=== PATIENT | male | born 1940 | race Caucasian/White ===

== ENCOUNTER 2020-04-26 14:15 | Inpatient (IN) | payer MEDICARE ==
[2020-04-26] MEDS ORDERED: NALOXONE 0.4 MG/ML 1 ML VIAL IV PRN (17:53)
[2020-04-26 19:01] LABS: Basophils % (A) 0 %; Eosinophils # (A) 0.2 k/uL (0-0.7); Eosinophils % (A) 2 %; HCT 24.7 % (39.0-53.0); Lymphocytes # (A) 0.7 k/uL (1.0-4.8); Lymphocytes % (A) 7 %; MCHC 32.6 g/dL (31.0-37.0); MCV 98.2 fL (80.0-100.0); Mean Platelet Volume 10.2; Monocytes # (A) 0.4 k/uL (0-1.0); Monocytes % (A) 4 %; Neutrophils # (A) 8.9 k/uL (1.3-7.7); Neutrophils % (A) 85 %; Platelet Count 132 k/uL (150-450); RBC 2.52 m/uL (4.30-5.90); WBC 10.4 k/uL (3.8-10.6)
[2020-04-26 19:05] LABS: Albumin 2.6 g/dL (3.5-5.0); Calcium 8.2 mg/dL (8.4-10.2); Magnesium 2.2 mg/dL (1.6-2.3); Potassium 5.4 mmol/L (3.5-5.1); Total Bilirubin 0.5 mg/dL (0.2-1.3)
[2020-04-26] MEDS: PIPERACILLIN-TAZOBACTAM 3.375 GM in SODIUM CHLORIDE 0.9% 100 ML IVPB SCH (22:59)
[2020-04-26] MEDS: SODIUM BICARBONATE TAB 650 MG TAB PO SCH (23:00)
[2020-04-26] MEDS: busPIRone HCl 5 MG TAB PO SCH (23:00)
[2020-04-26] MEDS: QUEtiapine 25 MG TAB PO SCH (23:01)
[2020-04-26] MEDS: DOCUSATE 100 MG CAP PO SCH (23:01)
[2020-04-26] MEDS: ISOSORBIDE MONONITRATE ER 30 MG TAB.ER.24H PO SCH (23:01)
[2020-04-26] MEDS: METOPROLOL TARTRATE 25 MG TAB PO SCH (23:01)
[2020-04-26] MEDS: DOXAZOSIN 4 MG TAB PO SCH (23:01)
[2020-04-26] MEDS: MONTELUKAST 10 MG TAB PO SCH (23:01)
[2020-04-26] MEDS: hydrALAZINE HCL 50 MG TAB PO SCH (23:02)
--- NOTE | 2020-04-27 00:10 | P.HPIM ---
History of Present Illness H&P Date: 04/26/20 Chief Complaint: transferred to our facility for possible HD 79 year old male with CKD IV, COPD, CAD s/p CABG 2 months ago (per patient report, however his scars looks older). patient is a transfer from [facility] for possible hemodialysis. He was admitted there from 04/15/2020 until today 04/26/2020. where he initially presented with chest pain with features of angina, and fatigue. he had extensive workup over there. from cardiac standpoint, Dr Araya from cardiology , suggested to continue with maximal medical therapy after performing a nuclear stress test. patient is s/p CABG about 2 months ago (however his scars looks older) imaging of the chest suggested possible pneumonia, he was treated with antibiotics, vancomycin was discontinued on 04/22, and he is currently on Zosyn only , for possible aspiration pneumonia, per Dr Hair from ID recommendations his renal function deteriorated from his baseline, patient initially thought to have obstructive uropathy as confirmed by large post void residual volume, however, renal US did not show any hydronephrosis, patient was very acidotic, so nephrology service was following closely and continued on lasix due to fluid overload (lasix on hold today) , and Na bicarb PO, it seems like he was not s howing significant improvement , and was trasnferred to our facility based on nephrology recommendations for possible need to initiate hemodialysis patient has chronic anemia , with no report of active or acute bleeding. he was also found to have large gall bladder with gall stones, imaging suggested chronic cholecystitis, Gen surgery was following , no recommendations for any immediate surgical intervention patient otherwise, has no compliants, he continues to feel tired , and labored breathing with minimal exertion. Review of Systems Pertinent positives as noted in HPI. All other systems were reviewed and are negative Past Medical History Past Medical History: Coronary Artery Disease (CAD), COPD, CVA/TIA, GERD/Reflux, Hearing Disorder / Deafness, Hypertension, Osteoarthritis (OA), Renal Disease, Respiratory Disorder Additional Past Medical History / Comment(s): ABDOMINAL ANEURYSM History of Any Multi-Drug Resistant Organisms: None Reported Past Surgical History: Appendectomy, Bowel Resection, Coronary Bypass/CABG, Hernia Repair Additional Past Surgical History / Comment(s): Neck Fusion 1979 x2, CRANIOTOMY, TRIPLE BYPASS, LEFT CAROTID SURGERY. Past Anesthesia/Blood Transfusion Reactions: No Reported Reaction Past Psychological History: No Psychological Hx Reported Smoking Status: Former smoker Past Alcohol Use History: None Reported Additional Past Alcohol Use History / Comment(s): PT STATES HE QUIT SMOKING 6 MONTHS AGO. Past Drug Use History: None Reported - Past Family History Sister(s) Family Medical History: Cancer Additional Family Medical History / Comment(s): BONE CA Medications and Allergies Home Medications Medication Instructions Recorded Confirmed Type Zafirlukast 20 mg PO BID 09/30/14 04/26/20 History hydroCHLOROthiazide [Hydrodiuril] 25 mg PO DAILY 09/30/14 04/26/20 History Albuterol Nebulized [Ventolin 2.5 mg INHALATION RT-Q4H PRN 04/26/20 04/26/20 History Nebulized] Carvedilol [Coreg] 25 mg PO BID 04/26/20 04/26/20 History Ipratropium Nebulized [Atrovent 0.5 mg INHALATION RT-BID 04/26/20 04/26/20 History Nebulized 0.2 MG/ML] Ipratropium Nebulized [Atrovent 0.5 mg INHALATION RT-Q4H PRN 04/26/20 04/26/20 History Nebulized 0.2 MG/ML] Lisinopril [Zestril] 10 mg PO DAILY 04/26/20 04/26/20 History Spironolactone 75 mg PO DAILY 04/26/20 04/26/20 History Tamsulosin HCl [Flomax] 0.4 mg PO DAILY 04/26/20 04/26/20 History Terazosin HCl 10 mg PO HS 04/26/20 04/26/20 History busPIRone HCL [Buspar] 7.5 mg PO BID 04/26/20 04/26/20 History cloNIDine HCL 0.3 mg PO TID 04/26/20 04/26/20 History hydrALAZINE HCL [Apresoline] 100 mg PO BID 04/26/20 04/26/20 History minoxidiL [Minoxidil] 2.5 mg PO BID 04/26/20 04/26/20 History Allergies Allergy/AdvReac Type Severity Reaction Status Date / Time morphine Allergy Rash/Hives Verified 04/26/20 18:06 Physical Exam Vitals: Vital Signs Temp Pulse Resp BP Pulse Ox 10/05/20 17:03 98.6 F 71 20 180/82 94 L Intake and Output 04/26/20 04/26/20 04/26/20 06:59 14:59 22:59 Output Total 200 Balance -200 Output: Urine 200 Other: Weight 68.039 kg Constitutional: No acute distress, conversant, pleasant Eyes: Anicteric sclerae, moist conjunctiva, Pupils equal round reactive to light ENMT: NC/AT Oropharynx clear, no erythema, or exudates Neck: Supple, FROM, no masses, or JVD No carotid bruits No thyromegaly Lungs: good breath sounds bilaterally , with end expiratory wheezing scattered Clear to percussion Normal respiratory effort, no accessory muscle use Cardiovascular: Heart regular in rate and rhythm, systolic murmurs, no gallops, or rubs No peripheral edema Abdominal: Soft Nontender, no guarding, rebound or rigidity Abdomen moving with respiration Normoactive bowel sounds No hepatomegaly, No splenomegaly No palpable mass No abdominal wall hernia noted Skin: Normal temperature, tone, texture, turgor No induration No subcutaneous nodules No rash, lesions No ulcers Extremities: No digital cyanosis No clubbing Pedal pulses intact and symmetrical Radial pulses intact and symmetrical No calf tenderness Psychiatric: Alert and oriented to person, place flat affect fair judgement Neuro Muscles Strength -4/5 in all 4 extremities Sensation to light touch grossly present throughout Cranial nerves II-XII grossly intact No focal sensory deficits Lymphatics: no palpable cervical or supraclavicular , or inguinal lymph nodes Results CBC & Chem 7: 04/26/20 18:21 04/26/20 18:21 Labs: Abnormal Lab Results - Last 24 Hours (Table) 04/26/20 04/26/20 Range/Units 18:21 18:21 RBC 2.52 L (4.30-5.90) m/uL Hgb 8.0 L (13.0-17.5) gm/dL Hct 24.7 L (39.0-53.0) % Plt Count 132 L (150-450) k/uL Neutrophils # 8.9 H (1.3-7.7) k/uL Lymphocytes # 0.7 L (1.0-4.8) k/uL Potassium 5.4 H (3.5-5.1) mmol/L Chloride 109 H (98-107) mmol/L BUN 90 H (9-20) mg/dL Creatinine 3.74 H (0.66-1.25) mg/dL Glucose 104 H (74-99) mg/dL Calcium 8.2 L (8.4-10.2) mg/dL Alkaline Phosphatase 37 L (38-126) U/L Total Protein 5.0 L (6.3-8.2) g/dL Albumin 2.6 L (3.5-5.0) g/dL Thrombosis Risk Factor Assmnt - Choose All That Apply Any of the Below Risk Factors Present?: Yes Each Factor Represents 1 point: Medical pt on bed rest, Serious lung disease incl. pneumonia (< 1month) Other Risk Factors: Yes Each Risk Factor Represents 3 Points: Age 75 years or older Other congenital or acquired thrombophilia - If yes, enter type in comment: No Thrombosis Risk Factor Assessment Total Risk Factor Score: 5 Thrombosis Risk Factor Assessment Level: High Risk Assessment and Plan Assessment: acute kidney injury on CKD IV, non oliguric mild hyperkalemia BPH , s/p lucas cath at [facility] nephrology following , lasix on hold continue Na Bicarb PO presented with lucas cath in place, cath care plans for possible hemodialysis per nephrology , vascular consult for possible access monitor K and renal function avoid nephrotoxic meds resume flomax and terazosin aspiration pneumonia continue with zosyn blood cultures negative from 04/20 and 04/21 tylenol for fever hypertension continue BP meds with hold parameters due to recent episodes of hypotension metoprolol imdur hydralazin COPD supplemental oxygen as needed to keep Oxygen sat >92% duoneb PRN monteleukast chronic anemia Mild thrombocytopenia no evidence of bleeding close monitor of Hgb and platelets CAD s/p CABG cardiac workup at [facility] , cardiology recommended maximal medical therapy incidental findings at [facility] AAA 4.7 cm , descending thoracic aortic aneurysm 3.5 cm 4mm Left basilar pulmonary nodule , F/U CT in 6 months Gall stone with large Gall bladder, possible chronic cholecystitis , consider Gen surgery consult Preformed a thorough record review from recent hospitalization at [facility] as summarized in HPI CODE STATUS: Full code DVT prophylaxis: Heparin subcu 3 times a day Discussed with: Patient, ER Anticipated length of stay more than [address]: Pending clinical course A total of 75 minutes was spent on the care of this complex patient more than 50% of the time was spent in counseling and care coordination.
[2020-04-27] MEDS: HEPARIN SODIUM,PORCINE 5,000 UNIT/ML 1 ML VIAL SQ SCH ×3 (00:21→17:31)
[2020-04-27] MEDS: IPRATROPIUM-ALBUTEROL 3 ML NEB INHALATION PRN ×4 (04:24→20:53)
[2020-04-27 07:23] LABS: Basophils % (A) 0 %; Eosinophils # (A) 0.3 k/uL (0-0.7); Eosinophils % (A) 3 %; HCT 23.2 % (39.0-53.0); HGB 7.6 gm/dL (13.0-17.5); Lymphocytes # (A) 0.8 k/uL (1.0-4.8); Lymphocytes % (A) 7 %; MCH 32.1 pg (25.0-35.0); MCHC 32.7 g/dL (31.0-37.0); Mean Platelet Volume 10.3; Monocytes # (A) 0.5 k/uL (0-1.0); Monocytes % (A) 4 %; Neutrophils # (A) 9.9 k/uL (1.3-7.7); Neutrophils % (A) 86 %; Platelet Count 134 k/uL (150-450); RBC 2.37 m/uL (4.30-5.90); WBC 11.6 k/uL (3.8-10.6)
[2020-04-27 07:29] LABS: INR 1.1 (<1.2); Partial Thromboplastin Time 25.5 sec (22.0-30.0)
[2020-04-27 07:41] LABS: Albumin 2.2 g/dL (3.5-5.0); Calcium 7.8 mg/dL (8.4-10.2); Magnesium 2.1 mg/dL (1.6-2.3); Potassium 5.1 mmol/L (3.5-5.1); Total Bilirubin 0.5 mg/dL (0.2-1.3); Total Protein 4.5 g/dL (6.3-8.2)
[2020-04-27] MEDS: ISOSORBIDE MONONITRATE ER 30 MG TAB.ER.24H PO SCH ×2 (08:58→20:22)
[2020-04-27] MEDS: SODIUM BICARBONATE TAB 650 MG TAB PO SCH ×2 (08:58→21:27)
[2020-04-27] MEDS: busPIRone HCl 5 MG TAB PO SCH ×2 (08:58→21:28)
[2020-04-27] MEDS: hydrALAZINE HCL 50 MG TAB PO SCH ×3 (08:58→20:25)
[2020-04-27] MEDS: METOPROLOL TARTRATE 25 MG TAB PO SCH ×2 (08:58→17:32)
[2020-04-27] MEDS: QUEtiapine 25 MG TAB PO SCH ×2 (08:58→21:28)
[2020-04-27] MEDS: DOCUSATE 100 MG CAP PO SCH ×2 (08:58→21:28)
[2020-04-27] MEDS: TAMSULOSIN 0.4 MG CAP.ER.24H PO SCH (08:58)
[2020-04-27] MEDS: PIPERACILLIN-TAZOBACTAM 3.375 GM in SODIUM CHLORIDE 0.9% 100 ML IVPB SCH ×2 (08:59→21:27)
[2020-04-27] MEDS: ASPIRIN 81 MG PO SCH (08:59)
--- NOTE | 2020-04-27 10:28 | P.PN ---
Subjective Patient is seen in follow-up for acute kidney injury and chronic kidney disease. Patient was transferred from [facility] yesterday. There has been concern for uremia due to waxing and waning confusion as well as volume overload. Plan is to start hemodialysis today. Currently sitting up in bed. Does feel dyspneic. No vomiting or diarrhea. Has a Hinds catheter. Nonoliguric. Vital signs are stable. General: The patient appeared well nourished and normally developed. HEENT: Head exam is unremarkable. Neck is without jugular venous distension. LUNGS: Breath sounds decreased. HEART: Rate and Rhythm are regular. ABDOMEN: Soft, nontender. EXTREMITITES: No clubbing, cyanosis, or edema. Objective - Vital Signs Vital signs: Vital Signs Temp 97.6 F 04/26/20 20:00 Pulse 68 04/27/20 08:24 Resp 22 04/27/20 04:00 BP 152/68 04/27/20 04:00 Pulse Ox 93 L 04/27/20 08:12 Intake & Output 04/26/20 04/27/20 04/27/20 18:59 06:59 18:59 Output Total 200 1000 Balance -200 -1000 Weight 68.039 kg 68 kg Output: Urine 200 1000 Other: Voiding Method Indwelling Catheter - Labs CBC & Chem 7: 04/27/20 06:38 04/27/20 06:38 Labs: Abnormal Lab Results - Last 24 Hours (Table) 04/26/20 04/26/20 04/27/20 Range/Units 18:21 18:21 06:38 WBC (3.8-10.6) k/uL RBC 2.52 L (4.30-5.90) m/uL Hgb 8.0 L (13.0-17.5) gm/dL Hct 24.7 L (39.0-53.0) % Plt Count 132 L (150-450) k/uL Neutrophils # 8.9 H (1.3-7.7) k/uL Lymphocytes # 0.7 L (1.0-4.8) k/uL Potassium 5.4 H (3.5-5.1) mmol/L Chloride 109 H 111 H (98-107) mmol/L BUN 90 H 81 H (9-20) mg/dL Creatinine 3.74 H 3.87 H (0.66-1.25) mg/dL Glucose 104 H (74-99) mg/dL Calcium 8.2 L 7.8 L (8.4-10.2) mg/dL Alkaline Phosphatase 37 L (38-126) U/L Total Protein 5.0 L 4.5 L (6.3-8.2) g/dL Albumin 2.6 L 2.2 L (3.5-5.0) g/dL 04/27/20 Range/Units 06:38 WBC 11.6 H (3.8-10.6) k/uL RBC 2.37 L (4.30-5.90) m/uL Hgb 7.6 L (13.0-17.5) gm/dL Hct 23.2 L (39.0-53.0) % Plt Count 134 L (150-450) k/uL Neutrophils # 9.9 H (1.3-7.7) k/uL Lymphocytes # 0.8 L (1.0-4.8) k/uL Potassium (3.5-5.1) mmol/L Chloride (98-107) mmol/L BUN (9-20) mg/dL Creatinine (0.66-1.25) mg/dL Glucose (74-99) mg/dL Calcium (8.4-10.2) mg/dL Alkaline Phosphatase (38-126) U/L Total Protein (6.3-8.2) g/dL Albumin (3.5-5.0) g/dL Assessment and Plan Plan: Assessment: 1. Acute kidney injury secondary to ATN secondary to infection as well as cardiorenal syndrome. 2. Chronic kidney disease stage IV with baseline creatinine near 2.5 secondary to nephrosclerosis and ischemic nephropathy. 3. Hypertension with chronic kidney disease. Controlled. 4. Aspiration pneumonia maintained on antibiotics. 5. Volume overload. 6. Encephalopathy. Concern for uremia. 7. Anemia of chronic kidney disease maintained on Aranesp. 8. Metabolic acidosis secondary to chronic kidney disease maintained on oral bicarbonate. 9. Urinary retention maintained on Flomax. Currently has Hinds catheter. Plan: With worsening renal function, volume overload and concern for uremia, I will initiate renal replacement therapy. This was discussed with the patient, his and his daughter yesterday. Vascular surgery consulted for permacath placement. Plan for first treatment of hemodialysis today and second treatment tomorrow. strategic marketing manager to help set up outpatient hemodialysis.
[2020-04-27] MEDS ORDERED: DARBEPOETIN ALFA 40 MCG/0.4 ML SYRINGE SQ SCH (11:00)
--- NOTE | 2020-04-27 14:29 | P.GSCN ---
History of Present Illness History of present illness: 79-year-old which came with the volume overload and acute chronic renal failure consulted for placement of the dialysis catheter. Neck is supple no bruit appreciated Chest is clear few rhonchi at the lung bases Abdomen soft nontender Vascular femorals are 1+ bilateral with some swelling of the extremity Plan is placement of the dialysis catheter risk and complication discussed Past Medical History Past Medical History: Coronary Artery Disease (CAD), COPD, CVA/TIA, GERD/Reflux, Hearing Disorder / Deafness, Hypertension, Osteoarthritis (OA), Renal Disease, Respiratory Disorder Additional Past Medical History / Comment(s): ABDOMINAL ANEURYSM History of Any Multi-Drug Resistant Organisms: None Reported Past Surgical History: Appendectomy, Bowel Resection, Coronary Bypass/CABG, Hernia Repair Additional Past Surgical History / Comment(s): Neck Fusion 1979 x2, CRANIOTOMY, TRIPLE BYPASS, LEFT CAROTID SURGERY. Past Anesthesia/Blood Transfusion Reactions: No Reported Reaction Past Psychological History: No Psychological Hx Reported Smoking Status: Former smoker Past Alcohol Use History: None Reported Additional Past Alcohol Use History / Comment(s): PT STATES HE QUIT SMOKING 6 MONTHS AGO. Past Drug Use History: None Reported - Past Family History Sister(s) Family Medical History: Cancer Additional Family Medical History / Comment(s): BONE CA Medications and Allergies Home Medications Medication Instructions Recorded Confirmed Type Zafirlukast 20 mg PO BID 09/30/14 04/27/20 History hydroCHLOROthiazide [Hydrodiuril] 25 mg PO DAILY 09/30/14 04/27/20 History Albuterol Nebulized [Ventolin 2.5 mg INHALATION RT-Q4H PRN 04/26/20 04/26/20 History Nebulized] Carvedilol [Coreg] 25 mg PO BID 04/26/20 04/27/20 History Ipratropium Nebulized [Atrovent 0.5 mg INHALATION RT-BID 04/26/20 04/27/20 History Nebulized 0.2 MG/ML] Ipratropium Nebulized [Atrovent 0.5 mg INHALATION RT-Q4H PRN 04/26/20 04/27/20 History Nebulized 0.2 MG/ML] Lisinopril [Zestril] 10 mg PO BID 04/26/20 04/27/20 History Spironolactone 75 mg PO DAILY 04/26/20 04/27/20 History Tamsulosin HCl [Flomax] 0.4 mg PO HS 04/26/20 04/27/20 History Terazosin HCl 10 mg PO HS 04/26/20 04/27/20 History busPIRone HCL [Buspar] 7.5 mg PO BID 04/26/20 04/27/20 History cloNIDine HCL 0.3 mg PO TID 04/26/20 04/27/20 History hydrALAZINE HCL [Apresoline] 100 mg PO BID 04/26/20 04/27/20 History minoxidiL [Minoxidil] 2.5 mg PO BID 04/26/20 04/27/20 History Aspirin EC [Ecotrin Low Dose] 81 mg PO DAILY 04/27/20 04/27/20 History Docusate [Colace] 100 mg PO DAILY 04/27/20 04/27/20 History Ferrous Sulfate [Feosol] 325 mg PO BID 04/27/20 04/27/20 History Allergies Allergy/AdvReac Type Severity Reaction Status Date / Time morphine Allergy Rash/Hives Verified 04/27/20 08:32 Surgical - Exam Vital Signs Temp Pulse Resp BP Pulse Ox 98.6 F 71 20 180/82 94 L 04/26/20 17:03 04/26/20 17:03 04/26/20 17:03 04/26/20 17:03 04/26/20 17:03 Results - Labs 04/27/20 06:38 04/27/20 06:38 Abnormal Lab Results - Last 24 Hours (Table) 04/26/20 04/26/20 04/27/20 Range/Units 18:21 18:21 06:38 WBC (3.8-10.6) k/uL RBC 2.52 L (4.30-5.90) m/uL Hgb 8.0 L (13.0-17.5) gm/dL Hct 24.7 L (39.0-53.0) % Plt Count 132 L (150-450) k/uL Neutrophils # 8.9 H (1.3-7.7) k/uL Lymphocytes # 0.7 L (1.0-4.8) k/uL Potassium 5.4 H (3.5-5.1) mmol/L Chloride 109 H 111 H (98-107) mmol/L BUN 90 H 81 H (9-20) mg/dL Creatinine 3.74 H 3.87 H (0.66-1.25) mg/dL Glucose 104 H (74-99) mg/dL Calcium 8.2 L 7.8 L (8.4-10.2) mg/dL Alkaline Phosphatase 37 L (38-126) U/L Total Protein 5.0 L 4.5 L (6.3-8.2) g/dL Albumin 2.6 L 2.2 L (3.5-5.0) g/dL 04/27/20 Range/Units 06:38 WBC 11.6 H (3.8-10.6) k/uL RBC 2.37 L (4.30-5.90) m/uL Hgb 7.6 L (13.0-17.5) gm/dL Hct 23.2 L (39.0-53.0) % Plt Count 134 L (150-450) k/uL Neutrophils # 9.9 H (1.3-7.7) k/uL Lymphocytes # 0.8 L (1.0-4.8) k/uL Potassium (3.5-5.1) mmol/L Chloride (98-107) mmol/L BUN (9-20) mg/dL Creatinine (0.66-1.25) mg/dL Glucose (74-99) mg/dL Calcium (8.4-10.2) mg/dL Alkaline Phosphatase (38-126) U/L Total Protein (6.3-8.2) g/dL Albumin (3.5-5.0) g/dL Diabetes panel 04/26/20 04/27/20 Range/Units 18:21 06:38 Sodium 138 138 (137-145) mmol/L Potassium 5.4 H 5.1 (3.5-5.1) mmol/L Chloride 109 H 111 H (98-107) mmol/L Carbon Dioxide 24 26 (22-30) mmol/L BUN 90 H 81 H (9-20) mg/dL Creatinine 3.74 H 3.87 H (0.66-1.25) mg/dL Glucose 104 H 83 (74-99) mg/dL Calcium 8.2 L 7.8 L (8.4-10.2) mg/dL AST 18 18 (17-59) U/L ALT 20 18 (4-49) U/L Alkaline Phosphatase 37 L 40 (38-126) U/L Total Protein 5.0 L 4.5 L (6.3-8.2) g/dL Albumin 2.6 L 2.2 L (3.5-5.0) g/dL Calcium panel 04/26/20 04/27/20 Range/Units 18:21 06:38 Calcium 8.2 L 7.8 L (8.4-10.2) mg/dL Albumin 2.6 L 2.2 L (3.5-5.0) g/dL Pituitary panel 04/26/20 04/27/20 Range/Units 18:21 06:38 Sodium 138 138 (137-145) mmol/L Potassium 5.4 H 5.1 (3.5-5.1) mmol/L Chloride 109 H 111 H (98-107) mmol/L Carbon Dioxide 24 26 (22-30) mmol/L BUN 90 H 81 H (9-20) mg/dL Creatinine 3.74 H 3.87 H (0.66-1.25) mg/dL Glucose 104 H 83 (74-99) mg/dL Calcium 8.2 L 7.8 L (8.4-10.2) mg/dL Adrenal panel 04/26/20 04/27/20 Range/Units 18:21 06:38 Sodium 138 138 (137-145) mmol/L Potassium 5.4 H 5.1 (3.5-5.1) mmol/L Chloride 109 H 111 H (98-107) mmol/L Carbon Dioxide 24 26 (22-30) mmol/L BUN 90 H 81 H (9-20) mg/dL Creatinine 3.74 H 3.87 H (0.66-1.25) mg/dL Glucose 104 H 83 (74-99) mg/dL Calcium 8.2 L 7.8 L (8.4-10.2) mg/dL Total Bilirubin 0.5 0.5 (0.2-1.3) mg/dL AST 18 18 (17-59) U/L ALT 20 18 (4-49) U/L Alkaline Phosphatase 37 L 40 (38-126) U/L Total Protein 5.0 L 4.5 L (6.3-8.2) g/dL Albumin 2.6 L 2.2 L (3.5-5.0) g/dL
[2020-04-27] MEDS ORDERED: IV FLUID CONTINUATION 1,000 ML IV ONE (14:50)
[2020-04-27] MEDS ORDERED: MIDAZOLAM 2 MG/2 ML VIAL IV ONE (14:52)
[2020-04-27] MEDS ORDERED: LIDOCAINE 1% INJ 10MG/ML (10 ML MDV) SQ ONE (14:54)
[2020-04-27] MEDS ORDERED: LIDOCAINE 1% INJ 10MG/ML (20 ML MDV) SQ ONE (15:03)
--- NOTE | 2020-04-27 15:30 | P.PCN ---
Description of Procedure: Preoperative diagnoses is acute chronic renal failure Posterior same Sedation time 29 minutes procedure patient brought to the [facility] of the neck and chest was prepped and draped applied in standard manner ultrasound guided needle was introduced to the right jugular area with the local IV sedation micropuncture guidewire was passed and 4-Italian dilator advanced top the guidewire. After that we placed a 4-Italian dilator on the top of the wire and then we passed a regular guidewire. Under fluoroscopy control the catheter was parked parked at the inferior vena cava. Then tunnel was created through the terminal be brought to 90 cm dialysis catheter the neck area. Dilator was advanced. The guidewire then sheath was advanced. The guidewire through the sheath we placed 23 same dialysis catheter were placed sheath was removed. It was junction superior vena cava and atrium. Flushed with heparin saline and Hep-Lock secured with 3-0 nylon dressing applied patient are to the procedure well thank you
--- NOTE | 2020-04-27 15:57 | IR ---
EXAMINATION TYPE: IR cvc insert central tunneled DATE OF EXAM: 04/27/2020 COMPARISON: NONE HISTORY: Fluoroscopy time. Fluoroscopy was provided to the referring clinician.
--- NOTE | 2020-04-27 16:22 | XR ---
EXAMINATION TYPE: XR chest 1V DATE OF EXAM: 04/27/2020 COMPARISON: 09/21/2009 INDICATION: Catheter placement TECHNIQUE: Single frontal view of the chest is obtained. FINDINGS: The heart size is normal. The pulmonary vasculature is prominent. There is diffuse increased lung markings at the right lung base. Milder infiltrate increased lung mar kings are at the left base. The diaphragms are excluded from the [id number]. There is a double-lumen catheter placement the tips in the superior vena cava region. No pneumothorax is evident. IMPRESSION: 1. No pneumothorax post right central venous catheter placement. Tips are within the superior vena ca va region. 2. Right lower lobe and mild left lower lobe infiltrates. Correlate for atypical pulmonary edema or p neumonia.
[2020-04-27 16:26] LABS: Hepatitis A Antibody IgM Non-Reactive (Non-Reactive); Hepatitis B Core IgM Non-Reactive (Non-Reactive); Hepatitis B Surface AB- Quant 3.5 mIU/mL; Hepatitis B Surface Antibody Non-Reactive (Non-Reactive); Hepatitis B Surface Antigen Non-Reactive (Non-Reactive); Hepatitis C IgG Antibody Non-Reactive (Non-Reactive)
--- NOTE | 2020-04-27 16:49 | P.PN ---
Subjective Progress Note Date: 04/27/20 Patient was seen and examined. No acute events overnight. Patient with no complaints. Undergoing dialysis. He denies any chest pain, shortness breath or palpitations. No dizziness. No nausea or vomiting. No fever or chills. Objective - Vital Signs Vital signs: Vital Signs Temp 98.7 F 04/27/20 12:00 Pulse 88 04/27/20 12:00 Resp 18 04/27/20 12:00 BP 135/62 04/27/20 12:00 Pulse Ox 92 L 04/27/20 12:00 Intake & Output 04/26/20 04/27/20 04/27/20 18:59 06:59 18:59 Intake Total 25 Output Total 200 1000 300 Balance -200 -1000 -275 Weight 68.039 kg 68 kg Intake: IV 25 Output: Urine 200 1000 300 Other: Voiding Method Indwelling Catheter Indwelling Catheter - Exam General: [non toxic], [no distress], [appears at stated age] Derm: [warm], [dry], permacath in place Head: [atraumatic], [normocephalic], [symmetric] Eyes: [EOMI], [no lid lag], [anicteric sclera] Mouth: [no lip lesion], [mucus membranes moist] Cardiovascular: [S1S2 reg], [no murmur], [positive posterior tibial pulse bilateral], Lungs: [Decreased breath sounds bilateral], [no rhonchi, no rales] , [no accessory muscle use] Abdominal: [soft], [ nontender to palpation], [no guarding], [no appreciable organomegaly] Ext: [no gross muscle atrophy], [no edema], [no contractures] Neuro: [no focal neuro deficits] Psych: [Alert], [oriented], [appropriate affect] - Labs CBC & Chem 7: 04/27/20 06:38 04/27/20 06:38 Labs: Abnormal Lab Results - Last 24 Hours (Table) 04/26/20 04/26/20 04/27/20 Range/Units 18:21 18:21 06:38 WBC (3.8-10.6) k/uL RBC 2.52 L (4.30-5.90) m/uL Hgb 8.0 L (13.0-17.5) gm/dL Hct 24.7 L (39.0-53.0) % Plt Count 132 L (150-450) k/uL Neutrophils # 8.9 H (1.3-7.7) k/uL Lymphocytes # 0.7 L (1.0-4.8) k/uL Potassium 5.4 H (3.5-5.1) mmol/L Chloride 109 H 111 H (98-107) mmol/L BUN 90 H 81 H (9-20) mg/dL Creatinine 3.74 H 3.87 H (0.66-1.25) mg/dL Glucose 104 H (74-99) mg/dL Calcium 8.2 L 7.8 L (8.4-10.2) mg/dL Alkaline Phosphatase 37 L (38-126) U/L Total Protein 5.0 L 4.5 L (6.3-8.2) g/dL Albumin 2.6 L 2.2 L (3.5-5.0) g/dL 04/27/20 Range/Units 06:38 WBC 11.6 H (3.8-10.6) k/uL RBC 2.37 L (4.30-5.90) m/uL Hgb 7.6 L (13.0-17.5) gm/dL Hct 23.2 L (39.0-53.0) % Plt Count 134 L (150-450) k/uL Neutrophils # 9.9 H (1.3-7.7) k/uL Lymphocytes # 0.8 L (1.0-4.8) k/uL Potassium (3.5-5.1) mmol/L Chloride (98-107) mmol/L BUN (9-20) mg/dL Creatinine (0.66-1.25) mg/dL Glucose (74-99) mg/dL Calcium (8.4-10.2) mg/dL Alkaline Phosphatase (38-126) U/L Total Protein (6.3-8.2) g/dL Albumin (3.5-5.0) g/dL Assessment and Plan Assessment: Acute kidney injury on chronic kidney disease secondary to ATN, aspiration pneumonia, urinary retention and cardiorenal Aspiration pneumonia Metabolic encephalopathy likely related to the above Anemia of chronic disease Hypertension COPD CAD post CABG AAA and thoracic aortic aneurysm Pulmonary nodule Enlarged gallbladder with possible chronic cholecystitis Creatinine 3.87. Plans: Plans for hemodialysis today and tomorrow. Avoid nephrotoxins. Continue Hinds catheter. Continue Doxazosin. Continue Flomax. Continue sodium bicarb supplementation. Repeat BMP tomorrow morning. Plans: Continue Zosyn. [place] thick liquids. Transition to Augmentin on disc harge. Repeat chest x-ray tomorrow morning. Supplemental O2 to maintain O2 saturation greater than 92%. Plans: Management as above. Check ammonia. Hemoglobin 7.6. Likely anemia of chronic disease. Plans: Transfuse if hemoglobin less than 7. Repeat CBC tomorrow morning. Continue Aranesp. BP 135/62. Plans: Continue hydralazine, Imdur, metoprolol. Monitor vitals, adjust medications if necessary. Plans: Continue [place]. DuoNeb as needed for shortness of breath and wheezing. Plans: Continue aspirin and metoprolol. Unsure why patient is not on Lipitor. As seen on imaging from outside hospital. Plans: Needs vascular surgery follow- up in the outpatient setting. Plans: Needs repeat CT in 6 months. Follow-up with PCP. Plans: Needs outpatient follow-up with general surgery. [Patient admitted to initiate dialysis. Plans for dialysis today and tomorrow. He is pending clinical improvement. Likely DC in 2-3 days.]
[2020-04-27] MEDS ORDERED: METOPROLOL TARTRATE 50 MG TAB PO STA (20:40)
[2020-04-27 21:20] LABS: Magnesium 2.2 mg/dL (1.6-2.3); Potassium 4.7 mmol/L (3.5-5.1)
[2020-04-27] MEDS: MONTELUKAST 10 MG TAB PO SCH (21:28)
[2020-04-27] MEDS: NITROGLYCERIN SL TABS 0.4 MG TAB SUBLINGUAL PRN ×3 (21:40→21:53)
[2020-04-27] MEDS: DOXAZOSIN 4 MG TAB PO SCH (22:03)
[2020-04-27] MEDS: ALPRAZolam 0.25 MG TAB PO PRN (22:15)
[2020-04-27] MEDS: ATORVASTATIN 80 MG TAB PO SCH (22:15)
[2020-04-27] MEDS ORDERED: HEPARIN SODIUM,PORCINE 5,000 UNIT/ML 1 ML VIAL IV ONE (22:27)
[2020-04-27] MEDS ORDERED: HEPARIN SODIUM,PORCINE 5,000 UNIT/ML 1 ML VIAL IV PRN (22:27)
--- NOTE | 2020-04-27 22:34 | P.EN ---
I was notified by RN patient complaining of chest pain 8 out of 10 in severity left-sided pressure-like, he claims that this is same pain that to come to the hospital at [facility] initially it is worth noting From my review of his records upon admission initially showed that he had cardiac workup at [facility] with nuclear stress test and cardiology team over there did not recommend any immediate intervention and suggested to continue with maximal medical therapy patient has known coronary artery disease status post CABG many years ago Patient was given nitro he is currently on aspirin, I initiated atorvastatin at maximal dose is unknown why the patient was not on it initially EKG showed A. fib at a rate of 108 has heartrate is running around 90s to low 100s His blood pressure systolic around 90 - 100 After 3 doses of nitro sublingual agent chest pain went down to 5 out of 10 he seems comfortable no sweating no trouble breathing Initial troponin was elevated at 0.98, this is however could be in part a component of his chronic kidney disease now end-stage renal disease. We'll continue to trend troponins We'll initiate the patient on heparin per ACS protocol Continue with aspirin and statin We'll give one-time dose full dose of aspirin Cardiology consult Continue close monitoring and the stepdown unit Monitor for any evidence of bleeding This A. fib on the EKG could be new and wasn't documented in his past history. Potassium and magnesium both checked and they are at goal Patient is on Lopressor he missed the evening dose so he was given one-time dose of 50 mg tonight and then we'll continue his normal dose of 25 mg 3 times a day tomorrow morning
[2020-04-27] MEDS ORDERED: HYDROmorphone 0.5 MG/0.5 ML SYRINGE IVP STA (22:43)
[2020-04-27] MEDS ORDERED: SODIUM CHLORIDE 0.9% 1,000 ML IV SCH (22:45)
[2020-04-27] MEDS: HEPARIN SOD,PORK IN 0.45% NACL 25,000 UNIT in 0.45% NACL 1 250ML.BAG IV SCH (22:57)
[2020-04-28 05:33] LABS: Basophils % (A) 0 %; Eosinophils # (A) 0.3 k/uL (0-0.7); Eosinophils % (A) 3 %; HCT 23.5 % (39.0-53.0); HGB 7.7 gm/dL (13.0-17.5); Lymphocytes # (A) 0.7 k/uL (1.0-4.8); Lymphocytes % (A) 7 %; MCH 32.4 pg (25.0-35.0); MCHC 32.7 g/dL (31.0-37.0); Mean Platelet Volume 10.5; Monocytes # (A) 0.6 k/uL (0-1.0); Monocytes % (A) 6 %; Neutrophils # (A) 8.6 k/uL (1.3-7.7); Neutrophils % (A) 84 %; Platelet Count 132 k/uL (150-450); RBC 2.37 m/uL (4.30-5.90); RDW 14.2 % (11.5-15.5); WBC 10.2 k/uL (3.8-10.6)
[2020-04-28 06:36] LABS: Calcium 7.7 mg/dL (8.4-10.2); Potassium 5.1 mmol/L (3.5-5.1)
[2020-04-28] MEDS: IPRATROPIUM-ALBUTEROL 3 ML NEB INHALATION PRN (08:07)
--- NOTE | 2020-04-28 08:09 | XR ---
EXAMINATION TYPE: XR chest 1V portable DATE OF EXAM: 04/28/2020 COMPARISON: Prior chest x-ray 04/27/2020 HISTORY: Aspiration pneumonia TECHNIQUE: Single frontal view of the chest is obtained. FINDINGS: Bibasilar increased attenuation persists, the hemidiaphragms are obscured. Right jugular c entral venous dialysis catheter shows the distal tip over the superior vena cava. There is no pneumot horax. Postop changes are noted to the cervical spine. Heart is stable. IMPRESSION: Similar findings, correlate for pneumonia, edema, follow-up suggested.
[2020-04-28] MEDS ORDERED: ISOSORBIDE MONONITRATE ER 30 MG TAB.ER.24H PO STA (09:35)
[2020-04-28] MEDS: PIPERACILLIN-TAZOBACTAM 3.375 GM in SODIUM CHLORIDE 0.9% 100 ML IVPB SCH ×2 (09:54→20:50)
[2020-04-28] MEDS: TAMSULOSIN 0.4 MG CAP.ER.24H PO SCH (09:55)
[2020-04-28] MEDS: busPIRone HCl 5 MG TAB PO SCH ×2 (09:55→20:50)
[2020-04-28] MEDS: hydrALAZINE HCL 50 MG TAB PO SCH ×3 (09:55→20:49)
[2020-04-28] MEDS: ASPIRIN 81 MG PO SCH (09:55)
[2020-04-28] MEDS: SODIUM BICARBONATE TAB 650 MG TAB PO SCH (09:55)
[2020-04-28] MEDS: DOCUSATE 100 MG CAP PO SCH ×2 (09:55→20:50)
[2020-04-28] MEDS: QUEtiapine 25 MG TAB PO SCH ×2 (09:55→20:49)
[2020-04-28] MEDS: METOPROLOL TARTRATE 25 MG TAB PO SCH ×3 (10:07→20:49)
--- NOTE | 2020-04-28 10:30 | P.PN ---
Subjective Patient is seen in follow-up for acute kidney injury and chronic kidney disease. Patient was transferred from [facility] on April 26 to initiate renal replacement therapy. There has been concern for uremia due to waxing and waning confusion as well as volume overload. tolerated first treatment of hemodialysis while yesterday. Currently sitting up in bed. continues to complain of shortness of breath. Currently on 2 L nasal cannula. No vomiting or diarrhea. Has a Hinds catheter. Nonoliguric. Vital signs are stable. General: The patient appeared well nourished and normally developed. HEENT: Head exam is unremarkable. Neck is without jugular venous distension. LUNGS: Breath sounds decreased. HEART: Rate and Rhythm are regular. ABDOMEN: Soft, nontender. EXTREMITITES: No clubbing, cyanosis, or edema. Objective - Vital Signs Vital signs: Vital Signs Temp 98.1 F 04/28/20 03:29 Pulse 75 04/28/20 08:17 Resp 18 04/28/20 03:29 BP 152/68 04/28/20 03:29 Pulse Ox 94 L 04/28/20 03:29 Intake & Output 04/27/20 04/28/20 04/28/20 18:59 06:59 18:59 Intake Total 25 240 Output Total 1300 650 200 Balance -1275 -410 -200 Weight 65.6 kg Intake: IV 25 Blood Product 240 Output: Urine 300 650 200 Uretheral (Hinds) 200 Hemodialysis 1000 Other: Voiding Method Indwelling Catheter Indwelling Catheter - Labs CBC & Chem 7: 04/28/20 05:22 04/28/20 05:22 Labs: Abnormal Lab Results - Last 24 Hours (Table) 04/27/20 04/27/20 04/28/20 Range/Units 20:54 23:22 02:34 RBC (4.30-5.90) m/uL Hgb (13.0-17.5) gm/dL Hct (39.0-53.0) % Plt Count (150-450) k/uL Neutrophils # (1.3-7.7) k/uL Lymphocytes # (1.0-4.8) k/uL APTT (22.0-30.0) sec BUN (9-20) mg/dL Creatinine (0.66-1.25) mg/dL Calcium (8.4-10.2) mg/dL Troponin I 0.980 H* 0.919 H* 1.020 H* (0.000-0.034) ng/mL 04/28/20 04/28/20 04/28/20 Range/Units 05:22 05:22 05:22 RBC 2.37 L (4.30-5.90) m/uL Hgb 7.7 L (13.0-17.5) gm/dL Hct 23.5 L (39.0-53.0) % Plt Count 132 L (150-450) k/uL Neutrophils # 8.6 H (1.3-7.7) k/uL Lymphocytes # 0.7 L (1.0-4.8) k/uL APTT 54.5 H (22.0-30.0) sec BUN 59 H (9-20) mg/dL Creatinine 3.15 H (0.66-1.25) mg/dL Calcium 7.7 L (8.4-10.2) mg/dL Troponin I (0.000-0.034) ng/mL Assessment and Plan Plan: Assessment: 1. Acute kidney injury secondary to ATN secondary to infection as well as cardiorenal syndrome. started on hemodialysis on April 27. 2. Chronic kidney disease stage IV with baseline creatinine near 2.5 secondary to nephrosclerosis and ischemic nephropathy. 3. Hypertension with chronic kidney disease. Controlled. 4. Aspiration pneumonia maintained on antibiotics. 5. Volume overload. 6. Encephalopathy. Concern for uremia. improved. 7. Anemia of chronic kidney disease maintained on Aranesp. 8. Metabolic acidosis secondary to chronic kidney disease maintained on oral bicarbonate. 9. Urinary retention maintained on Flomax. Currently has Hinds catheter. Plan: second treatment of hemodialysis today. discontinue oral bicarbonate. Hep-Lock IV fluids. strategic manager to help set up outpatient hemodialysis.
--- NOTE | 2020-04-28 11:32 | P.PN ---
Subjective Progress Note Date: 04/28/20 Patient was seen and examined. Overnight, had an episode of chest pain. He was given aspirin and nitro. EKG was obtained which showed A. fib at a rate of 108. His chest pain improved with 3 doses of sublingual nitroglycerin. Patient was started on heparin drip and cardiology was consulted. He denies any current chest pain, shortness breath or palpitations. He is able to tell me the president, year and the location that he is at. Unable to state which month it is. Objective - Vital Signs Vital signs: Vital Signs Temp 98.2 F 04/28/20 08:00 Pulse 75 04/28/20 08:17 Resp 18 04/28/20 08:00 BP 166/72 04/28/20 08:00 Pulse Ox 92 L 04/28/20 08:00 Intake & Output 04/27/20 04/28/20 04/28/20 18:59 06:59 18:59 Intake Total 25 240 Output Total 1300 650 200 Balance -1275 -410 -200 Weight 65.6 kg Intake: IV 25 Blood Product 240 Output: Urine 300 650 200 Uretheral (Hinds) 200 Hemodialysis 1000 Other: Voiding Method Indwelling Catheter Indwelling Catheter - Exam General: [non toxic], [no distress], [appears at stated age] Derm: [warm], [dry], permacath in place Head: [atraumatic], [normocephalic], [symmetric] Eyes: [EOMI], [no lid lag], [anicteric sclera] Mouth: [no lip lesion], [mucus membranes moist] Cardiovascular: [S1S2 reg], [no murmur], [positive DP pulse bilateral], Lungs: [Decreased breath sounds bilateral], [no rhonchi, no rales] , [no accessory muscle use] Abdominal: [soft], [ nontender to palpation], [no guarding], [no appreciable organomegaly] Ext: [no gross muscle atrophy], [no edema], [no contractures] Neuro: [no focal neuro deficits] Psych: [Alert], [oriented], [appropriate affect] - Labs CBC & Chem 7: 04/28/20 05:22 04/28/20 05:22 Labs: Abnormal Lab Results - Last 24 Hours (Table) 1004/27/20 04/28/20 Range/Units 20:54 23:22 02:34 RBC (4.30-5.90) m/uL Hgb (13.0-17.5) gm/dL Hct (39.0-53.0) % Plt Count (150-450) k/uL Neutrophils # (1.3-7.7) k/uL Lymphocytes # (1.0-4.8) k/uL APTT (22.0-30.0) sec BUN (9-20) mg/dL Creatinine (0.66-1.25) mg/dL Calcium (8.4-10.2) mg/dL Troponin I 0.980 H* 0.919 H* 1.020 H* (0.000-0.034) ng/mL 04/28/20 04/28/20 04/28/20 Range/Units 05:22 05:22 05:22 RBC 2.37 L (4.30-5.90) m/uL Hgb 7.7 L (13.0-17.5) gm/dL Hct 23.5 L (39.0-53.0) % Plt Count 132 L (150-450) k/uL Neutrophils # 8.6 H (1.3-7.7) k/uL Lymphocytes # 0.7 L (1.0-4.8) k/uL APTT 54.5 H (22.0-30.0) sec BUN 59 H (9-20) mg/dL Creatinine 3.15 H (0.66-1.25) mg/dL Calcium 7.7 L (8.4-10.2) mg/dL Troponin I (0.000-0.034) ng/mL Assessment and Plan Assessment: Acute kidney injury on chronic kidney disease secondary to ATN, aspiration pneumonia, urinary retention and cardiorenal Chest pain with troponin elevation and new onset A. fib Aspiration pneumonia Metabolic encephalopathy likely related to the above Anemia of chronic disease Hypertension COPD CAD post CABG AAA and thoracic aortic aneurysm Pulmonary nodule Enlarged gallbladder with possible chronic cholecystitis Creatinine 3.15. Plans: Plans for hemodialysis today. Avoid nephrotoxins. Continue Hinds catheter. Continue Doxazosin. Continue Flomax. Continue sodium bicarb supplementation. Repeat BMP tomorrow morning. Troponin 0.98, 0.919, 1.02 with EKG showing atrial fibrillation. Plans: Con tinue heparin drip. Continue aspirin and Lipitor. Continue beta britni. Follow-up echocardiogram. Follow-up cardiology consultation. Chest x-ray shows persistent pneumonia. Plans: Continue Zosyn. [place] thick liquids. Transition to Augmentin on discharge. Repeat chest x-ray tomorrow morning. Supplemental O2 to maintain O2 saturation greater than 92%. Consult pulmonology. Ammonia negative. Mentation appears to be improving. Plans: Management as above. Hemoglobin 7.7. Likely anemia of chronic disease. Plans: Transfuse if hemoglobin less than 7. Repeat CBC tomorrow morning. Continue Aranesp. BP 166/72. Plans: Continue hydralazine, Imdur, metoprolol. Monitor vitals, adjust medications if necessary. Plans: Continue [place]. DuoNeb as needed for shortness of breath and wheezing. Plans: Continue aspirin and metoprolol. Unsure why patient is not on Lipitor. As seen on imaging from outside hospital. Plans: Needs vascular surgery follow- up in the outpatient setting. Plans: Needs repeat CT in 6 months. Follow-up with PCP. Plans: Needs outpatient follow-up with general surgery. [Patient admitted to initiate dialysis. Plans for dialysis today. On IV antibiotics for aspiration pneumonia. Cardiology consulted for new onset A. fib and troponin elevation. He is pending clinical improvement. Likely DC in 2-3 days.]
--- NOTE | 2020-04-28 12:58 | P.CRDCN ---
<Berkley Lozada - Last Filed: 04/28/20 12:58> History of Present Illness Consult date: 04/28/20 History of present illness: CHIEF COMPLAINT: New onset atrial fibrillation HISTORY OF PRESENT ILLNESS: This is a 79-year old male with a past medical hist ory significant for coronary artery disease with previous CABG, COPD, hypertension, and chronic kidney disease. Patient used to follow in the office with Dr. Hernandez but has not see him in over 4 years. We have been asked to see the patient in consultation for new onset afib. Patient was hospitalized from 04/15/2020 to 04/26/2020 at [facility] secondary to chest pain. Patient was found to have worsening kidney function and was transferred to [facility] for hemodialysis. Patient underwent stress test during his hospitalization at [facility] which revealed an apparent area of reversib ility along the mid inferior, inferior septal wall. In addition 3 times a day is elevated at 1.6. This can be seen in the setting of global, multivessel inducible ischemia. He was evaluated by cardiology at that time and medical management was recommended to patients multiple comorbidities. He also had an echocardiogram performed revealing ejection fraction between 60 and 65% with [id number] mitral regurgitation and [id number] tricuspid regurgitation. Patient examined this morning at the bedside. Patient reports he has been having chest pain intermittently over the past couple weeks. He reports an episode last night of midsternal chest pain that radiated to his back. No radiation to jaw or arm. Mild shortness of breath. He received sublingual nitro with improvement in his chest pain. Patient currently denies chest pain this morning time of examination. Patient was also found to be in atrial fibrillation yesterday. Patient denies history of atrial fibrillation. He is b ack in SR at the time of examination. He was started on heparin drip yesterday. Patient is anemic with hemoglobin of 7.7. Unknown baseline. Patient does report he has been having some black stools. DIAGNOSTICS: EKG reveals atrial fibrillation with mildly uncontrolled rate Chest xray right lower lobe mid left lower lobe infiltrates. Correlate for atypical pulmonary edema or pneumonia. Laboratory data: WBC 10.2. Hemoglobin 7.7. Platelet count 132. Sodium 1:30. Potassium 5.1. BUN 59. Creatinine 3.15. Troponin 0.980. 0.919. 1.020 Current home cardiac medications include minoxidil 2.5 mg twice a day, hydrochlorothiazide 25 mg daily, Apresoline 100 mg twice a day, clonidine 0.3 mg 3 times a day, spironolactone 75 mg daily, lisinopril 10 mg daily REVIEW OF SYSTEMS: At the time of my exam: CONSTITUTIONAL: Denies fever or chills. HEENT: Denies blurred vision, vision changes, or eye pain. Denies hemoptysis CARDIOVASCULAR: Denies chest pain, orthopnea, PND or palpitations RESPIRATORY: Reports mild shortness of breath. GASTROINTESTINAL: Denies abdominal pain. Denies nausea or vomiting. HEMATOLOGIC: Denies bleeding disorders. GENITOURINARY: Denies any blood in urine. SKIN: Denies pruitis. Denies rash. PHYSICAL EXAM: VITAL SIGNS: Reviewed. GENERAL: Well-developed in no acute distress. HEENT: Head is normocephalic. Pupils are equal, round. Sclerae anicteric. Mucous membranes of the mouth are moist. Neck supple. No JVD or thyromegaly LUNGS: Respirations even and unlabored. Lungs coarse with expiratory wheezing noted. HEART: Regular rate and rhythm. S1 and S2 heard. ABDOMEN: Soft. Nondistended. Nontender. EXTREMITIES: Normal range of motion. No clubbing or cyanosis. Peripheral pulses intact. No lower extremity edema NEUROLOGIC: Awake and alert. Oriented x 3. ASSESSMENT: Chest pain with abnormal troponins New onset paroxysmal atrial fibrillation with RVR Anemia, unsure if acute or chronic Coronary artery disease with previous CABG Hypertension End-stage renal disease, recently started on hemodialysis COPD PLAN: Continue IV heparin Monitor hemoglobin. Obtain stool for occult blood. Change imdur to 60mg daily Continue beta britni Monitor telemetry and blood pressure No plans for cardiac cath at this time due to ESRD. We will continue with medical management at this time. Nurse practitioner note has been reviewed by physician. Signing provider agrees with the documented findings, assessment, and plan of care. Past Medical History Past Medical History: Coronary Artery Disease (CAD), COPD, CVA/TIA, GERD/Reflux, Hearing Disorder / Deafness, Hypertension, Osteoarthritis (OA), Renal Disease, Respiratory Disorder Additional Past Medical History / Comment(s): ABDOMINAL ANEURYSM History of Any Multi-Drug Resistant Organisms: None Reported Past Surgical History: Appendectomy, Bowel Resection, Coronary Bypass/CABG, Hernia Repair Additional Past Surgical History / Comment(s): Neck Fusion 1979 x2, CRANIOTOMY, TRIPLE BYPASS, LEFT CAROTID SURGERY. Past Anesthesia/Blood Transfusion Reactions: No Reported Reaction Past Psychological History: No Psychological Hx Reported Smoking Status: Former smoker Past Alcohol Use History: None Reported Additional Past Alcohol Use History / Comment(s): PT STATES HE QUIT SMOKING 6 MONTHS AGO. Past Drug Use History: None Reported - Past Family History Sister(s) Family Medical History: Cancer Additional Family Medical History / Comment(s): BONE CA Medications and Allergies Home Medications Medication Instructions Recorded Confirmed Type Zafirlukast 20 mg PO BID 09/30/14 04/27/20 History hydroCHLOROthiazide [Hydrodiuril] 25 mg PO DAILY 09/30/14 04/27/20 History Albuterol Nebulized [Ventolin 2.5 mg INHALATION RT-Q4H PRN 04/26/20 04/26/20 History Nebulized] Carvedilol [Coreg] 25 mg PO BID 04/26/20 04/27/20 History Ipratropium Nebulized [Atrovent 0.5 mg INHALATION RT-BID 04/26/20 04/27/20 History Nebulized 0.2 MG/ML] Ipratropium Nebulized [Atrovent 0.5 mg INHALATION RT-Q4H PRN 04/26/20 04/27/20 History Nebulized 0.2 MG/ML] Lisinopril [Zestril] 10 mg PO BID 04/26/20 04/27/20 History Spironolactone 75 mg PO DAILY 04/26/20 04/27/20 History Tamsulosin HCl [Flomax] 0.4 mg PO HS 04/26/20 04/27/20 History Terazosin HCl 10 mg PO HS 04/26/20 04/27/20 History busPIRone HCL [Buspar] 7.5 mg PO BID 04/26/20 04/27/20 History cloNIDine HCL 0.3 mg PO TID 04/26/20 04/27/20 History hydrALAZINE HCL [Apresoline] 100 mg PO BID 04/26/20 04/27/20 History minoxidiL [Minoxidil] 2.5 mg PO BID 04/26/20 04/27/20 History Aspirin EC [Ecotrin Low Dose] 81 mg PO DAILY 04/27/20 04/27/20 History Docusate [Colace] 100 mg PO DAILY 04/27/20 04/27/20 History Ferrous Sulfate [Feosol] 325 mg PO BID 04/27/20 04/27/20 History Allergies Allergy/AdvReac Type Severity Reaction Status Date / Time morphine Allergy Rash/Hives Verified 04/27/20 08:32 Physical Exam Vitals: Vital Signs Temp Pulse Pulse Resp BP Pulse Ox 04/28/20 08:17 75 04/28/20 08:07 77 04/28/20 03:29 98.1 F 58 L 18 152/68 94 L 04/28/20 00:00 99 F 93 20 107/59 94 L 04/27/20 20:23 98.7 F 114 H 19 115/66 94 L 04/27/20 17:59 97.2 F L 18 122/71 04/27/20 12:00 98.7 F 88 16 135/62 92 L 04/27/20 11:57 67 04/27/20 11:48 66 Intake and Output 04/27/20 04/28/20 04/28/20 22:59 06:59 14:59 Intake Total 240 Output Total 1300 650 200 Balance -1300 -410 -200 Intake: Blood Product 240 Output: Urine 300 650 200 Uretheral (Hinds) 200 Hemodialysis 1000 Other: Voiding Method Indwelling Catheter Indwelling Catheter Weight 65.6 kg Results 04/28/20 05:22 04/28/20 05:22 Cardiac Enzymes 04/27/20 04/27/20 04/28/20 Range/Units 20:54 23:22 02:34 Troponin I 0.980 H* 0.919 H* 1.020 H* (0.000-0.034) ng/mL Coagulation 04/28/20 Range/Units 05:22 APTT 54.5 H (22.0-30.0) sec CBC 04/28/20 Range/Units 05:22 WBC 10.2 (3.8-10.6) k/uL RBC 2.37 L (4.30-5.90) m/uL Hgb 7.7 L (13.0-17.5) gm/dL Hct 23.5 L (39.0-53.0) % Plt Count 132 L (150-450) k/uL Comprehensive Metabolic Panel 04/27/20 04/28/20 Range/Units 20:54 05:22 Sodium 138 (137-145) mmol/L Potassium 4.7 5.1 (3.5-5.1) mmol/L Chloride 107 (98-107) mmol/L Carbon Dioxide 27 (22-30) mmol/L BUN 59 H (9-20) mg/dL Creatinine 3.15 H (0.66-1.25) mg/dL Glucose 83 (74-99) mg/dL Calcium 7.7 L (8.4-10.2) mg/dL Current Medications Generic Name Dose Route Start Last Admin Trade Name Freq PRN Reason Stop Dose Admin Acetaminophen 650 mg 04/26/20 17:53 Acetaminophen Tab 325 Mg Tab PO Q6HR PRN Mild Pain or Fever > 100.5 Albuterol/Ipratropium 3 ml 04/26/20 22:21 04/28/20 08:07 Ipratropium-Albuterol 3 Ml Neb INHALATION 3 ml RT-Q2H PRN Administration Shortness Of Breath Or Wheezing Alprazolam 0.25 mg 04/27/20 22:07 04/27/20 22:15 Alprazolam 0.25 Mg Tab PO 0.25 mg QID PRN Administration Anxiety Aspirin 81 mg 04/27/20 09:00 04/28/20 09:55 Aspirin 81 Mg PO 81 mg DAILY CELESTINO Administration Atorvastatin Calcium 80 mg 04/27/20 22:00 04/27/20 22:15 Atorvastatin 80 Mg Tab PO 80 mg HS CELESTINO Administration Buspirone HCl 7.5 mg 04/26/20 22:30 04/28/20 09:55 Buspirone Hcl 5 Mg Tab PO 7.5 mg BID CELESTINO Administration Darbepoetin Edu 40 mcg 04/27/20 11:00 04/27/20 21:26 Darbepoetin Edu 40 Mcg/0.4 Ml Syringe SQ 40 mcg Q7D CELESTINO Administration Docusate Sodium 100 mg 04/26/20 22:30 04/28/20 09:55 Docusate 100 Mg Cap PO 100 mg BID CELESTINO Administration Doxazosin Mesylate 2 mg 04/26/20 22:30 04/27/20 22:03 Doxazosin 4 Mg Tab PO Not Given HS CELESTINO Heparin Sodium (Porcine) 0 unit 04/27/20 22:27 Heparin Sodium,Porcine 5,000 Unit/Ml 1 Ml Vial IV PER PROTOCOL PRN Low PTT Protocol Hydralazine HCl 100 mg 04/26/20 22:30 04/28/20 09:55 Hydralazine Hcl 50 Mg Tab PO 100 mg TID CELESTINO Administration Piperacillin Sod/Tazobactam 100 mls @ 25 mls/hr 04/26/20 22:21 04/28/20 09:54 Sod 3.375 gm/ Sodium Chloride IVPB 25 mls/hr Q12H CELESTINO Administration Heparin Sodium/Sodium Chloride 250 mls @ 8.16 mls/hr 04/27/20 22:30 04/27/20 22:57 25,000 unit/ Sodium Chloride IV 12 units/kg/hr .Q24H CELESTINO 8.16 mls/hr Administration Protocol 12 UNITS/KG/HR Isosorbide Mononitrate 60 mg 04/29/20 09:00 Isosorbide Mononitrate Er 60 Mg Tab.Er.24h PO DAILY REPLACED BY [facility] Metoprolol Tartrate 25 mg 04/28/20 09:00 04/28/20 10:07 Metoprolol Tartrate 25 Mg Tab PO 25 mg TID CELESTINO Administration Montelukast Sodium 10 mg 04/26/20 22:30 04/27/20 21:28 Montelukast 10 Mg Tab PO 10 mg HS CELESTINO Administration Naloxone HCl 0.2 mg 04/26/20 17:53 Naloxone 0.4 Mg/Ml 1 Ml Vial IV Q2M PRN Opioid Reversal Nitroglycerin 0.4 mg 04/27/20 21:31 04/27/20 21:53 Nitroglycerin Sl Tabs 0.4 Mg Tab SUBLINGUAL 0.4 mg Q5M PRN Administration Chest Pain Quetiapine Fumarate 25 mg 04/26/20 22:30 04/28/20 09:55 Quetiapine 25 Mg Tab PO 25 mg BID CELESTINO Administration Tamsulosin HCl 0.4 mg 04/27/20 08:30 04/28/20 09:55 Tamsulosin 0.4 Mg Cap.Er.24h PO 0.4 mg PC-BRKFST CELESTINO Administration Intake and Output 04/27/20 04/28/20 04/28/20 22:59 06:59 14:59 Intake Total 240 Output Total 1300 650 200 Balance -1300 -410 -200 Intake: Blood Product 240 Output: Urine 300 650 200 Uretheral (Hinds) 200 Hemodialysis 1000 Other: Voiding Method Indwelling Catheter Indwelling Catheter Weight 65.6 kg 04/28/20 05:22 04/28/20 05:22 <Ralph Lynn - Last Filed: 04/28/20 16:24> History of Present Illness History of present illness: Records reviewed from [facility]. Worsening kidney function now on dialysis. He does have elevated troponins, chest pain and abnormal stress test. Ideally perform left heart catheterization if patient likely to remain on dialysis. If kidney injury and dialysis felt to be possibly temporary, we would have to reevaluate. Patient however admits to new onset of black stools over the last few days. He does have some confusion and unclear of his reliability. We will check Hemoccult stools. May consider GI consult to further evaluate. If patient is having active bleeding, patient would not be a good interventional candidate. Continue with heparin drip for elevated troponins and new-onset atrial fibrillation. Ralph Lynn, DO Physical Exam Vitals: Vital Signs Temp Pulse Pulse Resp BP Pulse Ox 04/28/20 08:17 75 04/28/20 08:07 77 04/28/20 08:00 98.2 F 74 18 166/72 92 L 04/28/20 03:29 98.1 F 58 L 18 152/68 94 L 04/28/20 00:00 99 F 93 20 107/59 94 L 04/27/20 20:23 98.7 F 114 H 19 115/66 94 L 04/27/20 17:59 97.2 F L 18 122/71 Intake and Output 04/28/20 04/28/20 04/28/20 06:59 14:59 22:59 Intake Total 240 100 Output Total 650 800 220 Balance -410 -700 -220 Intake: Oral 100 Blood Product 240 Output: Urine 650 800 220 Uretheral (Hinds) 300 220 Other: Voiding Method Indwelling Catheter Weight 65.6 kg Results 04/28/20 05:22 04/28/20 05:22 Cardiac Enzymes 04/27/20 04/27/20 04/28/20 Range/Units 20:54 23:22 02:34 Troponin I 0.980 H* 0.919 H* 1.020 H* (0.000-0.034) ng/mL Coagulation 04/28/20 Range/Units 05:22 APTT 54.5 H (22.0-30.0) sec CBC 04/28/20 Range/Units 05:22 WBC 10.2 (3.8-10.6) k/uL RBC 2.37 L (4.30-5.90) m/uL Hgb 7.7 L (13.0-17.5) gm/dL Hct 23.5 L (39.0-53.0) % Plt Count 132 L (150-450) k/uL Comprehensive Metabolic Panel 04/27/20 04/28/20 Range/Units 20:54 05:22 Sodium 138 (137-145) mmol/L Potassium 4.7 5.1 (3.5-5.1) mmol/L Chloride 107 (98-107) mmol/L Carbon Dioxide 27 (22-30) mmol/L BUN 59 H (9-20) mg/dL Creatinine 3.15 H (0.66-1.25) mg/dL Glucose 83 (74-99) mg/dL Calcium 7.7 L (8.4-10.2) mg/dL Current Medications Generic Name Dose Route Start Last Admin Trade Name Freq PRN Reason Stop Dose Admin Acetaminophen 650 mg 04/26/20 17:53 Acetaminophen Tab 325 Mg Tab PO Q6HR PRN Mild Pain or Fever > 100.5 Albuterol/Ipratropium 3 ml 04/26/20 22:21 04/28/20 08:07 Ipratropium-Albuterol 3 Ml Neb INHALATION 3 ml RT-Q2H PRN Administration Shortness Of Breath Or Wheezing Alprazolam 0.25 mg 04/27/20 22:07 04/27/20 22:15 Alprazolam 0.25 Mg Tab PO 0.25 mg QID PRN Administration Anxiety Aspirin 81 mg 04/27/20 09:00 04/28/20 09:55 Aspirin 81 Mg PO 81 mg DAILY CELESTINO Administration Atorvastatin Calcium 80 mg 04/27/20 22:00 04/27/20 22:15 Atorvastatin 80 Mg Tab PO 80 mg HS CELESTINO Administration Buspirone HCl 7.5 mg 04/26/20 22:30 04/28/20 09:55 Buspirone Hcl 5 Mg Tab PO 7.5 mg BID CELESTINO Administration Darbepoetin Edu 40 mcg 04/27/20 11:00 04/27/20 21:26 Darbepoetin Edu 40 Mcg/0.4 Ml Syringe SQ 40 mcg Q7D CELESTINO Administration Docusate Sodium 100 mg 04/26/20 22:30 04/28/20 09:55 Docusate 100 Mg Cap PO 100 mg BID CELESTINO Administration Doxazosin Mesylate 2 mg 04/26/20 22:30 04/27/20 22:03 Doxazosin 4 Mg Tab PO Not Given HS CELESTINO Heparin Sodium (Porcine) 0 unit 04/27/20 22:27 Heparin Sodium,Porcine 5,000 Unit/Ml 1 Ml Vial IV PER PROTOCOL PRN Low PTT Protocol Hydralazine HCl 100 mg 04/26/20 22:30 04/28/20 09:55 Hydralazine Hcl 50 Mg Tab PO 100 mg TID CELESTINO Administration Piperacillin Sod/Tazobactam 100 mls @ 25 mls/hr 04/26/20 22:21 04/28/20 09:54 Sod 3.375 gm/ Sodium Chloride IVPB 25 mls/hr Q12H CELESTINO Administration Heparin Sodium/Sodium Chloride 250 mls @ 8.16 mls/hr 04/27/20 22:30 04/27/20 22:57 25,000 unit/ Sodium Chloride IV 12 units/kg/hr .Q24H CELESTINO 8.16 mls/hr Administration Protocol 12 UNITS/KG/HR Isosorbide Mononitrate 60 mg 04/29/20 09:00 Isosorbide Mononitrate Er 60 Mg Tab.Er.24h PO DAILY REPLACED BY [facility] Metoprolol Tartrate 25 mg 04/28/20 09:00 04/28/20 10:07 Metoprolol Tartrate 25 Mg Tab PO 25 mg TID CELESTINO Administration Montelukast Sodium 10 mg 04/26/20 22:30 04/27/20 21:28 Montelukast 10 Mg Tab PO 10 mg HS CELESTINO Administration Naloxone HCl 0.2 mg 04/26/20 17:53 Naloxone 0.4 Mg/Ml 1 Ml Vial IV Q2M PRN Opioid Reversal Nitroglycerin 0.4 mg 04/27/20 21:31 04/27/20 21:53 Nitroglycerin Sl Tabs 0.4 Mg Tab SUBLINGUAL 0.4 mg Q5M PRN Administration Chest Pain Quetiapine Fumarate 25 mg 04/26/20 22:30 04/28/20 09:55 Quetiapine 25 Mg Tab PO 25 mg BID CELESTINO Administration Tamsulosin HCl 0.4 mg 04/27/20 08:30 04/28/20 09:55 Tamsulosin 0.4 Mg Cap.Er.24h PO 0.4 mg PC-BRKFST CELESTINO Administration Intake and Output 04/28/20 04/28/20 04/28/20 06:59 14:59 22:59 Intake Total 240 100 Output Total 650 800 220 Balance -410 -700 -220 Intake: Oral 100 Blood Product 240 Output: Urine 650 800 220 Uretheral (Hinds) 300 220 Other: Voiding Method Indwelling Catheter Weight 65.6 kg 04/28/20 05:22 04/28/20 05:22
--- NOTE | 2020-04-28 19:43 | ECHOF ---
Referral Reason:chest pain MEASUREMENTS -------- HEIGHT: 175.3 cm WEIGHT: 65.3 kg BP: IVSd: 0.8 cm (0.6 - 1.1) LVIDd: 5.1 cm (3.9 - 5.3) LVPWd: 1.1 cm (0.6 - 1.1) IVSs: 1.3 cm LVIDs: 3.7 cm LVPWs: 1.4 cm LAESV Index (A-L): 52.82 ml/m Ao Diam: 2.9 cm (2.0 - 3.7) AV Cusp: 1.6 cm (1.5 - 2.6) LA Diam: 2.6 cm (2.7 - 3.8) MV EXCURSION: 17.007 mm (> 18.000) MV EF SLOPE: 48 mm/s (70 - 150) EPSS: 0.5 cm MV E Alex: 0.74 m/s MV DecT: 304 ms MV A Alex: 0.94 m/s MV E/A Ratio: 0.79 AV maxP.07 mmHg AV meanP.82 mmHg AR PHT: 653 ms RAP: 5.00 mmHg RVSP: 28.12 mmHg FINDINGS -------- This was a technically good study. The left ventricular size is normal. Left ventricular wall thickness is normal. Overall left vent ricular systolic function is moderately impaired with, an EF between 35 - 40 %. There is paradoxica l/dysynergic septal motion consistent with post-operative status. Increased LAP Grade 2 Diastolic D ysfunction. Mid anteroseptal LV wall motion is hypokinetic. The right ventricle is normal in size. LA is severely dilated >40 ml/m2 The right atrial size is normal. Aortic valve is trileaflet and is mildly thickened. There is mild aortic regurgitation. There is mild aortic stenosis present. Peak/mean gradient across the Aortic Valve is 17.07mmHg / 8.82mmHg. The mitral valve is normal. The mitral valve leaflets are mildly thickened. Mild mitral regurgita tion is present. The tricuspid valve appears structurally normal. Mild tricuspid regurgitation present. Right vent ricular systolic pressure is normal at < 35 mmHg. There is no pulmonic regurgitation present. The aortic root size is normal. Normal inferior vena cava with normal inspiratory collapse consistent with estimated right atrial pre ssure of 5 mmHg. There is no pericardial effusion. CONCLUSIONS -------- 1. The left ventricular size is normal. 2. Left ventricular wall thickness is normal. 3. Overall left ventricular systolic function is moderately impaired with, an EF between 35 - 40 %. 4. There is paradoxical/dysynergic septal motion consistent with post-operative status. 5. Increased LAP Grade 2 Diastolic Dysfunction. 6. Mid anteroseptal LV wall motion is hypokinetic. 7. LA is severely dilated >40 ml/m2 8. Aortic valve is trileaflet and is mildly thickened. 9. There is mild aortic regurgitation. 10. There is mild aortic stenosis present. 11. Peak/mean gradient across the Aortic Valve is 17.07mmHg / 8.82mmHg. 12. The mitral valve leaflets are mildly thickened. 13. Mild mitral regurgitation is present. 14. Mild tricuspid regurgitation present. 15. There is no pericardial effusion. [employer]UAL [employer] TEACHER: Lore Ardon RDCS
[2020-04-28] MEDS: ACETAMINOPHEN TAB 325 MG TAB PO PRN (19:57)
[2020-04-28] MEDS: ISOSORBIDE MONONITRATE ER 30 MG TAB.ER.24H PO SCH (20:37)
[2020-04-28] MEDS: ATORVASTATIN 80 MG TAB PO SCH (20:49)
[2020-04-28] MEDS: MONTELUKAST 10 MG TAB PO SCH (20:50)
[2020-04-28] MEDS: DOXAZOSIN 4 MG TAB PO SCH (20:50)
[2020-04-28] MEDS: HEPARIN SOD,PORK IN 0.45% NACL 25,000 UNIT in 0.45% NACL 1 250ML.BAG IV SCH (20:51)
[2020-04-28] MEDS: ALPRAZolam 0.25 MG TAB PO PRN (23:58)
[2020-04-29] MEDS: ACETAMINOPHEN TAB 325 MG TAB PO PRN (03:25)
[2020-04-29] MEDS ORDERED: HEPARIN SODIUM,PORCINE 5,000 UNIT/ML 1 ML VIAL IV STA (08:37)
[2020-04-29] MEDS: ISOSORBIDE MONONITRATE ER 60 MG TAB.ER.24H PO SCH (09:07)
[2020-04-29] MEDS: ASPIRIN 81 MG PO SCH (09:07)
[2020-04-29] MEDS: DOCUSATE 100 MG CAP PO SCH ×2 (09:07→20:34)
[2020-04-29] MEDS: TAMSULOSIN 0.4 MG CAP.ER.24H PO SCH (09:07)
[2020-04-29] MEDS: busPIRone HCl 5 MG TAB PO SCH ×2 (09:07→20:34)
[2020-04-29] MEDS: hydrALAZINE HCL 50 MG TAB PO SCH ×3 (09:07→22:06)
[2020-04-29] MEDS: QUEtiapine 25 MG TAB PO SCH ×2 (09:07→20:34)
[2020-04-29] MEDS: METOPROLOL TARTRATE 25 MG TAB PO SCH ×3 (09:11→20:34)
[2020-04-29] MEDS: PIPERACILLIN-TAZOBACTAM 3.375 GM in SODIUM CHLORIDE 0.9% 100 ML IVPB SCH ×2 (09:11→22:54)
--- NOTE | 2020-04-29 11:00 | P.PN ---
Subjective Patient is seen in follow-up for acute kidney injury and chronic kidney disease. Patient was transferred from [facility] on April 26 to initiate renal replacement therapy. There has been concern for uremia due to waxing and waning confusion as well as volume overload. Currently sitting up in bed. continues to complain of shortness of breath. Currently on 2 L nasal cannula. No vomiting or diarrhea. Has a Hinds catheter. Nonoliguric. has been working with physical therapy. Vital signs are stable. General: The patient appeared well nourished and normally developed. HEENT: Head exam is unremarkable. Neck is without jugular venous distension. LUNGS: Breath sounds decreased. HEART: Rate and Rhythm are regular. ABDOMEN: Soft, nontender. EXTREMITITES: No clubbing, cyanosis, or edema. Objective - Vital Signs Vital signs: Vital Signs Temp 98.7 F 04/29/20 08:13 Pulse 74 04/29/20 08:13 Resp 14 04/29/20 08:13 BP 128/60 04/29/20 08:13 Pulse Ox 93 L 04/29/20 08:13 Intake & Output 04/28/20 04/29/20 04/29/20 18:59 06:59 18:59 Intake Total 100 418.704 95.608 Output Total 1020 2620 200 Balance -920 -2201.296 -104.392 Weight 56 kg Intake: Intake, IV Titration 178.704 95.608 Amount Heparin Sod,Pork in 0.45% 178.704 95.608 NaCl 25,000 unit In 0.45 % NaCl 1 250ml.bag @ 12 UNITS/KG/HR 8.16 mls/hr IV .Q24H [facility] Rx#: [id number] Oral 100 240 Output: Urine 1020 620 200 Uretheral (Hinds) 520 Hemodialysis 2000 Other: Voiding Method Indwelling Catheter Indwelling Catheter # Bowel Movements 1 - Labs CBC & Chem 7: 04/28/20 05:22 04/28/20 05:22 Labs: Abnormal Lab Results - Last 24 Hours (Table) 04/29/20 Range/Units 06:46 APTT 39.9 H (22.0-30.0) sec Assessment and Plan Plan: Assessment: 1. Acute kidney injury secondary to ATN secondary to infection as well as cardiorenal syndrome. started on hemodialysis on April 27. 2. Chronic kidney disease stage IV with baseline creatinine near 2.5 secondary to nephrosclerosis and ischemic nephropathy. 3. Hypertension with chronic kidney disease. Controlled. 4. Aspiration pneumonia maintained on antibiotics. 5. Volume overload. 6. Encephalopathy. Concern for uremia. improved. 7. Anemia of chronic kidney disease maintained on Aranesp. 8. Metabolic acidosis secondary to chronic kidney disease maintained on oral bicarbonate. 9. Urinary retention maintained on Flomax. Currently has Hinds catheter. Plan: third treatment of hemodialysis today. He will be maintained on Sunday schedule outpatient. discontinued oral bicarbonate. monitor for renal recovery outpatient.
[2020-04-29 11:12] LABS: Basophils % (A) 0 %; Eosinophils # (A) 0.2 k/uL (0-0.7); Eosinophils % (A) 2 %; HCT 23.4 % (39.0-53.0); HGB 7.4 gm/dL (13.0-17.5); Hypochromasia Slight; Lymphocytes # (A) 0.7 k/uL (1.0-4.8); Lymphocytes % (A) 7 %; MCH 32.8 pg (25.0-35.0); MCHC 31.7 g/dL (31.0-37.0); MCV 103.2 fL (80.0-100.0); Macrocytosis Slight; Mean Platelet Volume 12.3; Monocytes # (A) 0.8 k/uL (0-1.0); Monocytes % (A) 7 %; Neutrophils # (A) 8.3 k/uL (1.3-7.7); Neutrophils % (A) 82 %; Platelet Count 135 k/uL (150-450); RBC 2.26 m/uL (4.30-5.90); WBC 10.1 k/uL (3.8-10.6)
[2020-04-29 13:16] LABS: Calcium 7.5 mg/dL (8.4-10.2); Potassium 4.3 mmol/L (3.5-5.1)
--- NOTE | 2020-04-29 13:59 | P.PN ---
Subjective Progress Note Date: 04/29/20 Patient was seen and examined. No acute events overnight. Patient with active chest pain this morning. He describes the pain as pressure like. Discussed with Dr. Lynn, plans for cardiac cath today. Currently on Heparin drip. Unable to give Nitro due to hypotension. Objective - Vital Signs Vital signs: Vital Signs Temp 98.7 F 04/29/20 08:13 Pulse 74 04/29/20 08:13 Resp 14 04/29/20 08:13 BP 128/60 04/29/20 08:13 Pulse Ox 93 L 04/29/20 08:13 Intake & Output 04/28/20 04/29/20 04/29/20 18:59 06:59 18:59 Intake Total 100 418.704 95.608 Output Total 1020 2620 200 Balance -920 -2201.296 -104.392 Weight 56 kg Intake: Intake, IV Titration 178.704 95.608 Amount Heparin Sod,Pork in 0.45% 178.704 95.608 NaCl 25,000 unit In 0.45 % NaCl 1 250ml.bag @ 12 UNITS/KG/HR 8.16 mls/hr IV .Q24H [facility] Rx#: [id number] Oral 100 240 Output: Urine 1020 620 200 Uretheral (Hinds) 520 Hemodialysis 1999 Other: Voiding Method Indwelling Catheter Indwelling Catheter # Bowel Movements 1 - Exam General: [non toxic], [no distress], [appears at stated age] Derm: [warm], [dry], permacath in place Head: [atraumatic], [normocephalic], [symmetric] Eyes: [EOMI], [no lid lag], [anicteric sclera] Mouth: [no lip lesion], [mucus membranes moist] Cardiovascular: [S1S2 reg], [no murmur], [positive DP pulse bilateral], Lungs: [Decreased breath sounds bilateral], [no rhonchi, no rales] , [no accessory muscle use] Abdominal: [soft], [ nontender to palpation], [no guarding], [no appreciable organomegaly] Ext: [no gross muscle atrophy], [no edema], [no contractures] Neuro: [no focal neuro deficits] Psych: [Alert], [oriented], [appropriate affect] - Labs CBC & Chem 7: 10/08/20 06:46 04/29/20 06:46 Labs: Abnormal Lab Results - Last 24 Hours (Table) 04/29/20 04/29/20 Range/Units 06:46 06:46 RBC 2.26 L (4.30-5.90) m/uL Hgb 7.4 L (13.0-17.5) gm/dL Hct 23.4 L (39.0-53.0) % MCV 103.2 H (80.0-100.0) fL Plt Count 135 L (150-450) k/uL Neutrophils # 8.3 H (1.3-7.7) k/uL Lymphocytes # 0.7 L (1.0-4.8) k/uL APTT 39.9 H (22.0-30.0) sec Assessment and Plan Assessment: Acute kidney injury on chronic kidney disease secondary to ATN, aspiration pneumonia, urinary retention and cardiorenal NSTEMI New onset systolic CHF New onset A. fib Aspiration pneumonia Metabolic encephalopathy likely related to the above Anemia of chronic disease with FOBT + Hypertension COPD CAD post CABG AAA and thoracic aortic aneurysm Pulmonary nodule Enlarged gallbladder with possible chronic cholecystitis Creatinine 3.15. Plans: Plans for hemodialysis today. Avoid nephrotoxins. Continue Hinds catheter. Continue Doxazosin. Continue Flomax. Continue sodium bicarb supplementation. Repeat BMP tomorrow morning. Troponin 0.98, 0.919, 1.02 with EKG showing atrial fibrillation. Plans: Cont inue heparin drip. Continue aspirin and Lipitor. Continue beta britni. Telemetry monitoring. Follow-up cardiology consultation. Plans for cardiac cath today. Echo shows EF 35-40% with hypokinetic wall motion and G2DD. Plans: Continue beta britni. Patient would benefit from ACEi and/or Aldactone, will defer decision to Cardiology. Start Lasix on discharge. Strict intake and outtake. Daily weights. Currently rate controlled. Plans: Continue heparin drip. Continue beta britni. Keep K > 4 and Mg > 2. Chest x-ray shows persistent pneumonia. Plans: Continue Zosyn. [place] thick liquids. Transition to Augmentin on discharge. Repeat chest x-ray tomorrow morning. Supplemental O2 to maintain O2 saturation greater than 92%. Consult pulmonology. Ammonia negative. Mentation appears to be improving. Plans: Management as above. Hemoglobin 7.4. FOBT +. Likely anemia of chronic disease. Plans: Transfuse if hemoglobin less than 7. Repeat CBC tomorrow morning. Continue Aranesp. Follow GI consultation. BP 128/60. Plans: Continue hydralazine, Imdur, metoprolol. Monitor vitals, adjust medications if necessary. Plans: Continue [place]. DuoNeb as needed for shortness of breath and wheezing. Plans: Continue aspirin and metoprolol. Unsure why patient is not on Lipitor. As seen on imaging from outside hospital. Plans: Needs vascular surgery follow- up in the outpatient setting. Plans: Needs repeat CT in 6 months. Follow-up with PCP. Plans: Needs outpatient follow-up with general surgery. [Patient admitted to initiate dialysis. Found to have elevated troponins with new onset chest pain. Currently on heparin drip with severely depressed EF. GI consulted for anemia and positive FOBT. Plans for cardiac catheterization today.]
[2020-04-29] MEDS ORDERED: IV FLUID CONTINUATION 1,000 ML IV ONE (14:25)
[2020-04-29] MEDS ORDERED: LIDOCAINE 1% INJ 10MG/ML (20 ML MDV) SQ ONE (14:36)
[2020-04-29] MEDS ORDERED: fentaNYL (PF) 50 MCG/ML 2 ML AMP IV ONE (14:38)
[2020-04-29] MEDS ORDERED: MIDAZOLAM 2 MG/2 ML VIAL IV ONE (14:38)
[2020-04-29 14:59] VITALS: BMI 18.2
[2020-04-29] MEDS ORDERED: HEPARIN SODIUM 1,000 UN/ML (10ML VL) IV ONE (15:03)
[2020-04-29] MEDS ORDERED: IOPAMIDOL-370 125ML BTL INJ ONE (15:06)
[2020-04-29] MEDS ORDERED: RX INFO: IV CONTRAST WAS GIVEN 1 EACH MISC MISCELLANE PRN (15:58)
[2020-04-29] MEDS ORDERED: HEPARIN SODIUM,PORCINE 5,000 UNIT/ML 1 ML VIAL ONE (17:00)
--- NOTE | 2020-04-29 18:10 | P.CARDCATH ---
Date of Procedure: 04/29/20 Description of Procedure: PROCEDURES PERFORMED: Bilateral coronary angiography, SVG to OM2, free radial artery to OM1, CASTILLO to LAD angiography INDICATION: NSTEMI HISTORY: Patient is a pleasant 79-year-old male with history of coronary artery disease status post CABG in 2003 with a CASTILLO to LAD, radial artery to OM 1 and SVG to OM 2. Patient had previously followed with Dr. Hernandez however has not followed in approximately 4 years. Additionally he has a history of COPD, hypertension and chronic kidney disease. He has had prolonged hospitalization at [facility] secondary to chest pain He had undergone stress testing which showed TID s well as apparent reversibility of the inferior and i nferior septal wall. He had workup performed which showed ejection fraction 60- 65%, mild to moderate mitral regurgitation. He has been having worsening kidney function and was eventually transferred to [facility] for new dialysis. He additionally has a new diagnosis of atrial fibrillation and has also been found to be anemic with Hemoccult positive stools. During his hospitalization he was found to have mildly elevated troponins. His chest pain had been fairly stable up until 04/29 afternoon when he had sudden onset of chest pain. EKG shows biphasic T waves in the anterior leads concerning for Wellens sign. Given chest pain, mildly elevated troponins and abnormal EKG, heart catheterization was recommended. patient's last heart catheterization was from 2006 which showed left main 20% stenosis, LADtotally occluded at the midportion, circumflex dominant with bypasses to OM1 and OM 2 with retrograde filling of the circumflex and distal 50-70% stenosis of the distal circumflex. CONSENT:I have discussed the risks, benefits and alternative therapies for the above-mentioned procedure and for both sedation/analgesia as well as necessary blood product administration, if indicated, as they pertain to this patient. The patient has indicated understanding and acceptance of the risks and procedures discussed. PROCEDURE: After the risks, benefits and alternatives of the above mentioned procedure explained in detail with the patient, informed consent was obtained. Patient was taken to the catheterization lab and prepped and draped in usual fashion. 1% lidocaine was used to anesthetize the left radial artery. A 6- Norwegian sheath was placed in the left radial artery using modified Seldinger technique. Left coronary angiography was performed with a 5-Norwegian JL 4.0 catheter and right coronary angiography was performed with a 5-Norwegian JR5 catheter in various views. The SVG to OM2 angiography and the CASTILLO to LAD angiography was performed with the 5 Norwegian JR 5 catheter in various views. A 6-Norwegian AL 1.0 catheter was used to engage the radial artery to OM 1 and angiography was performed. Upon review of prior catheterization report from 2006, the only change has been progression of left main disease to approximately 50-60% as well as proximal LAD occlusion. Benefits were not felt to outweigh the risks of any intervention on the left main or proximal LAD especially in the setting of possible GI bleed. Therefore the procedure was ended. The right radial sheath was removed and a TR band was placed with hemostasis achieved. The patient tolerated the procedure well. Patient was transported back to the post catheterization holding area in stable condition. Conscious Sedation: Patient was monitored under the direct supervision of vision of myself for conscious sedation using Versed and fentanyl for a total duration of 32 minutes HEMODYNAMICS: Ao: 95/54 SELECTIVE CORONARY ARTERIOGRAPHY: LEFT MAIN: The left main is a large caliber vessel which bifurcates into the LAD and circumflex. There is distal left main 50-60% heavily calcified stenosis. LEFT ANTERIOR DESCENDING CORONARY ARTERY: LAD is a large caliber vessel which wraps around to the apex. There is 100% stenosis of the proximal LAD. LEFT CIRCUMFLEX CORONARY ARTERY: Left circumflex is a moderate to large caliber vessel. There is a proximal circumflex 30-40% stenosis. There is a "high" OM1 which is 100% occluded proximally. OM2 has competitive flow and there is a proximal 50% stenosis. The circumflex is dominant and gives off a distal small caliber PLV branch and PDA branch. The PDA appears to have tandem 70% and 70% stenoses proximally and mid PDA. The PLV has a proximal 50% stenosis. (Previous cath mentioned 50-70% stenoses of the left PLV and PDA). RIGHT CORONARY ARTERY: The right coronary artery is a small caliber vessel which gives off an acute marginal branch. There is mild 20-30% mid RCA stenosis. Radial artery to OM1: The radial artery to OM1 is widely patent with mid 30% radial artery stenosis. SVG to OM2: SVG to OM2 is widely patent with some back filling of the circumflex. There are mild luminal irregularities. CASTILLO to LAD: The CASTILLO to LAD is widely patent. There is back filling to the mid LAD and 2 small caliber diagonal branches. FINAL IMPRESSION: 1. [place] coronary artery disease as described above with left main 50-60% stenosis, proximal LAD 100% stenosis, OM1 100% stenosis, circumflex 30% stenosis, OM2 50% stenosis, PLV 50% stenosis and PDA tandem 70% and 70% stenoses. 2. Patent CASTILLO to LAD, SVG to OM2, radial artery to OM1. 3. NSTEMI, with progression of left main disease (from 20% to 50-60% stenosis) and proximal LAD to 100% occlusion. PLAN: 1. Aggressive risk factor modification per most recent ACC/AHA guidelines. 2. Suspect culprit artery is proximal LAD with loss of proximal to mid LAD territory, with mid to distal LAD bypassed given EKG findings. Patient additionally has been having anemia, possible GIB with reported melena and hemoccult postive stools. Do not feel the benefits outweigh the risks of complex origin LAD intervention with only apparent small area of territory at risk. Would treat medically. Additionally, if patient has recurrent angina, could consider PCI of calcified left main into circumflex however would recommend anemia be worked up and medical therapy of left main as SVG and radial artery do back fill the circumflex.
[2020-04-29] MEDS: ATORVASTATIN 80 MG TAB PO SCH (20:34)
[2020-04-29] MEDS: DOXAZOSIN 4 MG TAB PO SCH (20:34)
[2020-04-29] MEDS: MONTELUKAST 10 MG TAB PO SCH (20:34)
[2020-04-29] MEDS: IPRATROPIUM-ALBUTEROL 3 ML NEB INHALATION PRN (23:43)
[2020-04-30] MEDS: IPRATROPIUM-ALBUTEROL 3 ML NEB INHALATION PRN ×4 (09:02→21:18)
[2020-04-30] MEDS: ASPIRIN 81 MG PO SCH (09:22)
[2020-04-30] MEDS: TAMSULOSIN 0.4 MG CAP.ER.24H PO SCH (09:22)
[2020-04-30] MEDS: METOPROLOL TARTRATE 25 MG TAB PO SCH ×3 (09:22→20:32)
[2020-04-30] MEDS: DOCUSATE 100 MG CAP PO SCH ×2 (09:22→20:32)
[2020-04-30] MEDS: ISOSORBIDE MONONITRATE ER 60 MG TAB.ER.24H PO SCH (09:22)
[2020-04-30] MEDS: busPIRone HCl 5 MG TAB PO SCH ×2 (09:22→20:33)
[2020-04-30] MEDS: QUEtiapine 25 MG TAB PO SCH ×2 (09:23→20:33)
[2020-04-30] MEDS: PIPERACILLIN-TAZOBACTAM 3.375 GM in SODIUM CHLORIDE 0.9% 100 ML IVPB SCH ×2 (10:15→23:37)
--- NOTE | 2020-04-30 10:50 | P.PN ---
Subjective Patient is seen in follow-up for acute kidney injury and chronic kidney disease. Patient was transferred from [facility] on April 26 to initiate renal replacement therapy. There has been concern for uremia due to waxing and waning confusion as well as volume overload. Currently sitting up in chair. continues to complain of shortness of breath. Currently on 3 L nasal cannula. No vomiting or diarrhea. Has a Hinds catheter. Nonoliguric. has been working with physical therapy. tolerated dialysis well yesterday. Vital signs are stable. General: The patient appeared well nourished and normally developed. HEENT: Head exam is unremarkable. Neck is without jugular venous distension. LUNGS: Breath sounds decreased. HEART: Rate and Rhythm are regular. ABDOMEN: Soft, nontender. EXTREMITITES: No clubbing, cyanosis, or edema. Objective - Vital Signs Vital signs: Vital Signs Temp 99.0 F 04/30/20 08:00 Pulse 84 04/30/20 09:15 Resp 18 04/30/20 08:00 BP 132/60 04/30/20 08:00 Pulse Ox 96 04/30/20 08:00 Intake & Output 04/29/20 04/30/20 04/30/20 18:59 06:59 18:59 Intake Total 315.608 240 Output Total 425 1000 Balance -109.392 -1000 240 Weight 56 kg 48.5 kg Intake: IV 100 Intake, IV Titration 95.608 Amount Heparin Sod,Pork in 0.45% 95.608 NaCl 25,000 unit In 0.45 % NaCl 1 250ml.bag @ 12 UNITS/KG/HR 8.16 mls/hr IV .Q24H [facility] Rx#: [id number] Oral 120 240 Output: Urine 425 Hemodialysis 1000 Other: Voiding Method Indwelling Catheter Indwelling Catheter Indwelling Catheter - Labs CBC & Chem 7: 04/29/20 06:46 04/29/20 06:46 Labs: Abnormal Lab Results - Last 24 Hours (Table) 04/29/20 04/29/20 04/29/20 Range/Units 06:46 06:46 16:18 RBC 2.26 L (4.30-5.90) m/uL Hgb 7.4 L (13.0-17.5) gm/dL Hct 23.4 L (39.0-53.0) % MCV 103.2 H (80.0-100.0) fL Plt Count 135 L (150-450) k/uL Neutrophils # 8.3 H (1.3-7.7) k/uL Lymphocytes # 0.7 L (1.0-4.8) k/uL APTT 53.5 H (22.0-30.0) sec Sodium 136 L (137-145) mmol/L BUN 37 H (9-20) mg/dL Creatinine 2.77 H (0.66-1.25) mg/dL Calcium 7.5 L (8.4-10.2) mg/dL Troponin I (0.000-0.034) ng/mL 04/29/20 04/29/20 04/29/20 Range/Units 16:18 19:23 22:34 RBC (4.30-5.90) m/uL Hgb (13.0-17.5) gm/dL Hct (39.0-53.0) % MCV (80.0-100.0) fL Plt Count (150-450) k/uL Neutrophils # (1.3-7.7) k/uL Lymphocytes # (1.0-4.8) k/uL APTT (22.0-30.0) sec Sodium (137-145) mmol/L BUN (9-20) mg/dL Creatinine (0.66-1.25) mg/dL Calcium (8.4-10.2) mg/dL Troponin I 0.407 H* 0.389 H* 0.325 H* (0.000-0.034) ng/mL Assessment and Plan Plan: Assessment: 1. Acute kidney injury secondary to ATN secondary to infection as well as cardiorenal syndrome. started on hemodialysis on April 27. 2. Chronic kidney disease stage IV with baseline creatinine near 2.5 secondary to nephrosclerosis and ischemic nephropathy. 3. Hypertension with chronic kidney disease. Controlled. 4. Aspiration pneumonia maintained on antibiotics. 5. Volume overload. 6. Encephalopathy. Concern for uremia. improved. 7. Anemia of chronic kidney disease maintained on Aranesp. 8. Metabolic acidosis secondary to chronic kidney disease maintained on oral bicarbonate. 9. Urinary retention maintained on Flomax. Currently has Hinds catheter. Plan: hemodialysis tomorrow. He will be maintained on Sunday schedule outpatient. monitor for renal recovery outpatient.
[2020-04-30] MEDS: hydrALAZINE HCL 50 MG TAB PO SCH ×3 (11:21→20:33)
--- NOTE | 2020-04-30 14:39 | P.PN ---
Subjective Progress Note Date: 04/30/20 CHIEF COMPLAINT: New onset atrial fibrillation HISTORY OF PRESENT ILLNESS: Patient underwent cardiac cath with Dr. Lynn yesterday revealing coronary artery disease with left main 50-60% stenosis, proximal LAD 100% stenosis, OM1 100% stenosis, circumflex 30% stenosis, OM2 50% stenosis, PLV 50% stenosis and PDA tandem 70% and 70% stenoses. Patent CASTILLO to LAD, SVG to OM2, radial artery to OM1. NSTEMI, with progression of left main disease (from 20% to 50-60% stenosis) and proximal LAD to 100% occlusion. Patient examined at the bedside today with Dr. Lynn. Patient denies chest pain or pressure. Denies shortness of breath. Vital signs are stable. PHYSICAL EXAM: VITAL SIGNS: Reviewed. GENERAL: Well-developed in no acute distress. HEENT: Head is normocephalic. Pupils are equal, round. Sclerae anicteric. Mucous membranes of the mouth are moist. Neck supple. No JVD or thyromegaly LUNGS: Respirations even and unlabored. Lungs coarse. HEART: Regular rate and rhythm. S1 and S2 heard. ABDOMEN: Soft. Nondistended. Nontender. EXTREMITIES: Normal range of motion. No clubbing or cyanosis. Peripheral pulses intact. No lower extremity edema NEUROLOGIC: Awake and alert. Oriented x 3. ASSESSMENT: Chest pain with abnormal troponins New onset paroxysmal atrial fibrillation with RVR Anemia, unsure if acute or chronic Coronary artery disease with previous CABG Hypertension End-stage renal disease, recently started on hemodialysis COPD PLAN: Continue current cardiac medications Continue telemetry monitoring Further recommendations pending patient course Nurse practitioner note has been reviewed by physician. Signing provider agrees with the documented findings, assessment, and plan of care. Objective - Vital Signs Vital signs: Vital Signs Temp 99.0 F 04/30/20 08:00 Pulse 72 04/30/20 12:57 Resp 18 04/30/20 08:00 BP 132/60 04/30/20 08:00 Pulse Ox 96 04/30/20 08:00 Intake & Output 04/29/20 04/30/20 04/30/20 18:59 06:59 18:59 Intake Total 315.608 240 Output Total 425 1000 400 Balance -109.392 -1000 -160 Weight 56 kg 48.5 kg Intake: IV 100 Intake, IV Titration 95.608 Amount Heparin Sod,Pork in 0.45% 95.608 NaCl 25,000 unit In 0.45 % NaCl 1 250ml.bag @ 12 UNITS/KG/HR 8.16 mls/hr IV .Q24H [facility] Rx#: [id number] Oral 120 240 Output: Urine 425 400 Hemodialysis 1000 Other: Voiding Method Indwelling Catheter Indwelling Catheter Indwelling Catheter - Labs CBC & Chem 7: 04/29/20 06:46 04/29/20 06:46 Labs: Abnormal Lab Results - Last 24 Hours (Table) 04/29/20 04/29/20 04/29/20 Range/Units 16:18 16:18 19:23 APTT 53.5 H (22.0-30.0) sec Troponin I 0.407 H* 0.389 H* (0.000-0.034) ng/mL 04/29/20 Range/Units 22:34 APTT (22.0-30.0) sec Troponin I 0.325 H* (0.000-0.034) ng/mL
--- NOTE | 2020-04-30 15:45 | FL ---
EXAMINATION TYPE: FL barium swallow w video DATE OF EXAM: 04/30/2020 MODIFIED SWALLOW / DEGLUTITION STUDY CLINICAL HISTORY: Dysphagia. TECHNIQUE: Deglutition study is performed utilizing thin liquid barium, honey and nectar thick liqui d barium and barium thick pudding. Total of 2 minutes 8 seconds of fluoroscopic time utilized during procedure. 0 Spot images saved. COMPARISON: None. FINDINGS: The oral and pharyngeal phases show satisfactory initiation and propagation with all modali ties tested. There is single episode of silent aspiration with thin liquid barium when using straw . No aspiration with additional modalities tested. Mild pharyngeal residue was appreciated with more viscous modalities. IMPRESSION: Single episode of silent aspiration thin liquid barium with straw. Please refer to speech therapist notes for further details if necessary.
--- NOTE | 2020-04-30 16:56 | P.PN ---
Subjective Progress Note Date: 04/30/20 Patient is a 79-year-old malewith PMH of CKG stage IV, COPD, CAD status post CABG presents to [facility] as a transfer from [facility] for possible hemodialysis. He was admitted at [facility] from April 15 until April 26. He initially presented with symptoms of chest pain and fatigue. He underwent a cardiac workup at [facility], underwent nuclear stress test and was advised maximal medical therapy. Imaging at [facility] suggested pneumonia and he was initially on vancomycin and Zosyn. Vancomycin was discontinued as per Dr. Reginaldo EISENBERG and he was continued on Zosyn for concerns of aspiration pneumonia. While at [facility], his renal function continued to deteriorate along with worsening acidosis. There was initial concerns for obstructive uropathy due to large post void residual however renal ultrasound did not show any hydronephrosis. Patient subsequently was transferred to [facility] to obtain vascular access and for hemodialysis. Dialysis access was obtained on April 27. Patient underwent hemodialysis on April 27, April 28 and April 29. Patient reported chest pain overnight on April 27. He was found to be in A. fib with RVR with elevated troponins. He was started on a heparin drip. Cardiology was consulted and recommended continuing heparin and maximize his medical therapy. On April 29, he developed chest pain and decision was made for cardiac catheterization. Cardiac cath showed left main 50-60% stenosis, proximal LAD 100% stenosis, OM1 100% stenosis, circumflex 30% stenosis, OM to 50% stenosis, PLV 50% stenosis and PDA tandem 70% stenosis. Cardiology recommended aggressive medical management and risk factor modification due to his anemia and Hemoccult-positive stools. His chest pain resolved after cardiac cath. Plan is for dialysis on April 30 and May 01. Plans to discharge home after dialysis on May 01. Plan is for patient to go home. Hemodialysis is arranged. Patient was seen and examined. No acute events overnight. Patient denies any more chest pain. His mentation is improved since admission. He denies any shortness of breath or palpitations. Video swallow done today which showed single episode of silent aspiration thin liquids. Speech therapy recommended NDD2 nectar thick liquids. Objective - Vital Signs Vital signs: Vital Signs Temp 98.7 F 04/30/20 12:00 Pulse 72 04/30/20 12:57 Resp 18 04/30/20 12:00 BP 115/56 10/09/20 12:00 Pulse Ox 94 L 04/30/20 12:00 Intake & Output 04/29/20 04/30/20 04/30/20 18:59 06:59 18:59 Intake Total 315.608 240 Output Total 425 1000 400 Balance -109.392 -1000 -160 Weight 56 kg 48.5 kg Intake: IV 100 Intake, IV Titration 95.608 Amount Heparin Sod,Pork in 0.45% 95.608 NaCl 25,000 unit In 0.45 % NaCl 1 250ml.bag @ 12 UNITS/KG/HR 8.16 mls/hr IV .[facility]H [facility] Rx#: [id number] Oral 120 240 Output: Urine 425 400 Hemodialysis 1000 Other: Voiding Method Indwelling Catheter Indwelling Catheter Indwelling Catheter - Exam General: [non toxic], [no distress], [appears at stated age] Derm: [warm], [dry], permacath in place Head: [atraumatic], [normocephalic], [symmetric] Eyes: [EOMI], [no lid lag], [anicteric sclera] Mouth: [no lip lesion], [mucus membranes moist] Cardiovascular: [S1S2 reg], [no murmur], [positive DP pulse bilateral], Lungs: [Decreased breath sounds bilateral], [no rhonchi, no rales] , [no accessory muscle use] Abdominal: [soft], [ nontender to palpation], [no guarding], [no appreciable organomegaly] Ext: [no gross muscle atrophy], [no edema], [no contractures] Neuro: [no focal neuro deficits] Psych: [Alert], [oriented], [appropriate affect] - Labs CBC & Chem 7: 04/29/20 06:46 04/29/20 06:46 Labs: Abnormal Lab Results - Last 24 Hours (Table) 04/29/20 04/29/20 04/29/20 Range/Units 16:18 16:18 19:23 APTT 53.5 H (22.0-30.0) sec Troponin I 0.407 H* 0.389 H* (0.000-0.034) ng/mL 04/29/20 Range/Units 22:34 APTT (22.0-30.0) sec Troponin I 0.325 H* (0.000-0.034) ng/mL Assessment and Plan Assessment: Acute kidney injury on chronic kidney disease secondary to ATN, aspiration pneumonia, urinary retention and cardiorenal NSTEMI New onset systolic CHF New onset A. fib Aspiration pneumonia Metabolic encephalopathy likely related to the above Anemia of chronic disease with FOBT + Hypertension COPD CAD post CABG AAA and thoracic aortic aneurysm Pulmonary nodule Enlarged gallbladder with possible chronic cholecystitis Creatinine 2.77. Plans: Plans for hemodialysis today and tomorrow. HD scheduled for TTS schedule in the outpatient schedule. Avoid nephrotoxins. Continue Hinds catheter. Continue Doxazosin. Continue Flomax. Continue sodium bicarb supplementation. Repeat BMP tomorrow morning. Troponin 0.98, 0.919, 1.02 with EKG showing atrial fibrillation. Cardiac cath showed left main 50-60% stenosis, proximal LAD 100% stenosis, OM1 100% stenosis, circumflex 30% stenosis, OM to 50% stenosis, PLV 50% stenosis and PDA tandem 70% stenosis Plans: DC heparin drip. Continue aspirin and Lipitor. Continue beta britni. Telemetry monitoring. Follow-up cardiology consultation. Echo shows EF 35-40% with hypokinetic wall motion and G2DD. Plans: Continue beta britni. Start Lasix on discharge. Strict intake and outtake. Daily weights. Currently rate controlled. Plans: No AC due to risk of fall and bleed. Continue beta britni. Keep K > 4 and Mg > 2. Chest x-ray shows persistent pneumonia. Plans: Continue Zosyn. [place] thick liquids. Transition to Augmentin on discharge. Supplemental O2 to maintain O2 saturation greater than 92%. Home O2 eval prior to discharge. Ammonia negative. Mentation appears to be improving. Plans: Management as above. Hemoglobin 7.4. FOBT +. Likely anemia of chronic disease. Plans: Transfuse if hemoglobin less than 7. Repeat CBC tomorrow morning. Continue Aranesp. Hemoglobin remaining stable. BP 115/56. Plans: Continue hydralazine, Imdur, metoprolol. Monitor vitals, adjust medications if necessary. Plans: Continue [place]. DuoNeb as needed for shortness of breath and wheezing. Plans: Continue aspirin and metoprolol. Unsure why patient is not on Lipitor. As seen on imaging from outside hospital. Plans: Needs vascular surgery follow- up in the outpatient setting. Plans: Needs repeat CT in 6 months. Follow-up with PCP. Plans: Needs outpatient follow-up with general surgery. DVT prophylaxis: [SCD boots] Discussed with: [Patient] Anticipated discharge: [1-2 days] Anticipated discharge place: [Home] A total of [35] minutes was spent on the care of this complex patient more than 50% of the time was spent in counseling and care coordination. Plan is for dialysis on April 30 and May 01. Plans to discharge home after dialysis on May 01. Plan is for patient to go home. Hemodialysis is arranged.
[2020-04-30] MEDS: ATORVASTATIN 80 MG TAB PO SCH (20:33)
[2020-04-30] MEDS: DOXAZOSIN 4 MG TAB PO SCH (20:33)
[2020-04-30] MEDS: MONTELUKAST 10 MG TAB PO SCH (20:33)
[2020-05-01 08:34] LABS: Calcium 7.5 mg/dL (8.4-10.2); Potassium 4.1 mmol/L (3.5-5.1)
[2020-05-01] MEDS: IPRATROPIUM-ALBUTEROL 3 ML NEB INHALATION PRN ×2 (08:40→20:55)
[2020-05-01 08:51] LABS: Basophils # (A) 0.1 k/uL (0-0.2); Basophils % (A) 1 %; Eosinophils # (A) 0.1 k/uL (0-0.7); Eosinophils % (A) 2 %; HCT 21.3 % (39.0-53.0); Hypochromasia Slight; Lymphocytes # (A) 0.6 k/uL (1.0-4.8); Lymphocytes % (A) 9 %; MCH 33.1 pg (25.0-35.0); MCHC 32.5 g/dL (31.0-37.0); MCV 102.1 fL (80.0-100.0); Macrocytosis Slight; Mean Platelet Volume 11.1; Monocytes # (A) 0.4 k/uL (0-1.0); Monocytes % (A) 6 %; Neutrophils # (A) 5.6 k/uL (1.3-7.7); Neutrophils % (A) 81 %; Platelet Count 140 k/uL (150-450); RBC 2.09 m/uL (4.30-5.90); RDW 14.3 % (11.5-15.5); WBC 6.9 k/uL (3.8-10.6)
[2020-05-01 09:00] LABS: HGB 6.9 gm/dL (13.0-17.5)
--- NOTE | 2020-05-01 10:06 | P.CONS ---
History of Present Illness - Reason for Consult Consult date: 04/30/20 clearance for cardiac catheterization Requesting physician: Michelle Baum - Chief Complaint transfer for hemodialysis - History of Present Illness 79-year-old male with multiple medical comorbidities includingchronic kidney disease stage IV, COPD, coronary artery disease status post CABG who was transferred from outside facility for hemodialysis. He had been seen at that time with complaints of chest pain. After transferred the patient underwent cardiac catheterization with plan for aggressive medical management and risk factor modification due to findings of the catheterization. GI abdomen consult dated for anemia. Patient's hemoglobin 7.4 and on questioning of the patient and his he has a long-standing history of anemia. The patient has required blood transfusions in the past. He is on chronic iron therapy at home. He has previously undergone colonoscopy at [facility] the family is unsure of the day. He does suffer from reflux disease but denies any history of active ulcer disease or any signs or symptoms of GI bleeding. He has had some nausea and decreased oral intake over the past few months. He denies any abdominal lorena n. Review of Systems REVIEW OF SYSTEMS: CONSTITUTIONAL: Denies any fevers, chills, weight change or fatigue. CARDIOVASCULAR: Denies any palpitations high or low blood pressures, but patient did have chest pain prior to presentation which is resolved. RESPIRATORY: Denies any shortness of breath, hemoptysis or cough. GENITOURINARY: No dysuria or hematuria. MUSCULOSKELETAL: No weakness reported. SKIN: Denies any new rashes or lesions, jaundice or pallor. PSYCHIATRIC: Denies any depression or anxiety. NEUROLOGY: Denies headache, denies any new focal deficits. EARS/NOSE/THROAT: No recent hearing change, congestion, nasal discharge or sore throat. EYES: No pain in eyes, discharge or change in vision. GASTROINTESTINAL: As per HPI. Past Medical History Past Medical History: Coronary Artery Disease (CAD), COPD, CVA/TIA, GERD/Reflux, Hearing Disorder / Deafness, Hypertension, Osteoarthritis (OA), Renal Disease, Respiratory Disorder Additional Past Medical History / Comment(s): ABDOMINAL ANEURYSM History of Any Multi-Drug Resistant Organisms: None Reported Past Surgical History: Appendectomy, Bowel Resection, Coronary Bypass/CABG, Hernia Repair Additional Past Surgical History / Comment(s): Neck Fusion 1979 x2, CRANIOTOMY, TRIPLE BYPASS, LEFT CAROTID SURGERY. Past Anesthesia/Blood Transfusion Reactions: No Reported Reaction Past Psychological History: No Psychological Hx Reported Smoking Status: Former smoker Past Alcohol Use History: None Reported Additional Past Alcohol Use History / Comment(s): PT STATES HE QUIT SMOKING 6 MONTHS AGO. Past Drug Use History: None Reported - Past Family History Sister(s) Family Medical History: Cancer Additional Family Medical History / Comment(s): BONE CA Medications and Allergies Home Medications Medication Instructions Recorded Confirmed Type Zafirlukast 20 mg PO BID 09/30/14 04/27/20 History hydroCHLOROthiazide [Hydrodiuril] 25 mg PO DAILY 09/30/14 04/27/20 History Albuterol Nebulized [Ventolin 2.5 mg INHALATION RT-Q4H PRN 04/26/20 04/26/20 H istory Nebulized] Carvedilol [Coreg] 25 mg PO BID 04/26/20 04/27/20 History Ipratropium Nebulized [Atrovent 0.5 mg INHALATION RT-BID 04/26/20 04/27/20 History Nebulized 0.2 MG/ML] Ipratropium Nebulized [Atrovent 0.5 mg INHALATION RT-Q4H PRN 04/26/20 04/27/20 History Nebulized 0.2 MG/ML] Lisinopril [Zestril] 10 mg PO BID 04/26/20 04/27/20 History Spironolactone 75 mg PO DAILY 04/26/20 04/27/20 History Tamsulosin HCl [Flomax] 0.4 mg PO HS 04/26/20 04/27/20 History Terazosin HCl 10 mg PO HS 04/26/20 04/27/20 History busPIRone HCL [Buspar] 7.5 mg PO BID 04/26/20 04/27/20 History cloNIDine HCL 0.3 mg PO TID 04/26/20 04/27/20 History hydrALAZINE HCL [Apresoline] 100 mg PO BID 04/26/20 04/27/20 History minoxidiL [Minoxidil] 2.5 mg PO BID 04/26/20 04/27/20 History Aspirin EC [Ecotrin Low Dose] 81 mg PO DAILY 04/27/20 04/27/20 History Docusate [Colace] 100 mg PO DAILY 04/27/20 04/27/20 History Ferrous Sulfate [Feosol] 325 mg PO BID 04/27/20 04/27/20 History Allergies Allergy/AdvReac Type Severity Reaction Status Date / Time morphine Allergy Rash/Hives Verified 04/27/20 08:32 Physical Exam Vitals: Vital Signs Temp Pulse Resp BP Pulse Ox 04/29/20 12:00 98.6 F 70 16 104/43 93 L 04/29/20 08:13 98.7 F 74 14 128/60 93 L 04/29/20 03:31 98.3 F 67 18 141/65 94 L 04/29/20 00:00 98.5 F 64 18 108/43 94 L 04/28/20 20:00 98.6 F 83 20 135/64 94 L 04/28/20 19:18 98.0 F 71 20 137/69 04/28/20 16:41 99.3 F 73 17 136/60 93 L 04/28/20 16:00 71 20 Intake and Output 04/29/20 04/29/20 04/29/20 06:59 14:59 22:59 Intake Total 195.608 Output Total 200 Balance -4.392 Intake: IV 100 Intake, IV Titration 95.608 Amount Heparin Sod,Pork in 0.45% 95.608 NaCl 25,000 unit In 0.45 % NaCl 1 250ml.bag @ 12 UNITS/KG/HR 8.16 mls/hr IV .Q24H [facility] Rx#: [id number] Output: Urine 200 Other: Voiding Method Indwelling Catheter Indwelling Catheter # Bowel Movements 1 Weight 56 kg 56 kg On physical examination, patient appears comfortable in no apparent distress. HEAD: Normocephalic, atraumatic. EYES: No scleral icterus. No conjunctival injection. MOUTH: No lesions, tongue midline. NECK: Trachea midline, no gross abnormalities. CHEST: decreased air entry in all lung escalante. HEART: S1-S2 appreciated. ABDOMEN: Soft, obese. Bowel sounds are positive. No organomegaly. No guarding or rigidity. EXTREMITIES: No pedal edema. SKIN: No rashes, no jaundice. NEUROLOGIC: Alert and oriented x3. No focal deficits. Results CBC & Chem 7: 05/01/20 07:43 05/01/20 07:43 Labs: Abnormal Lab Results - Last 24 Hours (Table) 10/03/1104/29/20 04/29/20 Range/Units 06:46 06:46 06:46 RBC 2.26 L (4.30-5.90) m/uL Hgb 7.4 L (13.0-17.5) gm/dL Hct 23.4 L (39.0-53.0) % MCV 103.2 H (80.0-100.0) fL Plt Count 135 L (150-450) k/uL Neutrophils # 8.3 H (1.3-7.7) k/uL Lymphocytes # 0.7 L (1.0-4.8) k/uL APTT 39.9 H (22.0-30.0) sec Sodium 136 L (137-145) mmol/L BUN 37 H (9-20) mg/dL Creatinine 2.77 H (0.66-1.25) mg/dL Calcium 7.5 L (8.4-10.2) mg/dL Chest x-ray: report reviewed (x-ray video swallow with one episode of silent aspiration with straw) Assessment and Plan (1) Macrocytic anemia Narrative/Plan: 79-year-old male with multiple medical comorbidities transfer from outside facility for possible hemodialysis. Patient having chest pain and underwent cardiac catheterization with stenosis noted (please see procedure note for details). Plan of treatment at this time is for optimization of medical management. Patient noted to have anemia on presentation with hemoglobin 7.4 with macrocytic indices. Long-standing history of anemia as per report from the patient and his . He has required transfusions in the past. He has previously undergone endoscopic evaluation. Patient has macrocytic indices and anemia is likely toroidal given multiple medical comorbidities and underlying chronic kidney disease. He is currently denying any signs or symptoms of GI bleeding. Current Visit: Yes Status: Acute Code(s): D53.9 - NUTRITIONAL ANEMIA, UNSPECIFIED SNOMED Code(s): 37273727 (2) GERD (gastroesophageal reflux disease) Current Visit: Yes Status: Acute Code(s): K21.9 - GASTRO-ESOPHAGEAL REFLUX DISEASE WITHOUT ESOPHAGITIS SNOMED Code(s): 307335928 Plan: supportive care Okay for diet as per recommendations by speech language pathology Protonix daily added Anemia laboratory evaluation ordered no plans for endoscopic evaluation at this time as the patient's family are h oping to bring the patient home, in addition he would be high risk given her multiple Medical comorbidities and coronary disease, we'll continue to monitor labs and symptomatically and reassess if any changes occur Nephrology service following the patient and have ordered Darbepoeitin Edu thank you for allowing us to participate in the care of the patient
[2020-05-01] MEDS: ISOSORBIDE MONONITRATE ER 60 MG TAB.ER.24H PO SCH (11:49)
[2020-05-01] MEDS: ASPIRIN 81 MG PO SCH (11:49)
[2020-05-01] MEDS: DOCUSATE 100 MG CAP PO SCH ×2 (11:49→21:44)
[2020-05-01] MEDS: METOPROLOL TARTRATE 25 MG TAB PO SCH ×3 (11:49→20:52)
[2020-05-01] MEDS: QUEtiapine 25 MG TAB PO SCH ×2 (11:50→20:52)
[2020-05-01] MEDS: TAMSULOSIN 0.4 MG CAP.ER.24H PO SCH (11:50)
[2020-05-01] MEDS: busPIRone HCl 5 MG TAB PO SCH ×2 (11:50→20:52)
[2020-05-01] MEDS: hydrALAZINE HCL 50 MG TAB PO SCH ×2 (11:50→14:48)
[2020-05-01] MEDS: PIPERACILLIN-TAZOBACTAM 3.375 GM in SODIUM CHLORIDE 0.9% 100 ML IVPB SCH ×2 (11:58→20:56)
[2020-05-01] MEDS: PANTOPRAZOLE 40 MG TABLET PO SCH (11:58)
--- NOTE | 2020-05-01 12:11 | P.PN ---
Subjective Progress Note Date: 05/01/20 (delayed charting seen at 0845) Principal diagnosis: edema Patient is an 79-year-old male with a past medical history of chronic kidney disease stage IV, COPD, coronary artery disease status post CABG, and multiple other conditions who was transferred to [facility] from [facility] for initiation of dialysis. He was hospitalized there from April 15 through April 26. He had some chest pain ever [facility] and underwent a nuclear stress test which was equivocal and maximal medical therapy was advised. He is also found to have a pneumonia and was initially on Vanco and Zosyn. He was seen by ID and Zosyn was continued for concerns of aspiration, and Vanco was discontinued. He underwent a swallow study which showed concerns for aspiration and he has started on a nectar thick diet. [facility] his renal function continued to worsen. Initially there was concern for obstructive uropathy due to large postvoid residuals however his renal ultrasound did not demonstrate any signs of hydronephrosis. He was transferred here to obtain vascular access and start hemodialysis. Device access was obtained on April 27 and patient subsequently underwent dialysis on April 27, , and . On April 27 years. Chest pain overnight and was found to be in A. fib with rapid ventricular response and elevated troponin. He was started on a heparin drip and cardiology was consulted. Initially recommended maximal medical therapy. However he underwent an echocardiogram which showed an ejection fraction of 35-40% and he was subsequently taken for cardiac cath. This demonstrated a lesion in the proximal LAD however the benefits did not weigh the risks of treating this complex origin LAD with intervention and maximal medical therapy was again recommended. Plans were for hemodialysis again on 05/01 and the patient has been set up for hemodialysis on Sunday, , and Sunday. On the morning of 05/01 his hemoglobin was slightly low at 6.9 in 1 additional unit of packed red blood cells was ordered. Patient seen and examined at bedside. He complains of feeling slightly dizzy today. He denies any chest pain or shortness of breath. No nausea or vomiting. We did discuss as needed follow-up for abdominal aortic aneurysm, large gallstone discovered at [facility], and need for cardiology and nephrology follow-up. Patient understands. General: non toxic, no distress, appears at stated age Derm: warm, dry Head: atraumatic, normocephalic, symmetric Eyes: EOMI, no lid lag, anicteric sclera Mouth: no lip lesion, mucus membranes moist Cardiovascular: S1S2 reg, no murmur, positive posterior tibial pulse bilateral, Lungs: Decreased bs bilateral, no rhonchi, no rales , no accessory muscle use Abdominal: soft, nontender to palpation, no guarding, no appreciable organomegaly Ext: no gross muscle atrophy, no edema, no contractures Neuro: CN II-XI grossly intact, no focal neuro deficits Psych: Alert, oriented, appropriate affect Acute kidney injury on chronic kidney disease now with progression to end-stage renal disease -Dialysis today -Nephrology recommendations appreciated -Set up for hemodialysis on Sunday//Sunday -Outpatient follow-up Anemia of chronic disease -Was fecal occult blood positive during this hospital stay -Continue with PPI -Repeat CBC in a.m. -1 unit of packed red blood cells -Repeat CBC 1 week postdischarge New-onset paroxysmal atrial fibrillation with rapid ventricular response -Continue with metoprolol 3 times daily -Telemetry -Cardiorecs - Anticoagulation not initiated due to concerns of falling and low hemoglobin. CHADS-VASc 4 and ideally AC once hemoglobin stable. Newly discovered systolic cardiomyopathy with ejection fraction 35-40% -Not DEONDRE inhibitor secondary to recent AKA -Beta britni -Volume status controlled by dialysis -Cardiology recommendations -Imdur Non-STEMI, chest pain -Aspirin, Lipitor, Imdur Abdominal aortic aneurysm and thoracic aortic aneurysm -Outpatient follow-up with Dr. Carlin -Patient is aware of this finding Enlarged gallbladder with possible chronic cholecystitis -Was seen by surgery at [facility] who recommended no need for urgent surgical intervention -Follow up with Dr. Mccoy on discharge Pulmonary nodule -Repeat imaging in 6 months -Follow up with PCP Aspiration pneumonia -Patient has completed therapy for aspiration pneumonia -He has been afebrile with a normal white blood cell count and Zosyn will be discontinued BPH with possible urinary retention -Discontinue Hinds today -Check postvoid residuals -Continue with Flomax, Doxy Zosyn Thrombocytopenia - stable - follow CBC Metabolic encephalopathy, resolved COPD, chronic Coronary artery disease status post CABG Hypertension, chronic DVT prophylaxis: SCDs Discussed with: patient, nursing Anticipated discharge: in AM Anticipated discharge place: home A total of 45 minutes was spent on the care of this complex patient more than 50% of the time was spent in counseling and care coordination. Objective - Vital Signs Vital signs: Vital Signs Temp 98.3 F 05/01/20 08:00 Pulse 73 05/01/20 08:52 Resp 18 05/01/20 08:00 BP 131/70 05/01/20 08:00 Pulse Ox 92 L 05/01/20 08:00 Intake & Output 04/30/20 05/01/20 05/01/20 18:59 06:59 18:59 Intake Total 240 480 Output Total 400 400 Balance -160 -400 480 Weight 54 kg Intake: Oral 240 480 Output: Urine 400 400 Other: Voiding Method Indwelling Catheter Indwelling Catheter Indwelling Catheter - Labs CBC & Chem 7: 05/01/20 07:43 05/01/20 07:43 Labs: Abnormal Lab Results - Last 24 Hours (Table) 05/01/20 05/01/20 05/01/20 Range/Units 07:43 07:43 07:43 RBC 2.09 L (4.30-5.90) m/uL Hgb 6.9 L* (13.0-17.5) gm/dL Hct 21.3 L (39.0-53.0) % MCV 102.1 H (80.0-100.0) fL Plt Count 140 L (150-450) k/uL Lymphocytes # 0.6 L (1.0-4.8) k/uL Retic Count 5.0 H (0.5-2.0) % BUN 30 H (9-20) mg/dL Creatinine 3.54 H (0.66-1.25) mg/dL Calcium 7.5 L (8.4-10.2) mg/dL
--- NOTE | 2020-05-01 12:36 | P.PN ---
Subjective Progress Note Date: 05/01/20 CHIEF COMPLAINT: New onset atrial fibrillation HISTORY OF PRESENT ILLNESS: Patient underwent cardiac cath revealing coronary artery disease with left main 50-60% stenosis, proximal LAD 100% stenosis, OM1 100% stenosis, circumflex 30% stenosis, OM2 50% stenosis, PLV 50% stenosis and PDA tandem 70% and 70% stenoses. Patent CASTILLO to LAD, SVG to OM2, radial artery t o OM1. Patient denies any chest pain. More alert than when seen yesterday. Undergoing HD. Hgb noted to have dropped and orders for blood transfusion. PHYSICAL EXAM: VITAL SIGNS: Reviewed. GENERAL: Well-developed in no acute distress. HEENT: Head is normocephalic. Pupils are equal, round. Sclerae anicteric. Mucous membranes of the mouth are moist. Neck supple. No JVD or thyromegaly LUNGS: Respirations even and unlabored. Lungs coarse. HEART: Regular rate and rhythm. S1 and S2 heard. ABDOMEN: Soft. Nondistended. Nontender. EXTREMITIES: Normal range of motion. No clubbing or cyanosis. Peripheral pulses intact. No lower extremity edema NEUROLOGIC: Awake and alert. Oriented x 3. ASSESSMENT: NSTEMI type 1, likely related to proximal LAD disease however benefits of any PCI to LAD do not outweigh potential risks with patient already having patent CASTILLO to LAD and SVG to OM1 and radial artery to OM2. New onset paroxysmal atrial fibrillation with RVR Anemia, unsure if acute or chronic. Concern of GIB with hemoccult positive stools. Coronary artery disease with previous CABG Hypertension End-stage renal disease, recently started on hemodialysis COPD PLAN: Continue current cardiac medications Continue telemetry monitoring HRs controlled. Hopeful discharge from cardiology standpoint once hgb stabilized. No anticoagulation given anemia with hemoccult positive stools. If hgb improves and no evidence of GIB as an outpt, patient should be placed on a NOAC or coumadin for his Afib. Objective - Vital Signs Vital signs: Vital Signs Temp 98.0 F 05/01/20 12:06 Pulse 78 05/01/20 12:06 Resp 18 05/01/20 12:06 BP 127/80 05/01/20 12:06 Pulse Ox 92 L 05/01/20 08:00 Intake & Output 04/30/20 05/01/20 05/01/20 18:59 06:59 18:59 Intake Total 240 480 Output Total 284 871 0944 Balance -160 -400 -1220 Weight 54 kg Intake: Oral 240 480 Output: Urine 400 400 200 Hemodialysis 1500 Other: Voiding Method Indwelling Catheter Indwelling Catheter Indwelling Catheter - Labs CBC & Chem 7: 05/01/20 07:43 05/01/20 07:43 Labs: Abnormal Lab Results - Last 24 Hours (Table) 05/01/20 05/01/20 05/01/20 Range/Units 07:43 07:43 07:43 RBC 2.09 L (4.30-5.90) m/uL Hgb 6.9 L* (13.0-17.5) gm/dL Hct 21.3 L (39.0-53.0) % MCV 102.1 H (80.0-100.0) fL Plt Count 140 L (150-450) k/uL Lymphocytes # 0.6 L (1.0-4.8) k/uL Retic Count 5.0 H (0.5-2.0) % BUN 30 H (9-20) mg/dL Creatinine 3.54 H (0.66-1.25) mg/dL Calcium 7.5 L (8.4-10.2) mg/dL Crossmatch 05/01/20 Range/Units 09:30 RBC (4.30-5.90) m/uL Hgb (13.0-17.5) gm/dL Hct (39.0-53.0) % MCV (80.0-100.0) fL Plt Count (150-450) k/uL Lymphocytes # (1.0-4.8) k/uL Retic Count (0.5-2.0) % BUN (9-20) mg/dL Creatinine (0.66-1.25) mg/dL Calcium (8.4-10.2) mg/dL Crossmatch See Detail
--- NOTE | 2020-05-01 13:32 | P.PN ---
Subjective Progress Note Date: 05/01/20 Principal diagnosis: anemia patient is seen lying in bed today. No signs or symptoms of GI bleeding including hematemesis, coffee-ground emesis, melena or hematochezia. He reports appetite was improved today and he tolerated breakfast. Objective - Vital Signs Vital signs: Vital Signs Temp 98.7 F 05/01/20 03:29 Pulse 73 05/01/20 08:52 Resp 18 05/01/20 03:29 BP 116/52 05/01/20 03:29 Pulse Ox 94 L 05/01/20 03:29 Intake & Output 04/30/20 05/01/20 05/01/20 18:59 06:59 18:59 Intake Total 240 480 Output Total 400 400 Balance -160 -400 480 Weight 54 kg Intake: Oral 240 480 Output: Urine 400 400 Other: Voiding Method Indwelling Catheter Indwelling Catheter - Exam On physical examination, patient appears comfortable in no apparent distress. HEAD: Normocephalic, atraumatic. EYES: No scleral icterus. No conjunctival injection. MOUTH: No lesions, tongue midline. NECK: Trachea midline, no gross abnormalities. ABDOMEN: Soft, obese. Bowel sounds are positive. No organomegaly. No guarding or rigidity. EXTREMITIES: No pedal edema. SKIN: No rashes, no jaundice. NEUROLOGIC: Alert and oriented x3. No focal deficits. - Labs CBC & Chem 7: 05/01/20 07:43 05/01/20 07:43 Labs: Abnormal Lab Results - Last 24 Hours (Table) 05/01/20 05/01/20 Range/Units 07:43 07:43 RBC 2.09 L (4.30-5.90) m/uL Hgb 6.9 L* (13.0-17.5) gm/dL Hct 21.3 L (39.0-53.0) % MCV 102.1 H (80.0-100.0) fL Plt Count 140 L (150-450) k/uL Lymphocytes # 0.6 L (1.0-4.8) k/uL BUN 30 H (9-20) mg/dL Creatinine 3.54 H (0.66-1.25) mg/dL Calcium 7.5 L (8.4-10.2) mg/dL Assessment and Plan (1) Macrocytic anemia Narrative/Plan: 79-year-old male with multiple medical comorbidities transfer from outside facility for possible hemodialysis. Patient having chest pain and underwent cardiac catheterization with stenosis noted (please see procedure note for details). Plan of treatment at this time is for optimization of medical management. Patient noted to have anemia on presentation with hemoglobin 7.4 with macrocytic indices. Long-standing history of anemia as per report from the patient and his . He has required transfusions in the past. He has previously undergone endoscopic evaluation. Patient has macrocytic indices and anemia is likely toroidal given multiple medical comorbidities and underlying chronic kidney disease. He is currently denying any signs or symptoms of GI bleeding. hemoglobin slightly depressed today at 6.9 from baseline and patient will be receiving 1 unit of PRBCs, but continues to deny any signs or symptoms of GI bleed and reports improved appetite. Current Visit: Yes Status: Acute Code(s): D53.9 - NUTRITIONAL ANEMIA, UNSP ECIFIED SNOMED Code(s): 88918868 (2) GERD (gastroesophageal reflux disease) Current Visit: Yes Status: Acute Code(s): K21.9 - GASTRO-ESOPHAGEAL REFLUX DISEASE WITHOUT ESOPHAGITIS SNOMED Code(s): 589347666 Plan: supportive care Okay for diet as per recommendations by speech language pathology Protonix daily Anemia laboratory evaluation ordered no plans for endoscopic evaluation at this time as the patient's family are hoping to bring the patient home, in addition he would be high risk given her multiple Medical comorbidities and coronary disease, we'll continue to monitor labs and symptomatically and reassess if any changes occur Nephrology service following the patient and have ordered Darbepoeitin Edu thank you for allowing us to participate in the care of the patient
--- NOTE | 2020-05-01 14:30 | PN ---
PROGRESS NOTE Patient is seen for followup for chronic kidney disease, currently hemodialysis dependent. He is seen on hemodialysis, tolerating his treatment well. This morning blood pressure was 116/52, heart rate of about 66 per minute, patient is afebrile. EXAMINATION: Examination of the heart S1, S2. Examination of lungs, decreased breath sounds at bases. Abdomen is soft, nontender. Examination of lower extremities shows no significant edema. MERCHANDISING SPECIALIST exam grossly intact. LABS: Hemoglobin was 6.9 g/dL today. Sodium 138, potassium 4.1, BUN 30, creatinine 3.54. ASSESSMENT: 1. Acute kidney injury on top of chronic kidney disease, currently hemodialysis dependent, which we will continue for now. 2. Chronic kidney disease stage IV. Baseline creatinine about 2.5 secondary to nephrosclerosis and ischemic nephropathy. 3. Mental status changes and encephalopathy, currently improved. 4. Volume overload. 5. Aspiration pneumonia, maintained on antibiotics. 6. Urine retention currently with Hinds catheter, maintained on Flomax. PLAN: Maintain Sunday, , Sunday schedule for hemodialysis. The patient will be going to the [facility]. MMODL / IJN: [id number] /
[2020-05-01 18:03] LABS: Folate, Serum 9.7 ng/mL
[2020-05-01 18:33] LABS: % Iron Saturation 10.7 (15.00-50.00)
[2020-05-01] MEDS: MONTELUKAST 10 MG TAB PO SCH (20:52)
[2020-05-01] MEDS: DOXAZOSIN 4 MG TAB PO SCH (20:52)
[2020-05-01] MEDS: ATORVASTATIN 80 MG TAB PO SCH (20:52)
[2020-05-02] MEDS: PANTOPRAZOLE 40 MG TABLET PO SCH (06:59)
[2020-05-02 07:33] LABS: HCT 23.8 % (39.0-53.0); HGB 7.8 gm/dL (13.0-17.5); Hypochromasia Slight; MCH 32.7 pg (25.0-35.0); MCHC 32.6 g/dL (31.0-37.0); MCV 100.2 fL (80.0-100.0); Macrocytosis Slight; Mean Platelet Volume 9.7; Platelet Count 125 k/uL (150-450); RBC 2.38 m/uL (4.30-5.90); RDW 14.6 % (11.5-15.5); WBC 6.4 k/uL (3.8-10.6)
[2020-05-02 07:48] LABS: Calcium 7.3 mg/dL (8.4-10.2); Potassium 3.9 mmol/L (3.5-5.1)
[2020-05-02] MEDS: IPRATROPIUM-ALBUTEROL 3 ML NEB INHALATION PRN (08:02)
[2020-05-02] MEDS: ASPIRIN 81 MG PO SCH (08:34)
[2020-05-02] MEDS: TAMSULOSIN 0.4 MG CAP.ER.24H PO SCH (08:34)
[2020-05-02] MEDS: busPIRone HCl 5 MG TAB PO SCH (08:35)
[2020-05-02] MEDS: METOPROLOL TARTRATE 25 MG TAB PO SCH (08:35)
[2020-05-02] MEDS: QUEtiapine 25 MG TAB PO SCH (08:35)
[2020-05-02] MEDS: DOCUSATE 100 MG CAP PO SCH (08:35)
[2020-05-02] MEDS: ISOSORBIDE MONONITRATE ER 60 MG TAB.ER.24H PO SCH (08:35)
[2020-05-02 11:41] VITALS: BP 124/58; PULSE 60; RESP 18; TEMP 97.6
[2020-05-02] MEDS: PIPERACILLIN-TAZOBACTAM 3.375 GM in SODIUM CHLORIDE 0.9% 100 ML IVPB SCH (11:57)
--- NOTE | 2020-05-02 12:33 | P.DS ---
Providers Date of admission: 04/26/20 16:58 Expected date of discharge: 05/02/20 Attending physician: Michelle Baum MD Consults: 04/26/20 17:53 Consult Physician Routine Consulting Provider: Vicente Chinchilla Consult Reason/Comments: Needs dialysis access Do you want consulting provider notified?: Yes Placement Type Exists?: Yes Consult Physician Stat Consulting Provider: Octavio Rodriguez Consult Reason/Comments: Needs dialysis Do you want consulting provider notified?: Yes Placement Type Exists?: Yes 04/27/20 20:41 Consult Physician Routine Consulting Provider: Tommy Miramontes Consult Reason/Comments: AFIB , NEW ONSET Do you want consulting provider notified?: Yes 04/29/20 12:32 Consult Physician Stat Consulting Provider: Patel Marlow Consult Reason/Comments: + FOBT needs clearance for cardiac cath Do you want consulting provider notified?: Yes Primary care physician: Stated None Hospital Course: Discharge Diagnosis: Acute kidney injury on chronic kidney disease now hemodialysis dependent NSTEMI, Type 1 New onset P a fib with RVR Urinary retention with BPH 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 He was hospitalized there from April 15 through April 26. He had some chest pain while at [facility] and underwent a nuclear stress test which was equivocal and maximal medical therapy was advised. He was also found to have a pneumonia and was initially on Vanco and Zosyn. He was seen by ID and Zosyn was continued for concerns of aspiration. He underwent a swallow study which showed concerns for aspiration and he has started on a nectar thick diet. [facility] his renal function continued to worsen. Initially there was concern for obstructive uropathy due to large postvoid residuals however his renal ultrasound did not demonstrate any signs of hydronephrosis. He was transferred here to obtain vascular access and start hemodialysis. Device access was obtained on April 27 and patient subsequently underwent dialysis on April 27, , and eighth. On April. Chest pain overnight and was found to be in A. fib with rapid ventricular response and elevated troponin. He was started on a heparin drip and cardiology was consulted. Initially recommended maximal medical therapy. However he underwent an echocardiogram which showed an ejection fraction of 35-40% and he was subsequently taken for cardiac cath. This demonstrated a lesion in the proximal LAD however the benefits did not weigh the risks of treating this complex origin LAD with intervention and maximal medical therapy was again recommended. Plans were for hemodialysis again on 05/01 and the patient has been set up for hemodialysis on Sunday, , and Sunday. He had some dizziness on 05/01 related to low BP and medications were adjusted. His dizziness resolved and BP improved. On the morning of 05/01 his hemoglobin was slightly low at 6.9 in 1 additional unit of packed red blood cells was ordered. He was seen by GI and no plans for scope. His hemoglobin came up appropriate and he was not having any signs of bleed. He failed a voiding trail and will need to discharged with catheter in place and urology follow-up. His oxygen level was 93% with ambulation and he will not require oxygen at home. No anticoagulation on discharge due to fluctuations in hemoglobin but will be addressed at cardiology follow-up. Patient seen and examined at bedside. No chest pain, no dizziness, some pain with deep inspiration but no shortness of breath. No significant cough Vital signs reviewed and stable. General: non toxic, no distress, appears at stated age Derm: warm, dry Head: atraumatic, normocephalic, symmetric Eyes: EOMI, no lid lag, anicteric sclera Mouth: no lip lesion, mucus membranes moist Cardiovascular: S1S2 reg, no murmur, positive posterior tibial pulse bilateral, Lungs: Decrease bs bilateral, no rhonchi, no rales , no accessory muscle use Abdominal: soft, nontender to palpation, no guarding, no appreciable organomegaly Ext: no gross muscle atrophy, no edema, no contractures Neuro: CN II-XI grossly intact, no focal neuro deficits Psych: Alert, oriented, appropriate affect A total of 35 minutes of time were spent preparing this complex discharge summary . Patient Condition at Discharge: Stable Plan - Discharge Summary Discharge Rx Participant: No New Discharge Prescriptions: New Doxazosin [Cardura] 2 mg PO HS #15 tab Isosorbide Mononitrate ER [Imdur] 60 mg PO DAILY #30 tab.er.24h Atorvastatin [Lipitor] 80 mg PO HS #30 tab Metoprolol Tartrate [Lopressor] 25 mg PO BID #60 tab Pantoprazole [Protonix] 40 mg PO AC-BRKFST #30 tablet.dr Continue Zafirlukast 20 mg PO BID busPIRone HCL [Buspar] 7.5 mg PO BID Ipratropium Nebulized [Atrovent Nebulized 0.2 MG/ML] 0.5 mg INHALATION RT-Q4H PRN PRN Reason: Shortness Of Breath Ipratropium Nebulized [Atrovent Nebulized 0.2 MG/ML] 0.5 mg INHALATION RT-BID Tamsulosin HCl [Flomax] 0.4 mg PO HS Albuterol Nebulized [Ventolin Nebulized] 2.5 mg INHALATION RT-Q4H PRN PRN Reason: Shortness Of Breath Docusate [Colace] 100 mg PO DAILY Aspirin EC [Ecotrin Low Dose] 81 mg PO DAILY Discontinued hydroCHLOROthiazide [Hydrodiuril] 25 mg PO DAILY Spironolactone 75 mg PO DAILY minoxidiL [Minoxidil] 2.5 mg PO BID hydrALAZINE HCL [Apresoline] 100 mg PO BID Lisinopril [Zestril] 10 mg PO BID cloNIDine HCL 0.3 mg PO TID Carvedilol [Coreg] 25 mg PO BID Ferrous Sulfate [Feosol] 325 mg PO BID No Action Terazosin HCl 10 mg PO HS Discharge Medication List Zafirlukast 20 mg PO BID 09/30/14 [History] Albuterol Nebulized [Ventolin Nebulized] 2.5 mg INHALATION RT-Q4H PRN 04/26/20 [History] Ipratropium Nebulized [Atrovent Nebulized 0.2 MG/ML] 0.5 mg INHALATION RT-BID 04/26/20 [History] Ipratropium Nebulized [Atrovent Nebulized 0.2 MG/ML] 0.5 mg INHALATION RT-Q4H PRN 04/26/20 [History] Tamsulosin HCl [Flomax] 0.4 mg PO HS 04/26/20 [History] Terazosin HCl 10 mg PO HS 04/26/20 [History] busPIRone HCL [Buspar] 7.5 mg PO BID 04/26/20 [History] Aspirin EC [Ecotrin Low Dose] 81 mg PO DAILY 04/27/20 [History] Docusate [Colace] 100 mg PO DAILY 04/27/20 [History] Atorvastatin [Lipitor] 80 mg PO HS #30 tab 05/02/20 [Rx] Doxazosin [Cardura] 2 mg PO HS #15 tab 05/02/20 [Rx] Isosorbide Mononitrate ER [Imdur] 60 mg PO DAILY #30 tab.er.24h 05/02/20 [Rx] Metoprolol Tartrate [Lopressor] 25 mg PO BID #60 tab 05/02/20 [Rx] Pantoprazole [Protonix] 40 mg PO AC-BRKFST #30 tablet. 05/02/20 [Rx] Follow up Appointment(s)/Referral(s): Grey Bey MD [Medical Doctor] - 1 Week Amanda Hernandez MD [STAFF PHYSICIAN] [facility] [NON-STAFF] - Francesco Andrews DO [STAFF PHYSICIAN] - 2 Weeks Monserrat Chavis MD [STAFF PHYSICIAN] - 2 Weeks Linus Humphrey MD [STAFF PHYSICIAN] - 1 Week Patient Instructions/Handouts: *Surgery [facility] - After Heart Catheterization - [employer] Instructions, Acute Kidney Injury (DC) Activity/Diet/Wound Care/Special Instructions: Activity: as tolerated Diet: low sodium, 2L fluid restriction Special Instructions: Dialysis at 07:[address] and will need follow-up with Dr. Humphrey for voiding trial Dr. Hernandez for cardiology follow-up Dr. Andrews for follow-up on abdominal aortic aneurysm Dr. Bey for follow-up on gallstone Discharge Disposition: HOME SELF-CARE
[2020-05-02] MEDS ORDERED: SODIUM FERRIC GLUCONAT-SUCROSE 125 MG in SODIUM CHLORIDE 0.9% 100 ML IVPB SCH (14:00)
--- NOTE | 2020-05-02 14:12 | P.PN ---
Subjective Progress Note Date: 05/02/20 CHIEF COMPLAINT: New onset atrial fibrillation HISTORY OF PRESENT ILLNESS: Patient underwent cardiac cath revealing coronary artery disease with left main 50-60% stenosis, proximal LAD 100% stenosis, OM1 100% stenosis, circumflex 30% stenosis, OM2 50% stenosis, PLV 50% stenosis and PDA tandem 70% and 70% stenoses. Patent CASTILLO to LAD, SVG to OM2, radial artery to OM1. Patient states is doing well. Denies any chest pain or pressure. He received 1 unit packed red blood cells yesterday for anemia. PHYSICAL EXAM: VITAL SIGNS: Reviewed. GENERAL: Well-developed in no acute distress. HEENT: Head is normocephalic. Pupils are equal, round. Sclerae anicteric. Mucous membranes of the mouth are moist. Neck supple. No JVD or thyromegaly LUNGS: Respirations even and unlabored. Lungs coarse. HEART: Regular rate and rhythm. S1 and S2 heard. ABDOMEN: Soft. Nondistended. Nontender. EXTREMITIES: Normal range of motion. No clubbing or cyanosis. Peripheral pulses intact. No lower extremity edema NEUROLOGIC: Awake and alert. Oriented x 3. ASSESSMENT: NSTEMI type 1, likely related to proximal LAD disease however benefits of any PCI to LAD do not outweigh potential risks with patient already having patent CASTILLO to LAD and SVG to OM1 and radial artery to OM2. New onset paroxysmal atrial fibrillation with RVR Anemia, unsure if acute or chronic. Concern of GIB with hemoccult positive stools. Coronary artery disease with previous CABG Hypertension End-stage renal disease, recently started on hemodialysis COPD PLAN: Patient appears stable for discharge from a cardiac standpoint. No anticoagulation given anemia with hemoccult positive stools requiring blood transfusion. If hgb improves and no evidence of GIB as an outpt, patient should be placed on a NOAC or coumadin for his Afib. Objective - Vital Signs Vital signs: Vital Signs Temp 97.6 F 05/02/20 11:40 Pulse 60 05/02/20 12:00 Resp 18 05/02/20 12:12 BP 124/58 05/02/20 11:40 Pulse Ox 93 L 05/02/20 12:12 Intake & Output 05/01/20 05/02/20 05/02/20 18:59 06:59 18:59 Intake Total 910 240 Output Total 1700 600 Balance -790 -360 Weight 56 kg Intake: Oral 600 240 Blood Product 310 Rc As-1 Unit 310 [id number] Output: Urine 200 600 Hemodialysis 1500 Other: Voiding Method Indwelling Catheter Indwelling Catheter Indwelling Catheter # Voids 1 - Labs CBC & Chem 7: 05/02/20 07:16 05/02/20 07:16 Labs: Abnormal Lab Results - Last 24 Hours (Table) 05/01/20 05/01/20 05/02/20 Range/Units 07:43 09:30 07:16 RBC 2.38 L (4.30-5.90) m/uL Hgb 7.8 L (13.0-17.5) gm/dL Hct 23.8 L (39.0-53.0) % MCV 100.2 H (80.0-100.0) fL Plt Count 125 L (150-450) k/uL Sodium (137-145) mmol/L BUN (9-20) mg/dL Creatinine (0.66-1.25) mg/dL Calcium (8.4-10.2) mg/dL Iron 23 L (65-175) ug/dL TIBC 215 L (228-460) ug/dL % Saturation 10.70 L (15.00-50.00) Crossmatch See Detail 05/02/20 Range/Units 07:16 RBC (4.30-5.90) m/uL Hgb (13.0-17.5) gm/dL Hct (39.0-53.0) % MCV (80.0-100.0) fL Plt Count (150-450) k/uL Sodium 136 L (137-145) mmol/L BUN 23 H (9-20) mg/dL Creatinine 3.14 H (0.66-1.25) mg/dL Calcium 7.3 L (8.4-10.2) mg/dL Iron (65-175) ug/dL TIBC (228-460) ug/dL % Saturation (15.00-50.00) Crossmatch
--- NOTE | 2020-05-02 16:00 | PN ---
PROGRESS NOTE Patient is seen for followup for acute on top of chronic renal failure with currently hemodialysis dependent renal failure. The patient's urine output is low and he will be starting dialysis as outpatient. He has a right IJ PermCath in place. PHYSICAL EXAMINATION: On examination today, blood pressure was 124/58, heart rate 60 per minute, patient is afebrile. Examination of the heart S1, S2. Examination of the lungs, bilateral breath sounds are heard. Abdomen is soft, nontender. Examination lower extremities shows no significant edema. HULL GRINDER exam grossly intact. LABS: Show hemoglobin 7.8 today. Potassium was 3.9. ASSESSMENT: 1. Chronic kidney disease with progressive renal failure, currently maintained on hemodialysis. The patient will continue with outpatient dialysis. 2. Hypertension, currently controlled. 3. Congestive heart failure, volume status has improved now. 4. Chronic kidney disease mineral bone disorder. 5. Aspiration pneumonia. 6. Mental status changes, currently improved. PLAN: Maintain dialysis on a Sunday, , Sunday schedule as outpatient. MMODL / IJN: [id number] /
== END 2020-05-02 15:10 | disposition home health service (06) | DRG 673 ==
LOC: 3SCARD 16:58
PROVIDERS: ADMIT Family Medicine; ATTEND Family Medicine
PROC: 02HV33Z Insertion of Infusion Device into Superior Vena Cava, Percutaneous Approach (ICD-10-PCS; principal; 2020-04-27 12:40)
PROC: 0JHD3XZ Insertion of Tunneled Vascular Access Device into Right Upper Arm Subcutaneous Tissue and Fascia, Percutaneous Approach (ICD-10-PCS; principal; 2020-04-27 12:40)
PROC: 5A1D70Z Performance of Urinary Filtration, Intermittent, Less than 6 Hours Per Day (ICD-10-PCS; 2020-04-27 12:40)
PROC: B2111ZZ Fluoroscopy of Multiple Coronary Arteries using Low Osmolar Contrast (ICD-10-PCS; 2020-04-29)
PROC: 4A023N7 Measurement of Cardiac Sampling and Pressure, Left Heart, Percutaneous Approach (ICD-10-PCS; 2020-04-29)
PROC: B2131ZZ Fluoroscopy of Multiple Coronary Artery Bypass Grafts using Low Osmolar Contrast (ICD-10-PCS; 2020-04-29)
PROC: 30233N1 Transfusion of Nonautologous Red Blood Cells into Peripheral Vein, Percutaneous Approach (ICD-10-PCS; 2020-05-01)
DX: N17.0 Acute kidney failure with tubular necrosis (principal); G93.41 Metabolic encephalopathy; I21.4 Non-ST elevation (NSTEMI) myocardial infarction; J69.0 Pneumonitis due to inhalation of food and vomit; E87.2 Acidosis; I13.2 Hypertensive heart and chronic kidney disease with heart failure and with stage 5 chronic kidney disease, or end stage renal disease; I42.9 Cardiomyopathy, unspecified; I50.22 Chronic systolic (congestive) heart failure; K80.10 Calculus of gallbladder with chronic cholecystitis without obstruction; N18.4 Chronic kidney disease, stage 4 (severe); D69.6 Thrombocytopenia, unspecified; D63.1 Anemia in chronic kidney disease; I95.9 Hypotension, unspecified; I71.2 Thoracic aortic aneurysm, without rupture; I48.0 Paroxysmal atrial fibrillation; J44.9 Chronic obstructive pulmonary disease, unspecified; D53.9 Nutritional anemia, unspecified; E87.5 Hyperkalemia; H91.90 Unspecified hearing loss, unspecified ear; I08.1 Rheumatic disorders of both mitral and tricuspid valves; I25.10 Atherosclerotic heart disease of native coronary artery without angina pectoris; I71.4 Abdominal aortic aneurysm, without rupture; K21.9 Gastro-esophageal reflux disease without esophagitis; E83.89 Other disorders of mineral metabolism; N40.1 Benign prostatic hyperplasia with lower urinary tract symptoms; R33.8 Other retention of urine; M19.90 Unspecified osteoarthritis, unspecified site; R91.1 Solitary pulmonary nodule; R19.5 Other fecal abnormalities; Z79.82 Long term (current) use of aspirin; Z79.899 Other long term (current) drug therapy; Z86.73 Personal history of transient ischemic attack (TIA), and cerebral infarction without residual deficits; Z87.891 Personal history of nicotine dependence; Z95.1 Presence of aortocoronary bypass graft; Z98.1 Arthrodesis status; Z90.49 Acquired absence of other specified parts of digestive tract; Z98.890 Other specified postprocedural states; Z87.19 Personal history of other diseases of the digestive system; Z88.5 Allergy status to narcotic agent; Z80.8 Family history of malignant neoplasm of other organs or systems
CPT/HCPCS: 71045; 74230; 80048; 80053; 80074; 82140; 82272; 82607; 82728; 82746; 83540; 83550; 83735; 84132; 84484; 85025; 85027; 85045; 85347; 85610; 85730; 86706; 86850; 86900; 86901; 86920; 87340; 90935; 93306; 93455; 94640; 94760

== ENCOUNTER 2020-05-04 11:05 | Inpatient (IN) | payer MEDICARE ==
[2020-05-04] MEDS ORDERED: PANTOPRAZOLE 40 MG/10 ML VIAL IVP STA (11:38)
[2020-05-04] MEDS ORDERED: ONDANSETRON 4 MG/2 ML VIAL IVP STA (11:38)
[2020-05-04] MEDS ORDERED: IPRATROPIUM-ALBUTEROL 3 ML NEB INHALATION STA (11:39)
[2020-05-04 12:18] LABS: Basophils % (A) 0 %; Eosinophils # (A) 0.1 k/uL (0-0.7); Eosinophils % (A) 1 %; HCT 27.5 % (39.0-53.0); HGB 8.8 gm/dL (13.0-17.5); Hypochromasia Slight; Lymphocytes # (A) 0.4 k/uL (1.0-4.8); Lymphocytes % (A) 4 %; MCHC 31.9 g/dL (31.0-37.0); MCV 100.2 fL (80.0-100.0); Macrocytosis Slight; Mean Platelet Volume 9.8; Monocytes # (A) 0.3 k/uL (0-1.0); Monocytes % (A) 3 %; Neutrophils # (A) 8.8 k/uL (1.3-7.7); Neutrophils % (A) 91 %; Platelet Count 164 k/uL (150-450); RBC 2.74 m/uL (4.30-5.90); RDW 14.8 % (11.5-15.5); WBC 9.6 k/uL (3.8-10.6)
--- NOTE | 2020-05-04 12:24 | ED ---
Nausea/Vomiting/Diarrhea HPI - General Chief complaint: Nausea/Vomiting/Diarrhea Stated complaint: Vomiting, Black Stool Time Seen by Provider: 05/04/20 11:25 Source: patient, family, RN notes reviewed Mode of arrival: wheelchair Limitations: physical limitation - History of Present Illness Initial comments: This is a 79-year-old male presents emergency Department with chief complaint of abdominal discomfort, black tarry stool, nausea vomiting. Patient states that he was discharged Sunday after long stent in the hospital in which she was started on dialysis, underwent cardiac catheterization secondary to MA. Patient states that he was feeling better. Patient states that he went to dialysis today in which she began throwing up and noticed that his blood pressure was low and was sent emergency department. - Related Data Home Medications Medication Instructions Recorded Confirmed Zafirlukast 20 mg PO BID 09/30/14 05/04/20 Albuterol Nebulized [Ventolin 2.5 mg INHALATION RT-Q4H PRN 04/26/20 05/04/20 Nebulized] Ipratropium Nebulized [Atrovent 0.5 mg INHALATION RT-BID 04/26/20 05/04/20 Nebulized 0.2 MG/ML] Ipratropium Nebulized [Atrovent 0.5 mg INHALATION RT-Q4H PRN 04/26/20 05/04/20 Nebulized 0.2 MG/ML] Tamsulosin HCl [Flomax] 0.4 mg PO HS 04/26/20 05/04/20 Terazosin HCl 10 mg PO HS 04/26/20 05/04/20 busPIRone HCL [Buspar] 7.5 mg PO BID 04/26/20 05/04/20 Aspirin EC [Ecotrin Low Dose] 81 mg PO DAILY 04/27/20 05/04/20 Docusate [Colace] 100 mg PO DAILY 04/27/20 05/04/20 Doxazosin [Cardura] 2 mg PO HS 05/04/20 05/04/20 Previous Rx's Medication Instructions Recorded Atorvastatin [Lipitor] 80 mg PO HS #30 tab 05/02/20 Isosorbide Mononitrate ER [Imdur] 60 mg PO DAILY #30 tab.er.24h 05/02/20 Metoprolol Tartrate [Lopressor] 25 mg PO BID #60 tab 10/11/20 Pantoprazole [Protonix] 40 mg PO AC-BRKFST #30 tablet. 05/02/20 Allergies Allergy/AdvReac Type Severity Reaction Status Date / Time morphine Allergy Rash/Hives Verified 05/04/20 12:15 Review of Systems ROS Statement: Those systems with pertinent positive or pertinent negative responses have been documented in the HPI. ROS Other: All systems not noted in ROS Statement are negative. Past Medical History Past Medical History: Coronary Artery Disease (CAD), COPD, CVA/TIA, GERD/Reflux, Hearing Disorder / Deafness, Hypertension, Myocardial Infarction (MA), Osteoarthritis (OA), Renal Disease, Respiratory Disorder Additional Past Medical History / Comment(s): ABDOMINAL ANEURYSM, gall stones History of Any Multi-Drug Resistant Organisms: None Reported Past Surgical History: Appendectomy, Bowel Resection, Coronary Bypass/CABG, Heart Catheterization, Hernia Repair Additional Past Surgical History / Comment(s): Neck Fusion 1979 x2, CRANIOTOMY, TRIPLE BYPASS, LEFT CAROTID SURGERY. Past Anesthesia/Blood Transfusion Reactions: No Reported Reaction Past Psychological History: No Psychological Hx Reported Smoking Status: Former smoker Past Alcohol Use History: None Reported Past Drug Use History: None Reported - Past Family History Sister(s) Family Medical History: Cancer Additional Family Medical History / Comment(s): BONE CA General Exam Limitations: physical limitation General appearance: alert, in no apparent distress Head exam: Present: atraumatic, normocephalic, normal inspection Eye exam: Present: normal appearance, PERRL, EOMI. Absent: scleral icterus, conjunctival injection, periorbital swelling ENT exam: Present: normal exam, normal oropharynx, mucous membranes moist Neck exam: Present: normal inspection, full ROM. Absent: tenderness, meningismus, lymphadenopathy Respiratory exam: Present: wheezes. Absent: normal lung sounds bilaterally, respiratory distress, rales, rhonchi, stridor Cardiovascular Exam: Present: regular rate, normal rhythm, normal heart sounds. Absent: systolic murmur, diastolic murmur, rubs, gallop, clicks GI/Abdominal exam: Present: soft, tenderness, normal bowel sounds. Absent: distended, guarding, rebound, rigid Neurological exam: Present: alert, oriented X3 Skin exam: Present: warm, dry, intact, normal color. Absent: rash Course Vital Signs 05/04/20 05/04/20 05/04/20 11:20 11:31 11:40 Temperature 98.7 F Pulse Rate 72 76 Respiratory 18 22 Rate Blood Pressure 118/61 119/54 O2 Sat by Pulse 93 L 93 L 97 Oximetry 05/04/20 05/04/20 05/04/20 11:52 12:00 12:03 Temperature Pulse Rate 77 75 79 Respiratory 24 Rate Blood Pressure 132/64 O2 Sat by Pulse 100 Oximetry 05/04/20 05/04/20 05/04/20 12:10 12:30 13:00 Temperature Pulse Rate 68 66 65 Respiratory 25 H 19 16 Rate Blood Pressure 139/67 122/56 117/52 O2 Sat by Pulse 93 L 94 L 93 L Oximetry Medical Decision Making - Medical Decision Making 79-year-old male presented from for nausea vomiting shortness of breath needing dialysis, prior hypotension. Patient's blood pressure is improved at this point. Patient's nausea is improved patient does have evidence of increasing pleural effusion and need for dialysis. Patient did have some melanotic stools today. Hemoglobin is stable. Patient be admitted for further evaluation and monitoring. - Lab Data Result diagrams: 05/04/20 12:01 05/04/20 12:01 Lab Results 05/04/20 05/04/20 05/04/20 Range/Units 12:01 12:01 12:01 WBC 9.6 (3.8-10.6) k/uL RBC 2.74 L (4.30-5.90) m/uL Hgb 8.8 L (13.0-17.5) gm/dL Hct 27.5 L (39.0-53.0) % MCV 100.2 H (80.0-100.0) fL MCH 32.0 (25.0-35.0) pg MCHC 31.9 (31.0-37.0) g/dL RDW 14.8 (11.5-15.5) % Plt Count 164 (150-450) k/uL Neutrophils % 91 % Lymphocytes % 4 % Monocytes % 3 % Eosinophils % 1 % Basophils % 0 % Neutrophils # 8.8 H (1.3-7.7) k/uL Lymphocytes # 0.4 L (1.0-4.8) k/uL Monocytes # 0.3 (0-1.0) k/uL Eosinophils # 0.1 (0-0.7) k/uL Basophils # 0.0 (0-0.2) k/uL Hypochromasia Slight Macrocytosis Slight Sodium 135 L (137-145) mmol/L Potassium 4.3 (3.5-5.1) mmol/L Chloride 104 (98-107) mmol/L Carbon Dioxide 25 (22-30) mmol/L Anion Gap 6 mmol/L BUN 27 H (9-20) mg/dL Creatinine 3.09 H (0.66-1.25) mg/dL Est GFR (CKD-EPI)AfAm 21 (>60 ml/min/1.73 sqM) Est GFR (CKD-EPI)NonAf 18 (>60 ml/min/1.73 sqM) Glucose 96 (74-99) mg/dL Plasma Lactic Acid Mitchell (0.7-2.0) mmol/L Calcium 7.7 L (8.4-10.2) mg/dL Total Bilirubin 0.5 (0.2-1.3) mg/dL AST 21 (17-59) U/L ALT 16 (4-49) U/L Alkaline Phosphatase 53 (38-126) U/L Troponin I (0.000-0.034) ng/mL Total Protein 5.5 L (6.3-8.2) g/dL Albumin 2.7 L (3.5-5.0) g/dL Amylase 96 (30-110) U/L Lipase 191 (23-300) U/L Urine Color Yellow Urine Appearance Cloudy (Clear) Urine pH 5.5 (5.0-8.0) Ur Specific Leland 1.017 (1.001-1.035) Urine Protein 2+ H (Negative) Urine Glucose (UA) Negative (Negative) Urine Ketones Negative (Negative) Urine Blood Moderate H (Negative) Urine Nitrite Negative (Negative) Urine Bilirubin Negative (Negative) Urine Urobilinogen <2.0 (<2.0) mg/dL Ur Leukocyte Esterase Moderate H (Negative) Urine RBC 59 H (0-5) /hpf Urine WBC 14 H (0-5) /hpf Urine Bacteria Rare H (None) /hpf Urine Mucus Rare H (None) /hpf Urine Yeast (Budding) Many H (None) /hpf Blood Type Blood Type Recheck Bld Type Recheck Status Antibody Screen Spec Expiration Date 05/04/20 05/04/20 05/04/20 Range/Units 12:01 12:01 12:01 WBC (3.8-10.6) k/uL RBC (4.30-5.90) m/uL Hgb (13.0-17.5) gm/dL Hct (39.0-53.0) % MCV (80.0-100.0) fL MCH (25.0-35.0) pg MCHC (31.0-37.0) g/dL RDW (11.5-15.5) % Plt Count (150-450) k/uL Neutrophils % % Lymphocytes % % Monocytes % % Eosinophils % % Basophils % % Neutrophils # (1.3-7.7) k/uL Lymphocytes # (1.0-4.8) k/uL Monocytes # (0-1.0) k/uL Eosinophils # (0-0.7) k/uL Basophils # (0-0.2) k/uL Hypochromasia Macrocytosis Sodium (137-145) mmol/L Potassium (3.5-5.1) mmol/L Chloride (98-107) mmol/L Carbon Dioxide (22-30) mmol/L Anion Gap mmol/L BUN (9-20) mg/dL Creatinine (0.66-1.25) mg/dL Est GFR (CKD-EPI)AfAm (>60 ml/min/1.73 sqM) Est GFR (CKD-EPI)NonAf (>60 ml/min/1.73 sqM) Glucose (74-99) mg/dL Plasma Lactic Acid Mitchell 0.9 (0.7-2.0) mmol/L Calcium (8.4-10.2) mg/dL Total Bilirubin (0.2-1.3) mg/dL AST (17-59) U/L ALT (4-49) U/L Alkaline Phosphatase (38-126) U/L Troponin I 0.150 H* (0.000-0.034) ng/mL Total Protein (6.3-8.2) g/dL Albumin (3.5-5.0) g/dL Amylase (30-110) U/L Lipase (23-300) U/L Urine Color Urine Appearance (Clear) Urine pH (5.0-8.0) Ur Specific Leland (1.001-1.035) Urine Protein (Negative) Urine Glucose (UA) (Negative) Urine Ketones (Negative) Urine Blood (Negative) Urine Nitrite (Negative) Urine Bilirubin (Negative) Urine Urobilinogen (<2.0) mg/dL Ur Leukocyte Esterase (Negative) Urine RBC (0-5) /hpf Urine WBC (0-5) /hpf Urine Bacteria (None) /hpf Urine Mucus (None) /hpf Urine Yeast (Budding) (None) /hpf Blood Type A Positive Blood Type Recheck A Pos Bld Type Recheck Status No Antibody Screen NEGATIVE Spec Expiration Date 05/07/2020 - 2300 Disposition Clinical Impression: Melena, Pleural effusion, Dyspnea, End stage renal disease on dialysis Disposition: ADMITTED IP TO THIS [facility] Condition: Poor Referrals: Junior Brown DO [Primary Care Provider] - 1-2 days
[2020-05-04 12:30] LABS: Albumin 2.7 g/dL (3.5-5.0); Appearance,Urine Cloudy (Clear); Bacteria,Urine Rare /hpf; Bilirubin,Urine Negative (Negative); Blood,Urine Moderate (Negative); Budding Yeast,Urine Many /hpf; Calcium 7.7 mg/dL (8.4-10.2); Color,Urine Yellow; Glucose,Urine (UA) Negative (Negative); Ketones,Urine Negative (Negative); Leukocyte Esterase,Urine Moderate (Negative); Mucus,Urine Rare /hpf; Nitrite,Urine Negative (Negative); PH, Urine 5.5 (5.0-8.0); Potassium 4.3 mmol/L (3.5-5.1); Protein,Urine 2+ (Negative); RBC,Urine 59 /hpf (0-5); Specific Gravity,Urine 1.017 (1.001-1.035); Total Bilirubin 0.5 mg/dL (0.2-1.3); Total Protein 5.5 g/dL (6.3-8.2); Urobilinogen,Urine <2.0 mg/dL (<2.0); WBC,Urine 14 /hpf (0-5)
--- NOTE | 2020-05-04 12:45 | XR ---
EXAMINATION TYPE: XR chest 2V DATE OF EXAM: 05/04/2020 CLINICAL HISTORY: Shortness of breath. TECHNIQUE: Frontal and lateral views of the chest are obtained. COMPARISON: Chest radiograph 04/28/2020 FINDINGS: Sternotomy wires. Right-sided internal jugular hemodialysis catheter distal tip over the c avoatrial junction. Cardiac silhouette unchanged. Increased left basilar airspace opacities and moder ate left pleural effusion. Unchanged right basilar airspace opacities and small right pleural effusio n. No pneumothorax seen. IMPRESSION: Increased moderate left pleural effusion and left basilar airspace opacities versus 04/28/2020 compari son. Right basilar airspace opacities and small right pleural effusion are unchanged.
[2020-05-04] MEDS ORDERED: ACETAMINOPHEN TAB 325 MG TAB PO PRN (13:35)
[2020-05-04] MEDS ORDERED: NALOXONE 0.4 MG/ML 1 ML VIAL IV PRN (13:35)
[2020-05-04] MEDS ORDERED: IPRATROPIUM 0.5 MG/2.5 ML NEBU INHALATION PRN (19:46)
[2020-05-04] MEDS ORDERED: ALBUTEROL NEBULIZED 2.5 MG/3 ML INHALATION PRN (19:46)
[2020-05-04] MEDS ORDERED: ALPRAZolam 0.25 MG TAB PO PRN (19:48)
[2020-05-04] MEDS: MONTELUKAST 10 MG TAB PO SCH (20:24)
[2020-05-04] MEDS: busPIRone HCl 5 MG TAB PO SCH (20:24)
[2020-05-04] MEDS: TAMSULOSIN 0.4 MG CAP.ER.24H PO SCH (20:24)
[2020-05-04] MEDS: PANTOPRAZOLE 40 MG/10 ML VIAL IV SCH (20:25)
[2020-05-04] MEDS: ATORVASTATIN 80 MG TAB PO SCH (20:25)
--- NOTE | 2020-05-04 20:40 | HP ---
HISTORY AND PHYSICAL DATE OF SERVICE: 05/04/2020 CHIEF COMPLAINTS: Hypotension and vomiting as well as black stools. HISTORY OF PRESENT ILLNESS: This 79-year-old gentleman with a past medical history of multiple medical problems, including CAD, COPD, CVA, GERD, hypertension, history of myocardial infarction, renal disease, abdominal aortic aneurysm, appendectomy, CAD, CABG, being followed by a primary physician in the outpatient setting, was recently admitted with acute kidney injury which was hemodialysis-dependent and [id number] myocardial infarction, new- onset atrial fibrillation and multiple other medical problems recently. The patient was started on dialysis and was discharged home, but apparently at home the patient had melenic stools, diarrhea, some nausea. The patient was hypotensive and dialysis could not be done. The patient was taken to [facility] and was admitted for evaluation and treatment. There is no history of any fever, rigor or chills. No history of headache, loss of consciousness, seizures at this time. PAST MEDICAL HISTORY: History of CAD, COPD, history of CVA, TIA, GERD, hearing defect, hypertension, myocardial infarction, history of abdominal aortic aneurysm, history appendectomy, CAD, CABG. HOME MEDICATIONS: BuSpar, zafirlukast, terazosin, Flomax, Protonix, Lopressor, Imdur, DuoNeb, Atrovent, Cardura, Colace, Lipitor, Ecotrin, Ventolin. ALLERGIES: MORPHINE. FAMILY HISTORY: History of cancer and CABG. SOCIAL HISTORY: History of smoking. No history of alcohol intake. REVIEW OF SYSTEMS: ENT: Diminished hearing. Diminished vision. CARDIOVASCULAR SYSTEM: As mentioned earlier. RESPIRATORY SYSTEM: As mentioned earlier. GI: As mentioned earlier. : As mentioned earlier. NERVOUS SYSTEM: No numbness. Generalized weakness. ALLERGY/IMMUNOLOGY: No asthma, hayfever. MUSCULOSKELETAL: As mentioned earlier. HEMATOLOGY/ONCOLOGY: As mentioned earlier. ENDOCRINE: No history of diabetes, hypothyroidism. CONSTITUTIONAL: As mentioned earlier. DERMATOLOGY: Negative. RHEUMATOLOGY: Negative. PSYCHIATRY: As mentioned earlier. PHYSICAL EXAMINATION: Patient alert and oriented x3. Pulse 68, blood pressure 147/64, respirations 16, temperature 98.6, pulse ox 96% on 3 L. HEENT: Conjunctivae pale. Oral mucosa moist. NECK: No jugular venous distention. No carotid bruit. No lymph node enlargement. CARDIOVASCULAR SYSTEM: S1, S2 muffled. No S3. No S4. RESPIRATORY SYSTEM: Breath sounds diminished at the bases. A few scattered rhonchi and crackles. ABDOMEN: Soft, non-tender. No mass palpable. LEGS: No edema. No swelling. NERVOUS SYSTEM: Higher functions as mentioned earlier. Moves all 4 limbs. Mild diffuse weakness. LYMPHATICS: No lymph node palpable in neck, axillae or groin. NAUSEA SKIN: No ulcer, rash, bleeding. JOINTS: No active deforming arthropathy. LABS: WBC 9.3, hemoglobin 8.8. Sodium 135. The previous hemoglobin was 7.8 and 6.9. ASSESSMENT: 1. Anemia, acute on chronic blood-loss anemia, possibly gastrointestinal blood loss. Rule out peptic ulcer disease. 2. Chronic renal failure on hemodialysis, newly started. 3. Hyponatremia. 4. Troponin 0.105. Rule out acute vek-LE-munvkuf-elevation myocardial infarction. 5. Coronary artery disease, coronary artery bypass grafting. 6. History of chronic obstructive pulmonary disease. 7. History of cerebrovascular accident, transient ischemic attack. 8. Gastroesophageal reflux disease. 9. Hard of hearing. 10.Hypertension. 11.History of myocardial infarction. 12.History of degenerative joint disease. 13.History of abdominal aortic aneurysm. 14.History of gallstones. 15.History of appendectomy. 16.Remote history of nicotine dependence. 17.NO CODE WITH INSTRUCTIONS. RECOMMENDATIONS AND DISCUSSION: In this 79-year-old gentleman who presented with multiple complex medical issues, we will monitor the patient closely, continue the current medications, continue symptomatic treatment. We will monitor the hemoglobin and hematocrit closely. Proton pump inhibitors. Avoid antiplatelet agents. Gastroenterology consultation. Possible endoscopies. Nephrology consultation. Continue with hemodialysis. Monitor closely. Continue the rest of the medications. Prognosis is guarded because of multiple complex medical issues. Further recommendations to follow. Discussed with the patient and family at the bedside, who understand and agree. MMODL / IJN: [id number] /
--- NOTE | 2020-05-04 20:58 | CONS ---
CONSULTATION DATE OF DICTATION: 05/04/2020 REASON FOR CONSULTATION: Nausea, vomiting and black tarry stools of 3-4 days' duration. HISTORY OF PRESENT ILLNESS: The patient is an 79-year-old pleasant white male who came into the emergency room complaining of abdominal discomfort associated with nausea and vomiting and black tarry stools for the last 3-4 days' duration. He has about 1 or 2 black tarry stools every day and had a couple of episodes of emesis yesterday and today which were bilious in nature. His pain is mostly in the left upper quadrant and epigastric area. Patient states that he was started on dialysis last week, and this morning he went to the dialysis center. Apparently his blood pressure was low and the dialysis was not done. Instead he was asked to go to the emergency room. He had labs done in the emergency room that showed a hemoglobin of 8.8, WBC 9.5, platelets normal, BUN and creatinine of 27 and 3.09, respectively. Stool occult blood was positive. He denies any prior history of peptic ulcer disease or recent NSAID use. He recalls having a colonoscopy at [facility] about 5 or 6 years ago that was unremarkable. PAST MEDICAL HISTORY: His past medical history is significant for end-stage renal disease, started on dialysis about a week ago, history of hypertension, hyperlipidemia, coronary artery disease, COPD, anxiety and depression, history of degenerative joint disease, hearing disorder, history of CVA in the past. PAST SURGICAL HISTORY: Appendectomy, CABG, cardiac catheterization with stent placement, hernia repair, neck fusion, left carotid endarterectomy and port placement. HOME MEDICATIONS: Medications at home include albuterol, Zafirlukast, Atrovent, Flomax, terazosin, BuSpar, aspirin, Colace and Cardura. ALLERGIES: Allergies to MORPHINE. FAMILY HISTORY: Sister had bone cancer. REVIEW OF SYSTEMS: CARDIOPULMONARY: He does complain of some shortness of breath, but no chest pain. NEUROLOGY: Unremarkable. PSYCHIATRY: History of anxiety, depression. ENT/VISION: Unremarkable. CONSTITUTIONAL: No recent weight loss. No fever, chills, night sweats. ENDOCRINE: Unremarkable. HEMATOLOGY: Severe anemia. PHYSICAL EXAMINATION: He appears comfortable. No apparent distress. Vital signs are stable. Blood pressure is 172/57, pulse rate 73, temperature 98. HEENT examination unremarkable. Conjunctivae pink. Sclerae anicteric. Oral cavity no lesions. NECK: No JVD or lymph node enlargement. CHEST: Clear to auscultation. HEART: Regular rate and rhythm. ABDOMEN: Soft. Bowel sounds are positive. No organomegaly. EXTREMITIES: No pedal edema. SKIN: No rashes. NEUROLOGIC: Alert and oriented x3. No focal deficits. LABS: Labs done from today show WBC 9.6, hemoglobin 8.8, platelets normal. Basic metabolic panel showed BUN of 27, creatinine 3.09. ALT, AST, T-bilirubin and alkaline phosphatase are normal. Troponin was slightly elevated at 0.150. Stool occult blood was positive. IMPRESSION: 1. This is a patient who presented to the hospital with abdominal pain associated with nausea, vomiting and black tarry stools for the last one week's duration. Symptoms are worse for the last 3 days. He had 2 episodes of bilious emesis this morning. Hemoglobin is 8.8 g/dL, but 2 days ago his hemoglobin was 6.9, requiring a unit of blood transfusion. No history of upper endoscopy in the past. Denies any recent NSAID use. 2. End-stage renal disease, started on hemodialysis last week. 3. Coronary artery disease, status post myocardial infarction in the past. Presently on aspirin. 4. History of hypertension and hyperlipidemia. RECOMMENDATIONS: 1. Start on Protonix 40 mg daily. 2. CBC on a daily basis. 3. Transfuse if hemoglobin is less than 7. 4. Will proceed with an upper endoscopy tomorrow. Discussed with the patient as well as his the benefits and complications, and she is agreeable to it. Thank you for this consultation. MMODL / IJN: [id number] /
[2020-05-04] MEDS: IPRATROPIUM 0.5 MG/2.5 ML NEBU INHALATION SCH (22:27)
[2020-05-05] MEDS: IPRATROPIUM 0.5 MG/2.5 ML NEBU INHALATION SCH ×2 (08:13→19:36)
[2020-05-05] MEDS: PANTOPRAZOLE 40 MG/10 ML VIAL IV SCH ×2 (08:21→21:11)
[2020-05-05 11:49] LABS: Basophils % (A) 0 %; Eosinophils # (A) 0.1 k/uL (0-0.7); Eosinophils % (A) 2 %; HCT 23.5 % (39.0-53.0); Hypochromasia Slight; Lymphocytes # (A) 0.7 k/uL (1.0-4.8); Lymphocytes % (A) 15 %; MCH 31.4 pg (25.0-35.0); MCHC 30.8 g/dL (31.0-37.0); MCV 101.9 fL (80.0-100.0); Macrocytosis Slight; Mean Platelet Volume 12.7; Monocytes # (A) 0.3 k/uL (0-1.0); Monocytes % (A) 7 %; Neutrophils # (A) 3.6 k/uL (1.3-7.7); Neutrophils % (A) 75 %; Platelet Count 129 k/uL (150-450); RDW 14.8 % (11.5-15.5); WBC 4.7 k/uL (3.8-10.6)
[2020-05-05 11:51] LABS: HGB 7.2 gm/dL (13.0-17.5)
[2020-05-05] MEDS: busPIRone HCl 5 MG TAB PO SCH ×2 (11:56→21:11)
[2020-05-05] MEDS ORDERED: PROPOFOL 10 MG/ML 20 ML VIAL IV ONE (11:56)
[2020-05-05] MEDS ORDERED: LIDOCAINE 1% INJ 10MG/ML (20 ML MDV) ONE (11:56)
[2020-05-05] MEDS ORDERED: LACTATED RINGERS 1,000 ML IV ONE (12:00)
[2020-05-05] MEDS ORDERED: DARBEPOETIN ALFA 60 MCG/0.3 ML SYRINGE SQ SCH (12:00)
--- NOTE | 2020-05-05 12:16 | P.PCN ---
Date of Procedure: 05/05/20 Procedure(s) Performed: BRIEF HISTORY: Patient is a 79-year-old, pleasant, white male admitted hospital with black tarry stools and anemia. Initial hemoglobin was 8.8 and dropped to 7.2 g/dL. He scheduled for an upper endoscopy to evaluate further. PROCEDURE PERFORMED: Esophagogastroduodenoscopy with biopsy. PREOPERATIVE DIAGNOSIS: Melena and symptomatic anemia. IV sedation per anesthesia. PROCEDURE: After informed consent was obtained, the patient was brought into the endoscopy unit. IV sedation was administered by Anesthesia under continuous monitoring. Initially the Olympus GIF-140 video endoscope was inserted into the mouth. Esophagus intubated without any difficulty. It was gradually advanced into the stomach and duodenum and carefully examined. The bulbthe duodenum had severe duodenitis and biopsies were done from this area. The second part of the duodenum appeared normal. The scope at this time was withdrawn to the stomach, adequately insufflated with air, and upon careful examination, mucosa of the antrum,had multiple scattered erosions consistent with gastritis and biopsies were done from this area. The body, cardia and the fundus appeared normal. The scope was then withdrawn into the esophagus.small sliding type hiatal hernia noted. The GE junction was located at 39 cm from the incisors. They revealed linear erosions or ulcerations noted in the distal esophagus consistent with LA grade B reflux esophagitis. Biopsies were done from this area to rule out Prieto's esophagus. The rest of the esophagus appeared normal and the patient tolerated the procedure well. IMPRESSION: 1. Severe ulcerative reflux esophagitis with linear erosions and ulcerations in and exudates in the distal esophagus consistent with LA grade D reflux esophagitis. 2. Antral erosive gastritis 3. Severe duodenitis involving the duodenal bulb. RECOMMENDATIONS: The findings of this examination were discussed with the patient as well as his family. He'll be started on Protonix 40 mg twice daily and was briefly educated about antireflux measures. In the meantime await biopsy results. diet will be advanced as tolerated.
--- NOTE | 2020-05-05 12:47 | CONS ---
CONSULTATION REASON FOR CONSULT: End-stage renal disease. HISTORY OF PRESENT ILLNESS: The patient is an 79-year-old male who was recently started on dialysis on his last admission. He was admitted from the dialysis unit secondary to hypotension. There is concern for ongoing GI bleed and therefore patient did not get dialyzed yesterday. He is currently not short of breath. He denies any fever, chills, nausea, vomiting. Patient is not sure if there is any blood in his urine. However, his stool for occult blood was positive. Hemoglobin was 8.8 g/dL yesterday. PAST MEDICAL HISTORY: CHF, chronic kidney disease with recent initiation of dialysis on his last admission for ongoing volume overload and symptoms of uremia, coronary artery disease, history of CVA/TIA, gastroesophageal reflux disease, hearing loss, SD, osteoarthritis, CKD mineral bone disorder, anemia of chronic disease. PAST SURGICAL HISTORY: Appendectomy, bowel resection. Coronary artery bypass surgery. Hernia repair. Cardiac catheterization, neck fusion, craniotomy, coronary artery bypass surgery, carotid surgery. SOCIAL HISTORY: Patient is a former smoker. No history of drug abuse or alcohol abuse. MEDICATIONS: At home prior to admission included zafirlukast, nebulizers, Flomax, BuSpar, Terazosin, Colace, Cardura, aspirin, Imdur, Lopressor Protonix, Lipitor. ALLERGIES: Include MORPHINE, which causes rash and hives. REVIEW OF SYSTEMS: As per HPI. Other systems negative. PHYSICAL EXAMINATION: Patient is comfortable, awake, not in any acute distress. Blood pressure 129/59, heart rate 61 per minute, he is afebrile. Examination of the heart S1, S2. Examination of the lungs, bilateral breath sounds are heard. Abdomen is soft, nontender. Examination of the lower extremities shows no significant edema. [employer] exam grossly intact. LABS: Show sodium 135, potassium 4.3, hemoglobin 8.8 g/dL UA shows WBC is 14. Stool for occult blood positive. ASSESSMENT: 1. End-stage renal disease, on hemodialysis on a Sunday, , Sunday schedule. Will arrange for hemodialysis in a.m. 2. Anemia secondary to gastrointestinal bleed as well as anemia of chronic disease. No active bleeding noted currently. Will maintain patient on Aranesp. 3. Iron deficiency, status post IV iron on last admission. 4. CHF and volume overload on last admission, currently improved. PLAN: Maintain patient on Aranesp. Will arrange for hemodialysis in a.m. Thank you for this consultation. Will continue to follow the patient with you during his hospitalization. ESTELLE / ANDREA: [id number] /
--- NOTE | 2020-05-05 13:04 | P.CRDCN ---
History of Present Illness Consult date: 05/05/20 History of present illness: CHIEF COMPLAINT: CAD HISTORY OF PRESENT ILLNESS: This is a 79-year old male with a past medical h istory significant for ESRD on hemodialysis, coronary artery disease with previous CABG, COPD, and hypertension. Patient follows in the office with Dr. Hernandez but has not seen him in over 4 years. We have been asked to see the patient in consultation for CAD. Patient was recently hospitalized secondary to ESRD and was initiated on hemodialysis. Patient had abnormal troponins at that time. He underwent cardiac cath with Dr. Lynn on 04/29/2020 revealing coronary artery disease with left main 50-60% stenosis, proximal LAD 100% stenosis, OM1 100% stenosis, circumflex 30% stenosis, OM2 50% stenosis, PLV 50% stenosis and PDA tandem 70% and 70% stenoses. Patent CASTILLO to LAD, SVG to OM2, radial artery to OM1 and progression of left main disease (from 20% to 50-60% stenosis) and proximal LAD to 100% occlusion. Medical management was recommended due to anemia and black stools. Patient presented back to the hospital with complains of abdominal pain and continued black stools. He is scheduled for endoscopy today with GI service. Patient currently denies chest pain or pres sure. Denies shortness of breath. DIAGNOSTICS: EKG reveals SR with t-wave inversions, similar to previous EKG Chest xray increased moderate left pleural effusion and left basilar airspace opacities. Laboratory data: WBC 4.7. Hemoglobin 7.2. platelet count 129. Sodium 135. P otassium 4.3. BUN 27. Creatinine 3.09. Lactic acid 0.9. Troponin 0.150 Current home cardiac medications include []. REVIEW OF SYSTEMS: At the time of my exam: CONSTITUTIONAL: Denies fever or chills. HEENT: Denies blurred vision, vision changes, or eye pain. Denies hemoptysis CARDIOVASCULAR: Denies chest pain, orthopnea, PND or palpitations RESPIRATORY: No shortness of breath. GASTROINTESTINAL: Denies abdominal pain. Denies nausea or vomiting. HEMATOLOGIC: Denies bleeding disorders. GENITOURINARY: Denies any blood in urine. SKIN: Denies pruitis. Denies rash. PHYSICAL EXAM: VITAL SIGNS: Reviewed. GENERAL: Well-developed in no acute distress. HEENT: Head is normocephalic. Pupils are equal, round. Sclerae anicteric. Mucous membranes of the mouth are moist. Neck supple. No JVD or thyromegaly LUNGS: Respirations even and unlabored. Lungs diminished. HEART: Regular rate and rhythm. S1 and S2 heard. ABDOMEN: Soft. Nondistended. Nontender. EXTREMITIES: Normal range of motion. No clubbing or cyanosis. Peripheral pulses intact. No lower extremity edema NEUROLOGIC: Awake and alert. Oriented x 3. ASSESSMENT: Recent NSTEMI, s/p cardiac cath Coronary artery disease with previous CABG Anemia History of paroxysmal atrial fibrillation with RVR End-stage renal disease, recently started on hemodialysis Hypertension COPD PLAN: Continue home cardiac medications Nephrology following for ESRD Monitor hemoglobin. Patient scheduled for endoscopy today with GI service No further recommendations from a cardiac standpoint Nurse practitioner note has been reviewed by physician. Signing provider agrees with the documented findings, assessment, and plan of care. Past Medical History Past Medical History: Coronary Artery Disease (CAD), COPD, CVA/TIA, GERD/Reflux, Hearing Disorder / Deafness, Hypertension, Myocardial Infarction (AL), Osteoarthritis (OA), Renal Disease, Respiratory Disorder Additional Past Medical History / Comment(s): ABDOMINAL ANEURYSM, gall stones, blood poisioning from stepping on leslee nail. Last Myocardial Infarction Date:: 1972 History of Any Multi-Drug Resistant Organisms: None Reported Past Surgical History: Appendectomy, Bowel Resection, Coronary Bypass/CABG, Heart Catheterization, Hernia Repair Additional Past Surgical History / Comment(s): Neck Fusion 1979 x2, CRANIOTOMY, TRIPLE BYPASS, LEFT CAROTID SURGERY. Past Anesthesia/Blood Transfusion Reactions: No Reported Reaction Past Psychological History: No Psychological Hx Reported Smoking Status: Former smoker Past Alcohol Use History: None Reported Additional Past Alcohol Use History / Comment(s): PT STATES HE QUIT SMOKING 7 MONTHS AGO. Past Drug Use History: None Reported - Past Family History Sister(s) Family Medical History: Cancer Additional Family Medical History / Comment(s): from CABG Medications and Allergies Home Medications Medication Instructions Recorded Confirmed Type Zafirlukast 20 mg PO BID 09/30/14 05/04/20 History Albuterol Nebulized [Ventolin 2.5 mg INHALATION RT-Q4H PRN 04/26/20 05/04/20 History Nebulized] Ipratropium Nebulized [Atrovent 0.5 mg INHALATION RT-BID 04/26/20 05/04/20 History Nebulized 0.2 MG/ML] Ipratropium Nebulized [Atrovent 0.5 mg INHALATION RT-Q4H PRN 04/26/20 05/04/20 History Nebulized 0.2 MG/ML] Tamsulosin HCl [Flomax] 0.4 mg PO HS 04/26/20 05/04/20 History Terazosin HCl 10 mg PO HS 04/26/20 05/04/20 History busPIRone HCL [Buspar] 7.5 mg PO BID 04/26/20 05/04/20 History Aspirin EC [Ecotrin Low Dose] 81 mg PO DAILY 04/27/20 05/04/20 History Docusate [Colace] 100 mg PO DAILY 04/27/20 05/04/20 History Atorvastatin [Lipitor] 80 mg PO HS #30 tab 05/02/20 05/04/20 Rx Isosorbide Mononitrate ER [Imdur] 60 mg PO DAILY #30 tab.er.24h 05/02/20 1 Rx Metoprolol Tartrate [Lopressor] 25 mg PO BID #60 tab 05/02/20 05/04/20 Rx Pantoprazole [Protonix] 40 mg PO AC-BRKFST #30 tablet.dr 05/02/20 05/04/20 Rx Doxazosin [Cardura] 2 mg PO HS 05/04/20 05/04/20 History Allergies Allergy/AdvReac Type Severity Reaction Status Date / Time morphine Allergy Rash/Hives Verified 05/04/20 12:15 Physical Exam Vitals: Vital Signs Temp Pulse Pulse Resp BP BP Pulse Ox 05/05/20 12:32 57 L 16 139/70 94 L 05/05/20 11:44 98.2 F 63 16 153/67 97 05/05/20 08:24 74 05/05/20 08:17 97.9 F 61 18 129/59 97 05/05/20 08:13 78 05/05/20 04:00 71 18 156/69 99 05/05/20 00:00 61 16 126/59 94 L 05/04/20 20:00 98.4 F 58 L 16 120/55 95 05/04/20 17:40 98.6 F 68 16 147/64 96 05/04/20 16:51 73 18 172/57 94 L 05/04/20 13:00 65 16 117/52 93 L Intake and Output 05/04/20 05/05/20 05/05/20 22:59 06:59 14:59 Intake Total 100 Output Total 150 350 Balance -150 -350 100 Intake: IV 100 Output: Urine 150 350 Other: Voiding Method Indwelling Catheter Indwelling Catheter Indwelling Catheter Weight 73.482 kg 65.9 kg 65.9 kg Results 05/05/20 06:40 05/04/20 12:01 Cardiac Enzymes 05/04/20 Range/Units 12:01 Troponin I 0.150 H* (0.000-0.034) ng/mL CBC 05/05/20 Range/Units 06:40 WBC 4.7 (3.8-10.6) k/uL RBC 2.30 L (4.30-5.90) m/uL Hgb 7.2 L D (13.0-17.5) gm/dL Hct 23.5 L (39.0-53.0) % Plt Count 129 L (150-450) k/uL Current Medications Generic Name Dose Route Start Last Admin Trade Name Freq PRN Reason Stop Dose Admin Acetaminophen 650 mg 05/04/20 13:35 Acetaminophen Tab 325 Mg Tab PO Q6HR PRN Mild Pain or Fever > 100.5 Albuterol Sulfate 2.5 mg 05/04/20 19:46 Albuterol Nebulized 2.5 Mg/3 Ml INHALATION RT-Q4H PRN Shortness Of Breath Alprazolam 0.25 mg 05/04/20 19:48 Alprazolam 0.25 Mg Tab PO TID PRN Anxiety Atorvastatin Calcium 80 mg 05/04/20 21:00 05/04/20 20:25 Atorvastatin 80 Mg Tab PO 80 mg HS CELESTINO Administration Buspirone HCl 7.5 mg 05/04/20 21:00 05/05/20 11:56 Buspirone Hcl 5 Mg Tab PO Not Given BID CELESTINO Darbepoetin Edu 60 mcg 05/05/20 12:00 05/05/20 12:42 Darbepoetin Edu 60 Mcg/0.3 Ml Syringe SQ 60 mcg Q7D CELESTINO Administration Ipratropium [place] 0.5 mg 05/04/20 19:46 Ipratropium 0.5 Mg/2.5 Ml Nebu INHALATION RT-Q4H PRN Shortness Of Breath Ipratropium [place] 0.5 mg 05/04/20 20:00 05/05/20 08:13 Ipratropium 0.5 Mg/2.5 Ml Nebu INHALATION 0.5 mg RT-BID CELESTINO Administration Montelukast Sodium 10 mg 05/04/20 21:00 05/04/20 20:24 Montelukast 10 Mg Tab PO 10 mg HS CELESTINO Administration Naloxone HCl 0.2 mg 05/04/20 13:35 Naloxone 0.4 Mg/Ml 1 Ml Vial IV Q2M PRN Opioid Reversal Pantoprazole Sodium 40 mg 05/04/20 21:00 05/05/20 08:21 Pantoprazole 40 Mg/10 Ml Vial IV 40 mg BID CELESTINO Administration Tamsulosin HCl 0.4 mg 05/04/20 21:00 05/04/20 20:24 Tamsulosin 0.4 Mg Cap.Er.24h PO 0.4 mg HS CELESTINO Administration Intake and Output 05/04/20 05/05/20 05/05/20 22:59 06:59 14:59 Intake Total 100 Output Total 150 350 Balance -150 -350 100 Intake: IV 100 Output: Urine 150 350 Other: Voiding Method Indwelling Catheter Indwelling Catheter Indwelling Catheter Weight 73.482 kg 65.9 kg 65.9 kg Patient Weight 05/06/20 06:59 Weight 65.9 kg 05/05/20 06:40 05/04/20 12:01
[2020-05-05 13:26] LABS: Basophils % (A) 1 %; Eosinophils # (A) 0.1 k/uL (0-0.7); Eosinophils % (A) 3 %; HCT 23.8 % (39.0-53.0); HGB 7.7 gm/dL (13.0-17.5); Hypochromasia Slight; Lymphocytes # (A) 0.7 k/uL (1.0-4.8); Lymphocytes % (A) 15 %; MCH 32.5 pg (25.0-35.0); MCHC 32.4 g/dL (31.0-37.0); MCV 100.3 fL (80.0-100.0); Macrocytosis Slight; Mean Platelet Volume 9.1; Monocytes # (A) 0.3 k/uL (0-1.0); Monocytes % (A) 6 %; Neutrophils % (A) 72 %; Platelet Count 140 k/uL (150-450); RBC 2.38 m/uL (4.30-5.90); RDW 14.5 % (11.5-15.5); WBC 4.2 k/uL (3.8-10.6)
[2020-05-05 13:42] LABS: Calcium 7.4 mg/dL (8.4-10.2); Potassium 4.7 mmol/L (3.5-5.1)
[2020-05-05] MEDS: SUCRALFATE 1 GM TAB PO SCH ×2 (18:14→21:14)
--- NOTE | 2020-05-05 18:47 | PN ---
PROGRESS NOTE DATE OF SERVICE: 05/05/2020 This 79-year-old gentleman who was admitted with acute on chronic blood-loss anemia also had significant hypotension. The troponin was indeterminate. The patient has been seen by multiple consultants at this time. The blood pressures are improved at this time. The patient still has persistent bradycardia. The patient underwent EGD by Dr. Sanders which showed severe ulcerative reflux esophagitis, linear erosion and ulcerations and also antral erosive gastritis and severe duodenitis involving the duodenal bulb also. Nephrology is following the patient closely. Past medical history reviewed. REVIEW OF SYSTEMS: CARDIOVASCULAR SYSTEM: No angina, palpitations. RESPIRATORY SYSTEM: As mentioned earlier. GI: As mentioned earlier. : No dysuria or retention. NERVOUS SYSTEM: No numbness, weakness. CURRENT MEDICATIONS: Reviewed. They include Tylenol, Ventolin, Xanax, Lipitor, BuSpar, Aranesp, Atrovent, Narcan, Protonix, Flomax. PHYSICAL EXAMINATION: Patient is alert, oriented x3. Pulse is 51, blood pressure 144/72, respiration 18, temperature 98.2, pulse ox 98% on 3 L. HEENT: Conjunctivae normal. NECK: No jugular venous distention. CARDIOVASCULAR SYSTEM: S1, S2 muffled. RESPIRATORY SYSTEM: Breath sounds diminished at the bases. Scattered rhonchi and crackles. ABDOMEN: Soft, non-tender. Obese. LEGS: No edema. No swelling. NERVOUS SYSTEM: No focal deficit. LABS: WBC 4.2, hemoglobin 7.7, creatinine 3.25. Troponin is noted. ASSESSMENT: 1. Anemia, acute on chronic blood-loss anemia; gastrointestinal blood loss, status post EGD showing severe ulcerative reflux esophagitis, antral erosive gastritis and severe duodenitis involving the duodenal bulb. 2. Chronic renal failure, on hemodialysis, newly started. 3. Hyponatremia. 4. History of recent vbn-BO-fiaspyo-elevation myocardial infarction and cardiac catheterization. 5. History of coronary artery disease, coronary artery bypass grafting. 6. Troponin 0.105. 7. History of chronic obstructive pulmonary disease. 8. History of cerebrovascular accident, transient ischemic attack. 9. Gastroesophageal reflux disease. 10.Hard of hearing. 11.Hypertension. 12.History of myocardial infarction. 13.History of degenerative joint disease. 14.History of abdominal aortic aneurysm. 15.History of gallstones. 16.History of appendectomy. 17.Remote history of nicotine dependence. 18.NO CODE with instructions. RECOMMENDATIONS AND DISCUSSION: I recommend to continue current medications, continue with symptomatic treatment. Otherwise at this time I recommend continuing with Protonix IV twice daily. Recommend adding Carafate to the current regimen. Otherwise, Cardiology is following the patient closely. Recent cardiac catheterization by Cardiology showed patent grafts culprit vessel is the proximal LAD with loss of proximity to LAD territory. We will continue the current medication. Add Carafate to the current regimen. Prognosis guarded. Further recommendations to follow. Monitor hemoglobin closely. MMODL / IJN: [id number] /
[2020-05-05] MEDS: ATORVASTATIN 80 MG TAB PO SCH (21:11)
[2020-05-05] MEDS: TAMSULOSIN 0.4 MG CAP.ER.24H PO SCH (21:11)
[2020-05-05] MEDS: MONTELUKAST 10 MG TAB PO SCH (21:11)
[2020-05-06] MEDS: SUCRALFATE 1 GM TAB PO SCH ×4 (06:50→20:11)
[2020-05-06] MEDS: IPRATROPIUM 0.5 MG/2.5 ML NEBU INHALATION SCH ×2 (08:13→20:30)
[2020-05-06 09:29] LABS: Basophils % (A) 0 %; Eosinophils # (A) 0.1 k/uL (0-0.7); Eosinophils % (A) 2 %; HCT 26.8 % (39.0-53.0); HGB 8.9 gm/dL (13.0-17.5); Hypochromasia Slight; Lymphocytes # (A) 0.6 k/uL (1.0-4.8); Lymphocytes % (A) 10 %; MCH 32.7 pg (25.0-35.0); MCHC 33.2 g/dL (31.0-37.0); MCV 98.5 fL (80.0-100.0); Mean Platelet Volume 10.3; Monocytes # (A) 0.3 k/uL (0-1.0); Monocytes % (A) 6 %; Neutrophils # (A) 4.7 k/uL (1.3-7.7); Neutrophils % (A) 80 %; Platelet Count 139 k/uL (150-450); RBC 2.73 m/uL (4.30-5.90); RDW 14.6 % (11.5-15.5); WBC 5.8 k/uL (3.8-10.6)
[2020-05-06 09:42] LABS: Calcium 7.4 mg/dL (8.4-10.2); Potassium 4.4 mmol/L (3.5-5.1)
[2020-05-06] MEDS: busPIRone HCl 5 MG TAB PO SCH ×2 (12:19→20:11)
[2020-05-06] MEDS: PANTOPRAZOLE 40 MG/10 ML VIAL IV SCH (12:20)
--- NOTE | 2020-05-06 12:39 | P.PN ---
Subjective Progress Note Date: 05/06/20 CHIEF COMPLAINT: CAD HISTORY OF PRESENT ILLNESS: Patient examined this morning at the bedside. Patient is s/p EGD revealing severe ulcerative reflux esophagitis with linear erosions and ulcerations and exudates in the distal esophagus consistent with LA grade D esophagitis, antral erosive gastritis, and severe duodenitis. He was started on Protonix. He denies chest pain or pressure. Denies shortness of breath. Hemoglobin 8.9. PHYSICAL EXAM: VITAL SIGNS: Reviewed. GENERAL: Well-developed in no acute distress. HEENT: Head is normocephalic. Pupils are equal, round. Sclerae anicteric. Mucous membranes of the mouth are moist. Neck supple. No JVD or thyromegaly LUNGS: Respirations even and unlabored. Lungs diminished. HEART: Regular rate and rhythm. S1 and S2 heard. ABDOMEN: Soft. Nondistended. Nontender. EXTREMITIES: Normal range of motion. No clubbing or cyanosis. Peripheral pulses intact. No lower extremity edema NEUROLOGIC: Awake and alert. Oriented x 3. ASSESSMENT: Recent NSTEMI, s/p cardiac cath Coronary artery disease with previous CABG Anemia, s/p EGD History of paroxysmal atrial fibrillation with RVR End-stage renal disease, recently started on hemodialysis Hypertension COPD PLAN: Continue home cardiac medications Nephrology following for ESRD Monitor hemoglobin No anticoagulation right now secondary to anemia and EGD findings Nurse practitioner note has been reviewed by physician. Signing provider agrees with the documented findings, assessment, and plan of care. Objective - Vital Signs Vital signs: Vital Signs Temp 97.3 F L 05/06/20 11:42 Pulse 68 05/06/20 11:42 Resp 18 05/06/20 11:48 BP 168/74 05/06/20 11:42 Pulse Ox 95 05/06/20 11:42 Intake & Output 05/05/20 05/06/20 05/06/20 18:59 06:59 18:59 Intake Total 650 Output Total 300 700 Balance 350 -700 Weight 65.9 kg 66.3 kg Intake: IV 100 Oral 240 Blood Product 310 Rc As-1 Unit 310 [id number] Output: Urine 300 700 Other: Voiding Method Indwelling Catheter Indwelling Catheter Indwelling Catheter # Voids 1 - Labs CBC & Chem 7: 05/06/20 08:05 05/06/20 08:05 Labs: Abnormal Lab Results - Last 24 Hours (Table) 05/04/20 05/05/20 05/05/20 Range/Units 12:01 12:47 12:47 RBC 2.38 L (4.30-5.90) m/uL Hgb 7.7 L (13.0-17.5) gm/dL Hct 23.8 L (39.0-53.0) % MCV 100.3 H (80.0-100.0) fL Plt Count 140 L (150-450) k/uL Lymphocytes # 0.7 L (1.0-4.8) k/uL Sodium 135 L (137-145) mmol/L BUN 32 H (9-20) mg/dL Creatinine 3.25 H (0.66-1.25) mg/dL Glucose 68 L (74-99) mg/dL Calcium 7.4 L (8.4-10.2) mg/dL Crossmatch See Detail 05/06/20 05/06/20 Range/Units 08:05 08:05 RBC 2.73 L (4.30-5.90) m/uL Hgb 8.9 L (13.0-17.5) gm/dL Hct 26.8 L (39.0-53.0) % MCV (80.0-100.0) fL Plt Count 139 L (150-450) k/uL Lymphocytes # 0.6 L (1.0-4.8) k/uL Sodium 134 L (137-145) mmol/L BUN 35 H (9-20) mg/dL Creatinine 3.29 H (0.66-1.25) mg/dL Glucose 100 H (74-99) mg/dL Calcium 7.4 L (8.4-10.2) mg/dL Crossmatch Microbiology - Last 24 Hours (Table) 05/04/20 12:01 Urine Culture - Final Urine,Voided
--- NOTE | 2020-05-06 14:16 | PN ---
PROGRESS NOTE Patient is seen for followup for end-stage renal disease. He is seen on hemodialysis, tolerating his treatment well. PHYSICAL EXAMINATION: Blood pressure 116/74, heart rate 68 per minute, he is afebrile. Examination of the heart S1, S2. Examination of the lungs, bilateral breath sounds are heard. Abdomen is soft, nontender. Examination of the lower extremities shows no significant edema. [employer] exam grossly intact. LABS: Show sodium 134, potassium 4.4, BUN 35, creatinine 2.29, hemoglobin 8.9 g/dL. ASSESSMENT: 1. End-stage renal disease, on hemodialysis on a Sunday, , Sunday schedule. 2. Anemia with possible GI bleed, status post evaluation by GI and status post esophagogastroduodenoscopy which showed severe ulcerative reflux esophagitis and erosions with antral erosive gastritis and severe duodenitis. 3. CKD mineral bone disorder. 4. Anemia, which is multifactorial including GI bleed and anemia of chronic disease. PLAN: Maintain patient on hemodialysis on a Sunday, , Sunday schedule. Continue with the [facility]. MMODL / IJN: [id number] /
--- NOTE | 2020-05-06 14:21 | P.PN ---
Subjective Progress Note Date: 05/06/20 Principal diagnosis: Nausea, vomiting and black tarry stools Patient was seen and examined at the bedside. The patient states he had a bowel movement that was dark but not tarry, denied any rectal bleeding. He denies any abdominal pain, nausea, or vomiting. There were no acute changes through the night. Yesterday was discussed with patient and regarding possible colon oscopy this hospitalization. The patient's and himself has stated that he does not feel he could tolerate the prep and would like to defer to outpatient if needed. Objective - Vital Signs Vital signs: Vital Signs Temp 97.3 F L 05/06/20 11:42 Pulse 68 05/06/20 11:42 Resp 18 05/06/20 11:48 BP 168/74 05/06/20 11:42 Pulse Ox 95 05/06/20 11:42 Intake & Output 05/05/20 05/06/20 05/06/20 18:59 06:59 18:59 Intake Total 650 Output Total 300 700 Balance 350 -700 Weight 65.9 kg 66.3 kg Intake: IV 100 Oral 240 Blood Product 310 Rc As-1 Unit 310 [id number] Output: Urine 300 700 Other: Voiding Method Indwelling Catheter Indwelling Catheter Indwelling Catheter # Voids 1 - Exam General appearance: The patient is alert, oriented, in no acute distress. HET: Head is normocephalic and atraumatic. Conjunctiva pink. Sclera anicteric. Neck: Supple without lymphadenopathy. Abdomen: Soft, nontender, nondistended with bowel sounds. No guarding or rigidity. Extremities: Normal skin color and turgor. No pedal edema Neurological: No focal deficits. Alert and oriented 3. - Labs CBC & Chem 7: 05/06/20 08:05 05/06/20 08:05 Labs: Abnormal Lab Results - Last 24 Hours (Table) 05/04/20 05/05/20 05/05/20 Range/Units 12:01 12:47 12:47 RBC 2.38 L (4.30-5.90) m/uL Hgb 7.7 L (13.0-17.5) gm/dL Hct 23.8 L (39.0-53.0) % MCV 100.3 H (80.0-100.0) fL Plt Count 140 L (150-450) k/uL Lymphocytes # 0.7 L (1.0-4.8) k/uL Sodium 135 L (137-145) mmol/L BUN 32 H (9-20) mg/dL Creatinine 3.25 H (0.66-1.25) mg/dL Glucose 68 L (74-99) mg/dL Calcium 7.4 L (8.4-10.2) mg/dL Crossmatch See Detail 05/06/20 05/06/20 Range/Units 08:05 08:05 RBC 2.73 L (4.30-5.90) m/uL Hgb 8.9 L (13.0-17.5) gm/dL Hct 26.8 L (39.0-53.0) % MCV (80.0-100.0) fL Plt Count 139 L (150-450) k/uL Lymphocytes # 0.6 L (1.0-4.8) k/uL Sodium 134 L (137-145) mmol/L BUN 35 H (9-20) mg/dL Creatinine 3.29 H (0.66-1.25) mg/dL Glucose 100 H (74-99) mg/dL Calcium 7.4 L (8.4-10.2) mg/dL Crossmatch Microbiology - Last 24 Hours (Table) 05/04/20 12:01 Urine Culture - Final Urine,Voided Assessment and Plan (1) Melena Narrative/Plan: The patient who presented to the hospital with abdominal pain associated with nausea, vomiting and black tarry stools for the last 1 week's duration. Symptoms are worse for the last 3-4 days. He had 2 episodes of bilious emesis is the day of admission. His hemoglobin was 8.8, today is 8.2. 2 days prior to as well as hemoglobin was 6.9 which he required a unit of blood transfusion. He has no history of upper endoscopy in the past and denied any recent NSAID use. He is status post EGD from yesterday showing esophagitis and gastritis. We'll continue with Protonix 40 milligrams twice a day. Current Visit: Yes Status: Acute Code(s): K92.1 - MELENA SNOMED Code(s): 8498136 (2) Nausea & vomiting Narrative/Plan: Resolved Current Visit: Yes Status: Acute Code(s): R11.2 - NAUSEA WITH VOMITING, UNSPECIFIED SNOMED Code(s): 68127068 (3) End stage renal disease on dialysis Narrative/Plan: Started on hemodialysis last week Current Visit: Yes Status: Acute Code(s): N18.6 - END STAGE RENAL DISEASE; Z99.2 - DEPENDENCE ON RENAL DIALYSIS SNOMED Code(s): 223700961 (4) Coronary artery disease Narrative/Plan: Status post myocardial infarction in the past. Presently on aspirin Current Visit: Yes Status: Acute Code(s): I25.10 - ATHSCL HEART DISEASE OF [place] CORONARY ARTERY W/O ANG PCTRS SNOMED Code(s): 93083235 Plan: 1. Start on Protonix 40mg daily 2. CBC on a daily basis 3. Transfuse if hemoglobin less than 7 4. Patient is status post upper endoscopy with severe ulcerative reflux esophagitis with linear erosions and ulcerations and exudates in the distal esophagus consistent with early grade D reflux esophagitis. Antral erosive gastritis. Severe duodenitis involving the duodenal bulb 5. Discussion was had with the patient and his , at this time the patient and his agree that they would like to not move forward with a colonoscopy at this time as they do not feel the patient would tolerate the procedure, and is not having any further signs of bleeding. The impression and plan of care has been dictated as directed. Dr. Rosamaria Sanders I performed a history and examination of this patient, discussed the same with the dictator. I agree with the dictator's note ,documented as a scribe. Any additional findings or plans will be noted.
--- NOTE | 2020-05-06 18:43 | PN ---
PROGRESS NOTE DATE OF SERVICE: 05/06/2020 This 79-year-old gentleman who was admitted with anemia, acute blood loss anemia, also had hypotension. The patient's hemoglobin was 8.9. The patient received one unit of transfusion. Gastroenterology is following the patient closely. EGD has been done. Biopsies are pending at this time. Gastroenterology has recommended Protonix. We will continue to monitor. Colonoscopy has been deferred at this time. Past medical history reviewed. REVIEW OF SYSTEMS: CARDIOVASCULAR SYSTEM: No angina, palpitations. RESPIRATORY SYSTEM: As mentioned earlier. GI: As mentioned earlier. : No dysuria or retention. NERVOUS SYSTEM: No numbness, weakness. CURRENT MEDICATIONS: Reviewed. They include Tylenol, Ventolin, Xanax, Lipitor, BuSpar, Aranesp, Narcan, Protonix, Carafate, Flomax. PHYSICAL EXAMINATION: Patient alert and oriented x3. Pulse 65, blood pressure 114/60, respiration 20, temperature 98 degrees, pulse ox 94% on 2 L. HEENT: Conjunctivae normal. NECK: No jugular venous distention. CARDIOVASCULAR SYSTEM: S1, S2 muffled. RESPIRATORY SYSTEM: Breath sounds diminished at the bases. Bilateral scattered rhonchi and crackles. ABDOMEN: Soft, non-tender. LEGS: No edema. No swelling. NERVOUS SYSTEM: No focal deficit. LABS: Hemoglobin 8.9, creatinine 3.29. ASSESSMENT: 1. Anemia, acute on chronic blood-loss anemia, GI blood loss, status post EGD showing severe ulcerative reflux esophagitis, antral erosive gastritis and severe duodenitis involving the duodenal bulb. 2. Chronic renal failure, on hemodialysis, newly started. 3. Hyponatremia. 4. History of recent rts-GW-gricojz-elevation myocardial infarction and cardiac catheterization. 5. History of coronary artery disease, coronary artery bypass grafting. 6. Troponin 0.105. 7. History of chronic obstructive pulmonary disease. 8. Cerebrovascular accident, transient ischemic attack. 9. Gastroesophageal reflux disease. 10.Hard of hearing. 11.Hypertension. 12.History of myocardial infarction. 13.History of degenerative joint disease. 14.History of abdominal aortic aneurysm. 15.History of gallstones. 16.History of appendectomy. 17.Remote history of nicotine dependence. 18.NO CODE with instructions. RECOMMENDATIONS AND DISCUSSION: I recommend to continue current medications, continue with the monitoring, symptomatic treatment. Patient received one unit transfusion. Will monitor the CBC closely. Avoid antiplatelet agents and aspirin. Carafate. Protonix. Monitor sodium closely. Closely follow with GI as well as Nephrology. Guarded prognosis because of multiple complex medical issues. Further recommendations to follow. MMODL / IJN: [id number] /
[2020-05-06] MEDS: ATORVASTATIN 80 MG TAB PO SCH (20:11)
[2020-05-06] MEDS: PANTOPRAZOLE 40 MG TABLET PO SCH (20:11)
[2020-05-06] MEDS: MONTELUKAST 10 MG TAB PO SCH (20:11)
[2020-05-06] MEDS: TAMSULOSIN 0.4 MG CAP.ER.24H PO SCH (20:12)
[2020-05-07] MEDS: SUCRALFATE 1 GM TAB PO SCH ×4 (06:29→19:59)
[2020-05-07] MEDS: IPRATROPIUM 0.5 MG/2.5 ML NEBU INHALATION SCH ×2 (07:16→19:56)
[2020-05-07 07:24] LABS: Basophils % (A) 0 %; Eosinophils # (A) 0.1 k/uL (0-0.7); Eosinophils % (A) 2 %; HCT 28.5 % (39.0-53.0); HGB 9.2 gm/dL (13.0-17.5); Hypochromasia Slight; Lymphocytes # (A) 0.8 k/uL (1.0-4.8); Lymphocytes % (A) 14 %; MCH 32.2 pg (25.0-35.0); MCHC 32.4 g/dL (31.0-37.0); MCV 99.4 fL (80.0-100.0); Macrocytosis Slight; Mean Platelet Volume 9.8; Monocytes # (A) 0.3 k/uL (0-1.0); Monocytes % (A) 6 %; Neutrophils # (A) 4.4 k/uL (1.3-7.7); Neutrophils % (A) 76 %; Platelet Count 145 k/uL (150-450); RBC 2.87 m/uL (4.30-5.90); WBC 5.7 k/uL (3.8-10.6)
[2020-05-07 07:26] LABS: Calcium 7.5 mg/dL (8.4-10.2); Potassium 4.3 mmol/L (3.5-5.1)
[2020-05-07] MEDS: busPIRone HCl 5 MG TAB PO SCH ×2 (09:34→19:59)
[2020-05-07] MEDS: PANTOPRAZOLE 40 MG TABLET PO SCH ×2 (09:34→19:59)
[2020-05-07 11:19] VITALS: BMI 20.7
--- NOTE | 2020-05-07 12:22 | P.PN ---
Subjective Progress Note Date: 05/07/20 Principal diagnosis: Nausea, vomiting and black tarry stools Patient was seen and examined at the bedside. The patient states he had a bowel movement that was dark but not tarry, denied any rectal bleeding. He denies any abdominal pain, nausea, or vomiting. There were no acute changes through the night. Globin is stable at 9.2 Objective - Vital Signs Vital signs: Vital Signs Temp 98.1 F 05/07/20 11:10 Pulse 54 L 05/07/20 11:10 Resp 16 05/07/20 11:10 BP 152/66 05/07/20 11:10 Pulse Ox 98 05/07/20 11:10 Intake & Output 05/06/20 05/07/20 05/07/20 18:59 06:59 18:59 Intake Total 600 240 Output Total 2700 Balance -2100 240 Weight 63.9 kg 63.9 kg Intake: Oral 600 240 Output: Urine 200 Hemodialysis 2500 Other: Voiding Method Indwelling Catheter Indwelling Catheter Indwelling Catheter - Exam General appearance: The patient is alert, oriented, in no acute distress. HET: Head is normocephalic and atraumatic. Conjunctiva pink. Sclera anicteric. Neck: Supple without lymphadenopathy. Abdomen: Soft, nontender, nondistended with bowel sounds. No guarding or rigidity. Extremities: Normal skin color and turgor. No pedal edema Neurological: No focal deficits. Alert and oriented 3. - Labs CBC & Chem 7: 05/07/20 06:53 05/07/20 06:53 Labs: Abnormal Lab Results - Last 24 Hours (Table) 05/07/20 05/07/20 Range/Units 06:53 06:53 RBC 2.87 L (4.30-5.90) m/uL Hgb 9.2 L (13.0-17.5) gm/dL Hct 28.5 L (39.0-53.0) % Plt Count 145 L (150-450) k/uL Lymphocytes # 0.8 L (1.0-4.8) k/uL Sodium 134 L (137-145) mmol/L BUN 22 H (9-20) mg/dL Creatinine 2.58 H (0.66-1.25) mg/dL Calcium 7.5 L (8.4-10.2) mg/dL Assessment and Plan (1) Melena Narrative/Plan: The patient who presented to the hospital with abdominal pain associated with nausea, vomiting and black tarry stools for the last 1 week's duration. Symptoms are worse for the last 3-4 days. He had 2 episodes of bilious emesis is the day of admission. His hemoglobin was 8.8, today is 8.2. 2 days prior to as well as hemoglobin was 6.9 which he required a unit of blood transfusion. He has no history of upper endoscopy in the past and denied any recent NSAID use. He is status post EGD from yesterday showing esophagitis and gastritis. We'll continue with Protonix 40 milligrams twice a day. Current Visit: Yes Status: Acute Code(s): K92.1 - MELENA SNOMED Code(s): 9109014 (2) Nausea & vomiting Narrative/Plan: Resolved Current Visit: Yes Status: Acute Code(s): R11.2 - NAUSEA WITH VOMITING, UNSPECIFIED SNOMED Code(s): 48222082 (3) End stage renal disease on dialysis Narrative/Plan: Started on hemodialysis last week Current Visit: Yes Status: Acute Code(s): N18.6 - END STAGE RENAL DISEASE; Z99.2 - DEPENDENCE ON RENAL DIALYSIS SNOMED Code(s): 545756675 (4) Coronary artery disease Narrative/Plan: Status post myocardial infarction in the past. Presently on aspirin Current Visit: Yes Status: Acute Code(s): I25.10 - ATHSCL HEART DISEASE OF [place] CORONARY ARTERY W/O ANG PCTRS SNOMED Code(s): 91551918 Plan: 1. Start on Protonix 40mg daily 2. CBC on a daily basis 3. Transfuse if hemoglobin less than 7 4. Patient is status post upper endoscopy with severe ulcerative reflux esophagitis with linear erosions and ulcerations and exudates in the distal esophagus consistent with early grade D reflux esophagitis. Antral erosive gastritis. Severe duodenitis involving the duodenal bulb 5. Discussion was had with the patient and his , hemoglobin remained stable and patient is having no further signs of GI bleed. Patient can follow-up GI as an outpatient, and consider outpatient colonoscopy if necessary. The impression and plan of care has been dictated as directed. Dr. Rosamaria Sanders I performed a history and examination of this patient, discussed the same with the dictator. I agree with the dictator's note ,documented as a scribe. Any additional findings or plans will be noted.
--- NOTE | 2020-05-07 12:28 | P.PN ---
Subjective This is a pleasant 79-year-old male past medical history significant for coronary artery disease status post bypass grafting, paroxysmal atrial fibr illation, end-stage renal disease on hemodialysis, hypertension and COPD. He follows in the office with Dr. Hernandez. Denies symptoms of chest pain, shortness of breath, dizziness or palpitations. Blood pressure is 165/68 heart rate is 63 afebrile maintaining oxygen saturation on nasal cannula. Laboratory data reviewed, WBC 5.7, hemoglobin 9.2, platelets 145, sodium 134, potassium 4.3, creatinine 2.58. Currently maintained on atorvastatin 80 mg daily. GENERAL: Well-appearing, well-nourished and in no acute distress. NECK: Supple without JVD or thyromegaly. LUNGS: Breath sounds clear to auscultation bilaterally. Respiration equal and unlabored. No wheezes, rales or rhonchi. HEART: Regular rate and rhythm with soft systolic ejection murmur at the base, no rubs or gallops. S1 and S2 heard. EXTREMITIES: Normal range of motion, no edema. No clubbing or cyanosis. Peripheral pulses intact. ASSESSMENT Recent and STEMI, status post cardiac cath Coronary artery disease status post bypass grafting Anemia status post EGD Paroxysmal atrial fibrillation with rapid ventricular rate, currently in sinus mechanism. End-stage renal disease maintained on hemodialysis Hypertension COPD PLAN Continue to hold anti-coagulation. We will readdress resuming in the outpatient setting with Dr. Hernandez. Resume lopressor and imdur. Discussed with gastrointestinal team and they are okay with his resuming aspirin today. Follow-up in the office with Dr. Hernandez upon discharge, we will follow along as needed. Nurse Practitioner note has been reviewed, I agree with a documented findings and plan of care. Patient was seen and examined. Objective - Vital Signs Vital signs: Vital Signs Temp 98.9 F 05/07/20 09:20 Pulse 63 05/07/20 09:20 Resp 16 05/07/20 09:20 BP 165/68 05/07/20 09:20 Pulse Ox 97 05/07/20 09:20 Intake & Output 05/06/20 05/07/20 05/07/20 18:59 06:59 18:59 Intake Total 600 240 Output Total 2700 Balance -2100 240 Weight 63.9 kg 63.9 kg Intake: Oral 600 240 Output: Urine 200 Hemodialysis 2500 Other: Voiding Method Indwelling Catheter Indwelling Catheter Indwelling Catheter - Labs CBC & Chem 7: 05/07/20 06:53 05/07/20 06:53 Labs: Abnormal Lab Results - Last 24 Hours (Table) 05/07/20 05/07/20 Range/Units 06:53 06:53 RBC 2.87 L (4.30-5.90) m/uL Hgb 9.2 L (13.0-17.5) gm/dL Hct 28.5 L (39.0-53.0) % Plt Count 145 L (150-450) k/uL Lymphocytes # 0.8 L (1.0-4.8) k/uL Sodium 134 L (137-145) mmol/L BUN 22 H (9-20) mg/dL Creatinine 2.58 H (0.66-1.25) mg/dL Calcium 7.5 L (8.4-10.2) mg/dL
[2020-05-07] MEDS: METOPROLOL TARTRATE 25 MG TAB PO SCH ×2 (13:09→19:59)
[2020-05-07] MEDS: ASPIRIN 81 MG PO SCH (13:09)
[2020-05-07] MEDS: ISOSORBIDE MONONITRATE ER 60 MG TAB.ER.24H PO SCH (13:09)
--- NOTE | 2020-05-07 14:41 | PN ---
PROGRESS NOTE DATE OF SERVICE: 05/07/2020 This is an 79-year-old gentleman admitted with significant anemia and blood loss anemia, had EGD by GI. The hemoglobin is 9.2 after transfusion. Patient will be closely monitored. Hemodialysis will be continued. No chest pain. No palpitations. No fever. PHYSICAL EXAMINATION: Alert and oriented x3. Pulse 54, blood pressure 150/60, respirations 16, temperature 98.1, pulse ox 98% on room air. HEENT: Conjunctivae normal. NECK: No jugular venous distension. CARDIOVASCULAR SYSTEM: S1, S2, muffled. RESPIRATION: Breath sounds diminished at the bases, no rhonchi, no crackles. ABDOMEN: Soft, nontender. LEGS: No edema, no swelling. NERVOUS SYSTEM: No focal deficits. LABS: WBC is 5.7, hemoglobin is 9.2, sodium 132, potassium 4.3, creatinine is 2.58. ASSESSMENT: 1. Anemia, acute on chronic blood-loss anemia, GI blood loss, status post EGD showing severe ulcerative reflux esophagitis, antral erosive gastritis and severe duodenitis involving the duodenal bulb. 2. Chronic renal failure, on hemodialysis newly started. 3. Hyponatremia. 4. History of recent jzv-UF-utuvccc-elevation myocardial infarction and cardiac catheterization. 5. History of coronary artery disease, coronary artery bypass grafting. 6. Troponin 0.104. 7. History of chronic obstructive pulmonary disease. 8. Cerebrovascular accident, transient ischemic attack. 9. Gastroesophageal reflux disease. 10.Hard of hearing. 11.Hypertension. 12.History of myocardial infarction. 13.History of DJD. 14.History of aortic abdominal aortic aneurysm. 15.History of gallstones. 16.History of appendectomy. 17.Remote history of nicotine dependence. 18.NO CODE with instructions. RECOMMENDATION: Recommend to continue current medications. Continue symptomatic treatment. Otherwise at this time, I would recommend monitor hemoglobin closely. Increase ambulation. Hemodialysis, otherwise guarded prognosis. Further recommendations to follow. The cultures are negative so far. MMODL / IJN: [id number] /
--- NOTE | 2020-05-07 18:38 | PN ---
PROGRESS NOTE Patient is seen for followup for end-stage renal disease. He is currently comfortable. No significant complaints. Patient is maintained on a Sunday, , Sunday schedule for dialysis. He was found to have GI bleed on this admission and is status post EGD which showed significant esophageal ulceration with severe ulcerative reflux esophagitis and erosive gastritis and duodenitis. No active bleeding noted. Currently patient is comfortable. PHYSICAL EXAMINATION: Blood pressure 152/66, heart rate 54 per minute. He is afebrile. EXAMINATION OF THE HEART: S1 and S2. EXAMINATION OF LUNGS: Bilateral breath sounds are heard. ABDOMEN: Soft, non-tender. Examination of lower extremities shows no significant edema. 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 LABS: Labs show hemoglobin 9.2, sodium 134, potassium 4.3. ASSESSMENT: 1. End-stage renal disease, on hemodialysis on a Sunday, , Sunday schedule. 2. Gastrointestinal bleed, status post esophagogastroduodenoscopy which showed severe ulcerative esophagitis, severe gastritis and duodenitis. No active bleeding noted. Maintained on proton pump inhibitors. 3. Hypertension, currently controlled. 4. History of benign prostatic hypertrophy, maintained on Flomax. 5. Dyslipidemia. 6. Chronic kidney disease with recent initiation of renal replacement therapy about 3 to 4 weeks ago during his last admission. PLAN: Arrange for hemodialysis in a.m. Patient can likely be discharged soon. MMODL / IJN: [id number] /
[2020-05-07] MEDS: TAMSULOSIN 0.4 MG CAP.ER.24H PO SCH (19:58)
[2020-05-07] MEDS: MONTELUKAST 10 MG TAB PO SCH (19:59)
[2020-05-07] MEDS: ATORVASTATIN 80 MG TAB PO SCH (19:59)
[2020-05-08] MEDS: SUCRALFATE 1 GM TAB PO SCH ×2 (06:51→12:39)
[2020-05-08] MEDS ORDERED: ASPIRIN 81 MG PO SCH (09:00)
--- NOTE | 2020-05-08 10:19 | P.PN ---
Subjective Progress Note Date: 05/08/20 Principal diagnosis: This is a 79-year-old male with new onset ESRD on dialysis, recently started on dialysis. He was readmitted after becoming hypotensive on dialysis. He was fo und to be anemic. Underwent EGD which shows gastritis. Duodenitis and gastritis and esophagitis He is started on Protonix This morning is feeling fairly well He is currently on dialysis with somewhat poor blood flow at about 300 the max of the permacath on his right side Known with coronary artery bypass graft recent cardiac catheterization, intervention. Former smoker. no patient denies any chest pain GERD symptoms no nausea vomiting diarrhea. Hemoglobin stable Objective - Vital Signs Vital signs: Vital Signs Temp 97.9 F 05/08/20 03:10 Pulse 61 05/08/20 08:00 Resp 16 05/08/20 08:00 BP 132/59 05/08/20 08:00 Pulse Ox 91 L 05/08/20 03:10 Intake & Output 05/07/20 05/08/20 05/08/20 18:59 06:59 18:59 Intake Total 680 Output Total 525 500 Balance 155 -500 Weight 63.9 kg 65.8 kg Intake: Oral 680 Output: Urine 525 500 Other: Voiding Method Indwelling Catheter Indwelling Catheter # Bowel Movements 1 Awake alert oriented looks weak and tired 6 HEENT exam no JVP neck is supple no facial asymmetry Lungs clear to auscultation fair air entry bilaterally Heart sounds unremarkable no murmur rub gallop Abdomen abdomen soft nontender no organomegaly status masses Extreme exam was no edema Neurologically awake alert oriented but generalized weakness - Labs CBC & Chem 7: 05/07/20 06:53 05/07/20 06:53 Assessment and Plan Assessment: Impression 1. ESRD recently started on dialysis. Dialysis schedule is TTS. Admitted with hypotension and anemia and GI bleed. 2. Endoscopy shows severe esophagitis gastritis and duodenitis started on PPI 3. Anemia of GI bleed 4. Recent cardiac catheterization, history of coronary artery bypass. 5. Former smoker Recommendation 1. Maintain current dialysis schedule 2. Monitor labs hemoglobin anemia iron. 3. Discharge per primary physician.
[2020-05-08] MEDS: IPRATROPIUM 0.5 MG/2.5 ML NEBU INHALATION SCH (11:43)
--- NOTE | 2020-05-08 11:56 | PN ---
PROGRESS NOTE DATE OF SERVICE: 05/08/2020 Patient is an 79-year-old pleasant white male admitted to the hospital with anemia and black tarry stools. He underwent an upper endoscopy 2 days ago that showed severe reflux esophagitis and antral erosive gastritis, as well as duodenitis. On Protonix 40 mg twice daily he is doing better. He had no further episodes of bleeding. He has history of end-stage renal disease, recently started on dialysis a week ago, currently undergoing dialysis, tolerating well. PHYSICAL EXAMINATION: GENERAL: Appears comfortable. VITAL SIGNS: Stable. Blood pressure 136/86, pulse rate 86, temperature 97.9. HEENT: Examination unremarkable. Conjunctivae are pink. Sclerae anicteric. Oral cavity no lesions. NECK: No JVD or lymph node enlargement. CHEST: Clear to auscultation. HEART: Regular rate and rhythm. ABDOMEN: Soft. Bowel sounds are positive. No organomegaly. EXTREMITIES: No pedal edema. SKIN: No rashes. NEUROLOGIC: Alert and oriented x3. No focal deficits. LABS: WBC 5.7, hemoglobin 9.2, platelets 145. BUN 22, creatinine 2.58. IMPRESSION: 1. End-stage renal disease, on hemodialysis, undergoing dialysis today, tolerating well. 2. Anemia with black tarry stools, status post EGD 2 days ago that showed severe ulcerative reflux esophagitis and erosive antral gastritis. He is on Protonix 40 mg twice daily and his bleeding has completely resolved. Hemoglobin stable at 9.2 g/dL. 3. Anemia of chronic disease. He had a component of acute blood-loss anemia but now stable. 4. Recent myocardial infarction with cardiac catheterization. RECOMMENDATIONS: 1. Continue with Protonix 40 mg twice daily. 2. Monitor CBC daily. 3. The patient will hold off on colonoscopy intervention at the present time, as he is not interested in having this done while in the hospital. I will re-evaluate him in the office on an outpatient basis in 2 weeks and will decide further. Thank you for this consultation. MMODL / IJN: [id number] /
[2020-05-08 12:25] VITALS: BP 162/60; PULSE 59; RESP 18; TEMP 97.4
[2020-05-08] MEDS: ASPIRIN 81 MG PO SCH (12:30)
[2020-05-08] MEDS: METOPROLOL TARTRATE 25 MG TAB PO SCH (12:39)
[2020-05-08] MEDS: busPIRone HCl 5 MG TAB PO SCH (12:39)
[2020-05-08] MEDS: ISOSORBIDE MONONITRATE ER 60 MG TAB.ER.24H PO SCH (12:39)
[2020-05-08] MEDS: PANTOPRAZOLE 40 MG TABLET PO SCH (12:40)
[2020-05-08 13:24] LABS: Basophils % (A) 1 %; Eosinophils # (A) 0.1 k/uL (0-0.7); Eosinophils % (A) 2 %; HCT 29.1 % (39.0-53.0); HGB 9.7 gm/dL (13.0-17.5); Hypochromasia Slight; Lymphocytes # (A) 0.7 k/uL (1.0-4.8); Lymphocytes % (A) 15 %; MCH 32.8 pg (25.0-35.0); MCHC 33.2 g/dL (31.0-37.0); MCV 98.9 fL (80.0-100.0); Macrocytosis Slight; Mean Platelet Volume 9.3; Monocytes # (A) 0.4 k/uL (0-1.0); Monocytes % (A) 8 %; Neutrophils # (A) 3.4 k/uL (1.3-7.7); Neutrophils % (A) 73 %; Platelet Count 117 k/uL (150-450); RBC 2.94 m/uL (4.30-5.90); RDW 14.7 % (11.5-15.5); WBC 4.6 k/uL (3.8-10.6)
--- NOTE | 2020-05-08 16:29 | DS ---
DISCHARGE SUMMARY DATE OF SERVICE: 05/08/2020 FINAL DIAGNOSES: 1. Anemia acute on chronic blood-loss anemia gastrointestinal blood loss anemia status post EGD showing severe ulcerative reflux esophagitis, antral erosive gastritis and severe duodenitis involving the duodenal bulb. 2. Chronic renal failure on hemodialysis newly started. 3. Hyponatremia. 4. History of recent tbn-GW-gnzeslh-elevation myocardial infarction and cardiac catheterization. 5. History of coronary artery disease, coronary artery bypass grafting. 6. Troponin 0.104. 7. History of chronic obstructive pulmonary disease. 8. History of cerebrovascular accident/transient ischemic attack. 9. Gastroesophageal reflux disease. 10.Hard of hearing. 11.Hypertension. 12.History of myocardial infarction. 13.History of degenerative joint disease. 14.History of aortic abdominal aortic aneurysm. 15.History of gallstones. 16.History of appendectomy. 17.Remote history of nicotine dependence. 18.NO CODE WITH INSTRUCTIONS. DISCHARGE DISPOSITION: The patient will be discharged in stable condition with guarded prognosis. HISTORY OF PRESENT ILLNESS: This 79-year-old gentleman with a past medical history of multiple medical problems was admitted with significant blood-loss anemia. Hemoglobin was found to be going up to 7.2. The patient received 1 unit of transfusion. EGD showed findings as above by Gastroenterology. Patient treated symptomatically. Patient improved significantly. Hemoglobin is stable at 9.2. On exam, vitals are stable. Cardiovascular: S1, S2. Abdomen soft. Nervous system: No focal deficits. Patient will be discharged in stable condition with guarded prognosis with the following recommendations and medications: 1. Diet is cardiac diet. 2. Activity limited until followup. 3. Follow up with Dr. Junior Jalloh in 1-2 days. 4. CBC, BMP. 5. Follow with Cardiology and as well as Nephrology as recommended. DISCHARGE MEDICATIONS: 1. DuoNeb t.i.d. and p.r.n. 2. BuSpar 7.5 mg p.o. b.i.d. 3. Colace 100 mg daily. 4. Ecotrin 81 mg p.o. daily. 5. Flomax 0.4 q.h.s. 6. Terazosin 10 mg q.h.s. 7. Albuterol p.r.n. 8. zafirlukast 20 mg p.o. b.i.d. 9. Carafate 1 gram a.c. and at bedtime. 10.Imdur ER 60 mg p.o. daily. 11.Lipitor 80 mg q.h.s. 12.Lopressor 25 mg p.o. b.i.d. 13.Protonix 40 mg p.o. b.i.d. Once again, the patient discharged in stable condition. Guarded prognosis. MMODL / IJN: [id number] / [facility]
--- NOTE | 2020-05-10 09:58 | CDI ---
Documentation Clarification Form Date: 05/10/20 From: Karena Frazier Phone: If you have a question about this query, please contact Moriah Ramos, Commissioning Engineer at [phone] between 8am and 5pm. Admit Date: 05/04/20 Discharge Date: 05/08/20 Patient Name: AZALIA BAUGH Visit Number: [id number] ATTENTION: The Clinical Documentation Specialists (CDI) and [employer] Coding Staff appreciate your assistance in clarifying documentation. Please respond to the clarification below the line at the bottom and electronically sign. The CDI & [employer] Coding staff will review the response and follow-up if needed. Please note: Queries are made part of the Legal Health Record. If you have any questions, please contact the author of this message via ITS. Dear Dr. Kathleen Hubbard, CHF is documented in Dr Chavis's consult: "CHF and volume overload on last admission, currently improved." History/Risk Factors: S/P CABG, coronary stent, CAD, recent NSTEMI, ESRD W HTN Clinical Indicators: Past medical hx CHF, CKD with recent initiation of dialysis on his last admission (04/26-05/02/20). VS/Pulse OX: T-98.7, P-72, R-18, BP-118/61, O2 Sat-93 (RA) BNP: none available 04/28/20 Echocardiogram Results: Overall left ventricular systolic function is moderatedly impaired with, an EF between 35-40%. Increased LAP Grade 2 diastolic dysfunction. 05/04/20 Chest X Ray: Increased moderate left pleural effusion and left basilar airspace opacities versus 04/28/2020 comparison. Right basilar airspace opacities and small right pleural effusion are unchanged. Treatment: Imdur, Carduar, Lopressor, Terazosin HCL In your professional opinion, can you please clarify the acuity and type of CHF if known? Type Systolic Heart Failure Diastolic Heart Failure Systolic & Diastolic Heart Failure Acuity Acute Chronic Acute on Chronic Heart Failure Unable to Determine Other, please specify Diastolic Heart Failure Chronic MTDD
== END 2020-05-08 15:02 | disposition home health service (06) | DRG 380 ==
LOC: EC 11:05 → 3SCARD 13:35
PROVIDERS: ADMIT Hospitalist; ATTEND Hospitalist
PROC: 30233N1 Transfusion of Nonautologous Red Blood Cells into Peripheral Vein, Percutaneous Approach (ICD-10-PCS; 2020-05-05)
PROC: 0DB68ZX Excision of Stomach, Via Natural or Artificial Opening Endoscopic, Diagnostic (ICD-10-PCS; 2020-05-05)
PROC: 0DB58ZX Excision of Esophagus, Via Natural or Artificial Opening Endoscopic, Diagnostic (ICD-10-PCS; 2020-05-05)
PROC: 0DB98ZX Excision of Duodenum, Via Natural or Artificial Opening Endoscopic, Diagnostic (ICD-10-PCS; 2020-05-05)
PROC: 0DB78ZX Excision of Stomach, Pylorus, Via Natural or Artificial Opening Endoscopic, Diagnostic (ICD-10-PCS; 2020-05-05)
PROC: 5A1D70Z Performance of Urinary Filtration, Intermittent, Less than 6 Hours Per Day (ICD-10-PCS; principal; 2020-05-06)
DX: K22.11 Ulcer of esophagus with bleeding (principal); N18.6 End stage renal disease; I21.4 Non-ST elevation (NSTEMI) myocardial infarction; I13.2 Hypertensive heart and chronic kidney disease with heart failure and with stage 5 chronic kidney disease, or end stage renal disease; D62 Acute posthemorrhagic anemia; E87.1 Hypo-osmolality and hyponatremia; I50.32 Chronic diastolic (congestive) heart failure; I95.9 Hypotension, unspecified; D63.1 Anemia in chronic kidney disease; E83.9 Disorder of mineral metabolism, unspecified; I48.0 Paroxysmal atrial fibrillation; Z99.2 Dependence on renal dialysis; J44.9 Chronic obstructive pulmonary disease, unspecified; I71.4 Abdominal aortic aneurysm, without rupture; K29.80 Duodenitis without bleeding; K29.60 Other gastritis without bleeding; Z66 Do not resuscitate; K21.00 Gastro-esophageal reflux disease with esophagitis, without bleeding; R00.1 Bradycardia, unspecified; E78.5 Hyperlipidemia, unspecified; E61.1 Iron deficiency; K44.9 Diaphragmatic hernia without obstruction or gangrene; N40.0 Benign prostatic hyperplasia without lower urinary tract symptoms; M19.90 Unspecified osteoarthritis, unspecified site; I25.10 Atherosclerotic heart disease of native coronary artery without angina pectoris; I25.2 Old myocardial infarction; F32.9 Major depressive disorder, single episode, unspecified; F41.9 Anxiety disorder, unspecified; K80.20 Calculus of gallbladder without cholecystitis without obstruction; H54.7 Unspecified visual loss; H91.90 Unspecified hearing loss, unspecified ear; E66.9 Obesity, unspecified; Z68.21 Body mass index [BMI] 21.0-21.9, adult; Z79.82 Long term (current) use of aspirin; Z79.899 Other long term (current) drug therapy; Z87.891 Personal history of nicotine dependence; Z86.73 Personal history of transient ischemic attack (TIA), and cerebral infarction without residual deficits; Z90.49 Acquired absence of other specified parts of digestive tract; Z87.19 Personal history of other diseases of the digestive system; Z95.1 Presence of aortocoronary bypass graft; Z95.5 Presence of coronary angioplasty implant and graft; Z98.1 Arthrodesis status; Z86.79 Personal history of other diseases of the circulatory system; Z98.890 Other specified postprocedural states; Z88.5 Allergy status to narcotic agent; Z80.8 Family history of malignant neoplasm of other organs or systems; Z82.49 Family history of ischemic heart disease and other diseases of the circulatory system
CPT/HCPCS: 36415; 43239; 71046; 80048; 80053; 81001; 82150; 82272; 83605; 83690; 84484; 85025; 86850; 86900; 86901; 86920; 87086; 88305; 88312; 90935; 93005; 94640; 94760; 96374; 96375; 99285

== ENCOUNTER → 2020-06-15 | Outpatient (CLI) | payer MEDICARE ==
[2020-06-15 12:16] LABS: Basophils % (A) 1 %; Eosinophils # (A) 0.3 k/uL (0-0.7); Eosinophils % (A) 5 %; HCT 27.4 % (39.0-53.0); Lymphocytes # (A) 1.2 k/uL (1.0-4.8); Lymphocytes % (A) 21 %; MCHC 32.8 g/dL (31.0-37.0); MCV 100.8 fL (80.0-100.0); Macrocytosis Slight; Mean Platelet Volume 8.9; Monocytes # (A) 0.3 k/uL (0-1.0); Monocytes % (A) 6 %; Neutrophils # (A) 3.6 k/uL (1.3-7.7); Neutrophils % (A) 66 %; Platelet Count 116 k/uL (150-450); RBC 2.72 m/uL (4.30-5.90); RDW 15.5 % (11.5-15.5); WBC 5.4 k/uL (3.8-10.6)
[2020-06-15 12:31] LABS: Calcium 8.5 mg/dL (8.4-10.2); Potassium 5.1 mmol/L (3.5-5.1)
[2020-06-15 13:12] LABS: Appearance,Urine Clear (Clear); Bilirubin,Urine Negative (Negative); Blood,Urine Small (Negative); Color,Urine Light Yellow; Glucose,Urine (UA) Negative (Negative); Ketones,Urine Negative (Negative); Leukocyte Esterase,Urine Trace (Negative); Mucus,Urine Rare /hpf; Nitrite,Urine Negative (Negative); PH, Urine 5.5 (5.0-8.0); Protein,Urine 1+ (Negative); RBC,Urine 1 /hpf (0-5); Specific Gravity,Urine 1.008 (1.001-1.035); Squamous Epithelial Cell,Urine <1 /hpf (0-4); Urobilinogen,Urine <2.0 mg/dL (<2.0); WBC,Urine 2 /hpf (0-5)
== END | disposition home or self-care (01) ==
LOC: LABPAT 10:40
PROVIDERS: ATTEND Family Medicine
DX: Z01.818 Encounter for other preprocedural examination (principal); R33.9 Retention of urine, unspecified
CPT/HCPCS: 36415; 80048; 81001; 85025; 87086

== ENCOUNTER 2020-06-23 06:21 | Day surgery (SDC) | payer MEDICARE ==
[2020-06-18 09:21] VITALS: BMI 23.1
--- NOTE | 2020-06-22 18:19 | P.GSHP ---
History of Present Illness H&P Date: 06/22/20 The patient is an 79 yo male , crf on hemodiaysis, who still makes urine. HE is in retention and has failed attempts at spontaneous voiding with alpha blockers. He comes for a bipolar turp The risks , alternatives and complications have been outlined. He wants to proceed with the surgery - Constitutional Constitutional: Denies chills, Denies fever - EENT Eyes: denies blurred vision, denies pain Ears, nose, mouth and throat: Denies headache, Denies sore throat - Cardiovascular Cardiovascular: Denies chest pain, Denies shortness of breath - Respiratory Respiratory: Denies cough, Denies 7 - Gastrointestinal Gastrointestinal: Denies abdominal pain, Denies diarrhea, Denies nausea, Denies vomiting - Genitourinary (Female) Genitourinary: Denies dysuria, Denies hematuria - Genitourinary (Male) Genitourinary: Denies dysuria, Denies hematuria - Musculoskeletal Musculoskeletal: Denies myalgias - Integumentary Integumentary: Denies pruritus, Denies rash - Neurological Neurological: Denies numbness, Denies weakness - Psychiatric Psychiatric: Denies anxiety, Denies depression - Endocrine Endocrine: Denies fatigue, Denies weight change Past Medical History Past Medical History: Atrial Fibrillation, Coronary Artery Disease (CAD), Chest Pain / Angina, COPD, CVA/TIA, GERD/Reflux, GI Bleed, Hypertension, Myocardial Infarction (OR), Osteoarthritis (OA), Pneumonia, Prostate Disorder, Renal Disease Additional Past Medical History / Comment(s): stroke x 5- 18 yrs ago- no residual effects, ABDOMINAL ANEURYSM, gall stones, blood poisioning from stepping on leslee nail. hemodialysis Apr 2020-May. anemia(transfused Apr 2020 at [facility]), recent antibiotics for UTI, has indwelling catheter Last Myocardial Infarction Date:: 05/11 History of Any Multi-Drug Resistant Organisms: None Reported Past Surgical History: Appendectomy, Breast Surgery, Coronary Bypass/CABG, Heart Catheterization, Hernia Repair Additional Past Surgical History / Comment(s): Neck Fusion 1979 x2) - fx from injury, CRANIOTOMY, TRIPLE BYPASS "yrs ago", LEFT CAROTID endarterectomy. hemodialysis catheter/later removed Past Anesthesia/Blood Transfusion Reactions: No Reported Reaction Smoking Status: Former smoker - Past Family History Sister(s) Family Medical History: Cancer Additional Family Medical History / Comment(s): kidney Medications and Allergies Home Medications Medication Instructions Recorded Confirmed Type Zafirlukast 20 mg PO BID 09/30/14 06/18/20 History Ipratropium Nebulized [Atrovent 0.5 mg INHALATION Q4HR PRN 04/26/20 06/18/20 History Nebulized 0.2 MG/ML] Tamsulosin HCl [Flomax] 0.4 mg PO HS 04/26/20 06/18/20 History Terazosin HCl 10 mg PO HS 04/26/20 06/18/20 History busPIRone HCL [Buspar] 7.5 mg PO BID 04/26/20 06/18/20 History Aspirin EC [Ecotrin Low Dose] 81 mg PO DAILY 04/27/20 06/18/20 History Docusate [Colace] 100 mg PO DAILY 04/27/20 06/18/20 History Atorvastatin [Lipitor] 80 mg PO HS #30 tab 05/02/20 06/18/20 Rx Pantoprazole [Protonix] 40 mg PO BID #60 tablet.dr 05/08/20 06/18/20 Rx Sucralfate [Carafate] 1 gm PO ACHS #120 tab 05/08/20 06/18/20 Rx Albuterol Nebulized (Conc) 2.5 mg INHALATION Q4HR 06/18/20 06/18/20 History [Ventolin Nebulized (Conc)] Furosemide [Lasix] 40 mg PO DAILY 06/18/20 06/18/20 History Isosorbide Mononitrate ER [Imdur] 30 mg PO DAILY 06/18/20 06/18/20 History Metoprolol Tartrate [Lopressor] 25 mg PO BID 06/18/20 06/18/20 History Torsemide [Demadex] 20 mg PO DAILY 06/18/20 06/18/20 History Allergies Allergy/AdvReac Type Severity Reaction Status Date / Time morphine Allergy Severe Rash/Hives Verified 06/18/20 08:40 Surgical - Exam - General well developed, chronically ill - Eyes PERRL - ENT no hearing loss - Neck trachea midline - Respiratory normal expansion, normal respiratory effort - Cardiovascular Rhythm: regular - Abdomen Abdomen: soft, non tender - Genitourinary indwelling catheter. Enlarged prostate normal penis with no external lesions, testicles present - Integumentary no rash, no growths - Neurologic normal coordination, normal sensation - Musculoskeletal normal gait, normal posture - Psychiatric oriented to time, oriented to person, oriented to place, speech is normal, memory intact Assessment and Plan Assessment: Impression: Urine retention. CrF on hemodialysis with continued urine production. Multiple medical problems Plan: Bipolar turp
[~2020-06-23 06:21] MED LIST: AMPICILLIN 1,000 MG in SODIUM CHLORIDE 0.9% 50 ML IVPB PRN; GENTAMICIN 100 MG in SODIUM CHLORIDE 0.9% 100 ML IVPB PRN; HYDROmorphone 0.5 MG/0.5 ML SYRINGE IVP PRN; LACTATED RINGERS 1,000 ML IV SCH; ONDANSETRON 4 MG/2 ML VIAL IVP ONE
[2020-06-23 06:59] VITALS: RESP 16
[2020-06-23] MEDS ORDERED: LIDOCAINE 1% (10MG/ML) FOR IV START INTRADERMA ONE (07:12)
[2020-06-23] MEDS ORDERED: DEXAMETHASONE SOD PHOSPHATE 10 MG/ML 1 ML VIAL IV ONE (07:20)
[2020-06-23] MEDS ORDERED: PROPOFOL 10 MG/ML 20 ML VIAL IV ONE (07:25)
[2020-06-23] MEDS ORDERED: fentaNYL (PF) 50 MCG/ML 2 ML AMP ONE (07:25)
[2020-06-23] MEDS ORDERED: ePHEDrine SULFATE/0.9% NACL/PF 50 MG/5 ML SYRINGE IV ONE (07:25)
[2020-06-23] MEDS ORDERED: SUCCINYLCHOLINE CHLORIDE 100 MG/5 ML SYR IV ONE (07:25)
[2020-06-23] MEDS ORDERED: ROCURONIUM 10 MG/ML (10 ML VIAL) IV ONE (07:25)
[2020-06-23] MEDS ORDERED: GLYCOPYRROLATE 0.2 MG/ML 2 ML VIAL ONE (07:25)
[2020-06-23] MEDS ORDERED: NEOSTIGMINE 1 MG/ML 10 ML VIAL ONE (07:25)
[2020-06-23] MEDS ORDERED: LIDOCAINE 1% INJ 10MG/ML (20 ML MDV) ONE (07:25)
[2020-06-23] MEDS ORDERED: SODIUM CHLORIDE 0.9% 500 ML 500 ML IV ONE (08:23)
[2020-06-23 08:36] VITALS: TEMP 96.8
--- NOTE | 2020-06-23 08:36 | P.OP ---
Date of Procedure: 06/23/20 Preoperative Diagnosis: Urine retention, chronic renal failure with dialysis, continued urine production Postoperative Diagnosis: Same Procedure(s) Performed: Bipolar plasma button TURP Anesthesia: MEI Surgeon: Kristopher Bang Estimated Blood Loss (ml): 25 Pathology: none sent Condition: stable Disposition: PACU Indications for Procedure: The patient is a 79. He is in chronic renal failure on dialysis. He continues to make about a liter of urine per day. He is in urine retention. He has failed alpha-britni's. He comes for a bipolar TURP. Cystometrogram shows function of the bladder. Description of Procedure: Patient brought operating suite. He is given general anesthesia. He is given preoperative antibiotics. Under vision after sterile prep and drape the 25- [place]an sheath direct vision obturator and Foroblique lenses introduced in ure hra. It is normal. Prostate is short showing a high riding bladder neck that is obstructing. The bladder anderson trabeculated. A irrigate the bladder and prostate thoroughly multiple times at. Then with the plasma button of vaporize first the bladder neck and posterior prostate and then vaporize the left lateral lobe right lateral lobe and anterior prostate back to the verumontanum. Then the procedure there is no active bleeding. An 18-Zimbabwean coud-tip catheter is introduced in the bladder with clear with minimal light pink urine. The patient's awake and returned recovery in good condition. He'll be discharged home upon recovery with an indwelling catheter and found the office on Sunday for removal if the urine is clear. The loss is approximately 25 mL
[2020-06-23] MEDS ORDERED: hydrALAZINE HCL 20 MG/ML 1 ML VIAL IV ONE (09:05)
[2020-06-23] MEDS ORDERED: GLYCOPYRROLATE 0.2 MG/ML 2 ML VIAL IVP ONE (09:17)
[2020-06-23 11:47] VITALS: BP 114/50; PULSE 45
== END 2020-06-23 12:07 | disposition home or self-care (01) ==
LOC: OR 06:21
PROVIDERS: ATTEND Urology
DX: R33.9 Retention of urine, unspecified (principal); I12.0 Hypertensive chronic kidney disease with stage 5 chronic kidney disease or end stage renal disease; N18.6 End stage renal disease; I25.10 Atherosclerotic heart disease of native coronary artery without angina pectoris; I48.91 Unspecified atrial fibrillation; J44.9 Chronic obstructive pulmonary disease, unspecified; M19.90 Unspecified osteoarthritis, unspecified site; Z98.1 Arthrodesis status; Z88.5 Allergy status to narcotic agent; K21.9 Gastro-esophageal reflux disease without esophagitis; Z79.82 Long term (current) use of aspirin; Z79.899 Other long term (current) drug therapy; D64.9 Anemia, unspecified; D69.6 Thrombocytopenia, unspecified; Z95.1 Presence of aortocoronary bypass graft; Z86.73 Personal history of transient ischemic attack (TIA), and cerebral infarction without residual deficits; Z87.01 Personal history of pneumonia (recurrent); Z98.890 Other specified postprocedural states; Z90.49 Acquired absence of other specified parts of digestive tract; Z87.891 Personal history of nicotine dependence; Z80.51 Family history of malignant neoplasm of kidney
CPT/HCPCS: 52601; J0360; J1100; J2710; J2405; J2001; J3010; J1580; J0290; J0330; J2704

== ENCOUNTER 2020-06-27 08:34 | Inpatient (IN) | payer MEDICARE ==
[2020-06-27] MEDS ORDERED: ONDANSETRON 4 MG/2 ML VIAL IVP STA (09:01)
[2020-06-27] MEDS ORDERED: SODIUM CHLORIDE 0.9% 1,000 ML IV ONE (09:01)
[2020-06-27 09:16] LABS: Basophils % (A) 0 %; Eosinophils # (A) 0.3 k/uL (0-0.7); Eosinophils % (A) 5 %; HCT 24.1 % (39.0-53.0); HGB 7.8 gm/dL (13.0-17.5); Lymphocytes # (A) 1.3 k/uL (1.0-4.8); Lymphocytes % (A) 17 %; MCH 32.7 pg (25.0-35.0); MCHC 32.5 g/dL (31.0-37.0); MCV 100.5 fL (80.0-100.0); Macrocytosis Slight; Mean Platelet Volume 8.6; Monocytes # (A) 0.4 k/uL (0-1.0); Monocytes % (A) 5 %; Neutrophils # (A) 5.5 k/uL (1.3-7.7); Neutrophils % (A) 72 %; Platelet Count 126 k/uL (150-450); RDW 15.7 % (11.5-15.5); WBC 7.6 k/uL (3.8-10.6)
[2020-06-27 09:24] LABS: Albumin 3.5 g/dL (3.5-5.0); Calcium 8.5 mg/dL (8.4-10.2); Potassium 5.5 mmol/L (3.5-5.1); Total Bilirubin 0.3 mg/dL (0.2-1.3); Total Protein 6.5 g/dL (6.3-8.2)
[2020-06-27 09:28] LABS: Partial Thromboplastin Time 27.4 sec (22.0-30.0); Prothrombin Time 10.5 sec (9.0-12.0)
--- NOTE | 2020-06-27 09:31 | ED ---
General Adult HPI - General Chief complaint: Urogenital Stated complaint: Prostate CA, male Time Seen by Provider: 06/27/20 08:43 Source: patient, RN notes reviewed Mode of arrival: wheelchair Limitations: physical limitation - History of Present Illness Initial comments: This is a 79-year-old male presents emergency Department chief complaint of typ ical to urinate, hematuria. Patient had a TURP procedure by Dr. Bang on Sunday. Patient states she follow-up in office on Sunday and had his catheter removed. Patient states that he noticed some increasing hematuria or last 24 hours. Patient states he still had nausea and vomiting this morning. Patient states he feels pressure in his lower abdomen feels like is not urinating he states when he does have some urine, it is mostly blood. Patient denies any fevers or chills. Patient was pus was recently for GI bleed. Patient is not on any anticoagulants currently. - Related Data Home Medications Medication Instructions Recorded Confirmed Zafirlukast 20 mg PO BID 09/30/14 06/18/20 Ipratropium Nebulized [Atrovent 0.5 mg INHALATION Q4HR PRN 04/26/20 06/18/20 Nebulized 0.2 MG/ML] Tamsulosin HCl [Flomax] 0.4 mg PO HS 04/26/20 06/23/20 Terazosin HCl 10 mg PO HS 04/26/20 06/23/20 busPIRone HCL [Buspar] 7.5 mg PO BID 04/26/20 06/18/20 Aspirin EC [Ecotrin Low Dose] 81 mg PO DAILY 04/27/20 06/18/20 Docusate [Colace] 100 mg PO DAILY 04/27/20 06/23/20 Albuterol Nebulized (Conc) 2.5 mg INHALATION Q4HR 06/18/20 06/18/20 [Ventolin Nebulized (Conc)] Furosemide [Lasix] 40 mg PO DAILY 06/18/20 06/23/20 Isosorbide Mononitrate ER [Imdur] 30 mg PO DAILY 06/18/20 06/18/20 Metoprolol Tartrate [Lopressor] 25 mg PO BID 06/18/20 06/18/20 Torsemide [Demadex] 20 mg PO DAILY 06/18/20 06/23/20 Previous Rx's Medication Instructions Recorded Atorvastatin [Lipitor] 80 mg PO HS #30 tab 05/02/20 Pantoprazole [Protonix] 40 mg PO BID #60 tablet. 05/08/20 Sucralfate [Carafate] 1 gm PO ACHS #120 tab 05/08/20 Sulfamethox-Tmp 800-160Mg [Bactrim 1 tab PO Q12HR #14 tab 06/23/20 DS 800-160 mg] Allergies Allergy/AdvReac Type Severity Reaction Status Date / Time morphine Allergy Severe Rash/Hives Verified 06/27/20 08:42 Review of Systems ROS Statement: Those systems with pertinent positive or pertinent negative responses have been documented in the HPI. ROS Other: All systems not noted in ROS Statement are negative. Past Medical History Past Medical History: Coronary Artery Disease (CAD), COPD, CVA/TIA, GERD/Reflux, Hearing Disorder / Deafness, Hypertension, Myocardial Infarction ([place]), Osteoarthritis (OA), Renal Disease, Respiratory Disorder Additional Past Medical History / Comment(s): ABDOMINAL ANEURYSM, gall stones, blood poisioning from stepping on leslee nail, Last Myocardial Infarction Date:: 1972 History of Any Multi-Drug Resistant Organisms: None Reported Past Surgical History: Appendectomy, Bowel Resection, Coronary Bypass/CABG, Heart Catheterization, Hernia Repair Additional Past Surgical History / Comment(s): Neck Fusion 1978 x2, CRANIOTOMY, TRIPLE BYPASS, LEFT CAROTID SURGERY. Past Anesthesia/Blood Transfusion Reactions: No Reported Reaction Past Psychological History: No Psychological Hx Reported Smoking Status: Former smoker Past Alcohol Use History: None Reported Additional Past Alcohol Use History / Comment(s): PT STATES HE QUIT SMOKING 7 MONTHS AGO. Past Drug Use History: None Reported - Past Family History Sister(s) Family Medical History: Cancer General Exam Limitations: physical limitation General appearance: alert, in no apparent distress Head exam: Present: atraumatic, normocephalic, normal inspection Neck exam: Present: normal inspection. Absent: tenderness, meningismus, lymphadenopathy Respiratory exam: Present: normal lung sounds bilaterally. Absent: respiratory distress, wheezes, rales, rhonchi, stridor Cardiovascular Exam: Present: regular rate, normal rhythm, normal heart sounds. Absent: systolic murmur, diastolic murmur, rubs, gallop, clicks GI/Abdominal exam: Present: soft, tenderness (Lower abdomen), normal bowel sounds. Absent: distended, guarding, rebound, rigid Back exam: Absent: CVA tenderness (R), CVA tenderness (L) Neurological exam: Present: alert, oriented X3 Skin exam: Present: warm, dry, intact, normal color. Absent: rash Course Vital Signs 06/27/20 08:35 Temperature 98.1 F Pulse Rate 59 L Respiratory 18 Rate Blood Pressure 149/66 O2 Sat by Pulse 96 Oximetry Medical Decision Making - Medical Decision Making 79-year-old presented for hematuria. Patient had a urinary retention, Hinds catheter was placed and irrigated. Patient is draining. Patient has acute on chronic renal failure was related to dehydration, post renal obstruction. Patient also has hemoglobin 7.8 from prior 9. Patient will be admitted for repeat CBC, hydration and nephrology. - Lab Data Result diagrams: 06/27/20 09:04 06/27/20 09:04 Lab Results 06/27/20 06/27/20 06/27/20 Range/Units 09:04 09:04 09:04 WBC 7.6 (3.8-10.6) k/uL RBC 2.40 L (4.30-5.90) m/uL Hgb 7.8 L (13.0-17.5) gm/dL Hct 24.1 L (39.0-53.0) % MCV 100.5 H (80.0-100.0) fL MCH 32.7 (25.0-35.0) pg MCHC 32.5 (31.0-37.0) g/dL RDW 15.7 H (11.5-15.5) % Plt Count 126 L (150-450) k/uL MPV 8.6 Neutrophils % 72 % Lymphocytes % 17 % Monocytes % 5 % Eosinophils % 5 % Basophils % 0 % Neutrophils # 5.5 (1.3-7.7) k/uL Lymphocytes # 1.3 (1.0-4.8) k/uL Monocytes # 0.4 (0-1.0) k/uL Eosinophils # 0.3 (0-0.7) k/uL Basophils # 0.0 (0-0.2) k/uL Macrocytosis Slight PT (9.0-12.0) sec INR (<1.2) APTT (22.0-30.0) sec Sodium 134 L (137-145) mmol/L Potassium 5.5 H (3.5-5.1) mmol/L Chloride 105 (98-107) mmol/L Carbon Dioxide 21 L (22-30) mmol/L Anion Gap 8 mmol/L BUN 76 H (9-20) mg/dL Creatinine 5.50 H (0.66-1.25) mg/dL Est GFR (CKD-EPI)AfAm 10 (>60 ml/min/1.73 sqM) Est GFR (CKD-EPI)NonAf 9 (>60 ml/min/1.73 sqM) Glucose 92 (74-99) mg/dL Calcium 8.5 (8.4-10.2) mg/dL Total Bilirubin 0.3 (0.2-1.3) mg/dL AST 28 (17-59) U/L ALT 24 (4-49) U/L Alkaline Phosphatase 63 (38-126) U/L Total Protein 6.5 (6.3-8.2) g/dL Albumin 3.5 (3.5-5.0) g/dL Urine Color Red Urine Appearance Cloudy (Clear) Urine pH 5.0 (5.0-8.0) Ur Specific [place] 1.030 (1.001-1.035) Urine Protein 1+ H (Negative) Urine Glucose (UA) Negative (Negative) Urine Ketones Negative (Negative) Urine Blood Large H (Negative) Urine Nitrite Negative (Negative) Urine Bilirubin Negative (Negative) Urine Urobilinogen <2.0 (<2.0) mg/dL Ur Leukocyte Esterase Moderate H (Negative) Urine RBC >182 H (0-5) /hpf Urine WBC >182 H (0-5) /hpf Urine WBC Clumps Many H (None) /hpf 06/27/20 Range/Units 09:04 WBC (3.8-10.6) k/uL RBC (4.30-5.90) m/uL Hgb (13.0-17.5) gm/dL Hct (39.0-53.0) % MCV (80.0-100.0) fL MCH (25.0-35.0) pg MCHC (31.0-37.0) g/dL RDW (11.5-15.5) % Plt Count (150-450) k/uL MPV Neutrophils % % Lymphocytes % % Monocytes % % Eosinophils % % Basophils % % Neutrophils # (1.3-7.7) k/uL Lymphocytes # (1.0-4.8) k/uL Monocytes # (0-1.0) k/uL Eosinophils # (0-0.7) k/uL Basophils # (0-0.2) k/uL Macrocytosis PT 10.5 (9.0-12.0) sec INR 1.0 (<1.2) APTT 27.4 (22.0-30.0) sec Sodium (137-145) mmol/L Potassium (3.5-5.1) mmol/L Chloride (98-107) mmol/L Carbon Dioxide (22-30) mmol/L Anion Gap mmol/L BUN (9-20) mg/dL Creatinine (0.66-1.25) mg/dL Est GFR (CKD-EPI)AfAm (>60 ml/min/1.73 sqM) Est GFR (CKD-EPI)NonAf (>60 ml/min/1.73 sqM) Glucose (74-99) mg/dL Calcium (8.4-10.2) mg/dL Total Bilirubin (0.2-1.3) mg/dL AST (17-59) U/L ALT (4-49) U/L Alkaline Phosphatase (38-126) U/L Total Protein (6.3-8.2) g/dL Albumin (3.5-5.0) g/dL Urine Color Urine Appearance (Clear) Urine pH (5.0-8.0) Ur Specific [place] (1.001-1.035) Urine Protein (Negative) Urine Glucose (UA) (Negative) Urine Ketones (Negative) Urine Blood (Negative) Urine Nitrite (Negative) Urine Bilirubin (Negative) Urine Urobilinogen (<2.0) mg/dL Ur Leukocyte Esterase (Negative) Urine RBC (0-5) /hpf Urine WBC (0-5) /hpf Urine WBC Clumps (None) /hpf Disposition Clinical Impression: Acute kidney injury, Nausea & vomiting, Anemia, Urinary retention Disposition: ADMITTED IP TO THIS [facility] Condition: Fair Referrals: Junior Brown DO [Primary Care Provider] - 1-2 days
[2020-06-27 09:33] LABS: Appearance,Urine Cloudy (Clear); Bilirubin,Urine Negative (Negative); Blood,Urine Large (Negative); Color,Urine Red; Glucose,Urine (UA) Negative (Negative); Ketones,Urine Negative (Negative); Leukocyte Esterase,Urine Moderate (Negative); Nitrite,Urine Negative (Negative); Protein,Urine 1+ (Negative); RBC,Urine >182 /hpf (0-5); Urobilinogen,Urine <2.0 mg/dL (<2.0); WBC,Urine >182 /hpf (0-5)
[2020-06-27] MEDS ORDERED: ONDANSETRON 4 MG/2 ML VIAL IVP PRN (09:43)
[2020-06-27] MEDS ORDERED: NALOXONE 0.4 MG/ML 1 ML VIAL IV PRN (09:43)
[2020-06-27] MEDS ORDERED: ACETAMINOPHEN TAB 325 MG TAB PO PRN (09:43)
[2020-06-27] MEDS: SODIUM CHLORIDE 0.9% 1,000 ML IV SCH (09:55)
[2020-06-27] MEDS ORDERED: SODIUM POLYSTYRENE SULFONATE 15 GM/60 ML BOTTLE PO STA (11:25)
[2020-06-27] MEDS: busPIRone HCl 5 MG TAB PO SCH ×2 (11:37→20:42)
[2020-06-27] MEDS: METOPROLOL TARTRATE 25 MG TAB PO SCH ×2 (11:37→20:39)
[2020-06-27] MEDS: ISOSORBIDE MONONITRATE ER 30 MG TAB.ER.24H PO SCH (11:37)
[2020-06-27] MEDS: PANTOPRAZOLE 40 MG TABLET PO SCH ×2 (11:38→16:34)
[2020-06-27] MEDS ORDERED: ALBUTEROL NEBULIZED 2.5 MG/3 ML INHALATION SCH (12:00)
--- NOTE | 2020-06-27 12:16 | P.NPCON ---
History of Present Illness - Reason for Consult acute renal failure, chronic renal failure - History of Present Illness Reason for consultation: Acute kidney injury on chronic kidney disease History of present illness: Patient is a 79-year-old male seen in consultation for acute kidney injury on chronic kidney disease. Patient has chronic kidney disease stage IV with baseline creatinine near 3.5 from 06/05/2020 secondary to nephrosclerosis. Patient was on hemodialysis temporarily in March and April 2020 and was subsequently taken off due to recovery of renal function. Permacath has been removed. Patient had TURP done last Sunday and Hinds catheter was removed on Sunday. Patient subsequently had a difficult time urinating and came to the hospital. Hinds catheter was reinserted in the ER and 1300 mL of urine was obtained. Urine is noted to be red. No edema. Blood pressure stable. Creatinine was 5.5 on admission and potassium level was also 5.5. No chest pain or shortness of breath. No vomiting or diarrhea. No fever or chills. Vital signs are stable. General: The patient appeared well nourished and normally developed. HEENT: Head exam is unremarkable. Neck is without jugular venous distension. LUNGS: Breath sounds decreased. HEART: Rate and Rhythm are regular. ABDOMEN: Soft, nontender. EXTREMITITES: No edema. Past Medical History Past Medical History: Coronary Artery Disease (CAD), COPD, CVA/TIA, GERD/Reflux, Hearing Disorder / Deafness, Hypertension, Myocardial Infarction ([place]), Osteoarthritis (OA), Renal Disease, Respiratory Disorder Additional Past Medical History / Comment(s): ABDOMINAL ANEURYSM, gall stones, blood poisioning from stepping on leslee nail, Last Myocardial Infarction Date:: 1972 History of Any Multi-Drug Resistant Organisms: None Reported Past Surgical History: Appendectomy, Bowel Resection, Coronary Bypass/CABG, Heart Catheterization, Hernia Repair Additional Past Surgical History / Comment(s): Neck Fusion 1979 x2, CRANIOTOMY, TRIPLE BYPASS, LEFT CAROTID SURGERY. Turp done on 06/23 Past Anesthesia/Blood Transfusion Reactions: No Reported Reaction Past Psychological History: No Psychological Hx Reported Smoking Status: Former smoker Past Alcohol Use History: None Reported Additional Past Alcohol Use History / Comment(s): PT STATES HE QUIT SMOKING 7 MONTHS AGO. Past Drug Use History: None Reported - Past Family History Sister(s) Family Medical History: Cancer Medications and Allergies Home Medications Medication Instructions Recorded Confirmed Type Zafirlukast 20 mg PO BID 09/30/14 06/27/20 History Ipratropium Nebulized [Atrovent 0.5 mg INHALATION RT-Q4H 04/26/20 06/27/20 History Nebulized 0.2 MG/ML] Tamsulosin HCl [Flomax] 0.4 mg PO HS 04/26/20 06/27/20 History Terazosin HCl 10 mg PO HS 04/26/20 06/27/20 History busPIRone HCL [Buspar] 7.5 mg PO BID 04/26/20 06/27/20 History Atorvastatin [Lipitor] 80 mg PO HS #30 tab 05/02/20 06/27/20 Rx Pantoprazole [Protonix] 40 mg PO BID #60 tablet.dr 05/08/20 06/27/20 Rx Sucralfate [Carafate] 1 gm PO ACHS #120 tab 05/08/20 06/27/20 Rx Furosemide [Lasix] 40 mg PO DAILY 06/18/20 06/27/20 History Isosorbide Mononitrate ER [Imdur] 30 mg PO DAILY 06/18/20 06/27/20 History Metoprolol Tartrate [Lopressor] 25 mg PO BID 06/18/20 06/27/20 History Torsemide [Demadex] 20 mg PO DAILY 06/18/20 06/27/20 History Sulfamethox-Tmp 800-160Mg [Bactrim 1 tab PO Q12HR #14 tab 06/23/20 06/27/20 Rx DS 800-160 mg] Albuterol Nebulized [Ventolin 2.5 mg INHALATION RT-Q4H 06/27/20 06/27/20 History Nebulized] Allergies Allergy/AdvReac Type Severity Reaction Status Date / Time morphine Allergy Severe Rash/Hives Verified 06/27/20 10:21 Physical Exam Vitals: Vital Signs Temp Pulse Pulse Resp BP BP Pulse Ox 06/27/20 11:26 98.1 F 59 L 16 156/58 96 06/27/20 10:01 56 L 18 142/58 94 L 06/27/20 08:35 98.1 F 59 L 18 149/66 96 Intake and Output 06/26/20 06/27/20 06/27/20 22:59 06:59 14:59 Output Total 1300 Balance -1300 Output: Urine 1300 Other: Weight 70.307 kg Results - Lab Results Most recent lab results Calcium 8.5 mg/dL (8.4-10.2) 06/27/20 09:04 06/27/20 09:04 06/27/20 09:04 Assessment and Plan Plan: Assessment: 1. Acute kidney injury secondary to urinary retention. Creatinine 5.5 on admission. 2. Chronic kidney disease stage IV with baseline creatinine near 3.5 secondary to nephrosclerosis. Patient was on hemodialysis temporarily but was taken off last month due to recovery renal function. 3. Hyperkalemia secondary to urinary retention. 4. Mild metabolic acidosis secondary to acute kidney injury. 5. Anemia of chronic kidney disease. 6. Status post TURP last Sunday. 7. Hypertension with chronic kidney disease. Stable. Plan: Maintain IV fluids. Repeat potassium level this evening. Maintain Hinds. Strict is and os. Check iron studies. Avoid nephrotoxins. Continue to monitor renal function and urine output. Thank you for the consultation. I will continue to follow the patient with you during his hospital stay.
[2020-06-27] MEDS: IPRATROPIUM-ALBUTEROL 3 ML NEB INHALATION SCH ×3 (13:41→20:14)
--- NOTE | 2020-06-27 15:45 | P.GSCN ---
History of Present Illness Consult date: 06/27/20 Reason for Consult: Urinary retention and gross hematuria History of present illness: The patient is an 79-year-old male admitted through the emergency room for evaluation of acute on chronic renal failure and gross hematuria with urinary retention. He had undergone "plasma button" transurethral vaporization of the prostate performed by Dr. Bang on 06/23/2020 at this hospital. His catheter was removed in the office on 06/25 in the morning. He did not void for approximately 6 hours but was able to void later in the day. Over the next 24 hours he noted increased urinary frequency and progressive suprapubic discomfort. He says that his urine has been bloody ever since the transurethral procedure and it became more bloody over the last 24 hours. He says that he was passing some clots also. He presented to the emergency room this morning where a catheter was inserted. Urine draining from the catheter was grossly bloody and some small clots were irrigated from the catheter. Approximately 1100 cc of urine drained eventually. I was asked to see the patient for further evaluation. The patient has a history of stage IV chronic kidney disease and developed urinary retention earlier this fall. He was started on hemodialysis in 03/2020 but says that his renal function improved and the dialysis catheter was removed in early May. BUN/creatinine on 06/15 were 70/3.97. BUN/creatinine today are 76/5.5. Patient's hemoglobin today is 7.8 and had been 9.0 on 06/15. When the patient was hospitalized in 04/15 he was found to be anemic but it does not appear that a definite cause for the anemia other than his renal failure was discovered. Review of Systems - Constitutional Denies chills, Denies fever - Cardiovascular Denies chest pain, Denies edema, Denies shortness of breath - Gastrointestinal Reports as per HPI, Denies constipation - Genitourinary Reports as per HPI Past Medical History Past Medical History: Coronary Artery Disease (CAD), COPD, CVA/TIA, GERD/Reflux, Hearing Disorder / Deafness, Hypertension, Myocardial Infarction ([place]), Oste oarthritis ([place]), Renal Disease, Respiratory Disorder Additional Past Medical History / Comment(s): ABDOMINAL ANEURYSM, gall stones, blood poisioning from stepping on leslee nail, Last Myocardial Infarction Date:: 1972 History of Any Multi-Drug Resistant Organisms: None Reported Past Surgical History: Appendectomy, Bowel Resection, Coronary Bypass/CABG, Heart Catheterization, Hernia Repair Additional Past Surgical History / Comment(s): Neck Fusion 1979 x2, CRANIOTOMY, TRIPLE BYPASS, LEFT CAROTID SURGERY. Plasma button transurethral vaporization of prostate done on 06/23 Past Anesthesia/Blood Transfusion Reactions: No Reported Reaction Past Psychological History: No Psychological Hx Reported Smoking Status: Former smoker Past Alcohol Use History: None Reported Additional Past Alcohol Use History / Comment(s): PT STATES HE QUIT SMOKING 7 MONTHS AGO. Past Drug Use History: None Reported - Past Family History Sister(s) Family Medical History: Cancer Medications and Allergies Home Medications Medication Instructions Recorded Confirmed Type Zafirlukast 20 mg PO BID 09/30/14 06/27/20 History Ipratropium Nebulized [Atrovent 0.5 mg INHALATION RT-Q4H 04/26/20 06/27/20 History Nebulized 0.2 MG/ML] Tamsulosin HCl [Flomax] 0.4 mg PO HS 04/26/20 06/27/20 History Terazosin HCl 10 mg PO HS 04/26/20 06/27/20 History busPIRone HCL [Buspar] 7.5 mg PO BID 04/26/20 06/27/20 History Atorvastatin [Lipitor] 80 mg PO HS #30 tab 05/02/20 06/27/20 Rx Pantoprazole [Protonix] 40 mg PO BID #60 tablet. 05/08/20 06/27/20 Rx Sucralfate [Carafate] 1 gm PO ACHS #120 tab 05/08/20 06/27/20 Rx Furosemide [Lasix] 40 mg PO DAILY 06/18/20 06/27/20 History Isosorbide Mononitrate ER [Imdur] 30 mg PO DAILY 06/18/20 06/27/20 History Metoprolol Tartrate [Lopressor] 25 mg PO BID 06/18/20 06/27/20 History Torsemide [Demadex] 20 mg PO DAILY 06/18/20 06/27/20 History Sulfamethox-Tmp 800-160Mg [Bactrim 1 tab PO Q12HR #14 tab 06/23/20 06/27/20 Rx DS 800-160 mg] Albuterol Nebulized [Ventolin 2.5 mg INHALATION RT-Q4H 06/27/20 06/27/20 History Nebulized] Allergies Allergy/AdvReac Type Severity Reaction Status Date / Time morphine Allergy Severe Rash/Hives Verified 06/27/20 10:21 Surgical - Exam Vital Signs Temp Pulse Resp BP Pulse Ox 98.1 F 59 L 18 149/66 96 06/27/20 08:35 06/27/20 08:35 06/27/20 08:35 06/27/20 08:35 06/27/20 08:35 - General well developed, well nourished, no distress - ENT no hearing loss - Respiratory normal respiratory effort - Abdomen Abdomen: soft, non tender, no organomegaly - Genitourinary normal penis with no external lesions, testicles non-tender, other (Urethral catheter is draining reddish brown urine without clots) Results - Labs 06/27/20 09:04 06/27/20 09:04 Abnormal Lab Results - Last 24 Hours (Table) 06/27/20 06/27/20 06/27/20 Range/Units 09:04 09:04 09:04 RBC 2.40 L (4.30-5.90) m/uL Hgb 7.8 L (13.0-17.5) gm/dL Hct 24.1 L (39.0-53.0) % MCV 100.5 H (80.0-100.0) fL RDW 15.7 H (11.5-15.5) % Plt Count 126 L (150-450) k/uL Sodium 134 L (137-145) mmol/L Potassium 5.5 H (3.5-5.1) mmol/L Carbon Dioxide 21 L (22-30) mmol/L BUN 76 H (9-20) mg/dL Creatinine 5.50 H (0.66-1.25) mg/dL Urine Protein 1+ H (Negative) Urine Blood Large H (Negative) Ur Leukocyte Esterase Moderate H (Negative) Urine RBC >182 H (0-5) /hpf Urine WBC >182 H (0-5) /hpf Urine WBC Clumps Many H (None) /hpf Microbiology - Last 24 Hours (Table) 06/27/20 09:04 Urine Culture - Preliminary Urine,Voided Diabetes panel 06/27/20 Range/Units 09:04 Sodium 134 L (137-145) mmol/L Potassium 5.5 H (3.5-5.1) mmol/L Chloride 105 (98-107) mmol/L Carbon Dioxide 21 L (22-30) mmol/L BUN 76 H (9-20) mg/dL Creatinine 5.50 H (0.66-1.25) mg/dL Glucose 92 (74-99) mg/dL Calcium 8.5 (8.4-10.2) mg/dL AST 28 (17-59) U/L ALT 24 (4-49) U/L Alkaline Phosphatase 63 (38-126) U/L Total Protein 6.5 (6.3-8.2) g/dL Albumin 3.5 (3.5-5.0) g/dL Calcium panel 06/27/20 Range/Units 09:04 Calcium 8.5 (8.4-10.2) mg/dL Albumin 3.5 (3.5-5.0) g/dL Pituitary panel 06/27/20 Range/Units 09:04 Sodium 134 L (137-145) mmol/L Potassium 5.5 H (3.5-5.1) mmol/L Chloride 105 (98-107) mmol/L Carbon Dioxide 21 L (22-30) mmol/L BUN 76 H (9-20) mg/dL Creatinine 5.50 H (0.66-1.25) mg/dL Glucose 92 (74-99) mg/dL Calcium 8.5 (8.4-10.2) mg/dL Adrenal panel 06/27/20 Range/Units 09:04 Sodium 134 L (137-145) mmol/L Potassium 5.5 H (3.5-5.1) mmol/L Chloride 105 (98-107) mmol/L Carbon Dioxide 21 L (22-30) mmol/L BUN 76 H (9-20) mg/dL Creatinine 5.50 H (0.66-1.25) mg/dL Glucose 92 (74-99) mg/dL Calcium 8.5 (8.4-10.2) mg/dL Total Bilirubin 0.3 (0.2-1.3) mg/dL AST 28 (17-59) U/L ALT 24 (4-49) U/L Alkaline Phosphatase 63 (38-126) U/L Total Protein 6.5 (6.3-8.2) g/dL Albumin 3.5 (3.5-5.0) g/dL Assessment and Plan (1) Urinary retention Narrative/Plan: The patient's urinary retention may be related to a poorly contractile bladder however residual bladder outflow obstruction cannot be excluded. Current Visit: Yes Status: Acute Code(s): R33.9 - RETENTION OF URINE, UNSP ECIFIED SNOMED Code(s): 380115860 (2) Gross hematuria Narrative/Plan: The gross hematuria is most likely related to his recent transurethral procedure. I irrigated his bladder several times and no clots were present. The patient's catheter should be left in place but I would suggest irrigating it periodically to ensure that no clots develop. will reevaluate the patient tomorrow. Current Visit: Yes Status: Acute Code(s): R31.0 - GROSS HEMATURIA SNOMED Code(s): 223383729
[2020-06-27 17:02] LABS: Ferritin 201.9 ng/mL (22.0-322.0)
[2020-06-27 17:24] LABS: Basophils % (A) 0 %; Eosinophils # (A) 0.2 k/uL (0-0.7); Eosinophils % (A) 3 %; HCT 21.1 % (39.0-53.0); Lymphocytes # (A) 1.1 k/uL (1.0-4.8); Lymphocytes % (A) 19 %; MCH 33.7 pg (25.0-35.0); MCHC 33.1 g/dL (31.0-37.0); MCV 101.8 fL (80.0-100.0); Macrocytosis Slight; Mean Platelet Volume 8.6; Monocytes # (A) 0.3 k/uL (0-1.0); Monocytes % (A) 5 %; Neutrophils # (A) 4.1 k/uL (1.3-7.7); Neutrophils % (A) 71 %; Platelet Count 108 k/uL (150-450); RBC 2.07 m/uL (4.30-5.90); RDW 15.6 % (11.5-15.5); WBC 5.8 k/uL (3.8-10.6)
[2020-06-27] MEDS ORDERED: DEXTROSE 50% SYRINGE 50 ML IVP STA (18:42)
[2020-06-27] MEDS ORDERED: INSULIN REGULAR 100 UNIT/ML VIAL IV ONE (18:42)
[2020-06-27] MEDS: TAMSULOSIN 0.4 MG CAP.ER.24H PO SCH (20:39)
[2020-06-27] MEDS: MONTELUKAST 10 MG TAB PO SCH (20:39)
[2020-06-27] MEDS: DOXAZOSIN 4 MG TAB PO SCH (20:39)
[2020-06-27 20:43] LABS: Glucose,Whole Blood 130 mg/dL (75-99)
[2020-06-27] MEDS: ATORVASTATIN 80 MG TAB PO SCH (20:43)
[2020-06-27 23:15] LABS: Basophils % (A) 1 %; Eosinophils # (A) 0.2 k/uL (0-0.7); Eosinophils % (A) 4 %; Lymphocytes # (A) 1.1 k/uL (1.0-4.8); Lymphocytes % (A) 24 %; MCH 33.7 pg (25.0-35.0); MCHC 33.6 g/dL (31.0-37.0); MCV 100.3 fL (80.0-100.0); Macrocytosis Slight; Monocytes # (A) 0.2 k/uL (0-1.0); Monocytes % (A) 5 %; Neutrophils # (A) 2.9 k/uL (1.3-7.7); Neutrophils % (A) 64 %; RBC 1.84 m/uL (4.30-5.90); RDW 15.4 % (11.5-15.5); WBC 4.6 k/uL (3.8-10.6)
--- NOTE | 2020-06-27 23:28 | P.HPIM ---
History of Present Illness H&P Date: 06/27/20 Chief Complaint: Bleeding per urethra History of presenting complaint: This is a 79-year-old patient, follows with Dr. Junior Jalloh. Who presented to the ER for gross hematuria with urinary retention. Patient had undergone plasma Bosch transurethral vaporization of the prostate performed by Dr. Macias on June 23. At this hospital. Catheter was removed in the office on June 25 in the morning. He did valle late in the day. Progressively he noticed increasing suprapubic discomfort and bloody urine. Finally decided to present to the ER he is also passing blood clots. Chronic stable medical conditions include coronary artery disease with bypass, COPD, GERD, hard of hearing, hypertension, osteoarthritis, abdominal aneurysm,. Denies any fever and chills. Did vomit once today. Review of systems: GEN.: Tired EYES: None HEENT: None NECK: None RESPIRATORY: None CARDIOVASCULAR: None GASTROINTESTINAL: None GENITOURINARY: As above MUSCULOSKELETAL: None LYMPHATICS: None HEMATOLOGICAL: None PSYCHIATRY: None NEUROLOGICAL: None Past medical history to include: Coronary artery disease, COPD, TIA, GERD, hard of hearing, hypertension, osteoarthritis, chronic kidney disease stage IV with temporary hemodialysis earlier in the year, abdominal aneurysm, coronary bypass, Social history: Lives alone. Smoked a pack a day for 64 years stopped about a year ago. 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 Physical examination: VITAL SIGNS: 98.1, 59, 16, 149 with 66, 96% on room air GENERAL: BMI 22.9, sitting up in bed, awake. EYES: [Pupils equal. Conjunctiva pale. HEENT: External appearance of nose and ears normal, oral cavity grossly normal. NECK: JVD not raised; masses not palpable. HEART: First and second heart sounds are normal; no edema. LUNGS: Respiratory rate normal; decreased breath sounds. ABDOMEN: Soft, nontender, liver spleen not palpable, no masses palpable. Hinds catheter in place PSYCH: Alert and oriented x3; mood and affect normal. NEUROLOGICAL: Cranial nerves grossly intact; no facial asymmetry, power and sensation grossly intact. LYMPHATICS: No lymph nodes palpable in the axilla and neck INVESTIGATIONS, reviewed in the clinical context: White count 7.6 hemoglobin 7.8, repeat 7 platelets 126 potassium 5.5 bun 76 creatinine 5.5 UA positive for blood leukoesterase Previous testing: Hemoglobin 9 on June 15 BUN 70 creatinine 3.97 on June 15 Assessment: -Acute hematuria following procedure done on the prostate on June 23 -Acute blood loss anemia from hematuria -Acute kidney injury, likely obstructive from blood clots retained in the bladder -Chronic kidney disease stage IV, due to nephrosclerosis -Hyperkalemia due to recurrent retention and chronic kidney disease -Mild metabolic acidosis -Anemia of chronic kidney disease -Hypertension with chronic kidney disease -COPD in an ex-smoker -Coronary artery disease prior history of coronary bypass -GERD -Hard of hearing -Essential hypertension -Primary osteoarthritis Plan: Urology was consulted earlier today. Dr. Humphrey did place a catheter. Patient g iven IV fluids. Did give a dose of Kayexalate. Home medications resumed. Demadex was held. Bactrim was held. Lasix was held. Follow H&H. Nephrology was consulted. Care was discussed with the patient Past Medical History Past Medical History: Coronary Artery Disease (CAD), COPD, CVA/TIA, GERD/Reflux, Hearing Disorder / Deafness, Hypertension, Myocardial Infarction (SC), Osteoarthritis (OA), Renal Disease, Respiratory Disorder Additional Past Medical History / Comment(s): ABDOMINAL ANEURYSM, gall stones, blood poisioning from stepping on leslee nail, Last Myocardial Infarction Date:: 1972 History of Any Multi-Drug Resistant Organisms: None Reported Past Surgical History: Appendectomy, Bowel Resection, Coronary Bypass/CABG, Heart Catheterization, Hernia Repair Additional Past Surgical History / Comment(s): Neck Fusion 1978 x2, CRANIOTOMY, TRIPLE BYPASS, LEFT CAROTID SURGERY. Turp done on 06/23 Past Anesthesia/Blood Transfusion Reactions: No Reported Reaction Past Psychological History: No Psychological Hx Reported Smoking Status: Former smoker Past Alcohol Use History: None Reported Additional Past Alcohol Use History / Comment(s): PT STATES HE QUIT SMOKING 7 MONTHS AGO. Past Drug Use History: None Reported - Past Family History Sister(s) Family Medical History: Cancer Medications and Allergies Home Medications Medication Instructions Recorded Confirmed Type Zafirlukast 20 mg PO BID 09/30/14 06/27/20 History Ipratropium Nebulized [Atrovent 0.5 mg INHALATION RT-Q4H 04/26/20 06/27/20 History Nebulized 0.2 MG/ML] Tamsulosin HCl [Flomax] 0.4 mg PO HS 04/26/20 06/27/20 History Terazosin HCl 10 mg PO HS 04/26/20 06/27/20 History busPIRone HCL [Buspar] 7.5 mg PO BID 04/26/20 06/27/20 History Atorvastatin [Lipitor] 80 mg PO HS #30 tab 05/02/20 06/27/20 Rx Pantoprazole [Protonix] 40 mg PO BID #60 tablet. 05/08/20 06/27/20 Rx Sucralfate [Carafate] 1 gm PO ACHS #120 tab 05/08/20 06/27/20 Rx Furosemide [Lasix] 40 mg PO DAILY 06/18/20 06/27/20 History Isosorbide Mononitrate ER [Imdur] 30 mg PO DAILY 06/18/20 06/27/20 History Metoprolol Tartrate [Lopressor] 25 mg PO BID 06/18/20 06/27/20 History Torsemide [Demadex] 20 mg PO DAILY 06/18/20 06/27/20 History Sulfamethox-Tmp 800-160Mg [Bactrim 1 tab PO Q12HR #14 tab 06/23/20 06/27/20 Rx DS 800-160 mg] Albuterol Nebulized [Ventolin 2.5 mg INHALATION RT-Q4H 06/27/20 06/27/20 History Nebulized] Allergies Allergy/AdvReac Type Severity Reaction Status Date / Time morphine Allergy Severe Rash/Hives Verified 06/27/20 10:21 Physical Exam Vitals: Vital Signs Temp Pulse Resp BP Pulse Ox 06/27/20 10:01 56 L 18 142/58 94 L 06/27/20 08:35 98.1 F 59 L 18 149/66 96 Intake and Output 06/26/20 06/27/20 06/27/20 22:59 06:59 14:59 Output Total 1300 Balance -1300 Output: Urine 1300 Other: Weight 70.307 kg Results CBC & Chem 7: 06/27/20 16:25 06/27/20 16:25 Labs: Abnormal Lab Results - Last 24 Hours (Table) 06/27/20 06/27/20 06/27/20 Range/Units 09:04 09:04 09:04 RBC 2.40 L (4.30-5.90) m/uL Hgb 7.8 L (13.0-17.5) gm/dL Hct 24.1 L (39.0-53.0) % MCV 100.5 H (80.0-100.0) fL RDW 15.7 H (11.5-15.5) % Plt Count 126 L (150-450) k/uL Sodium 134 L (137-145) mmol/L Potassium 5.5 H (3.5-5.1) mmol/L Carbon Dioxide 21 L (22-30) mmol/L BUN 76 H (9-20) mg/dL Creatinine 5.50 H (0.66-1.25) mg/dL Urine Protein 1+ H (Negative) Urine Blood Large H (Negative) Ur Leukocyte Esterase Moderate H (Negative) Urine RBC >182 H (0-5) /hpf Urine WBC >182 H (0-5) /hpf Urine WBC Clumps Many H (None) /hpf Thrombosis Risk Factor Assmnt - Choose All That Apply Each Risk Factor Represents 3 Points: Age 75 years or older Thrombosis Risk Factor Assessment Total Risk Factor Score: 3 Thrombosis Risk Factor Assessment Level: Moderate Risk
[2020-06-27 23:56] LABS: HGB 6.2 gm/dL (13.0-17.5)
[2020-06-27 23:57] LABS: HCT 18.5 % (39.0-53.0)
[2020-06-28] MEDS: SODIUM CHLORIDE 0.9% 1,000 ML IV SCH ×2 (00:09→15:07)
[2020-06-28 00:19] LABS: Platelet Count 84 k/uL (150-450)
[2020-06-28 06:01] LABS: HCT 21.3 % (39.0-53.0); MCH 33.7 pg (25.0-35.0); MCHC 33.2 g/dL (31.0-37.0); MCV 101.4 fL (80.0-100.0); Macrocytosis Slight; Mean Platelet Volume 8.3; RDW 15.1 % (11.5-15.5); WBC 5.4 k/uL (3.8-10.6)
[2020-06-28 06:04] LABS: Platelet Count 90 k/uL (150-450)
[2020-06-28 06:05] LABS: HGB 7.1 gm/dL (13.0-17.5)
[2020-06-28 07:04] LABS: Glucose,Whole Blood 99 mg/dL (75-99)
[2020-06-28] MEDS: busPIRone HCl 5 MG TAB PO SCH ×2 (08:01→20:02)
[2020-06-28] MEDS: PANTOPRAZOLE 40 MG TABLET PO SCH ×2 (08:01→19:07)
[2020-06-28] MEDS: ISOSORBIDE MONONITRATE ER 30 MG TAB.ER.24H PO SCH (08:02)
[2020-06-28] MEDS: METOPROLOL TARTRATE 25 MG TAB PO SCH ×2 (08:02→20:02)
[2020-06-28] MEDS: IPRATROPIUM-ALBUTEROL 3 ML NEB INHALATION SCH ×4 (09:12→15:14)
[2020-06-28 09:16] LABS: Anion Gap 7.5 mmol/L (4.00-12.00); BUN/Creat Ratio 16.52 Ratio (12.00-20.00); Calcium 7.8 mg/dL (8.7-10.3); Carbon Dioxide 20.5 mmol/L (21.6-31.8); Non-African American GFR(CKD) 11.2 (60.0-200.0); Phosphorus 4.9 mg/dL (2.4-5.1)
[2020-06-28 11:16] LABS: Glucose,Whole Blood 232 mg/dL (75-99)
--- NOTE | 2020-06-28 16:23 | PN ---
PROGRESS NOTE Patient is seen for followup for chronic kidney disease and acute kidney injury, mostly urine retention, currently with indwelling Hinds catheter and improving renal function. Serum creatinine has decreased to 4.6 from 5.5 mg/dL yesterday. The patient had been temporarily on hemodialysis, which was eventually discontinued. He has had bloody urine in his Hinds catheter. No significant complaints noted today. PHYSICAL EXAMINATION: Blood pressure was 152/78, heart rate of 58 per minute. Patient is afebrile. EXAMINATION OF THE HEART: S1 and S2. EXAMINATION OF LUNGS: Decreased breath sounds at bases. ABDOMEN: Soft, non-tender. Examination of lower extremities shows no significant edema. 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 Patient is moving all 4 extremities. LABS: Labs show sodium 137, potassium 5.0, chloride 109, BUN 76, creatinine 4.6 mg/dL. Calcium was 7.8. ASSESSMENT: 1. Acute kidney injury associated with significant urine retention, currently improving post Hinds catheter placement. 2. Chronic kidney disease, stage IV. Baseline creatinine about 3.5 secondary to nephrosclerosis. Patient had been on temporary hemodialysis. 3. Hyperkalemia associated with urine retention. 4. Mild metabolic acidosis associated with acute kidney injury. 5. Status post transurethral resection of prostate procedure on June 23. PLAN: Continue to encourage oral intake. Continue to avoid nephrotoxic medications. May continue with the saline for now. Repeat labs in a.m. MMODL / IJN: [id number] /
[2020-06-28 16:55] LABS: Glucose,Whole Blood 129 mg/dL (75-99)
[2020-06-28] MEDS: MONTELUKAST 10 MG TAB PO SCH (20:03)
[2020-06-28] MEDS: TAMSULOSIN 0.4 MG CAP.ER.24H PO SCH (20:03)
[2020-06-28] MEDS: DOXAZOSIN 4 MG TAB PO SCH (20:03)
[2020-06-28] MEDS: ATORVASTATIN 80 MG TAB PO SCH (20:03)
[2020-06-28 20:12] LABS: Glucose,Whole Blood 125 mg/dL (75-99)
[2020-06-29] MEDS: SODIUM CHLORIDE 0.9% 1,000 ML IV SCH ×2 (01:33→18:13)
[2020-06-29] MEDS: IPRATROPIUM-ALBUTEROL 3 ML NEB INHALATION SCH ×7 (02:35→23:21)
[2020-06-29 07:28] LABS: Glucose,Whole Blood 86 mg/dL (75-99)
[2020-06-29] MEDS: PANTOPRAZOLE 40 MG TABLET PO SCH ×2 (08:32→18:14)
[2020-06-29] MEDS: METOPROLOL TARTRATE 25 MG TAB PO SCH ×2 (08:32→20:50)
[2020-06-29] MEDS: busPIRone HCl 5 MG TAB PO SCH ×2 (08:33→20:51)
[2020-06-29] MEDS: ISOSORBIDE MONONITRATE ER 30 MG TAB.ER.24H PO SCH (08:33)
--- NOTE | 2020-06-29 10:34 | P.PN ---
Progress Note - Text Progress Note Date: 06/28/20 Chief Complaint: Bleeding per urethra History of presenting complaint: This is a 79-year-old patient, follows with Dr. Junior Jalloh. Who presented to the ER for gross hematuria with urinary retention. Patient had undergone plasma Bosch transurethral vaporization of the prostate performed by Dr. Macias on June 23. At this hospital. Catheter was removed in the office on June 25 in the morning. He did valle late in the day. Progressively he noticed increasing suprapubic discomfort and bloody urine. Finally decided to present to the ER he is also passing blood clots. Chronic stable medical conditions include coronary artery disease with bypass, COPD, GERD, hard of hearing, hypertension, osteoarthritis, abdominal aneurysm,. Denies any fever and chills. Did vomit once today. Admitted with severe hematuria, acute blood loss anemia, acute kidney injury obstructive. Patient given 2 units of blood. IV fluids. Today-sitting up in a chair. 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 Did tolerate her diet. A bit tired. No suprapubic pain Review of systems: Was done for constitutional, cardiovascular, GI, pulmonary. relevant finding as above Active Medications Acetaminophen (Acetaminophen Tab 325 Mg Tab) 650 mg PO Q6HR PRN PRN Reason: Mild Pain or Fever > 100.5 Albuterol/Ipratropium (Ipratropium-Albuterol 3 Ml Neb) 3 ml INHALATION RT-Q4H [facility] Last Admin: 06/29/20 07:44 Dose: 3 ml Documented by: Atorvastatin Calcium (Atorvastatin 80 Mg Tab) 80 mg PO [facility] Last Admin: 06/28/20 20:03 Dose: 80 mg Documented by: Buspirone HCl (Buspirone Hcl 5 Mg Tab) 7.5 mg PO BID [facility] Last Admin: 06/29/20 08:33 Dose: 7.5 mg Documented by: Doxazosin Mesylate (Doxazosin 4 Mg Tab) 8 mg PO HS [facility] Last Admin: 06/28/20 20:03 Dose: 8 mg Documented by: Sodium Chloride (Saline 0.9%) 1,000 mls @ 75 mls/hr IV .[id number] [facility] Last Admin: 06/29/20 01:33 Dose: 75 mls/hr Documented by: Isosorbide Mononitrate (Isosorbide Mononitrate Er 30 Mg Tab.Er.24h) 30 mg PO DAILY [facility] Last Admin: 06/29/20 08:33 Dose: 30 mg Documented by: Metoprolol Tartrate (Metoprolol Tartrate 25 Mg Tab) 25 mg PO BID [facility] Last Admin: 06/29/20 08:32 Dose: 25 mg Documented by: Montelukast Sodium (Montelukast 10 Mg Tab) 10 mg PO [facility] Last Admin: 06/28/20 20:03 Dose: 10 mg Documented by: Naloxone HCl (Naloxone 0.4 Mg/Ml 1 Ml Vial) 0.2 mg IV Q2M PRN PRN Reason: Opioid Reversal Ondansetron HCl (Ondansetron 4 Mg/2 Ml Vial) 4 mg IVP Q8HR PRN PRN Reason: Nausea And Vomiting Pantoprazole Sodium (Pantoprazole 40 Mg Tablet) 40 mg PO AC-BID [facility] Last Admin: 06/29/20 08:32 Dose: 40 mg Documented by: Tamsulosin HCl (Tamsulosin 0.4 Mg Cap.Er.24h) 0.4 mg PO [facility] Last Admin: 06/28/20 20:03 Dose: 0.4 mg Documented by: Physical examination: VITAL SIGNS: 98.1, 58, 17, 149 with 68, 94% room air GENERAL: BMI 22.9, sitting up in a chair, comfortable EYES: [Pupils equal. Conjunctiva pale. HEENT: External appearance of nose and ears normal, oral cavity grossly normal. NECK: JVD not raised; masses not palpable. HEART: First and second heart sounds are normal; no edema. LUNGS: Respiratory rate normal; decreased breath sounds. ABDOMEN: Soft, nontender, liver spleen not palpable, no masses palpable. Hinds catheter in place-lighted hematuria PSYCH: Alert and oriented x3; mood and affect normal. INVESTIGATIONS, reviewed in the clinical context: June 28: White count 5.4 hemoglobin 7.1 platelets 90 potassium 5 creatinine 4.6 White count 7.6 hemoglobin 7.8, repeat 7 platelets 126 potassium 5.5 bun 76 creatinine 5.5 UA positive for blood leukoesterase Previous testing: Hemoglobin 9 on June 15 BUN 70 creatinine 3.97 on June 15 Assessment: -Acute hematuria following procedure done on the prostate on June 23-slow to improve -Acute blood loss anemia from hematuria-symptomatic patient feeling weak. Second unit of blood ordered today -Acute kidney injury, likely obstructive from blood clots retained in the bladder-slow to creatinine 4.6 -Chronic kidney disease stage IV, due to nephrosclerosis -Hyperkalemia due to recurrent retention and chronic kidney disease -Mild metabolic acidosis -Anemia of chronic kidney disease -Hypertension with chronic kidney disease -COPD in an ex-smoker -Coronary artery disease prior history of coronary bypass -GERD -Hard of hearing -Essential hypertension -Primary osteoarthritis Plan: Second unit off blood ordered today. Follow H&H. Follow kidney function. Discussed with the patient
[2020-06-29 12:03] LABS: Glucose,Whole Blood 93 mg/dL (75-99)
[2020-06-29 12:15] LABS: Anisocytosis Slight; Basophils % (A) 1 %; Eosinophils # (A) 0.3 k/uL (0-0.7); Eosinophils % (A) 7 %; HCT 24.7 % (39.0-53.0); HGB 8.4 gm/dL (13.0-17.5); Lymphocytes # (A) 0.9 k/uL (1.0-4.8); Lymphocytes % (A) 23 %; MCHC 33.8 g/dL (31.0-37.0); MCV 97.6 fL (80.0-100.0); Macrocytosis Slight; Mean Platelet Volume 9.4; Monocytes # (A) 0.2 k/uL (0-1.0); Monocytes % (A) 5 %; Neutrophils # (A) 2.5 k/uL (1.3-7.7); Neutrophils % (A) 62 %; RBC 2.53 m/uL (4.30-5.90); RDW 16.2 % (11.5-15.5)
[2020-06-29 12:17] LABS: Platelet Count 94 k/uL (150-450)
[2020-06-29 12:30] LABS: African American GFR (CKD) 13 (>60 ml/min/1.73 sqM); Anion Gap 3 mmol/L; Blood Urea Nitrogen 68 mg/dL (9-20); Calcium 7.8 mg/dL (8.4-10.2); Carbon Dioxide 20 mmol/L (22-30); Chloride 111 mmol/L (98-107); Glucose 101 mg/dL (74-99); Non-African American GFR(CKD) 11 (>60 ml/min/1.73 sqM); Potassium 4.9 mmol/L (3.5-5.1); Sodium 134 mmol/L (137-145)
[2020-06-29 17:15] LABS: Glucose,Whole Blood 101 mg/dL (75-99)
[2020-06-29] MEDS ORDERED: DARBEPOETIN ALFA 60 MCG/0.3 ML SYRINGE SQ SCH (17:30)
--- NOTE | 2020-06-29 18:18 | PN ---
PROGRESS NOTE Patient is seen for followup for acute kidney injury and urine retention. He was recently taken off of dialysis for acute kidney injury. Serum creatinine had been about 2.5 to 3.9 mg/dL. On admission this time, serum creatinine was 5.5. Patient had urine retention. He currently has an indwelling Hinds catheter. Creatinine has improved to about 4.5 mg/dL today. PHYSICAL EXAMINATION: On examination today, patient denies any significant complaints. He feels fairly well. Blood pressure this morning was 156/65, heart rate of 57 per minute. He is afebrile. EXAMINATION OF THE HEART: S1 and S2. EXAMINATION OF LUNGS: Bilateral breath sounds are heard. ABDOMEN: Soft, non-tender. Examination of lower extremities shows no significant edema. 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 LABS: Labs show sodium 134, potassium 4.9, chloride 111. CO2 is 20, BUN 68, serum creatinine 4.5. ASSESSMENT: 1. Acute kidney injury associated with urine retention and some degree of volume depletion, maintained on IV fluids and status post Hinds catheter placement, currently with improved renal function; however, creatinine is not significantly changed from yesterday. Overall patient feels well and he does not have any uremic symptoms. We will continue to monitor for now and continue to hold off on dialysis. 2. History of acute kidney injury requiring dialysis for about 1 to 2 months, currently off of dialysis. 3. Benign prostatic hypertrophy, maintained on Flomax. 4. Hypertension, currently uncontrolled. The patient is maintained on Lopressor. He is on Imdur and Cardura for the BPH. If blood pressure remains elevated, I will add Norvasc. Continue to hold off on diuretics for now. PLAN: Repeat labs in a.m. Continue with Hinds catheter. Add Norvasc if blood pressure remains elevated. Continue to hold off on diuretics and continue to hold off on dialysis as well. MMODL / IJN: [id number] /
[2020-06-29] MEDS: MONTELUKAST 10 MG TAB PO SCH (20:51)
[2020-06-29] MEDS: DOXAZOSIN 4 MG TAB PO SCH (20:51)
[2020-06-29] MEDS: TAMSULOSIN 0.4 MG CAP.ER.24H PO SCH (20:51)
[2020-06-29] MEDS: ATORVASTATIN 80 MG TAB PO SCH (20:51)
[2020-06-29 20:54] LABS: Glucose,Whole Blood 98 mg/dL (75-99)
--- NOTE | 2020-06-29 23:11 | P.PN ---
Progress Note - Text Progress Note Date: 06/29/20 Chief Complaint: Bleeding per urethra History of presenting complaint: This is a 79-year-old patient, follows with Dr. Junior Jalloh. Who presented to the ER for gross hematuria with urinary retention. Patient had undergone plasma Bosch transurethral vaporization of the prostate performed by Dr. Macias on June 23. At this hospital. Catheter was removed in the office on June 25 in the morning. He did valle late in the day. Progressively he noticed increasing suprapubic discomfort and bloody urine. Finally decided to present to the ER he is also passing blood clots. Chronic stable medical conditions include coronary artery disease with bypass, COPD, GERD, hard of hearing, hypertension, osteoarthritis, abdominal aneurysm,. Denies any fever and chills. Did vomit once today. Admitted with severe hematuria, acute blood loss anemia, acute kidney injury obstructive. Patient given 2 units of blood. IV fluids. Today-laying in bed. Hematuria is much improved. Tired. Eating well. Review of systems: Was done for constitutional, cardiovascular, GI, pulmonary. relevant finding as above Active Medications Acetaminophen (Acetaminophen Tab 325 Mg Tab) 650 mg PO Q6HR PRN PRN Reason: Mild Pain or Fever > 100.5 Albuterol/Ipratropium (Ipratropium-Albuterol 3 Ml Neb) 3 ml INHALATION RT-Q4H [facility] Last Admin: 06/29/20 19:16 Dose: 3 ml Documented by: Atorvastatin Calcium (Atorvastatin 80 Mg Tab) 80 mg PO [facility] Last Admin: 06/29/20 20:51 Dose: 80 mg Documented by: Buspirone HCl (Buspirone Hcl 5 Mg Tab) 7.5 mg PO BID [facility] Last Admin: 06/29/20 20:51 Dose: 7.5 mg Documented by: Darbepoetin Edu (Darbepoetin Edu 60 Mcg/0.3 Ml Syringe) 60 mcg SQ Q7D [facility] Last Admin: 06/29/20 18:24 Dose: 60 mcg Documented by: Doxazosin Mesylate (Doxazosin 4 Mg Tab) 8 mg PO [facility] Last Admin: 06/29/20 20:51 Dose: 8 mg Documented by: Sodium Chloride (Saline 0.9%) 1,000 mls @ 75 mls/hr IV .[id number] [facility] Last Admin: 06/29/20 18:13 Dose: 75 mls/hr Documented by: Isosorbide Mononitrate (Isosorbide Mononitrate Er 30 Mg Tab.Er.24h) 30 mg PO DAILY [facility] Last Admin: 06/29/20 08:33 Dose: 30 mg Documented by: Metoprolol Tartrate (Metoprolol Tartrate 25 Mg Tab) 25 mg PO BID [facility] Last Admin: 06/29/20 20:50 Dose: 25 mg Documented by: Montelukast Sodium (Montelukast 10 Mg Tab) 10 mg PO [facility] Last Admin: 06/29/20 20:51 Dose: 10 mg Documented by: Naloxone HCl (Naloxone 0.4 Mg/Ml 1 Ml Vial) 0.2 mg IV Q2M PRN PRN Reason: Opioid Reversal Ondansetron HCl (Ondansetron 4 Mg/2 Ml Vial) 4 mg IVP Q8HR PRN PRN Reason: Nausea And Vomiting Pantoprazole Sodium (Pantoprazole 40 Mg Tablet) 40 mg PO AC-BID [facility] Last Admin: 06/29/20 18:14 Dose: 40 mg Documented by: Tamsulosin HCl (Tamsulosin 0.4 Mg Cap.Er.24h) 0.4 mg PO [facility] Last Admin: 06/29/20 20:51 Dose: 0.4 mg Documented by: Physical examination: VITAL SIGNS: 97.7, 57, 16, 1 83 x 53, 96% room air GENERAL: BMI 22.9, laying in bed, tired EYES: [Pupils equal. Conjunctiva pale. HEENT: External appearance of nose and ears normal, oral cavity grossly normal. NECK: JVD not raised; masses not palpable. HEART: First and second heart sounds are normal; no edema. LUNGS: Respiratory rate normal; decreased breath sounds. ABDOMEN: Soft, nontender, liver spleen not palpable, no masses palpable. Hinds catheter-hematuria cleared PSYCH: Alert and oriented x3; mood and affect normal. INVESTIGATIONS, reviewed in the clinical context: June 29: White count 4 hemoglobin 8.4 platelets 94 potassium 4.9 creatinine 4.55 June 28: White count 5.4 hemoglobin 7.1 platelets 90 potassium 5 creatinine 4.6 White count 7.6 hemoglobin 7.8, repeat 7 platelets 126 potassium 5.5 bun 76 creatinine 5.5 UA positive for blood leukoesterase Previous testing: Hemoglobin 9 on June 15 BUN 70 creatinine 3.97 on June 15 Assessment: -Acute hematuria following procedure done on the prostate on June 23-improved -Acute blood loss anemia from hematuria-symptomatic patient feeling weak. Receive 2 units of blood -Acute kidney injury, likely obstructive from blood clots retained in the slow to respond -Chronic kidney disease stage IV, due to nephrosclerosis -Hyperkalemia due to recurrent retention and chronic kidney disease-better -Mild metabolic acidosis -Anemia of chronic kidney disease -Hypertension with chronic kidney disease -COPD in an ex-smoker -Coronary artery disease prior history of coronary bypass -GERD -Hard of hearing -Essential hypertension -Primary osteoarthritis Plan: Continue with IV fluids. Keep a close eye on blood pressure. At Norvasc 5 mg daily at bedtime starting now.
[2020-06-29] MEDS ORDERED: amLODIPine 5 MG TAB PO SCH (23:30)
[2020-06-30] MEDS: IPRATROPIUM-ALBUTEROL 3 ML NEB INHALATION SCH ×6 (03:16→23:19)
[2020-06-30] MEDS: SODIUM CHLORIDE 0.9% 1,000 ML IV SCH (05:39)
[2020-06-30 05:44] LABS: HCT 24.7 % (39.0-53.0); HGB 8.4 gm/dL (13.0-17.5); MCHC 33.8 g/dL (31.0-37.0); MCV 97.5 fL (80.0-100.0); Macrocytosis Slight; Mean Platelet Volume 8.5; RBC 2.53 m/uL (4.30-5.90); RDW 15.9 % (11.5-15.5)
[2020-06-30 05:53] LABS: Platelet Count 96 k/uL (150-450)
[2020-06-30 07:01] LABS: Glucose,Whole Blood 79 mg/dL (75-99)
[2020-06-30] MEDS: PANTOPRAZOLE 40 MG TABLET PO SCH ×2 (07:54→18:05)
[2020-06-30] MEDS: busPIRone HCl 5 MG TAB PO SCH ×2 (07:54→21:38)
[2020-06-30] MEDS: METOPROLOL TARTRATE 25 MG TAB PO SCH (07:55)
[2020-06-30] MEDS: ISOSORBIDE MONONITRATE ER 30 MG TAB.ER.24H PO SCH (07:55)
[2020-06-30 11:28] LABS: African American GFR (CKD) 14.1 (60.0-200.0); Anion Gap 5.9 mmol/L (4.00-12.00); BUN/Creat Ratio 17.21 Ratio (12.00-20.00); Calcium 7.9 mg/dL (8.7-10.3); Carbon Dioxide 21.1 mmol/L (21.6-31.8); Non-African American GFR(CKD) 12.1 (60.0-200.0); Phosphorus 4.5 mg/dL (2.4-5.1); Potassium 5.1 mmol/L (3.5-5.5)
[2020-06-30 11:35] LABS: Glucose,Whole Blood 182 mg/dL (75-99)
[2020-06-30] MEDS: cloNIDine HCL 0.2 MG TAB PO SCH ×2 (15:52→21:39)
--- NOTE | 2020-06-30 16:48 | PN ---
PROGRESS NOTE Patient is seen for followup for chronic kidney disease and acute kidney injury. Patient's renal function continues to improve. His Hinds catheter was discontinued this morning. The patient had hematuria this hospitalization post surgery for transurethral vaporization of prostate, which was performed on 06/23/2020. His hematuria has improved. Renal function also continues to improve. PHYSICAL EXAMINATION: On examination today, blood pressure was elevated 199/75. ABDOMEN: Soft, nontender. Examination of lower extremities shows no evidence of edema. 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 LABS SHOW: Sodium of 139, potassium 5.1, chloride 112, CO2 is 21, BUN 74, serum creatinine 4.3, phosphorus 4.5, hemoglobin 8.4. ASSESSMENT: 1. Acute kidney injury, prerenal as well as possibly urine retention after recent prostate surgery and hematuria. The patient had Hinds catheter, this was removed this morning. Awaiting voiding trials. 2. Hypertension. Blood pressure remains uncontrolled. Increase Norvasc to 5 mg twice a day. 3. History of acute kidney injury requiring dialysis, currently off of dialysis. PLAN: If patient continues to void well, he can be discharged with plans to follow up as outpatient with Urology and Nephrology. MMODL / IJN: [id number] /
[2020-06-30 17:06] LABS: Glucose,Whole Blood 95 mg/dL (75-99)
[2020-06-30 20:27] LABS: Glucose,Whole Blood 123 mg/dL (75-99)
[2020-06-30] MEDS: ATORVASTATIN 80 MG TAB PO SCH (21:38)
[2020-06-30] MEDS: MONTELUKAST 10 MG TAB PO SCH (21:38)
[2020-06-30] MEDS: DOXAZOSIN 4 MG TAB PO SCH (21:39)
[2020-06-30] MEDS: amLODIPine 5 MG TAB PO SCH (21:39)
[2020-06-30] MEDS: TAMSULOSIN 0.4 MG CAP.ER.24H PO SCH (21:39)
--- NOTE | 2020-06-30 23:54 | P.PN ---
Progress Note - Text Progress Note Date: 06/30/20 Chief Complaint: Bleeding per urethra History of presenting complaint: This is a 79-year-old patient, follows with Dr. Junior Jalloh. Who presented to the ER for gross hematuria with urinary retention. Patient had undergone plasma Bosch transurethral vaporization of the prostate performed by Dr. Macias on June 23. At this hospital. Catheter was removed in the office on June 25 in the morning. He did valle late in the day. Progressively he noticed increasing suprapubic discomfort and bloody urine. Finally decided to present to the ER he is also passing blood clots. Chronic stable medical conditions include coronary artery disease with bypass, COPD, GERD, hard of hearing, hypertension, osteoarthritis, abdominal aneurysm,. Denies any fever and chills. Did vomit once today. Admitted with severe hematuria, acute blood loss anemia, acute kidney injury obstructive. Patient given 2 units of blood. IV fluids. Today-better. Eating well. Hinds catheter was removed. Voiding trial Review of systems: Was done for constitutional, cardiovascular, GI, pulmonary. relevant finding as above Active Medications Acetaminophen (Acetaminophen Tab 325 Mg Tab) 650 mg PO Q6HR PRN PRN Reason: Mild Pain or Fever > 100.5 Albuterol/Ipratropium (Ipratropium-Albuterol 3 Ml Neb) 3 ml INHALATION RT-Q4H [facility] Last Admin: 06/30/20 23:19 Dose: Not Given Documented by: Amlodipine Besylate (Amlodipine 5 Mg Tab) 5 mg PO BID [facility] Last Admin: 06/30/20 21:39 Dose: 5 mg Documented by: Atorvastatin Calcium (Atorvastatin 80 Mg Tab) 80 mg PO HS [facility] Last Admin: 06/30/20 21:38 Dose: 80 mg Documented by: Buspirone HCl (Buspirone Hcl 5 Mg Tab) 7.5 mg PO BID [facility] Last Admin: 06/30/20 21:38 Dose: 7.5 mg Documented by: Clonidine (Clonidine Hcl 0.2 Mg Tab) 0.2 mg PO BID [facility] Last Admin: 06/30/20 21:39 Dose: 0.2 mg Documented by: Darbepoetin Edu (Darbepoetin Edu 60 Mcg/0.3 Ml Syringe) 60 mcg SQ Q7D [facility] Last Admin: 06/29/20 18:24 Dose: 60 mcg Documented by: Doxazosin Mesylate (Doxazosin 4 Mg Tab) 8 mg PO [facility] Last Admin: 06/30/20 21:39 Dose: 8 mg Documented by: Sodium Chloride (Saline 0.9%) 1,000 mls @ 75 mls/hr IV .[id number] [facility] Last Admin: 06/30/20 05:39 Dose: Not Given Documented by: Isosorbide Mononitrate (Isosorbide Mononitrate Er 30 Mg Tab.Er.24h) 30 mg PO DAILY [facility] Last Admin: 06/30/20 07:55 Dose: 30 mg Documented by: Montelukast Sodium (Montelukast 10 Mg Tab) 10 mg PO [facility] Last Admin: 06/30/20 21:38 Dose: 10 mg Documented by: Naloxone HCl (Naloxone 0.4 Mg/Ml 1 Ml Vial) 0.2 mg IV Q2M PRN PRN Reason: Opioid Reversal Ondansetron HCl (Ondansetron 4 Mg/2 Ml Vial) 4 mg IVP Q8HR PRN PRN Reason: Nausea And Vomiting Pantoprazole Sodium (Pantoprazole 40 Mg Tablet) 40 mg PO AC-BID [facility] Last Admin: 06/30/20 18:05 Dose: 40 mg Documented by: Tamsulosin HCl (Tamsulosin 0.4 Mg Cap.Er.24h) 0.4 mg PO [facility] Last Admin: 06/30/20 21:39 Dose: 0.4 mg Documented by: Physical examination: VITAL SIGNS: 97.9, 87, 17, 152/63, 96% room air GENERAL: BMI 22.9, laying in bed, tired EYES: [Pupils equal. Conjunctiva pale. HEENT: External appearance of nose and ears normal, oral cavity grossly normal. NECK: JVD not raised; masses not palpable. HEART: First and second heart sounds are normal; no edema. LUNGS: Respiratory rate normal; decreased breath sounds. ABDOMEN: Soft, nontender, liver spleen not palpable, no masses palpable. PSYCH: Alert and oriented x3; mood and affect normal. INVESTIGATIONS, reviewed in the clinical context: June 30: White count 5 hemoglobin 8.4 platelets 96 potassium 5.1 creatinine 4.3 phosphorus 4.5 June 29: White count 4 hemoglobin 8.4 platelets 94 potassium 4.9 creatinine 4.55 June 28: White count 5.4 hemoglobin 7.1 platelets 90 potassium 5 creatinine 4.6 White count 7.6 hemoglobin 7.8, repeat 7 platelets 126 potassium 5.5 bun 76 creatinine 5.5 UA positive for blood leukoesterase Previous testing: Hemoglobin 9 on June 15 BUN 70 creatinine 3.97 on June 15 Assessment: -Acute hematuria following procedure done on the prostate on June 23-improved -Acute blood loss anemia from hematuria-symptomatic patient feeling weak. Receive 2 units of blood -Acute kidney injury, likely obstructive from blood clots retained in the slow to respond -Chronic kidney disease stage IV, due to nephrosclerosis -Hyperkalemia due to recurrent retention and chronic kidney disease-better -Mild metabolic acidosis -Anemia of chronic kidney disease -Hypertension with chronic kidney disease -COPD in an ex-smoker -Coronary artery disease prior history of coronary bypass -GERD -Hard of hearing -Essential hypertension -Primary osteoarthritis Plan: Hinds catheter removed. Voiding trial. Blood pressure better controlled. Hopefully DC tomorrow.
[2020-07-01] MEDS: SODIUM CHLORIDE 0.9% 1,000 ML IV SCH ×2 (00:58→09:02)
[2020-07-01] MEDS: IPRATROPIUM-ALBUTEROL 3 ML NEB INHALATION SCH ×3 (03:04→12:25)
--- NOTE | 2020-07-01 06:34 | P.PN ---
Subjective Progress Note Date: 07/01/20 The patient was unable to void and didnot have a sensation of fullness. A cath was placed and 600 ml of urine was obtained. From a urological standpoint he can be disharged home with the fioley and I will see him in the office in one week for a voiding trial Objective - Vital Signs Vital signs: Vital Signs Temp 97.9 F 07/01/20 02:06 Pulse 81 07/01/20 02:06 Resp 17 07/01/20 02:06 BP 134/56 07/01/20 02:06 Pulse Ox 96 07/01/20 02:06 Intake & Output 06/30/20 06/30/20 07/01/20 06:59 18:59 06:59 Output Total 1250 1200 650 Balance -1250 -1200 -650 Output: Urine 1250 1200 650 Other: Voiding Method Indwelling Catheter Indwelling Catheter Indwelling Catheter # Voids 1 # Bowel Movements 0 - Labs CBC & Chem 7: 06/30/20 05:00 06/30/20 05:00 Labs: Abnormal Lab Results - Last 24 Hours (Table) 06/30/20 06/30/20 06/30/20 Range/Units 05:00 11:05 20:25 Chloride 112 H (96-109) mmol/L Carbon Dioxide 21.1 L (21.6-31.8) mmol/L BUN 74.0 H (9.0-27.0) mg/dL Creatinine 4.3 H (0.6-1.5) mg/dL Est GFR (CKD-EPI)AfAm 14.1 L (60.0-200.0) Est GFR (CKD-EPI)NonAf 12.1 L (60.0-200.0) POC Glucose (mg/dL) 182 H 123 H (75-99) mg/dL Calcium 7.9 L (8.7-10.3) mg/dL
[2020-07-01 07:15] LABS: Glucose,Whole Blood 90 mg/dL (75-99)
[2020-07-01] MEDS: PANTOPRAZOLE 40 MG TABLET PO SCH (07:41)
[2020-07-01] MEDS: ISOSORBIDE MONONITRATE ER 30 MG TAB.ER.24H PO SCH (09:03)
[2020-07-01] MEDS: busPIRone HCl 5 MG TAB PO SCH (09:03)
[2020-07-01] MEDS: amLODIPine 5 MG TAB PO SCH (09:04)
[2020-07-01] MEDS: cloNIDine HCL 0.2 MG TAB PO SCH (09:07)
[2020-07-01 11:38] LABS: Glucose,Whole Blood 109 mg/dL (75-99)
[2020-07-01 14:47] VITALS: BP 129/65; PULSE 55; RESP 16; TEMP 97.9
--- NOTE | 2020-07-01 16:07 | PN ---
PROGRESS NOTE Patient is seen for followup for chronic kidney disease and acute kidney injury. He also had urine retention. Hinds catheter was removed yesterday but reinserted for significant urine retention. No significant complaints today. PHYSICAL EXAMINATION: Blood pressure was 126/65, heart rate 61 per minute, patient is afebrile. Examination of the heart S1, S2. Examination of the lungs, bilateral breath sounds are heard. Abdomen is soft, nontender. Examination of the lower extremities shows no significant edema. IT PROJECT MANAGER exam grossly intact. LABS: From 06/30 show hemoglobin 8.4, sodium 139, potassium 5.1, chloride 112, serum creatinine 4.3 mg/dL. ASSESSMENT: 1. Acute kidney injury prerenal as well as associated with urine retention, currently improved. 2. BPH, status post surgery as outpatient, currently with retention and hematuria being followed by Urology. Hinds catheter was reinserted. 3. History of dialysis dependent acute renal failure, which has improved. PLAN: Patient can be discharged from nephrology standpoint. Follow up as outpatient in about one week's time. We will follow up on the renal function. MMODL / IJN: [id number] /
--- NOTE | 2020-07-01 23:48 | P.DS ---
Providers Date of admission: 06/27/20 09:43 Expected date of discharge: 07/01/20 Attending physician: Famliia Sanders Consults: 06/27/20 09:44 Consult Physician Urgent Consulting Provider: Octavio Rodriguez Consult Reason/Comments: Acute on chronic renal failure Do you want consulting provider notified?: Yes Consult Physician Urgent Consulting Provider: Linus Humphrey Consult Reason/Comments: s/p TURP, hematuria, urinary retention Do you want consulting provider notified?: Already Contacted Primary care physician: Junior Brown [facility] Course: Chief Complaint: Bleeding per urethra History of presenting complaint: This is a 79-year-old patient, follows with Dr. Junior Jalloh. Who presented to the ER for gross hematuria with urinary retention. Patient had undergone plasma Bosch transurethral vaporization of the prostate performed by Dr. Macias on June 23. At this hospital. Catheter was removed in the office on June 25 in the morning. He did valle late in the day. Progressively he noticed increasing suprapubic discomfort and bloody urine. Finally decided to present to the ER he is also passing blood clots. Chronic stable medical conditions include coronary artery disease with bypass, COPD, GERD, hard of hearing, hypertension, osteoarthritis, abdominal aneurysm,. Denies any fever and chills. Did vomit once today. Admitted with severe hematuria, acute blood loss anemia, acute kidney injury obstructive. Patient given 2 units of blood. IV fluids. Patient failed valle of Hinds. Reinserted. Today-urine remains to be clear. Comfortable. Oral intake fair. Tu be discharged today. 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 Chavis from nephrology Physical examination: VITAL SIGNS: 97.5, 61, 18, 126.65, 97% room air GENERAL: BMI 22.9, laying in bed, EYES: [Pupils equal. Conjunctiva pale. HEENT: External appearance of nose and ears normal, oral cavity grossly normal. NECK: JVD not raised; masses not palpable. HEART: First and second heart sounds are normal; no edema. LUNGS: Respiratory rate normal; decreased breath sounds. ABDOMEN: Soft, nontender, liver spleen not palpable, no masses palpable. Hinds catheter-failure urine PSYCH: Alert and oriented x3; mood and affect normal. INVESTIGATIONS, reviewed in the clinical context: June 30: White count 5 hemoglobin 8.4 platelets 96 potassium 5.1 creatinine 4.3 phosphorus 4.5 June 29: White count 4 hemoglobin 8.4 platelets 94 potassium 4.9 creatinine 4.55 June 28: White count 5.4 hemoglobin 7.1 platelets 90 potassium 5 creatinine 4.6 White count 7.6 hemoglobin 7.8, repeat 7 platelets 126 potassium 5.5 bun 76 creatinine 5.5 UA positive for blood leukoesterase Previous testing: Hemoglobin 9 on June 15 BUN 70 creatinine 3.97 on June 15 Assessment: -Acute hematuria following procedure done on the prostate on June 23-. -Acute blood loss anemia from hematuria-symptomatic patient feeling weak. Receive 2 units of blood -Acute kidney injury, likely obstructive from blood clots retained -Chronic kidney disease stage IV, due to nephrosclerosis -Hyperkalemia due to recurrent retention and chronic kidney disease-better -Mild metabolic acidosis -Anemia of chronic kidney disease -Hypertension with chronic kidney disease -COPD in an ex-smoker -Coronary artery disease prior history of coronary bypass -GERD -Hard of hearing -Essential hypertension -Primary osteoarthritis Disposition: Home Patient Condition at Discharge: Stable Plan - Discharge Summary New Discharge Prescriptions: New cloNIDine HCL [Catapres] 0.2 mg PO BID #60 tab amLODIPine [Norvasc] 10 mg PO HS #30 tablet Continue Zafirlukast 20 mg PO BID busPIRone HCL [Buspar] 7.5 mg PO BID Ipratropium Nebulized [Atrovent Nebulized 0.2 MG/ML] 0.5 mg INHALATION RT-Q4H Tamsulosin HCl [Flomax] 0.4 mg PO HS Terazosin HCl 10 mg PO HS Atorvastatin [Lipitor] 80 mg PO HS #30 tab Pantoprazole [Protonix] 40 mg PO BID #60 tablet. Isosorbide Mononitrate ER [Imdur] 30 mg PO DAILY Albuterol Nebulized [Ventolin Nebulized] 2.5 mg INHALATION RT-Q4H Discontinued Sucralfate [Carafate] 1 gm PO ACHS #120 tab Furosemide [Lasix] 40 mg PO DAILY Torsemide [Demadex] 20 mg PO DAILY Metoprolol Tartrate [Lopressor] 25 mg PO BID Sulfamethox-Tmp 800-160Mg [Bactrim DS 800-160 mg] 1 tab PO Q12HR #14 tab Discharge Medication List Zafirlukast 20 mg PO BID 09/30/14 [History] Ipratropium Nebulized [Atrovent Nebulized 0.2 MG/ML] 0.5 mg INHALATION RT-Q4H 04/26/20 [History] Tamsulosin HCl [Flomax] 0.4 mg PO HS 04/26/20 [History] Terazosin HCl 10 mg PO HS 04/26/20 [History] busPIRone HCL [Buspar] 7.5 mg PO BID 04/26/20 [History] Atorvastatin [Lipitor] 80 mg PO HS #30 tab 05/02/20 [Rx] Pantoprazole [Protonix] 40 mg PO BID #60 tablet.dr 05/08/20 [Rx] Isosorbide Mononitrate ER [Imdur] 30 mg PO DAILY 06/18/20 [History] Albuterol Nebulized [Ventolin Nebulized] 2.5 mg INHALATION RT-Q4H 06/27/20 [History] amLODIPine [Norvasc] 10 mg PO HS #30 tablet 07/01/20 [Rx] cloNIDine HCL [Catapres] 0.2 mg PO BID #60 tab 07/01/20 [Rx] Follow up Appointment(s)/Referral(s): Monserrat Chavis MD [STAFF PHYSICIAN] - 07/08/20 9:20 am [facility] [NON-STAFF] - 1-2 Days Junior Brown DO [Primary Care Provider] - 07/13/20 2:00 pm Kristopher Bang MD [STAFF PHYSICIAN] - 07/07/20 3:40 pm Patient Instructions/Handouts: Urinary Incontinence (GEN) Activity/Diet/Wound Care/Special Instructions: bmp - 5 days Discharge Disposition: HOME SELF-CARE
--- NOTE | 2020-07-02 09:34 | CDI ---
Documentation Clarification Form Date: From: Vanda Naidu Phone: Admit Date: 06/27/2020 09:43:00 AM Patient Name: Josh Marie Visit Number: [id number] Discharge Date: 07/01/2020 03:30:00 PM ATTENTION: The Clinical Documentation Specialists (CDI) and [facility] Coding Staff appreciate your assistance in clarifying documentation. Please respond to the clarification below the line at the bottom and electronically sign. The CDI & [facility] Coding staff will review the response and follow-up if needed. Please note: Queries are made part of the Legal Health Record. If you have any questions, please contact the author of this message via ITS. Dr. Monserrat Chavis The patient presented with the following: urinary retention, hematuria, GRACE. In your 06/29 and 06/30 progress notes, you documented uncontrolled hypertension. History/Risk Factors: Hypertension, GRACE, BPH recent surgery, CAD, CKD 4 Clinical Indicators: Elevated blood pressure Lab findings: Chloride 111, BUN 68, Creatinine 4.55, Hgb 8.4, Hct 24.7 Vital Signs: On admission: T. 98.1, P 59, R. 18, BP 149/66 Blood pressure: 06/29/20 - 183/53, 173/61 06/30/20 - 165/79, 199/75, 204/92, 152/63 Treatment: Patient maintained on Lopressor, patient on Imdur and Cardura for BPH. Plan to add Norvasc if BP remained elevated. Blood pressure monitoring In your professional opinion, can you please clarify the uncontrolled hypertension? Crisis Emergency Urgency Other, please specify Unable to determine urgency __ MTDD
== END 2020-07-01 15:30 | disposition home health service (06) | DRG 920 ==
LOC: EC 08:34 → 5NMEDONC 09:43
PROVIDERS: ADMIT Hospitalist; ATTEND Hospitalist
PROC: 30233N1 Transfusion of Nonautologous Red Blood Cells into Peripheral Vein, Percutaneous Approach (ICD-10-PCS; principal; 2020-06-28)
DX: N99.820 Postprocedural hemorrhage of a genitourinary system organ or structure following a genitourinary system procedure (principal); D62 Acute posthemorrhagic anemia; E87.2 Acidosis; N17.9 Acute kidney failure, unspecified; N18.4 Chronic kidney disease, stage 4 (severe); N40.1 Benign prostatic hyperplasia with lower urinary tract symptoms; I16.0 Hypertensive urgency; D63.1 Anemia in chronic kidney disease; R33.8 Other retention of urine; E86.0 Dehydration; E87.5 Hyperkalemia; H91.90 Unspecified hearing loss, unspecified ear; I12.9 Hypertensive chronic kidney disease with stage 1 through stage 4 chronic kidney disease, or unspecified chronic kidney disease; I25.10 Atherosclerotic heart disease of native coronary artery without angina pectoris; I25.2 Old myocardial infarction; I71.4 Abdominal aortic aneurysm, without rupture; J44.9 Chronic obstructive pulmonary disease, unspecified; K21.9 Gastro-esophageal reflux disease without esophagitis; M19.91 Primary osteoarthritis, unspecified site; R31.0 Gross hematuria; Z79.82 Long term (current) use of aspirin; Z79.899 Other long term (current) drug therapy; Z87.891 Personal history of nicotine dependence; Z90.79 Acquired absence of other genital organ(s); Z95.1 Presence of aortocoronary bypass graft; Z98.1 Arthrodesis status; Z88.5 Allergy status to narcotic agent; Z90.49 Acquired absence of other specified parts of digestive tract; Z87.19 Personal history of other diseases of the digestive system; Z86.73 Personal history of transient ischemic attack (TIA), and cerebral infarction without residual deficits; Z98.890 Other specified postprocedural states; Z82.3 Family history of stroke; Y83.8 Other surgical procedures as the cause of abnormal reaction of the patient, or of later complication, without mention of misadventure at the time of the procedure
CPT/HCPCS: 36415; 51702; 51798; 80048; 80053; 81001; 82728; 83540; 83550; 84100; 84132; 85025; 85027; 85610; 85730; 86850; 86900; 86901; 86920; 87086; 94640; 96361; 96374; 99285

== ENCOUNTER 2021-10-24 11:12 | Inpatient (IN) | payer MEDICARE ==
[2021-10-24] MEDS ORDERED: ONDANSETRON 4 MG/2 ML VIAL IVP STA (11:48)
[2021-10-24] MEDS ORDERED: SODIUM CHLORIDE 0.9% 500 ML 500 ML IV STA (11:48)
--- NOTE | 2021-10-24 12:11 | ED ---
General Adult HPI - General Chief complaint: Abdominal Pain Stated complaint: abd pain, vomiting Time Seen by Provider: 10/24/21 11:15 Source: patient, RN notes reviewed, old records reviewed Mode of arrival: wheelchair Limitations: no limitations - History of Present Illness Initial comments: This is an 81-year-old male who presents emergency Department complaining of vomiting and abdominal pain. Patient states he was being dialyzed on Sunday when he vomited so they had to stop dialysis. Patient states every day since then he's had episodes of vomiting continues to be nauseated. Patient states over the same period time he has generalized abdominal pain but there is no specific area of tenderness. Patient states he still nauseated. Patient states she's been unable to keep anything down so he hasn't drink or eat anything without vomiting. Patient denies any diarrhea. Patient denies any chest pain difficulty breathing shortness of breath. Patient denies any dysuria hematuria urinary frequency however he does still make urine. - Related Data Home Medications Medication Instructions Recorded Confirmed Zafirlukast 20 mg PO BID 09/30/14 10/24/21 Tamsulosin HCl [Flomax] 0.4 mg PO HS 04/26/20 10/24/21 Terazosin HCl 10 mg PO HS 04/26/20 10/24/21 busPIRone HCL [Buspar] 7.5 mg PO BID 04/26/20 10/24/21 Isosorbide Mononitrate ER [Imdur] 30 mg PO DAILY 06/18/20 10/24/21 Albuterol Nebulized [Ventolin 2.5 mg INHALATION RT-Q4H 06/27/20 10/24/21 Nebulized] Cyanocobalamin (Vitamin B-12) 1,000 mcg PO DAILY 10/24/21 10/24/21 [Vitamin B-12] Furosemide [Lasix] 40 mg PO DAILY 10/24/21 10/24/21 Ondansetron [Zofran] 4 mg PO Q12HR PRN 10/24/21 10/24/21 Pantoprazole [Protonix] 40 mg PO DAILY 10/24/21 10/24/21 Sodium Bicarbonate Tab 650 mg PO ACHS 10/24/21 10/24/21 Sucralfate [Carafate] 1 gm PO ACHS 10/24/21 10/24/21 Previous Rx's Medication Instructions Recorded Atorvastatin [Lipitor] 80 mg PO HS #30 tab 05/02/20 amLODIPine [Norvasc] 10 mg PO HS #30 tablet 07/01/20 Allergies Allergy/AdvReac Type Severity Reaction Status Date / Time morphine Allergy Severe Rash/Hives Verified 10/24/21 13:07 Review of Systems ROS Statement: Those systems with pertinent positive or pertinent negative responses have been documented in the HPI. ROS Other: All systems not noted in ROS Statement are negative. Past Medical History Past Medical History: Coronary Artery Disease (CAD), COPD, CVA/TIA, Dialysis, G ERD/Reflux, Hearing Disorder / Deafness, Hypertension, Myocardial Infarction (VT), Osteoarthritis (OA), Renal Disease, Respiratory Disorder Additional Past Medical History / Comment(s): ABDOMINAL ANEURYSM, gall stones, blood poisioning from stepping on leslee nail, Last Myocardial Infarction Date:: 1972 History of Any Multi-Drug Resistant Organisms: None Reported Past Surgical History: Appendectomy, Bowel Resection, Coronary Bypass/CABG, Heart Catheterization, Hernia Repair Additional Past Surgical History / Comment(s): Neck Fusion 1978 x2, CRANIOTOMY, TRIPLE BYPASS, LEFT CAROTID SURGERY. Turp done on 06/23 Past Anesthesia/Blood Transfusion Reactions: No Reported Reaction Past Psychological History: No Psychological Hx Reported Smoking Status: Former smoker Past Alcohol Use History: None Reported Past Drug Use History: None Reported - Past Family History Sister(s) Family Medical History: Cancer Additional Family Medical History / Comment(s): kidney General Exam - General Exam Comments Initial Comments: GENERAL: Patient is well-developed and well-nourished. Patient is nontoxic and well- hydrated and is in mild distress. ENT: Neck is soft and supple. No significant lymphadenopathy is noted. Oropharynx is clear. Moist mucous membranes. Neck has full range of motion without elicit ing any pain. EYES: The sclera were anicteric and conjunctiva were pink and moist. Extraocular m ovements were intact and pupils were equal round and reactive to light. Eyelids were unremarkable. PULMONARY: Unlabored respirations. Good breath sounds bilaterally. No audible rales rhonchi or wheezing was noted. CARDIOVASCULAR: There is a regular rate and rhythm without any murmurs gallops or rubs. ABDOMEN: Patient has diffuse abdominal tenderness no point tenderness no guarding no rebound SKIN: Skin is clear with no lesions or rashes and otherwise unremarkable. NEUROLOGIC: Patient is alert and oriented x3. Cranial nerves II through XII are grossly intact. Motor and sensory are also intact. Normal speech, volume and content. Symmetrical smile. MUSCULOSKELETAL: Normal extremities with adequate strength and full range of motion. LYMPHATICS: No significant lymphadenopathy is noted PSYCHIATRIC: Normal psychiatric evaluation. Limitations: no limitations Course Vital Signs 10/24/21 10/24/21 10/24/21 11:15 11:48 13:22 Temperature 98 F Pulse Rate 81 74 Respiratory 18 18 Rate Blood Pressure 167/71 186/79 O2 Sat by Pulse 90 L 97 97 Oximetry Medical Decision Making - Medical Decision Making EKG shows sinus rhythm at 76 bpm ME interval 185 QRS is 88 QT interval 360 QTC is 399 patient's EKG shows no ST segment elevation or depression. Computed tomography scan showed at internal hernia with bowel obstruction with dilatation of small bowel loops. I spoke with Dr. Manjarrez he agreed to admit the patient to the patient wrote admitting orders I started the patient on antibiotics and had an NG tube placed. - Lab Data Result diagrams: 10/24/21 11:56 10/24/21 11:56 Lab Results 10/24/21 10/24/21 10/24/21 Range/Units 11:56 11:56 11:56 WBC 11.6 H (3.8-10.6) k/uL RBC 3.34 L (4.30-5.90) m/uL Hgb 12.4 L (13.0-17.5) gm/dL Hct 36.7 L (39.0-53.0) % MCV 109.9 H (80.0-100.0) fL MCH 37.1 H (25.0-35.0) pg MCHC 33.7 (31.0-37.0) g/dL RDW 14.1 (11.5-15.5) % Plt Count 153 (150-450) k/uL MPV 9.1 Neutrophils % 84 % Lymphocytes % 8 % Monocytes % 6 % Eosinophils % 1 % Basophils % 0 % Neutrophils # 9.7 H (1.3-7.7) k/uL Lymphocytes # 0.9 L (1.0-4.8) k/uL Monocytes # 0.7 (0-1.0) k/uL Eosinophils # 0.1 (0-0.7) k/uL Basophils # 0.0 (0-0.2) k/uL Manual Slide Review Performed Toxic Granulation Present Polychromasia Present Macrocytosis Marked A Sodium 134 L (137-145) mmol/L Potassium 5.3 H (3.5-5.1) mmol/L Chloride 94 L (98-107) mmol/L Carbon Dioxide 28 (22-30) mmol/L Anion Gap 12 mmol/L BUN 89 H (9-20) mg/dL Creatinine 7.45 H* (0.66-1.25) mg/dL Est GFR (CKD-EPI)AfAm 7 (>60 ml/min/1.73 sqM) Est GFR (CKD-EPI)NonAf 6 (>60 ml/min/1.73 sqM) Glucose 98 (74-99) mg/dL Plasma Lactic Acid Mitchell 0.8 (0.7-2.0) mmol/L Calcium 8.5 (8.4-10.2) mg/dL Total Bilirubin 0.7 (0.2-1.3) mg/dL AST 22 (17-59) U/L ALT 12 (4-49) U/L Alkaline Phosphatase 72 (38-126) U/L Total Protein 6.2 L (6.3-8.2) g/dL Albumin 3.2 L (3.5-5.0) g/dL Amylase 73 (30-110) U/L Lipase 45 (23-300) U/L Urine Color Urine Appearance (Clear) Urine pH (5.0-8.0) Ur Specific [place] (1.001-1.035) Urine Protein (Negative) Urine Glucose (UA) (Negative) Urine Ketones (Negative) Urine Blood (Negative) Urine Nitrite (Negative) Urine Bilirubin (Negative) Urine Urobilinogen (<2.0) mg/dL Ur Leukocyte Esterase (Negative) Urine WBC (0-5) /hpf Ur Squamous Epith Cells (0-4) /hpf Urine Mucus (None) /hpf 10/24/21 Range/Units 12:01 WBC (3.8-10.6) k/uL RBC (4.30-5.90) m/uL Hgb (13.0-17.5) gm/dL Hct (39.0-53.0) % MCV (80.0-100.0) fL MCH (25.0-35.0) pg MCHC (31.0-37.0) g/dL RDW (11.5-15.5) % Plt Count (150-450) k/uL MPV Neutrophils % % Lymphocytes % % Monocytes % % Eosinophils % % Basophils % % Neutrophils # (1.3-7.7) k/uL Lymphocytes # (1.0-4.8) k/uL Monocytes # (0-1.0) k/uL Eosinophils # (0-0.7) k/uL Basophils # (0-0.2) k/uL Manual Slide Review Toxic Granulation Polychromasia Macrocytosis Sodium (137-145) mmol/L Potassium (3.5-5.1) mmol/L Chloride (98-107) mmol/L Carbon Dioxide (22-30) mmol/L Anion Gap mmol/L BUN (9-20) mg/dL Creatinine (0.66-1.25) mg/dL Est GFR (CKD-EPI)AfAm (>60 ml/min/1.73 sqM) Est GFR (CKD-EPI)NonAf (>60 ml/min/1.73 sqM) Glucose (74-99) mg/dL Plasma Lactic Acid [place] (0.7-2.0) mmol/L Calcium (8.4-10.2) mg/dL Total Bilirubin (0.2-1.3) mg/dL AST (17-59) U/L ALT (4-49) U/L Alkaline Phosphatase (38-126) U/L Total Protein (6.3-8.2) g/dL Albumin (3.5-5.0) g/dL Amylase (30-110) U/L Lipase (23-300) U/L Urine Color Yellow Urine Appearance Clear (Clear) Urine pH 7.5 (5.0-8.0) Ur Specific [place] 1.016 (1.001-1.035) Urine Protein 3+ H (Negative) Urine Glucose (UA) Negative (Negative) Urine Ketones Negative (Negative) Urine Blood Negative (Negative) Urine Nitrite Negative (Negative) Urine Bilirubin Negative (Negative) Urine Urobilinogen <2.0 (<2.0) mg/dL Ur Leukocyte Esterase Negative (Negative) Urine WBC 5 (0-5) /hpf Ur Squamous Epith Cells 1 (0-4) /hpf Urine Mucus Rare H (None) /hpf Disposition Clinical Impression: Internal hernia, Small bowel obstruction Disposition: ADMITTED IP TO THIS HOSP Referrals: Junior Brown DO [Primary Care Provider] - 1-2 days Time of Disposition: 13:24
[2021-10-24 12:15] LABS: Appearance,Urine Clear (Clear); Bilirubin,Urine Negative (Negative); Blood,Urine Negative (Negative); Color,Urine Yellow; Glucose,Urine (UA) Negative (Negative); Ketones,Urine Negative (Negative); Leukocyte Esterase,Urine Negative (Negative); Mucus,Urine Rare /hpf; Nitrite,Urine Negative (Negative); PH, Urine 7.5 (5.0-8.0); Protein,Urine 3+ (Negative); Specific Gravity,Urine 1.016 (1.001-1.035); Squamous Epithelial Cell,Urine 1 /hpf (0-4); Urobilinogen,Urine <2.0 mg/dL (<2.0); WBC,Urine 5 /hpf (0-5)
[2021-10-24 12:20] LABS: Albumin 3.2 g/dL (3.5-5.0); Basophils % (A) 0 %; Calcium 8.5 mg/dL (8.4-10.2); Eosinophils # (A) 0.1 k/uL (0-0.7); Eosinophils % (A) 1 %; HCT 36.7 % (39.0-53.0); HGB 12.4 gm/dL (13.0-17.5); Lymphocytes # (A) 0.9 k/uL (1.0-4.8); Lymphocytes % (A) 8 %; MCH 37.1 pg (25.0-35.0); MCHC 33.7 g/dL (31.0-37.0); MCV 109.9 fL (80.0-100.0); Macrocytosis Marked; Mean Platelet Volume 9.1; Monocytes # (A) 0.7 k/uL (0-1.0); Monocytes % (A) 6 %; Neutrophils # (A) 9.7 k/uL (1.3-7.7); Neutrophils % (A) 84 %; Platelet Count 153 k/uL (150-450); Potassium 5.3 mmol/L (3.5-5.1); RBC 3.34 m/uL (4.30-5.90); RDW 14.1 % (11.5-15.5); Total Bilirubin 0.7 mg/dL (0.2-1.3); Total Protein 6.2 g/dL (6.3-8.2); WBC 11.6 k/uL (3.8-10.6)
--- NOTE | 2021-10-24 12:42 | CT ---
EXAMINATION TYPE: CT abdomen pelvis wo con DATE OF EXAM: 10/24/2021 HISTORY: abdominal pain and vomiting CT DLP: 446 mGycm. Automated Exposure Control for Dose Reduction was Utilized. TECHNIQUE: CT scan of the abdomen and pelvis is performed without oral or IV contrast. COMPARISON: NONE FINDINGS: Within the limitations of a non-contrast study, the following observations are made. LUNG BASES: Elevated posterior aspect right hemidiaphragm with associated basilar atelectasis and/or less likely consolidation. Cardiomegaly with coronary artery calcification LIVER/GB: Dependent near 1.0 cm hyperdense gallstone axial image 56. No surrounding fat stranding. No biliary dilatation. PANCREAS: No significant abnormality is seen. SPLEEN: No significant abnormality is seen. ADRENALS: Slight nodular thickening right adrenal gland axial image 24 favored benign due to 1.7 x 1. 2 cm sized. KIDNEYS: Cortical thinning bilaterally there are partially exophytic thin-walled cyst from the upper pole right kidney. There are punctate calcifications bilaterally suspected at least the majority are vascular in etiology. No hydronephrosis seen bilaterally. Mild to moderate distended bladder. BOWEL: Suboptimal evaluation without enteric contrast. Single dilated fluid-filled 3.7 cm small bowel loop left upper to mid abdomen axial image 42. Small bowel feces sign seen in bowel loops just crani al to this. Mild mesenteric fat stranding this level. [id number] wall thickening in small bowel loop left midabdomen with small bowel feces sign. One transition point identified coronal image 45. No free or mesenteric air. Stomach is nondilated. Small bowel loops throughout the right abdomen and pelvis are not dilated. Fec al material is seen in nondistended colon. Mild fecal prominence in the right colon. Poorly distended terminal ileum with moderate wall thickening could reflect product of poor distentio n, other etiologies not excluded. GENITAL ORGANS: No gross abnormality seen. LYMPH NODES: No greater than 1cm abdominal or pelvic lymph nodes are appreciated. OSSEOUS STRUCTURES: No significant abnormality is seen. OTHER: Severe calcified plaque of the aorta extends into branch vessels. There is AAA up to 5.1 x 5.0 cm axial image 67. No common iliac arterial extension noted. IMPRESSION: 1. There are CT findings concerning for internal hernia causing focal bowel obstruction. There are lo calized abnormal small bowel loops in the left upper to mid abdomen. One fluid-filled dilated up to 3 .7 cm. Additional bowel loops show mild to moderate wall thickening and small bowel feces sign. Remai nder small and large bowel loops right abdomen and pelvis show no suspicious dilatation. No free air currently. 2. Focal infrarenal AAA up to 5.1 cm. Advise surgical and/or endovascular referral. Advise at minimum imaging monitoring in 3-6 months time. 3. Mild to moderately distended bladder. Evidence of long-standing chronic medical renal disease.
[2021-10-24 12:46] LABS: Polychromasia Present; Toxic Granulation Present
[2021-10-24] MEDS ORDERED: PIPERACILLIN-TAZOBACTAM 3.375 GM in SODIUM CHLORIDE 0.9% 100 ML IVPB STA (13:10)
[2021-10-24] MEDS ORDERED: SODIUM CHLORIDE 0.9% 1,000 ML IV ONE (13:25)
[2021-10-24] MEDS ORDERED: HYDROmorphone 0.5 MG/0.5 ML SYRINGE IVP PRN (13:27)
--- NOTE | 2021-10-24 18:21 | P.GSHP ---
History of Present Illness H&P Date: 10/24/21 Chief Complaint: Small bowel obstruction Mary 1-year-old male who had complaints of nausea vomiting. Workup mentioned. Patient's found have possible small bowel obstruction related to internal hernia. The patient states he feels that she better than yesterday. He has mi ld abdominal pain. Patient has a previous history of bowel surgery. Past Medical History Past Medical History: Atrial Fibrillation, Coronary Artery Disease (CAD), COPD, CVA/TIA, Dialysis, GERD/Reflux, Hypertension, Myocardial Infarction ([place]), Osteoarthritis (OA), Pneumonia, Renal Disease, Respiratory Disorder, Vascular Disorder Additional Past Medical History / Comment(s): ESRD with hemodialysis on //, pt has R chest port for dialysis and a L upper arm catheter but not using yet d/t it has had to be ballooned a couple of times, cardiomyopathy, [place] in 1972 and 2019, 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 Last Myocardial Infarction Date:: 2019 History of Any Multi-Drug Resistant Organisms: None Reported Past Surgical History: Appendectomy, Bowel Resection, Coronary Bypass/CABG, Ear Surgery, Heart Catheterization, Hernia Repair Additional Past Surgical History / Comment(s): R chest port for dialysis, R upper arm hemodialysis cath/has been ballooned and not able to use for dialysis yet, craniotomy for benign tumor, 3 vessel CABG in 2003, laparotomy for subcutaeous emphysema in bowel per daughters/extensive hospitalization, L caratid endartectomy, TURP, hemodialysis port in R chest/L upper arm, surgery to taper ears, EGD, colonoscopy, pain clinic procedures. Past Anesthesia/Blood Transfusion Reactions: No Reported Reaction Additional Past Anesthesia/Blood Transfusion Reaction / Comment(s): Pt has received blood in past without reaction. Smoking Status: Former smoker - Past Family History Sister(s) Family Medical History: Cancer Additional Family Medical History / Comment(s): kidney Mother Family Medical History: Myocardial Infarction (MA) Additional Family Medical History / Comment(s): Mother of a MA in her 80s. Father Family Medical History: Myocardial Infarction (MA) Brother(s) Family Medical History: Myocardial Infarction (MA) Medications and Allergies Home Medications Medication Instructions Recorded Confirmed Type Zafirlukast 20 mg PO BID 09/30/14 10/24/21 History Tamsulosin HCl [Flomax] 0.4 mg PO HS 04/26/20 10/24/21 History Terazosin HCl 10 mg PO HS 04/26/20 10/24/21 History busPIRone HCL [Buspar] 7.5 mg PO BID 04/26/20 10/24/21 History Atorvastatin [Lipitor] 80 mg PO HS #30 tab 05/02/20 10/24/21 Rx Isosorbide Mononitrate ER [Imdur] 30 mg PO DAILY 06/18/20 10/24/21 History Albuterol Nebulized [Ventolin 2.5 mg INHALATION RT-Q4H 06/27/20 10/24/21 History Nebulized] amLODIPine [Norvasc] 10 mg PO HS #30 tablet 07/01/20 10/24/21 Rx Cyanocobalamin (Vitamin B-12) 1,000 mcg PO DAILY 10/24/21 10/24/21 History [Vitamin B-12] Furosemide [Lasix] 40 mg PO DAILY 10/24/21 10/24/21 History Ondansetron [Zofran] 4 mg PO Q12HR PRN 10/24/21 10/24/21 History Pantoprazole [Protonix] 40 mg PO DAILY 10/24/21 10/24/21 History Sodium Bicarbonate Tab 650 mg PO ACHS 10/24/21 10/24/21 History Sucralfate [Carafate] 1 gm PO ACHS 10/24/21 10/24/21 History Allergies Allergy/AdvReac Type Severity Reaction Status Date / Time morphine Allergy Severe Rash/Hives Verified 10/24/21 13:07 lorazepam [From Ativan] AdvReac Confusion Verified 10/24/21 14:05 Surgical - Exam Vital Signs Temp Pulse Resp BP Pulse Ox 98 F 81 18 167/71 90 L 10/24/21 11:15 10/24/21 11:15 10/24/21 11:15 10/24/21 11:15 10/24/21 11:15 - General well developed, no distress - Eyes PERRL - ENT normal pinna - Neck no masses - Respiratory normal expansion - Cardiovascular Rhythm: regular - Abdomen Mild tenderness throughout. There is no rebound or guarding Abdomen: soft Results - Labs 10/24/21 11:56 10/24/21 11:56 Abnormal Lab Results - Last 24 Hours (Table) 10/24/21 10/24/21 10/24/21 Range/Units 11:56 11:56 12:01 WBC 11.6 H (3.8-10.6) k/uL RBC 3.34 L (4.30-5.90) m/uL Hgb 12.4 L (13.0-17.5) gm/dL Hct 36.7 L (39.0-53.0) % MCV 109.9 H (80.0-100.0) fL MCH 37.1 H (25.0-35.0) pg Neutrophils # 9.7 H (1.3-7.7) k/uL Lymphocytes # 0.9 L (1.0-4.8) k/uL Macrocytosis Marked A Sodium 134 L (137-145) mmol/L Potassium 5.3 H (3.5-5.1) mmol/L Chloride 94 L (98-107) mmol/L BUN 89 H (9-20) mg/dL Creatinine 7.45 H* (0.66-1.25) mg/dL Total Protein 6.2 L (6.3-8.2) g/dL Albumin 3.2 L (3.5-5.0) g/dL Urine Protein 3+ H (Negative) Urine Mucus Rare H (None) /hpf Diabetes panel 10/24/21 Range/Units 11:56 Sodium 134 L (137-145) mmol/L Potassium 5.3 H (3.5-5.1) mmol/L Chloride 94 L (98-107) mmol/L Carbon Dioxide 28 (22-30) mmol/L BUN 89 H (9-20) mg/dL Creatinine 7.45 H* (0.66-1.25) mg/dL Glucose 98 (74-99) mg/dL Calcium 8.5 (8.4-10.2) mg/dL AST 22 (17-59) U/L ALT 12 (4-49) U/L Alkaline Phosphatase 72 (38-126) U/L Total Protein 6.2 L (6.3-8.2) g/dL Albumin 3.2 L (3.5-5.0) g/dL Calcium panel 10/24/21 Range/Units 11:56 Calcium 8.5 (8.4-10.2) mg/dL Albumin 3.2 L (3.5-5.0) g/dL Pituitary panel 10/24/21 Range/Units 11:56 Sodium 134 L (137-145) mmol/L Potassium 5.3 H (3.5-5.1) mmol/L Chloride 94 L (98-107) mmol/L Carbon Dioxide 28 (22-30) mmol/L BUN 89 H (9-20) mg/dL Creatinine 7.45 H* (0.66-1.25) mg/dL Glucose 98 (74-99) mg/dL Calcium 8.5 (8.4-10.2) mg/dL Adrenal panel 10/24/21 Range/Units 11:56 Sodium 134 L (137-145) mmol/L Potassium 5.3 H (3.5-5.1) mmol/L Chloride 94 L (98-107) mmol/L Carbon Dioxide 28 (22-30) mmol/L BUN 89 H (9-20) mg/dL Creatinine 7.45 H* (0.66-1.25) mg/dL Glucose 98 (74-99) mg/dL Calcium 8.5 (8.4-10.2) mg/dL Total Bilirubin 0.7 (0.2-1.3) mg/dL AST 22 (17-59) U/L ALT 12 (4-49) U/L Alkaline Phosphatase 72 (38-126) U/L Total Protein 6.2 L (6.3-8.2) g/dL Albumin 3.2 L (3.5-5.0) g/dL Assessment and Plan Assessment: Small bowel obstruction. The patient initially was reluctant to have a nasogastric tube placed because he felt better. I did discuss and was that it is safer to have nasogastric decompression performed. The patient will be closely observed. If he continues to have signs of small bowel obstruction he may require exploratory laparotomy.
--- NOTE | 2021-10-24 18:25 | P.CONS ---
History of Present Illness - Reason for Consult Consult date: 10/24/21 Medical management Requesting physician: Tamir Means - Chief Complaint Abdominal pain - History of Present Illness History of presenting complaint: This is a pleasant 81-year-old patient, follows with Dr. Junior Jalloh. Chronic stable medical conditions include coronary artery disease with bypass, COPD, GERD, hard of hearing, hypertension, osteoarthritis, abdominal aneurysm,. Last week patient had repair of his left upper extremity fistula by Dr. Mccann from vascular. Patient has right upper chest wall dialysis catheter since July of this year. Dialysis on Sunday and Sunday. Follows with Dr. Chavis. 4 days ago patient started having nausea vomiting increasing abdominal pain that progressed to get worse. Patient normally has a bowel movement every 3-4 days and sometimes takes a laxative. Patient's had no bowel movement for last 4 days. Denies any fever and chills. Tired rundown. Patient does make some urine. Patient is accompanied by his 2 daughters. Computed tomography scan of the ER didn't show internal hernia causing focal bowel obstruction. With one fluid-filled dilated loop. Moderate wall thickening. Focal infrarenal AAA 5.1 cm. Review of systems: GEN.: Tired EYES: None HEENT: Decreased hearing NECK: None RESPIRATORY: None CARDIOVASCULAR: None GASTROINTESTINAL: As above GENITOURINARY: None MUSCULOSKELETAL: None LYMPHATICS: None HEMATOLOGICAL: None PSYCHIATRY: None NEUROLOGICAL: None Past medical history to include: Coronary artery disease, COPD, TIA, GERD, hard of hearing, hypertension, osteoarthritis, end-stage kidney disease on hemodialysis Sunday, abdominal aneurysm, coronary bypass, Social history: Lives with . Smoked a pack a day for 64 years stopped in 2019. 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 Physical examination: VITAL SIGNS: 98, 81, 18, 167/71, 90% room air GENERAL: BMI 26.3, sitting on bed, awake, tired. Right upper chest wall dialysis catheter. Fistula left upper extremity EYES: Pupils equal. Conjunctiva normal. HEENT: External appearance of nose and ears normal, oral cavity dry mucous membranes. Decreased hearing NECK: JVD not raised; masses not palpable. HEART: First and second heart sounds are normal; no edema. LUNGS: Respiratory rate normal; clear to auscultation. ABDOMEN: Soft, tender, no guarding rigidity, liver spleen not palpable, no masses palpable. PSYCH: Alert and oriented x3; mood and affect normal. MUSCULOSKELETAL:No Clubbing/cyanosis;muscles-grossly intact. Evidence of OA NEUROLOGICAL: Cranial nerves grossly intact; no facial asymmetry, power and sensation grossly intact. LYMPHATICS: No lymph nodes palpable in the axilla and neck INVESTIGATIONS, reviewed in the clinical context: White count 9.6 hemoglobin 12.4 platelets 153 sodium 134 potassium 5.3 BUN 89 creatinine 7.45 EKG tracing personally reviewed by me-normal sinus rhythm 76/m. Computed tomography scan abdomen: Internal hernia causing focal bowel obstruction. Focal infrarenal AAA up to 5.1 cm. Assessment and plan: -Acute bowel obstruction from internal hernia symptoms present for 4 days NG tube to suction. Follow with Dr. Means.-. -End-stage kidney disease on hemodialysis Sunday and Sunday Patient has a right chest wall dialysis catheter. Left upper extremity fistula that was recently repaired by Dr. Mccann from vascular -Hyperkalemia from chronic kidney disease Follow with dialysis -Anemia of chronic kidney disease Follow H&H -Hypertension with chronic kidney disease Amlodipine 10 mg daily at bedtime, Imdur ER 30 mg daily, -COPD in an ex-smoker Albuterol 2.5 every 4 -Coronary artery disease prior history of coronary bypass Imdur ER 30 mg a day -GERD Protonix -Hard of hearing -Urine outflow obstruction Flomax 0.4 mg daily at bedtime -Primary osteoarthritis Pain medications as needed NG tube. TAKE oral medications and to suction for close following medications. Hemodialysis per nephrology. Care was discussed with the patient and to 2 daughters at bedside. Questions answered. Subcu Lovenox. IV Zosyn. Empirical ly Thank you Dr. 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 Last Myocardial Infarction Date:: 2019 History of Any Multi-Drug Resistant Organisms: None Reported Past Surgical History: Appendectomy, Bowel Resection, Coronary Bypass/CABG, Ear Surgery, Heart Catheterization, Hernia Repair Additional Past Surgical History / Comment(s): R chest port for dialysis, R upper arm hemodialysis cath/has been ballooned and not able to use for dialysis yet, craniotomy for benign tumor, 3 vessel CABG in 2003, laparotomy for subc utaeous emphysema in bowel per daughters/extensive hospitalization, L caratid endartectomy, TURP, hemodialysis port in R chest/L upper arm, surgery to taper ears, EGD, colonoscopy, pain clinic procedures. Past Anesthesia/Blood Transfusion Reactions: No Reported Reaction Additional Past Anesthesia/Blood Transfusion Reaction / Comm: Pt has received b lood in past without reaction. Smoking Status: Former smoker - Past Family History Sister(s) Family Medical History: Cancer Additional Family Medical History / Comment(s): kidney Mother Family Medical History: Myocardial Infarction (CO) Additional Family Medical History / Comment(s): Mother of a CO in her 80s. Father Family Medical History: Myocardial Infarction (CO) Brother(s) Family Medical History: Myocardial Infarction (CO) Medications and Allergies Home Medications Medication Instructions Recorded Confirmed Type Zafirlukast 20 mg PO BID 09/30/14 10/24/21 History Tamsulosin HCl [Flomax] 0.4 mg PO HS 04/26/20 10/24/21 History Terazosin HCl 10 mg PO HS 04/26/20 10/24/21 History busPIRone HCL [Buspar] 7.5 mg PO BID 04/26/20 10/24/21 History Atorvastatin [Lipitor] 80 mg PO HS #30 tab 05/02/20 10/24/21 Rx Isosorbide Mononitrate ER [Imdur] 30 mg PO DAILY 06/18/20 10/24/21 History Albuterol Nebulized [Ventolin 2.5 mg INHALATION RT-Q4H 06/27/20 10/24/21 History Nebulized] amLODIPine [Norvasc] 10 mg PO HS #30 tablet 07/01/20 10/24/21 Rx Cyanocobalamin (Vitamin B-12) 1,000 mcg PO DAILY 10/24/21 10/24/21 History [Vitamin B-12] Furosemide [Lasix] 40 mg PO DAILY 10/24/21 10/24/21 History Ondansetron [Zofran] 4 mg PO Q12HR PRN 10/24/21 10/24/21 History Pantoprazole [Protonix] 40 mg PO DAILY 10/24/21 10/24/21 History Sodium Bicarbonate Tab 650 mg PO ACHS 10/24/21 10/24/21 History Sucralfate [Carafate] 1 gm PO ACHS 10/24/21 10/24/21 History Allergies Allergy/AdvReac Type Severity Reaction Status Date / Time morphine Allergy Severe Rash/Hives Verified 10/24/21 13:07 lorazepam [From Ativan] AdvReac Confusion Verified 10/24/21 14:05 Physical Exam Vitals: Vital Signs Temp Pulse Pulse Resp BP BP Pulse Ox 10/24/21 15:00 98.6 F 67 16 169/65 97 10/24/21 13:22 74 18 186/79 97 10/24/21 11:48 97 10/24/21 11:15 98 F 81 18 167/71 90 L Intake and Output 10/24/21 10/24/21 10/24/21 06:59 14:59 22:59 Other: Weight 73.936 kg Results CBC & Chem 7: 10/24/21 11:56 10/24/21 11:56 Labs: Abnormal Lab Results - Last 24 Hours (Table) 10/24/21 10/24/21 10/24/21 Range/Units 11:56 11:56 12:01 WBC 11.6 H (3.8-10.6) k/uL RBC 3.34 L (4.30-5.90) m/uL Hgb 12.4 L (13.0-17.5) gm/dL Hct 36.7 L (39.0-53.0) % MCV 109.9 H (80.0-100.0) fL MCH 37.1 H (25.0-35.0) pg Neutrophils # 9.7 H (1.3-7.7) k/uL Lymphocytes # 0.9 L (1.0-4.8) k/uL Macrocytosis Marked A Sodium 134 L (137-145) mmol/L Potassium 5.3 H (3.5-5.1) mmol/L Chloride 94 L (98-107) mmol/L BUN 89 H (9-20) mg/dL Creatinine 7.45 H* (0.66-1.25) mg/dL Total Protein 6.2 L (6.3-8.2) g/dL Albumin 3.2 L (3.5-5.0) g/dL Urine Protein 3+ H (Negative) Urine Mucus Rare H (None) /hpf
--- NOTE | 2021-10-24 18:40 | XR ---
EXAMINATION TYPE: XR chest 1V DATE OF EXAM: 10/24/2021 6:27 PM COMPARISON:Multiple radiographs, with the most recent on 05/04/2020 TECHNIQUE: XR chest 1V Frontal view of the chest. CLINICAL INDICATION:Male, 81 years old with history of ng tube placement; FINDINGS: Lungs/Pleura: There is no evidence of pleural effusion, focal consolidation, or pneumothorax. Increa sed lucency in the lung apices. Pulmonary vascularity: Unremarkable. Heart/mediastinum: Cardiomediastinal silhouette is unremarkable. Musculoskeletal: No acute osseous pathology. There is fixation hardware in the lower cervical spine. Midline sternotomy wires and surgical clips project over the mediastinum. Lines/Tubes: Nasogastric tube with its distal tip projecting over the gastric lumen. The side-port projects over t he distal esophagus. Right internal jugular central venous catheter with distal tip at the cavoatrial junction. IMPRESSION: Nasogastric tube side-port projecting in the distal esophagus consider advancement 6 cm for optimal p lacement. COPD changes.
[2021-10-24] MEDS: ALBUTEROL NEBULIZED 2.5 MG/3 ML INHALATION SCH (19:32)
[2021-10-24] MEDS: ATORVASTATIN 80 MG TAB PO SCH (20:43)
[2021-10-24] MEDS: amLODIPine 10 MG TAB PO SCH (20:43)
[2021-10-24] MEDS: TAMSULOSIN 0.4 MG CAP.ER.24H PO SCH (20:44)
[2021-10-24] MEDS: busPIRone HCl 5 MG TAB PO SCH (20:44)
[2021-10-24] MEDS: MONTELUKAST 10 MG TAB PO SCH (20:44)
[2021-10-24] MEDS: DOXAZOSIN 4 MG TAB PO SCH (20:44)
[2021-10-24] MEDS: ENOXAPARIN 30 MG/0.3 ML SYRINGE SQ SCH (20:45)
--- NOTE | 2021-10-24 23:25 | XR ---
EXAMINATION TYPE: XR chest 1V portable DATE OF EXAM: 10/24/2021 COMPARISON: Today HISTORY: Check tube placement TECHNIQUE: FINDINGS: There is blunting of the costophrenic angles. There is atelectasis at both lung bases. Ther e is mild pulmonary congestion. There is dual lumen right-sided central venous catheter with tip in t he top of the right atrium. There are sternal wires. There is nasogastric tube with the tip well into the stomach. Tip is not included on the exam. There is cervical spine fusion surgery noted. IMPRESSION: There is some pleural fluid and atelectasis at the lung bases that is not significantly different aurelia n exam 5 hours ago. No obvious heart failure. Nasogastric tube is in the stomach. IMPRESSION:
[2021-10-25] MEDS: ALBUTEROL NEBULIZED 2.5 MG/3 ML INHALATION SCH ×6 (00:36→20:26)
[2021-10-25] MEDS: PIPERACILLIN-TAZOBACTAM 3.375 GM in SODIUM CHLORIDE 0.9% 100 ML IVPB SCH ×2 (01:10→15:37)
[2021-10-25] MEDS: PANTOPRAZOLE 40 MG TABLET PO SCH (07:39)
[2021-10-25] MEDS: ISOSORBIDE MONONITRATE ER 30 MG TAB.ER.24H PO SCH (07:39)
[2021-10-25] MEDS: busPIRone HCl 5 MG TAB PO SCH ×2 (07:39→21:44)
--- NOTE | 2021-10-25 12:32 | P.PN ---
Progress Note - Text Progress Note Date: 10/25/21 Patient states he feels better. His abdomen is less tense. He has significantly less pain. On exam vital signs are stable. NG tube has approximately 200 mL in the canister. The fluid is bilious. Abdomen is soft. There is less tenderness in the gastric. There is less distention. There is no rebound or guarding. Small bowel obstruction. Patient will continue nasogastric tube decompression. He has not had any significant flatus. If his condition does not improve he may need exploratory laparotomy for lysis of adhesions.
--- NOTE | 2021-10-25 14:36 | P.NPCON ---
History of Present Illness - Reason for Consult end stage renal disease - History of Present Illness Patient is a 81-year-old male with end-stage renal disease on hemodialysis on a Sunday schedule. He was admitted to the hospital with complaints of abdominal pain., Nausea and vomiting. Patient had not had a bowel movement for about 4 days prior to admission. CT abdomen shows evidence of focal bowel obstruction and fluid filled dilated loops. Abdominal aortic aneurysm up to 5.1 cm was noted Patient currently has an NG tube in place. Patient's states that he has not had dialysis yesterday and his treatment was cut short on Sunday last week. No shortness of breath or chest pains. Review of Systems As per HPI Past Medical History Past Medical History: Atrial Fibrillation, Coronary Artery Disease (CAD), COPD, CVA/TIA, Dialysis, GERD/Reflux, Hypertension, Myocardial Infarction (WA), Osteoarthritis (OA), Pneumonia, Renal Disease, Respiratory Disorder, Vascular Disorder Additional Past Medical History / Comment(s): ESRD with hemodialysis on //, pt has R chest port for dialysis and a L upper arm catheter but not using yet d/t it has had to be ballooned a couple of times, cardiomyopathy, WA in 1972 and 2019, 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 Last Myocardial Infarction Date:: 2019 History of Any Multi-Drug Resistant Organisms: None Reported Past Surgical History: Appendectomy, Bowel Resection, Coronary Bypass/CABG, Ear Surgery, Heart Catheterization, Hernia Repair Additional Past Surgical History / Comment(s): R chest port for dialysis, R upper arm hemodialysis cath/has been ballooned and not able to use for dialysis yet, craniotomy for benign tumor, 3 vessel CABG in 2003, laparotomy for subcutaeous emphysema in bowel per daughters/extensive hospitalization, L caratid endartectomy, TURP, hemodialysis port in R chest/L upper arm, surgery to taper ears, EGD, colonoscopy, pain clinic procedures. Past Anesthesia/Blood Transfusion Reactions: No Reported Reaction Additional Past Anesthesia/Blood Transfusion Reaction / Comment(s): Pt has received blood in past without reaction. Smoking Status: Former smoker - Past Family History Sister(s) Family Medical History: Cancer Additional Family Medical History / Comment(s): kidney Mother Family Medical History: Myocardial Infarction (WA) Additional Family Medical History / Comment(s): Mother of a WA in her 80s. Father Family Medical History: Myocardial Infarction (WA) Brother(s) Family Medical History: Myocardial Infarction (WA) Medications and Allergies Home Medications Medication Instructions Recorded Confirmed Type Zafirlukast 20 mg PO BID 09/30/14 10/24/21 History Tamsulosin HCl [Flomax] 0.4 mg PO HS 04/26/20 10/24/21 History Terazosin HCl 10 mg PO HS 04/26/20 10/24/21 History busPIRone HCL [Buspar] 7.5 mg PO BID 04/26/20 10/24/21 History Atorvastatin [Lipitor] 80 mg PO HS #30 tab 05/02/20 10/24/21 Rx Isosorbide Mononitrate ER [Imdur] 30 mg PO DAILY 06/18/20 10/24/21 History Albuterol Nebulized [Ventolin 2.5 mg INHALATION RT-Q4H 06/27/20 10/24/21 History Nebulized] amLODIPine [Norvasc] 10 mg PO HS #30 tablet 07/01/20 10/24/21 Rx Cyanocobalamin (Vitamin B-12) 1,000 mcg PO DAILY 10/24/21 10/24/21 History [Vitamin B-12] Furosemide [Lasix] 40 mg PO DAILY 10/24/21 10/24/21 History Ondansetron [Zofran] 4 mg PO Q12HR PRN 10/24/21 10/24/21 History Pantoprazole [Protonix] 40 mg PO DAILY 10/24/21 10/24/21 History Sodium Bicarbonate Tab 650 mg PO ACHS 10/24/21 10/24/21 History Sucralfate [Carafate] 1 gm PO ACHS 10/24/21 10/24/21 History Allergies Allergy/AdvReac Type Severity Reaction Status Date / Time morphine Allergy Severe Rash/Hives Verified 10/24/21 13:07 lorazepam [From Ativan] AdvReac Confusion Verified 10/24/21 14:05 Physical Exam Vitals: Vital Signs Temp Pulse Pulse Resp BP Pulse Ox 10/25/21 08:43 72 10/25/21 08:34 70 10/25/21 07:32 98.6 F 73 16 164/70 95 10/25/21 02:01 98.4 F 77 20 148/63 93 L 10/24/21 19:44 70 10/24/21 19:35 66 10/24/21 19:15 98.4 F 66 18 190/72 95 10/24/21 15:00 98.6 F 67 16 169/65 97 Intake and Output 10/24/21 10/25/21 10/25/21 22:59 06:59 14:59 Other: Voiding Method Toilet # Voids 3 Patient is awake, comfortable, not in any acute distress Examination of the heart S1 and S2 Examination lungs bilateral breath sounds are heard Abdomen is soft, mild tenderness. Examination of lower extremities shows no evidence of edema Results - Lab Results Most recent lab results Calcium 8.5 mg/dL (8.4-10.2) 10/24/21 11:56 10/24/21 11:56 10/24/21 11:56 Assessment and Plan Assessment: 1. End-stage renal disease on hemodialysis on a Sunday schedule 2. Bowel obstruction currently with NG tube in place. Surgery on consult 3. CK D mineral bone disorder 4. Mild hyperkalemia, expect improvement with hemodialysis Plan: Hemodialysis today and then again in a.m. to get patient back on his schedule. However if he is in surgery tomorrow we can postpone his treatment to .
--- NOTE | 2021-10-25 15:03 | P.PN ---
Progress Note - Text Progress Note Date: 10/25/21 - Chief Complaint Abdominal pain History of presenting complaint: This is a pleasant 81-year-old patient, follows with Dr. Junior Jalloh. Chronic stable medical conditions include coronary artery disease with bypass, COPD, GERD, hard of hearing, hypertension, osteoarthritis, abdominal aneurysm,. Last week patient had repair of his left upper extremity fistula by Dr. Mccann from vascular. Patient has right upper chest wall dialysis catheter since July of this year. Dialysis on Sunday and Sunday. Follows with Dr. Chavis. 4 days ago patient started having nausea vomiting increasing abdominal pain that progressed to get worse. Patient normally has a bowel movement every 3-4 days and sometimes takes a laxative. Patient's had no bowel movement for last 4 days. Denies any fever and chills. Tired rundown. Patient does make some urine. Patient is accompanied by his 2 daughters. Computed tomography scan of the ER didn't show internal hernia causing focal bowel obstruction. With one fluid-filled dilated loop. Moderate wall thickening. Focal infrarenal AAA 5.1 cm. October 25: NG tube came out last night. Not much output documented. Connected to suction today. Abdominal pain present. No flatus. present. Active Medications Albuterol Sulfate (Albuterol Nebulized 2.5 Mg/3 Ml) 2.5 mg INHALATION RT-Q4H [facility] Last Admin: 10/25/21 12:10 Dose: Not Given Documented by: Amlodipine Besylate (Amlodipine 10 Mg Tab) 10 mg PO [facility] Last Admin: 10/24/21 20:43 Dose: 10 mg Documented by: Atorvastatin Calcium (Atorvastatin 80 Mg Tab) 80 mg PO [facility] Last Admin: 10/24/21 20:43 Dose: 80 mg Documented by: Buspirone HCl (Buspirone Hcl 5 Mg Tab) 7.5 mg PO BID [facility] Last Admin: 10/25/21 07:39 Dose: 7.5 mg Documented by: Doxazosin Mesylate (Doxazosin 4 Mg Tab) 8 mg PO [facility] Last Admin: 10/24/21 20:44 Dose: 8 mg Documented by: Enoxaparin Sodium (Enoxaparin 30 Mg/0.3 Ml Syringe) 30 mg SQ DAILY@1800 [facility] Last Admin: 10/24/21 20:45 Dose: 30 mg Documented by: Hydromorphone HCl (Hydromorphone 0.5 Mg/0.5 Ml Syringe) 0.5 mg IVP Q6HR PRN PRN Reason: Pain Last Admin: 10/24/21 13:58 Dose: 0.5 mg Documented by: Piperacillin Sod/Tazobactam (Sod 3.375 gm/ Sodium Chloride) 100 mls @ 25 mls/hr IVPB Q12H [facility]; Protocol Last Admin: 10/25/21 01:10 Dose: 25 mls/hr Documented by: Sodium Chloride (Saline 0.9%) 1,000 mls @ 50 mls/hr IV .Q20H [facility] Isosorbide Mononitrate (Isosorbide Mononitrate Er 30 Mg Tab.Er.24h) 30 mg PO DAILY [facility] Last Admin: 10/25/21 07:39 Dose: 30 mg Documented by: Montelukast Sodium (Montelukast 10 Mg Tab) 10 mg PO [facility] Last Admin: 10/24/21 20:44 Dose: 10 mg Documented by: Pantoprazole Sodium (Pantoprazole 40 Mg Tablet) 40 mg PO DAILY@0730 [facility] Last Admin: 10/25/21 07:39 Dose: 40 mg Documented by: Tamsulosin HCl (Tamsulosin 0.4 Mg Cap.Er.24h) 0.4 mg PO [facility] Last Admin: 10/24/21 20:44 Dose: 0.4 mg Documented by: Past medical history to include: Coronary artery disease, COPD, TIA, GERD, hard of hearing, hypertension, osteoarthritis, end-stage kidney disease on hemodialysis Sunday, abdominal aneurysm, coronary bypass, Social history: Lives with . Smoked a pack a day for 64 years stopped in 2019. 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 Physical examination: VITAL SIGNS: 98.6, 73, 16, 160/70, 95% on 2 L GENERAL: Reclining in bed, tired tired. Right upper chest wall dialysis catheter. Fistula left upper extremity EYES: Pupils equal. Conjunctiva normal. HEENT: External appearance of nose and ears normal, oral cavity dry mucous membranes. Decreased hearing NECK: JVD not raised; masses not palpable. HEART: First and second heart sounds are normal; no edema. LUNGS: Respiratory rate normal; clear to auscultation. ABDOMEN: Soft, tender, no guarding rigidity, liver spleen not palpable, no masses palpable. PSYCH: Alert and oriented x3; mood and affect normal. MUSCULOSKELETAL:No Clubbing/cyanosis;muscles-grossly intact. Evidence of OA INVESTIGATIONS, reviewed in the clinical context: White count 9.6 hemoglobin 12.4 platelets 153 sodium 134 potassium 5.3 BUN 89 creatinine 7.45 EKG tracing personally reviewed by me-normal sinus rhythm 76/m. Computed tomography scan abdomen: Internal hernia causing focal bowel obstruction. Focal infrarenal AAA up to 5.1 cm. Assessment and plan: -Acute bowel obstruction from internal hernia symptoms present for 4 days: Slow to respond NG tube to suction. Follow with Dr. Means.-. -End-stage kidney disease on hemodialysis Sunday and Sunday Patient has a right chest wall dialysis catheter. Left upper extremity fistula that was recently repaired by Dr. Mccann from vascular -Hyperkalemia from chronic kidney disease Follow with dialysis -Anemia of chronic kidney disease Follow H&H -Hypertension with chronic kidney disease Amlodipine 10 mg daily at bedtime, Imdur ER 30 mg daily, -COPD in an ex-smoker Albuterol 2.5 every 4 -Coronary artery disease prior history of coronary bypass Imdur ER 30 mg a day -GERD Protonix -Hard of hearing -Urine outflow obstruction Flomax 0.4 mg daily at bedtime -Primary osteoarthritis Pain medications as needed Continue NG tube. Medications. Hemodialysis schedule. Slow to respond. Discussed with patient and . Thank you Dr. Means
[2021-10-25] MEDS: SODIUM CHLORIDE 0.9% 1,000 ML IV SCH (15:37)
[2021-10-25] MEDS: ENOXAPARIN 30 MG/0.3 ML SYRINGE SQ SCH (17:16)
[2021-10-25] MEDS: DOXAZOSIN 4 MG TAB PO SCH (21:44)
[2021-10-25] MEDS: MONTELUKAST 10 MG TAB PO SCH (21:45)
[2021-10-25] MEDS: ATORVASTATIN 80 MG TAB PO SCH (21:45)
[2021-10-25] MEDS: amLODIPine 10 MG TAB PO SCH (21:45)
[2021-10-25] MEDS: TAMSULOSIN 0.4 MG CAP.ER.24H PO SCH (21:47)
[2021-10-26] MEDS: ALBUTEROL NEBULIZED 2.5 MG/3 ML INHALATION SCH ×7 (00:25→23:11)
--- NOTE | 2021-10-26 01:24 | XR ---
EXAMINATION TYPE: XR chest 1V portable DATE OF EXAM: 10/26/2021 COMPARISON: 10/24/2021 HISTORY: Check tube placement TECHNIQUE: Single view FINDINGS: There is nasogastric tube in the stomach. There are some mild atelectasis at the lung bases . There is blunting right costophrenic angle. There is a right dual-lumen central venous catheter wit h tip in the right atrium. There are sternal wires. No heart failure seen. IMPRESSION: NG tube is in the stomach. There is some pleural reaction and atelectasis at the lung bas es without change.
[2021-10-26] MEDS: PIPERACILLIN-TAZOBACTAM 3.375 GM in SODIUM CHLORIDE 0.9% 100 ML IVPB SCH ×2 (02:11→14:18)
[2021-10-26] MEDS: ISOSORBIDE MONONITRATE ER 30 MG TAB.ER.24H PO SCH (08:19)
[2021-10-26] MEDS: busPIRone HCl 5 MG TAB PO SCH ×2 (08:19→22:02)
[2021-10-26] MEDS: PANTOPRAZOLE 40 MG TABLET PO SCH (08:19)
[2021-10-26] MEDS: SODIUM CHLORIDE 0.9% 1,000 ML IV SCH (08:20)
[2021-10-26 09:52] LABS: HGB 10.1 g/dL (13.0-17.0); MCH 34.7 pg (27.0-32.0); MCHC 31.6 g/dL (32.0-37.0); Mean Platelet Volume 11.5 fL (9.5-12.2); NRBC Per 100 WBC 0 /100 WBCS (0.0-0.0); Platelet Count 155 X 10*3/uL (140-440); RBC 2.91 X 10*6/uL (4.40-5.60)
[2021-10-26 10:06] LABS: Albumin 3.1 g/dL (3.8-4.9); Albumin/Globulin Ratio 1.35 (1.60-3.17); Anion Gap 16.3 mmol/L (10.00-18.00); BUN/Creat Ratio 8.67 Ratio (12.00-20.00); Blood Urea Nitrogen 45.1 mg/dL (9.0-27.0); Calcium 8.1 mg/dL (8.7-10.3); Carbon Dioxide 22.7 mmol/L (20.0-27.5); Globulin 2.3 g/dL (1.6-3.3); Non-African American GFR(CKD) 9.5 (60.0-200.0); Potassium 4.4 mmol/L (3.5-5.5); Total Bilirubin 0.4 mg/dL (0.30-1.20); Total Protein 5.4 g/dL (6.2-8.2)
[2021-10-26 12:01] LABS: Basophils # (A) 0.03 X 10*3/uL (0.00-0.10); Basophils % (A) 0.4 %; Eosinophils # (A) 0.13 X 10*3/uL (0.04-0.35); Eosinophils % (A) 1.8 %; Immature Grans, Automated 0.4 %; Lymphocytes # (A) 0.77 X 10*3/uL (0.90-5.00); Lymphocytes % (A) 10.5 %; Monocytes # (A) 0.83 X 10*3/uL (0.20-1.00); Monocytes % (A) 11.4 %; Neutrophils # (A) 5.51 X 10*3/uL (1.80-7.70); Neutrophils % (A) 75.5 %
[2021-10-26 12:02] LABS: Elliptocytes 2+
--- NOTE | 2021-10-26 12:11 | P.PN ---
Subjective Patient is seen for follow-up for end-stage renal disease. He was admitted to the hospital with abdominal pain and found to have bowel obstruction. Currently patient has an NG tube in place. He is normally maintained on a Sunday vent is a Sunday schedule but had missed his treatment on Sunday and received a hemodialysis treatment yesterday. Currently maintained on saline at 50 mL an hour. Objective - Vital Signs Vital signs: Vital Signs Temp 98.6 F 10/26/21 02:00 Pulse 73 10/26/21 11:40 Resp 17 10/26/21 07:49 BP 130/49 10/26/21 02:00 Pulse Ox 95 10/26/21 02:00 Intake & Output 10/25/21 10/26/21 10/26/21 18:59 06:59 18:59 Intake Total 400 Output Total 1650 450 Balance -1250 -450 Intake: Hemodialysis 400 Output: Gastric Drainage 250 250 Urine 200 Hemodialysis 1400 Other: Voiding Method Toilet Toilet - Exam patient is awake comfortable not in any acute distress. NG tube in place Examination of the heart S1 and S2 Examination lungs bilateral breath sounds are heard Abdomen is soft , tenderness mid abdomen Exertion lower extremity shows no evidence of edema - Labs CBC & Chem 7: 10/26/21 04:35 10/26/21 04:35 Labs: Abnormal Lab Results - Last 24 Hours (Table) 10/26/21 10/26/21 Range/Units 04:35 04:35 RBC 2.91 L (4.40-5.60) X 10*6/uL Hgb 10.1 L (13.0-17.0) g/dL Hct 32.0 L (39.6-50.0) % MCV 110.0 H (80.0-97.0) fL MCH 34.7 H (27.0-32.0) pg MCHC 31.6 L (32.0-37.0) g/dL Lymphocytes # 0.77 L (0.90-5.00) X 10*3/uL BUN 45.1 H (9.0-27.0) mg/dL Creatinine 5.2 H (0.6-1.5) mg/dL Est GFR (CKD-EPI)AfAm 11.0 L (60.0-200.0) Est GFR (CKD-EPI)NonAf 9.5 L (60.0-200.0) BUN/Creatinine Ratio 8.67 L (12.00-20.00) Ratio Glucose 61 L (70-110) mg/dL Calcium 8.1 L (8.7-10.3) mg/dL Total Protein 5.4 L (6.2-8.2) g/dL Albumin 3.1 L (3.8-4.9) g/dL Albumin/Globulin Ratio 1.35 L (1.60-3.17) g/dL Microbiology - Last 24 Hours (Table) 10/24/21 13:50 Blood Culture - Preliminary Blood No Growth after 24 hours Assessment and Plan Assessment: 1. End-stage renal disease on hemodialysis on a Sunday schedule 2. Bowel obstruction currently with NG tube in place. Surgery on consult 3. CK D mineral bone disorder 4. Mild hyperkalemia, improvement with hemodialysis Plan: hemodialysis In a.m. No significant UF.
--- NOTE | 2021-10-26 13:22 | P.PN ---
Progress Note - Text Progress Note Date: 10/26/21 - Chief Complaint Abdominal pain History of presenting complaint: This is a pleasant 81-year-old patient, follows with Dr. Junior Jalloh. Chronic stable medical conditions include coronary artery disease with bypass, COPD, GERD, hard of hearing, hypertension, osteoarthritis, abdominal aneurysm,. Last week patient had repair of his left upper extremity fistula by Dr. Mccann from vascular. Patient has right upper chest wall dialysis catheter since July of this year. Dialysis on Sunday and Sunday. Follows with Dr. Chavis. 4 days ago patient started having nausea vomiting increasing abdominal pain that progressed to get worse. Patient normally has a bowel movement every 3-4 days and sometimes takes a laxative. Patient's had no bowel movement for last 4 days. Denies any fever and chills. Tired rundown. Patient does make some urine. Patient is accompanied by his 2 daughters. Computed tomography scan of the ER didn't show internal hernia causing focal bowel obstruction. With one fluid-filled dilated loop. Moderate wall thickening. Focal infrarenal AAA 5.1 cm. October 25: NG tube came out last night. Not much output documented. Connected to suction today. Abdominal pain present. No flatus. present. October 26: NG tube remains to suction. Decreased abdominal pain. Patient denies any BM. Follow with surgery. Some confusion delirium. Active Medications Albuterol Sulfate (Albuterol Nebulized 2.5 Mg/3 Ml) 2.5 mg INHALATION RT-Q4H [facility] Last Admin: 10/26/21 11:27 Dose: 2.5 mg Documented by: Amlodipine Besylate (Amlodipine 10 Mg Tab) 10 mg PO [facility] Last Admin: 10/25/21 21:45 Dose: 10 mg Documented by: Atorvastatin Calcium (Atorvastatin 80 Mg Tab) 80 mg PO [facility] Last Admin: 10/25/21 21:45 Dose: 80 mg Documented by: Buspirone HCl (Buspirone Hcl 5 Mg Tab) 7.5 mg PO BID [facility] Last Admin: 10/26/21 08:19 Dose: 7.5 mg Documented by: Doxazosin Mesylate (Doxazosin 4 Mg Tab) 8 mg PO [facility] Last Admin: 10/25/21 21:44 Dose: 8 mg Documented by: Enoxaparin Sodium (Enoxaparin 30 Mg/0.3 Ml Syringe) 30 mg SQ DAILY@1800 [facility] Last Admin: 10/25/21 17:16 Dose: 30 mg Documented by: Hydromorphone HCl (Hydromorphone 0.5 Mg/0.5 Ml Syringe) 0.5 mg IVP Q6HR PRN PRN Reason: Pain Last Admin: 10/24/21 13:58 Dose: 0.5 mg Documented by: Piperacillin Sod/Tazobactam (Sod 3.375 gm/ Sodium Chloride) 100 mls @ 25 mls/hr IVPB Q12H [facility]; Protocol Last Admin: 10/26/21 02:11 Dose: 25 mls/hr Documented by: Sodium Chloride (Saline 0.9%) 1,000 mls @ 50 mls/hr IV .Q20H [facility] Last Admin: 10/26/21 08:20 Dose: 50 mls/hr Documented by: Isosorbide Mononitrate (Isosorbide Mononitrate Er 30 Mg Tab.Er.24h) 30 mg PO DAILY [facility] Last Admin: 10/26/21 08:19 Dose: 30 mg Documented by: Montelukast Sodium (Montelukast 10 Mg Tab) 10 mg PO [facility] Last Admin: 10/25/21 21:45 Dose: 10 mg Documented by: Pantoprazole Sodium (Pantoprazole 40 Mg Tablet) 40 mg PO DAILY@0730 [facility] Last Admin: 10/26/21 08:19 Dose: 40 mg Documented by: Tamsulosin HCl (Tamsulosin 0.4 Mg Cap.Er.24h) 0.4 mg PO [facility] Last Admin: 10/25/21 21:47 Dose: 0.4 mg Documented by: Past medical history to include: Coronary artery disease, COPD, TIA, GERD, hard of hearing, hypertension, osteoarthritis, end-stage kidney disease on hemodialysis Sunday, abdominal aneurysm, coronary bypass, Social history: Lives with . Smoked a pack a day for 64 years stopped in 2019. 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 Physical examination: VITAL SIGNS: 98.6, 73, 17, 1:30/49, 95% on 2 L GENERAL: Reclining in bed, tired tired. Right upper chest wall dialysis catheter. Fistula left upper extremity EYES: Pupils equal. Conjunctiva normal. HEENT: External appearance of nose and ears normal, oral cavity dry mucous membranes. Decreased hearing NECK: JVD not raised; masses not palpable. HEART: First and second heart sounds are normal; no edema. LUNGS: Respiratory rate normal; clear to auscultation. ABDOMEN: Soft, tender, no guarding rigidity, liver spleen not palpable, no masses palpable. PSYCH: A bit confused. Answering occasional question. MUSCULOSKELETAL:No Clubbing/cyanosis;muscles-grossly intact. Evidence of OA INVESTIGATIONS, reviewed in the clinical context: October 26: White count 7.3 hemoglobin 10.1 sodium 138 potassium 4.4 total bilirubin 0.4 White count 9.6 hemoglobin 12.4 platelets 153 sodium 134 potassium 5.3 BUN 89 creatinine 7.45 EKG tracing personally reviewed by me-normal sinus rhythm 76/m. Computed tomography scan abdomen: Internal hernia causing focal bowel obstruction. Focal infrarenal AAA up to 5.1 cm. Assessment and plan: -Acute bowel obstruction from internal hernia symptoms present for 4 days: Slow to respond NG tube to suction. Follow with Dr. Means.-. -End-stage kidney disease on hemodialysis Sunday and Sunday Patient has a right chest wall dialysis catheter. Left upper extremity fistula that was recently repaired by Dr. Mccann from vascular -Hyperkalemia from chronic kidney disease Follow with dialysis -Anemia of chronic kidney disease Follow H&H -Hypertension with chronic kidney disease Amlodipine 10 mg daily at bedtime, Imdur ER 30 mg daily, -COPD in an ex-smoker Albuterol 2.5 every 4 -Coronary artery disease prior history of coronary bypass Imdur ER 30 mg a day -GERD Protonix -Hard of hearing -Urine outflow obstruction Flomax 0.4 mg daily at bedtime -Primary osteoarthritis Pain medications as needed -Acute delirium, multifactorial Follow clinically follow labs Continue NG tube. Medications. Hemodialysis schedule. Follow with surgery. Thank you Dr. Means
[2021-10-26] MEDS: IOPAMIDOL CONTRAST (ORAL USE) VIAL PO PRN ×2 (15:28→16:22)
--- NOTE | 2021-10-26 17:06 | P.PN ---
Progress Note - Text Progress Note Date: 10/26/21 Patient's feels slightly better today. He has had minimal output through his NG tube. On exam vital signs are stable. Abdomen soft. There is minimal tenderness there is no rebound or guarding. C. diff patient does not have significant bowel function. The patient will have repeat CAT scan performed with oral contrast to evaluate his small bowel obstruction. If this is resolved he'll start on diet.
--- NOTE | 2021-10-26 18:12 | CT ---
EXAMINATION TYPE: CT abdomen pelvis wo con DATE OF EXAM: 10/26/2021 COMPARISON: HISTORY: Suspected bowel obstruction. TECHNIQUE: CT scan of the CT DLP: 452.4 mGycm Automated exposure control for dose reduction was used. FINDINGS: Within the limitations of a non-contrast IV study, the following observations are made. LUNG BASES: Bibasilar opacities which may be reflective of atelectasis or consolidation no significan t change. There is trace bilateral pleural effusions. Cardiomegaly with coronary artery calcification LIVER/GB: Gallbladder calculi again seen. Unremarkable appearance of the liver. No biliary ductal dil atation. PANCREAS: No significant abnormality is seen. SPLEEN: No significant abnormality is seen. ADRENALS: Slight nodular thickening right adrenal gland axial image 17 no significant change since pr ior. KIDNEYS: There are findings of chronic kidney disease including cortical thinning. There are scattere d bilateral punctate and tiny calcifications which may be vascular in origin. There are low attenuati ng lesions in the right renal cortex some of which are exophytic and are not changed in appearance co mpared to prior and are likely on the basis of cyst. BOWEL: Stomach is unremarkable. There are small bowel loops in the left mid and upper abdomen as anno tated on the image with bowel wall thickening. The small bowel loops mildly distended. Does appear le ss dilated compared to the prior study. There is no intestinal obstruction as there is air and fecal material in the rectum and sigmoid colon. There is sigmoid diverticulosis. No findings of acute diver ticulitis. Enteric tube courses into the stomach GENITAL ORGANS: No gross abnormality seen. LYMPH NODES: No greater than 1cm abdominal or pelvic lymph nodes are appreciated. OSSEOUS STRUCTURES: No acute abnormality is seen. OTHER: Severe atherosclerotic disease of the aorta extend into the distal branch vessels. Abdominal a ortic aneurysm is again seen and measures 5.1 x 5.0 cm. IMPRESSION: 1. No complete intestinal obstruction. 2. Mildly distended small bowel loops in the left mid and upper abdomen. Long segment small bowel wal l thickening which could be infectious, inflammatory or vascular in etiology.Question internal hernia left upper abdomen similar to prior study? 3. Abdominal aortic aneurysm measuring up to 5.1 x 5.0 cm no significant change. 4. See body of report for additional findings, no significant change in the interval.
[2021-10-26] MEDS: ENOXAPARIN 30 MG/0.3 ML SYRINGE SQ SCH (18:23)
[2021-10-26] MEDS: DOXAZOSIN 4 MG TAB PO SCH (22:01)
[2021-10-26] MEDS: TAMSULOSIN 0.4 MG CAP.ER.24H PO SCH (22:02)
[2021-10-26] MEDS: MONTELUKAST 10 MG TAB PO SCH (22:02)
[2021-10-26] MEDS: amLODIPine 10 MG TAB PO SCH (22:02)
[2021-10-26] MEDS: ATORVASTATIN 80 MG TAB PO SCH (22:02)
[2021-10-27] MEDS: PIPERACILLIN-TAZOBACTAM 3.375 GM in SODIUM CHLORIDE 0.9% 100 ML IVPB SCH ×2 (02:14→13:53)
[2021-10-27] MEDS: ALBUTEROL NEBULIZED 2.5 MG/3 ML INHALATION SCH ×6 (05:08→23:56)
[2021-10-27] MEDS: SODIUM CHLORIDE 0.9% 1,000 ML IV SCH (07:21)
[2021-10-27] MEDS: busPIRone HCl 5 MG TAB PO SCH ×2 (08:37→21:08)
[2021-10-27] MEDS: ISOSORBIDE MONONITRATE ER 30 MG TAB.ER.24H PO SCH (08:37)
[2021-10-27] MEDS: PANTOPRAZOLE 40 MG TABLET PO SCH (08:37)
--- NOTE | 2021-10-27 13:18 | P.PN ---
Progress Note - Text Progress Note Date: 10/27/21 - Chief Complaint Abdominal pain History of presenting complaint: This is a pleasant 81-year-old patient, follows with Dr. Junior Jalloh. Chronic stable medical conditions include coronary artery disease with bypass, COPD, GERD, hard of hearing, hypertension, osteoarthritis, abdominal aneurysm,. Last week patient had repair of his left upper extremity fistula by Dr. Mccann from vascular. Patient has right upper chest wall dialysis catheter since July of this year. Dialysis on Sunday and Sunday. Follows with Dr. Chavis. 4 days ago patient started having nausea vomiting increasing abdominal pain that progressed to get worse. Patient normally has a bowel movement every 3-4 days and sometimes takes a laxative. Patient's had no bowel movement for last 4 days. Denies any fever and chills. Tired rundown. Patient does make some urine. Patient is accompanied by his 2 daughters. Computed tomography scan of the ER didn't show internal hernia causing focal bowel obstruction. With one fluid-filled dilated loop. Moderate wall thickening. Focal infrarenal AAA 5.1 cm. October 25: NG tube came out last night. Not much output documented. Connected to suction today. Abdominal pain present. No flatus. present. October 26: NG tube remains to suction. Decreased abdominal pain. Patient denies any BM. Follow with surgery. Some confusion delirium. October 27: Apparently overnight NG to fill out. No nausea vomiting. Getting hemodialysis today. Patient does not remember having any flatus or BM. Didn't remember. at the bedside. Decreased abdominal pain. Pending surgical evaluation today. Active Medications Albuterol Sulfate (Albuterol Nebulized 2.5 Mg/3 Ml) 2.5 mg INHALATION RT-Q4H [facility] Last Admin: 10/27/21 12:52 Dose: 2.5 mg Documented by: Amlodipine Besylate (Amlodipine 10 Mg Tab) 10 mg PO [facility] Last Admin: 10/26/21 22:02 Dose: 10 mg Documented by: Atorvastatin Calcium (Atorvastatin 80 Mg Tab) 80 mg PO [facility] Last Admin: 10/26/21 22:02 Dose: 80 mg Documented by: Buspirone HCl (Buspirone Hcl 5 Mg Tab) 7.5 mg PO BID [facility] Last Admin: 10/27/21 08:37 Dose: 7.5 mg Documented by: Doxazosin Mesylate (Doxazosin 4 Mg Tab) 8 mg PO [facility] Last Admin: 10/26/21 22:01 Dose: 8 mg Documented by: Enoxaparin Sodium (Enoxaparin 30 Mg/0.3 Ml Syringe) 30 mg SQ DAILY@1800 [facility] Last Admin: 10/26/21 18:23 Dose: 30 mg Documented by: Hydromorphone HCl (Hydromorphone 0.5 Mg/0.5 Ml Syringe) 0.5 mg IVP Q6HR PRN PRN Reason: Pain Last Admin: 10/24/21 13:58 Dose: 0.5 mg Documented by: Piperacillin Sod/Tazobactam (Sod 3.375 gm/ Sodium Chloride) 100 mls @ 25 mls/hr IVPB Q12H [facility]; Protocol Last Admin: 10/27/21 02:14 Dose: 25 mls/hr Documented by: Sodium Chloride (Saline 0.9%) 1,000 mls @ 50 mls/hr IV .Q20H [facility] Last Admin: 10/27/21 07:21 Dose: Not Given Documented by: Isosorbide Mononitrate (Isosorbide Mononitrate Er 30 Mg Tab.Er.24h) 30 mg PO DAILY [facility] Last Admin: 10/27/21 08:37 Dose: 30 mg Documented by: Montelukast Sodium (Montelukast 10 Mg Tab) 10 mg PO [facility] Last Admin: 10/26/21 22:02 Dose: 10 mg Documented by: Pantoprazole Sodium (Pantoprazole 40 Mg Tablet) 40 mg PO DAILY@0730 [facility] Last Admin: 10/27/21 08:37 Dose: 40 mg Documented by: Tamsulosin HCl (Tamsulosin 0.4 Mg Cap.Er.24h) 0.4 mg PO [facility] Last Admin: 10/26/21 22:02 Dose: 0.4 mg Documented by: Past medical history to include: Coronary artery disease, COPD, TIA, GERD, hard of hearing, hypertension, osteoarthritis, end-stage kidney disease on hemodialysis Sunday, abdominal aneurysm, coronary bypass, Social history: Lives with . Smoked a pack a day for 64 years stopped in 2019. 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 Physical examination: VITAL SIGNS: 98.2, 76, 18, 113/58, 95% on 2 L GENERAL: Reclining in bed, awake. Right upper chest wall dialysis catheter. Fistula left upper extremity EYES: Pupils equal. Conjunctiva normal. HEENT: External appearance of nose and ears normal, oral cavity dry mucous membranes. Decreased hearing NECK: JVD not raised; masses not palpable. HEART: First and second heart sounds are normal; no edema. LUNGS: Respiratory rate normal; clear to auscultation. ABDOMEN: Soft, tender, no guarding rigidity, liver spleen not palpable, no masses palpable. PSYCH: Answering questions more appropriately today.. MUSCULOSKELETAL:No Clubbing/cyanosis;muscles-grossly intact. Evidence of OA INVESTIGATIONS, reviewed in the clinical context: Computed tomography scan abdomen [October 26]: No complete distal obstruction. More distended small bowel loops. Long segment of small bowel wall thickening. October 26: White count 7.3 hemoglobin 10.1 sodium 138 potassium 4.4 total bilirubin 0.4 White count 9.6 hemoglobin 12.4 platelets 153 sodium 134 potassium 5.3 BUN 89 creatinine 7.45 EKG tracing personally reviewed by me-normal sinus rhythm 76/m. Computed tomography scan abdomen: Internal hernia causing focal bowel obstruction. Focal infrarenal AAA up to 5.1 cm. Assessment and plan: -Acute bowel obstruction from internal hernia symptoms present for 4 days: No complete obstruction as per repeat computed tomography scan. NG tube fell out.. Await further evaluation by Dr. Means-. -End-stage kidney disease on hemodialysis Sunday and Sunday Patient has a right chest wall dialysis catheter. Left upper extremity fistula that was recently repaired by Dr. Mccann from vascular -Hyperkalemia from chronic kidney disease Follow with dialysis -Anemia of chronic kidney disease Follow H&H -Hypertension with chronic kidney disease Amlodipine 10 mg daily at bedtime, Imdur ER 30 mg daily, -COPD in an ex-smoker Albuterol 2.5 every 4 -Coronary artery disease prior history of coronary bypass Imdur ER 30 mg a day -GERD Protonix -Hard of hearing -Urine outflow obstruction Flomax 0.4 mg daily at bedtime -Primary osteoarthritis Pain medications as needed -Acute delirium, multifactorial: Resolved Follow clinically follow labs NG tube fell out. Await further evaluation by surgery. Discussed with patient and at the bedside. Hemodialysis today. Delirium resolved Thank you Dr. Means
--- NOTE | 2021-10-27 13:55 | P.PN ---
Subjective Patient is seen for follow-up for end-stage renal disease. He was admitted to the hospital with abdominal pain and found to have bowel obstruction. Currently patient has an NG tube in place. Patient is normally maintained on a Sunday schedule as outpatient. His days have been switched here. We will dialyze him again tomorrow to get him back on the schedule. This morning patient is comfortable. NG tube is out. He states he is feeling hungry and wants to eat. No complaints of abdominal pain. Objective - Vital Signs Vital signs: Vital Signs Temp 98.2 F 10/27/21 07:04 Pulse 67 10/27/21 13:15 Resp 18 10/27/21 07:04 BP 138/50 10/27/21 13:15 Pulse Ox 95 10/27/21 07:04 Intake & Output 10/26/21 10/27/21 10/27/21 18:59 06:59 18:59 Intake Total 1360 Output Total 300 2000 Balance 1360 -300 -2000 Intake: Intake, IV Titration 400 Amount Sodium Chloride 0.9% 1, 400 000 ml @ 50 mls/hr IV . Q20H [facility] Rx#:[id number] Oral 960 Output: Gastric Drainage 200 Urine 100 1 Hemodialysis 1999 Other: Voiding Method Toilet Toilet Toilet # Voids 1 - Exam patient is awake comfortable not in any acute distress. NG tube in place Examination of the heart S1 and S2 Examination lungs bilateral breath sounds are heard Abdomen is soft , nontender Exertion lower extremity shows no evidence of edema - Labs CBC & Chem 7: 10/26/21 04:35 10/26/21 04:35 Labs: Microbiology - Last 24 Hours (Table) 10/24/21 13:50 Blood Culture - Preliminary Blood No Growth after 48 hours Assessment and Plan Assessment: 1. End-stage renal disease on hemodialysis on a Sunday schedule 2. Bowel obstruction, status post NG tube. Currently improved. Patient wants to eat. Surgery on consult 3. CK D mineral bone disorder 4. Mild hyperkalemia, improvement with hemodialysis Plan: Repeat hemodialysis in a.m. to get patient back on his Sunday schedule. No significant ultrafiltration. DC IV fluids
--- NOTE | 2021-10-27 16:04 | P.PN ---
Subjective Progress Note Date: 10/27/21 CHIEF COMPLAINT: Small bowel obstruction HISTORY OF PRESENT ILLNESS: Patient reports that the NG tube was accidentally pulled out again yesterday. He reports improvement in his abdominal pain and abdominal distention. However he's had no flatus. And is still having some tenderness on exam and is distended. Denies any nausea or vomiting. Patient had computed tomography scan abdomen and pelvis results demonstrating no complete intestinal obstruction. Mildly distended small bowel loops in the left mid and upper abdomen. Long segment small bowel wall thickening which could be infectious, inflammatory or vascular in etiology. Question internal hernia left upper abdomen similar to prior study. Afebrile. No new labs for today. Patient receiving hemodialysis today Patient seen and examined with Dr. olivas PHYSICAL EXAM: VITAL SIGNS: Reviewed. GENERAL: Well-developed in no acute distress. HEENT: No sclera icterus. Extraocular movements grossly intact. Moist buccal mucosa. Head is atraumatic, normocephalic. ABDOMEN: Soft. Distended. Diffuse tenderness but more so in the upper abdomen NEUROLOGIC: Alert and oriented. Cranial nerves II through XII grossly intact. ASSESSMENT: 1. Small bowel obstruction secondary to internal hernia. CAT scan showing evidence of improvement PLAN: -Advance diet to clear liquids -Monitor patient closely -Continue supportive care Physician Kettle Cleaner note has been reviewed by physician. Signing provider agrees with the documented findings, assessment, and plan of care. Objective - Vital Signs Vital signs: Vital Signs Temp 98.2 F 10/27/21 07:04 Pulse 61 10/27/21 13:10 Resp 18 10/27/21 07:04 BP 113/58 10/27/21 07:04 Pulse Ox 95 10/27/21 07:04 Intake & Output 10/26/21 10/27/21 10/27/21 18:59 06:59 18:59 Intake Total 1360 Output Total 300 1 Balance 1360 -300 -1 Intake: Intake, IV Titration 400 Amount Sodium Chloride 0.9% 1, 400 000 ml @ 50 mls/hr IV . Q20H [facility] Rx#:[id number] Oral 960 Output: Gastric Drainage 200 Urine 100 1 Other: Voiding Method Toilet Toilet Toilet # Voids 1 - Labs CBC & Chem 7: 10/26/21 04:35 10/26/21 04:35 Labs: Microbiology - Last 24 Hours (Table) 10/24/21 13:50 Blood Culture - Preliminary Blood No Growth after 48 hours
[2021-10-27] MEDS: ENOXAPARIN 30 MG/0.3 ML SYRINGE SQ SCH (17:41)
[2021-10-27] MEDS: TAMSULOSIN 0.4 MG CAP.ER.24H PO SCH (21:08)
[2021-10-27] MEDS: MONTELUKAST 10 MG TAB PO SCH (21:08)
[2021-10-27] MEDS: DOXAZOSIN 4 MG TAB PO SCH (21:08)
[2021-10-27] MEDS: ATORVASTATIN 80 MG TAB PO SCH (21:08)
[2021-10-27] MEDS: amLODIPine 10 MG TAB PO SCH (21:09)
[2021-10-28] MEDS: PIPERACILLIN-TAZOBACTAM 3.375 GM in SODIUM CHLORIDE 0.9% 100 ML IVPB SCH ×2 (01:14→13:34)
[2021-10-28] MEDS: ALBUTEROL NEBULIZED 2.5 MG/3 ML INHALATION SCH ×4 (04:12→21:34)
[2021-10-28] MEDS ORDERED: ALBUTEROL NEBULIZED 2.5 MG/3 ML INHALATION PRN (08:22)
[2021-10-28] MEDS: busPIRone HCl 5 MG TAB PO SCH ×2 (08:51→20:56)
[2021-10-28] MEDS: PANTOPRAZOLE 40 MG TABLET PO SCH (08:51)
[2021-10-28] MEDS: ISOSORBIDE MONONITRATE ER 30 MG TAB.ER.24H PO SCH (08:51)
[2021-10-28] MEDS ORDERED: ONDANSETRON 4 MG/2 ML VIAL IVP PRN (10:17)
--- NOTE | 2021-10-28 10:50 | P.PN ---
Subjective Patient is seen for follow-up for end-stage renal disease. He was admitted to the hospital with abdominal pain and found to have bowel obstruction. Status post NG tube Patient is normally maintained on a Sunday schedule as outpa tient. This morning patient is comfortable. NG tube is out. Patient is walking in the hallway. No complaints of abdominal pain but states that it feels distended today. Objective - Vital Signs Vital signs: Vital Signs Temp 98.2 F 10/28/21 07:15 Pulse 66 10/28/21 08:16 Resp 20 10/28/21 08:00 BP 146/58 10/28/21 07:15 Pulse Ox 94 L 10/28/21 08:05 Intake & Output 10/27/21 10/28/21 10/28/21 18:59 06:59 18:59 Intake Total 480 Output Total 2000 Balance -1521 Intake: Oral 480 Output: Urine 1 Hemodialysis 1999 Other: Voiding Method Toilet Toilet Toilet # Voids 1 2 - Exam Patient is awake comfortable, not in any acute distress Alert oriented 3 No edema noted in the legs Abdomen is distended. - Labs CBC & Chem 7: 10/26/21 04:35 10/26/21 04:35 Labs: Microbiology - Last 24 Hours (Table) 10/24/21 13:50 Blood Culture - Preliminary Blood No Growth after 72 hours Assessment and Plan Assessment: 1. End-stage renal disease on hemodialysis on a Sunday schedule 2. Bowel obstruction, status post NG tube. Currently improved. Patient wants to eat. Surgery on consult 3. CK D mineral bone disorder 4. Mild hyperkalemia, improvement with hemodialysis Plan: Hemodialysis today
--- NOTE | 2021-10-28 14:04 | P.PN ---
Progress Note - Text Progress Note Date: 10/28/21 - Chief Complaint Abdominal pain History of presenting complaint: This is a pleasant 81-year-old patient, follows with Dr. Junior Jalloh. Chronic stable medical conditions include coronary artery disease with bypass, COPD, GERD, hard of hearing, hypertension, osteoarthritis, abdominal aneurysm,. Last week patient had repair of his left upper extremity fistula by Dr. Mccann from vascular. Patient has right upper chest wall dialysis catheter since July of this year. Dialysis on Sunday and Sunday. Follows with Dr. Chavis. 4 days ago patient started having nausea vomiting increasing abdominal pain that progressed to get worse. Patient normally has a bowel movement every 3-4 days and sometimes takes a laxative. Patient's had no bowel movement for last 4 days. Denies any fever and chills. Tired rundown. Patient does make some urine. Patient is accompanied by his 2 daughters. Computed tomography scan of the ER didn't show internal hernia causing focal bowel obstruction. With one fluid-filled dilated loop. Moderate wall thickening. Focal infrarenal AAA 5.1 cm. October 25: NG tube came out last night. Not much output documented. Connected to suction today. Abdominal pain present. No flatus. present. October 26: NG tube remains to suction. Decreased abdominal pain. Patient denies any BM. Follow with surgery. Some confusion delirium. October 27: Apparently overnight NG to fill out. No nausea vomiting. Getting hemodialysis today. Patient does not remember having any flatus or BM. Didn't remember. at the bedside. Decreased abdominal pain. Pending surgical evaluation today. October 28: Patient has some nausea earlier today. Made nothing by mouth.. Some abdominal pain. No BM or flatus. Getting hemodialysis today. Discussed with daughter the bedside. Active Medications Albuterol Sulfate (Albuterol Nebulized 2.5 Mg/3 Ml) 2.5 mg INHALATION RT-TID [facility] Last Admin: 10/28/21 11:24 Dose: Not Given Documented by: Albuterol Sulfate (Albuterol Nebulized 2.5 Mg/3 Ml) 2.5 mg INHALATION RT-Q2H PRN PRN Reason: Shortness Of Breath Or Wheezing Amlodipine Besylate (Amlodipine 10 Mg Tab) 10 mg PO HS [facility] Last Admin: 10/27/21 21:09 Dose: 10 mg Documented by: Atorvastatin Calcium (Atorvastatin 80 Mg Tab) 80 mg PO [facility] Last Admin: 10/27/21 21:08 Dose: 80 mg Documented by: Buspirone HCl (Buspirone Hcl 5 Mg Tab) 7.5 mg PO BID [facility] Last Admin: 10/28/21 08:51 Dose: 7.5 mg Documented by: Doxazosin Mesylate (Doxazosin 4 Mg Tab) 8 mg PO [facility] Last Admin: 10/27/21 21:08 Dose: 8 mg Documented by: Enoxaparin Sodium (Enoxaparin 30 Mg/0.3 Ml Syringe) 30 mg SQ DAILY@1800 [facility] Last Admin: 10/27/21 17:41 Dose: 30 mg Documented by: Hydromorphone HCl (Hydromorphone 0.5 Mg/0.5 Ml Syringe) 0.5 mg IVP Q6HR PRN PRN Reason: Pain Last Admin: 10/24/21 13:58 Dose: 0.5 mg Documented by: Piperacillin Sod/Tazobactam (Sod 3.375 gm/ Sodium Chloride) 100 mls @ 25 mls/hr IVPB Q12H [facility]; Protocol Last Admin: 10/28/21 13:34 Dose: 25 mls/hr Documented by: Isosorbide Mononitrate (Isosorbide Mononitrate Er 30 Mg Tab.Er.24h) 30 mg PO DAILY [facility] Last Admin: 10/28/21 08:51 Dose: 30 mg Documented by: Montelukast Sodium (Montelukast 10 Mg Tab) 10 mg PO [facility] Last Admin: 10/27/21 21:08 Dose: 10 mg Documented by: Ondansetron HCl (Ondansetron 4 Mg/2 Ml Vial) 4 mg IVP Q6HR PRN PRN Reason: Nausea And Vomiting Last Admin: 10/28/21 10:22 Dose: 4 mg Documented by: Pantoprazole Sodium (Pantoprazole 40 Mg Tablet) 40 mg PO DAILY@0730 [facility] Last Admin: 10/28/21 08:51 Dose: 40 mg Documented by: Tamsulosin HCl (Tamsulosin 0.4 Mg Cap.Er.24h) 0.4 mg PO [facility] Last Admin: 10/27/21 21:08 Dose: 0.4 mg Documented by: Past medical history to include: Coronary artery disease, COPD, TIA, GERD, hard of hearing, hypertension, osteoarthritis, end-stage kidney disease on hemodialysis Sunday, abdominal aneurysm, coronary bypass, Social history: Lives with . Smoked a pack a day for 64 years stopped in 2019. 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 Physical examination: VITAL SIGNS: 87.7, 62, 20, 140/59, 92% room air GENERAL: Reclining in bed, awake. Right upper chest wall dialysis catheter. Fistula left upper extremity EYES: Pupils equal. Conjunctiva normal. HEENT: External appearance of nose and ears normal, oral cavity dry mucous membranes. Decreased hearing NECK: JVD not raised; masses not palpable. HEART: First and second heart sounds are normal; no edema. LUNGS: Respiratory rate normal; clear to auscultation. ABDOMEN: Soft, some tender, no guarding rigidity, liver spleen not palpable, no masses palpable. PSYCH: Answering questions more appropriately today.. MUSCULOSKELETAL:No Clubbing/cyanosis;muscles-grossly intact. Evidence of OA INVESTIGATIONS, reviewed in the clinical context: Computed tomography scan abdomen [October 26]: No complete distal obstruction. More distended small bowel loops. Long segment of small bowel wall thickening. October 26: White count 7.3 hemoglobin 10.1 sodium 138 potassium 4.4 total bilirub in 0.4 White count 9.6 hemoglobin 12.4 platelets 153 sodium 134 potassium 5.3 BUN 89 creatinine 7.45 EKG tracing personally reviewed by me-normal sinus rhythm 76/m. Computed tomography scan abdomen: Internal hernia causing focal bowel obstruction. Focal infrarenal AAA up to 5.1 cm. Assessment and plan: -Acute bowel obstruction from internal hernia symptoms present for 4 days: No complete obstruction as per repeat computed tomography scan. Nausea today. Made nothing by mouth. Following his surgery. -End-stage kidney disease on hemodialysis Sunday and Sunday Patient has a right chest wall dialysis catheter. Left upper extremity fistula that was recently repaired by Dr. Mccann from vascular -Hyperkalemia from chronic kidney disease Follow with dialysis -Anemia of chronic kidney disease Follow H&H -Hypertension with chronic kidney disease Amlodipine 10 mg daily at bedtime, Imdur ER 30 mg daily, -COPD in an ex-smoker Albuterol 2.5 every 4 -Coronary artery disease prior history of coronary bypass Imdur ER 30 mg a day -GERD Protonix -Hard of hearing -Urine outflow obstruction Flomax 0.4 mg daily at bedtime -Primary osteoarthritis Pain medications as needed -Acute delirium, multifactorial: Resolved Follow clinically follow labs Made nothing by mouth. Medications to continue. Follow his surgery. Discussed with patient daughter the bedside. Thank you Dr. Means
--- NOTE | 2021-10-28 14:56 | P.PN ---
Subjective Progress Note Date: 10/28/21 CHIEF COMPLAINT: Small bowel obstruction HISTORY OF PRESENT ILLNESS: Patient complaining this morning of feeling nauseated and having abdominal pain with fullness after eating. He was initially made nothing by mouth this morning and given Zofran. He also had some abdominal distention. Patient seen evaluated with Dr. olivas in the afternoon. Patient was feeling better. He is undergoing hemodialysis today. And will be restarted on clear liquid diet. Patient encouraged to go slowly with the liquids. Patient still has not had any bowel activity. He is afebrile. No new labs Patient seen and examined with Dr. olivas PHYSICAL EXAM: VITAL SIGNS: Reviewed. GENERAL: Well-developed in no acute distress. HEENT: No sclera icterus. Extraocular movements grossly intact. Moist buccal mucosa. Head is atraumatic, normocephalic. ABDOMEN: Soft. Distended. Diffuse tenderness but more so in the upper abdomen NEUROLOGIC: Alert and oriented. Cranial nerves II through XII grossly intact. ASSESSMENT: 1. Small bowel obstruction secondary to internal hernia. CAT scan showing evidence of improvement PLAN: -Resume clear liquid diet -Patient tentatively scheduled for exploratory laparotomy on Sunday with Dr. olivas -Monitor patient closely -Continue supportive care Physician Vegetable Harvest Worker note has been reviewed by physician. Signing provider agrees with the documented findings, assessment, and plan of care. Objective - Vital Signs Vital signs: Vital Signs Temp 97.7 F 10/28/21 13:10 Pulse 64 10/28/21 14:30 Resp 20 10/28/21 14:30 BP 144/59 10/28/21 14:01 Pulse Ox 92 L 10/28/21 13:10 Intake & Output 10/27/21 10/28/21 10/28/21 18:59 06:59 18:59 Intake Total 480 Output Total 2000 500 Balance -1521 -500 Intake: Oral 480 Output: Urine 1 Hemodialysis 1999 500 Other: Voiding Method Toilet Toilet Toilet # Voids 1 2 - Labs CBC & Chem 7: 10/26/21 04:35 10/26/21 04:35 Labs: Microbiology - Last 24 Hours (Table) 10/24/21 13:50 Blood Culture - Preliminary Blood No Growth after 72 hours
[2021-10-28 16:07] VITALS: BMI 26.3
[2021-10-28] MEDS: ENOXAPARIN 30 MG/0.3 ML SYRINGE SQ SCH (17:28)
[2021-10-28] MEDS: MONTELUKAST 10 MG TAB PO SCH (20:56)
[2021-10-28] MEDS: ATORVASTATIN 80 MG TAB PO SCH (20:57)
[2021-10-28] MEDS: DOXAZOSIN 4 MG TAB PO SCH (20:57)
[2021-10-28] MEDS: TAMSULOSIN 0.4 MG CAP.ER.24H PO SCH (20:57)
[2021-10-28] MEDS: amLODIPine 10 MG TAB PO SCH (20:57)
[2021-10-29] MEDS: PIPERACILLIN-TAZOBACTAM 3.375 GM in SODIUM CHLORIDE 0.9% 100 ML IVPB SCH ×2 (01:30→15:38)
[2021-10-29] MEDS: ALBUTEROL NEBULIZED 2.5 MG/3 ML INHALATION SCH ×3 (08:09→19:37)
[2021-10-29] MEDS: ISOSORBIDE MONONITRATE ER 30 MG TAB.ER.24H PO SCH (09:12)
[2021-10-29] MEDS: PANTOPRAZOLE 40 MG TABLET PO SCH (09:12)
[2021-10-29] MEDS: busPIRone HCl 5 MG TAB PO SCH ×2 (09:12→20:20)
--- NOTE | 2021-10-29 09:13 | P.PN ---
Subjective Progress Note Date: 10/29/21 Principal diagnosis: Small bowel obstruction Patient doing well today. Tolerating clear liquids. Had a bowel movement yesterday. No nausea or vomiting. Denies pain. Objective - Vital Signs Vital signs: Vital Signs Temp 97.8 F 10/29/21 07:42 Pulse 82 10/29/21 08:20 Resp 16 10/29/21 08:20 BP 145/53 10/29/21 07:42 Pulse Ox 96 10/29/21 07:42 Intake & Output 10/28/21 10/29/21 10/29/21 18:59 06:59 18:59 Intake Total 440 100 180 Output Total 500 3 Balance -60 97 180 Weight 73.936 kg Intake: IV 200 Piperacillin-Tazobactam 3 200 .375 gm In Sodium Chloride 0.9% 100 ml @ 25 mls/hr IVPB Q12H [facility] Rx# :[id number] Intake, IV Titration 100 Amount Piperacillin-Tazobactam 3 100 .375 gm In Sodium Chloride 0.9% 100 ml @ 25 mls/hr IVPB Q12H [facility] Rx# :[id number] Oral 240 180 Output: Urine 2 Stool 1 Hemodialysis 500 Other: Voiding Method Toilet Toilet # Voids 2 - Exam Abdomen: Soft, nontender, nondistended - Labs CBC & Chem 7: 10/26/21 04:35 10/26/21 04:35 Labs: Microbiology - Last 24 Hours (Table) 10/24/21 13:50 Blood Culture - Preliminary Blood No Growth after 96 hours Assessment and Plan (1) Small bowel obstruction Narrative/Plan: Patient doing better today. Tolerating liquid diet. Keep on clears for now. Increase activity as tolerated. Current Visit: Yes Status: Acute Code(s): K56.609 - UNSP INTESTNL OBST, UNSP TO PARTIAL VERSUS COMPLETE OBST SNOMED Code(s): 175096893
--- NOTE | 2021-10-29 11:00 | P.PN ---
Subjective Patient is seen in follow-up for end-stage renal disease. He is maintained on hemodialysis on Sunday and Sunday schedule. Tolerated dialysis well yesterday. Had bowel movement yesterday. Unclear liquid diet per surgery. Denies any pain. Vital signs are stable. General: Awake and alert. No acute distress. HEENT: Head exam is unremarkable. LUNGS: Breath sounds decreased. HEART: Rate and Rhythm are regular. ABDOMEN: Soft, no distention. EXTREMITITES: No edema. Objective - Vital Signs Vital signs: Vital Signs Temp 97.8 F 10/29/21 07:42 Pulse 82 10/29/21 08:20 Resp 16 10/29/21 08:20 BP 145/53 10/29/21 07:42 Pulse Ox 96 10/29/21 07:42 Intake & Output 10/28/21 10/29/21 10/29/21 18:59 06:59 18:59 Intake Total 440 100 180 Output Total 500 3 Balance -60 97 180 Weight 73.936 kg Intake: IV 200 Piperacillin-Tazobactam 3 200 .375 gm In Sodium Chloride 0.9% 100 ml @ 25 mls/hr IVPB Q12H [facility] Rx# :[id number] Intake, IV Titration 100 Amount Piperacillin-Tazobactam 3 100 .375 gm In Sodium Chloride 0.9% 100 ml @ 25 mls/hr IVPB Q12H [facility] Rx# :[id number] Oral 240 180 Output: Urine 2 Stool 1 Hemodialysis 500 Other: Voiding Method Toilet Toilet # Voids 2 - Labs CBC & Chem 7: 10/26/21 04:35 10/26/21 04:35 Labs: Microbiology - Last 24 Hours (Table) 10/24/21 13:50 Blood Culture - Preliminary Blood No Growth after 96 hours Assessment and Plan Plan: Assessment: 1. End-stage renal disease maintained on hemodialysis on Sunday schedule. 2. Small bowel obstruction of her liquid diet. Surgery following. 3. Anemia of chronic kidney disease. 4. Hypertension with chronic kidney disease. Stable. Plan: Hemodialysis Sunday. Check iron studies.
--- NOTE | 2021-10-29 15:17 | P.PN ---
Progress Note - Text Progress Note Date: 10/29/21 - Chief Complaint Abdominal pain History of presenting complaint: This is a pleasant 81-year-old patient, follows with Dr. Junior Jalloh. Chronic stable medical conditions include coronary artery disease with bypass, COPD, GERD, hard of hearing, hypertension, osteoarthritis, abdominal aneurysm,. Last week patient had repair of his left upper extremity fistula by Dr. Mccann from vascular. Patient has right upper chest wall dialysis catheter since July of this year. Dialysis on Sunday and Sunday. Follows with Dr. Chavis. 4 days ago patient started having nausea vomiting increasing abdominal pain that progressed to get worse. Patient normally has a bowel movement every 3-4 days and sometimes takes a laxative. Patient's had no bowel movement for last 4 days. Denies any fever and chills. Tired rundown. Patient does make some urine. Patient is accompanied by his 2 daughters. Computed tomography scan of the ER didn't show internal hernia causing focal bowel obstruction. With one fluid-filled dilated loop. Moderate wall thickening. Focal infrarenal AAA 5.1 cm. October 25: NG tube came out last night. Not much output documented. Connected to suction today. Abdominal pain present. No flatus. present. October 26: NG tube remains to suction. Decreased abdominal pain. Patient denies any BM. Follow with surgery. Some confusion delirium. October 27: Apparently overnight NG to fill out. No nausea vomiting. Getting hemodialysis today. Patient does not remember having any flatus or BM. Didn't remember. at the bedside. Decreased abdominal pain. Pending surgical evaluation today. October 28: Patient has some nausea earlier today. Made nothing by mouth.. Some abdominal pain. No BM or flatus. Getting hemodialysis today. Discussed with daughter the bedside. October 29: Tolerating clear liquids. Had a BM last night. Abdomen feels a bit distended. No nausea vomiting. and daughter the bedside. Did walk in the hallway with support. Active Medications Albuterol Sulfate (Albuterol Nebulized 2.5 Mg/3 Ml) 2.5 mg INHALATION RT-TID [facility] Last Admin: 10/29/21 12:33 Dose: Not Given Documented by: Albuterol Sulfate (Albuterol Nebulized 2.5 Mg/3 Ml) 2.5 mg INHALATION RT-Q2H PRN PRN Reason: Shortness Of Breath Or Wheezing Amlodipine Besylate (Amlodipine 10 Mg Tab) 10 mg PO [facility] Last Admin: 10/28/21 20:57 Dose: 10 mg Documented by: Atorvastatin Calcium (Atorvastatin 80 Mg Tab) 80 mg PO [facility] Last Admin: 10/28/21 20:57 Dose: 80 mg Documented by: Buspirone HCl (Buspirone Hcl 5 Mg Tab) 7.5 mg PO BID [facility] Last Admin: 10/29/21 09:12 Dose: 7.5 mg Documented by: Doxazosin Mesylate (Doxazosin 4 Mg Tab) 8 mg PO [facility] Last Admin: 10/28/21 20:57 Dose: 8 mg Documented by: Enoxaparin Sodium (Enoxaparin 30 Mg/0.3 Ml Syringe) 30 mg SQ DAILY@1800 [facility] Last Admin: 10/28/21 17:28 Dose: 30 mg Documented by: Hydromorphone HCl (Hydromorphone 0.5 Mg/0.5 Ml Syringe) 0.5 mg IVP Q6HR PRN PRN Reason: Pain Last Admin: 10/24/21 13:58 Dose: 0.5 mg Documented by: Piperacillin Sod/Tazobactam (Sod 3.375 gm/ Sodium Chloride) 100 mls @ 25 mls/hr IVPB Q12H [facility]; Protocol Last Admin: 10/29/21 01:30 Dose: 25 mls/hr Documented by: Isosorbide Mononitrate (Isosorbide Mononitrate Er 30 Mg Tab.Er.24h) 30 mg PO DAILY [facility] Last Admin: 10/29/21 09:12 Dose: 30 mg Documented by: Montelukast Sodium (Montelukast 10 Mg Tab) 10 mg PO [facility] Last Admin: 10/28/21 20:56 Dose: 10 mg Documented by: Ondansetron HCl (Ondansetron 4 Mg/2 Ml Vial) 4 mg IVP Q6HR PRN PRN Reason: Nausea And Vomiting Last Admin: 10/28/21 10:22 Dose: 4 mg Documented by: Pantoprazole Sodium (Pantoprazole 40 Mg Tablet) 40 mg PO DAILY@0730 [facility] Last Admin: 10/29/21 09:12 Dose: 40 mg Documented by: Tamsulosin HCl (Tamsulosin 0.4 Mg Cap.Er.24h) 0.4 mg PO [facility] Last Admin: 10/28/21 20:57 Dose: 0.4 mg Documented by: Past medical history to include: Coronary artery disease, COPD, TIA, GERD, hard of hearing, hypertension, osteoarthritis, end-stage kidney disease on hemodialysis Sunday, abdominal aneurysm, coronary bypass, Social history: Lives with . Smoked a pack a day for 64 years stopped in 2019. 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 Physical examination: VITAL SIGNS: 97.8, 81, 16, 145/53, 96% room air GENERAL: Reclining in bed, awake. Right upper chest wall dialysis catheter. Fistula left upper extremity EYES: Pupils equal. Conjunctiva normal. HEENT: External appearance of nose and ears normal, oral cavity dry mucous membranes. Decreased hearing NECK: JVD not raised; masses not palpable. HEART: First and second heart sounds are normal; no edema. LUNGS: Respiratory rate normal; clear to auscultation. ABDOMEN: Soft, mild tender, some distention, no guarding rigidity, liver spleen not palpable, no masses palpable. PSYCH: Answering questions appropriately MUSCULOSKELETAL:No Clubbing/cyanosis;muscles-grossly intact. Evidence of OA INVESTIGATIONS, reviewed in the clinical context: Computed tomography scan abdomen [October 26]: No complete distal obstruction. More distended small bowel loops. Long segment of small bowel wall thickening. October 26: White count 7.3 hemoglobin 10.1 sodium 138 potassium 4.4 total bilirubin 0.4 White count 9.6 hemoglobin 12.4 platelets 153 sodium 134 potassium 5.3 BUN 89 creatinine 7.45 EKG tracing personally reviewed by me-normal sinus rhythm 76/m. Computed tomography scan abdomen: Internal hernia causing focal bowel obstruction. Focal infrarenal AAA up to 5.1 cm. Assessment and plan: -Acute bowel obstruction from internal hernia symptoms present for 4 days: No complete obstruction as per repeat computed tomography scan. On clear liquids.. Following his surgery. -End-stage kidney disease on hemodialysis Sunday and Sunday Patient has a right chest wall dialysis catheter. Left upper extremity fistula that was recently repaired by Dr. Mccann from vascular -Hyperkalemia from chronic kidney disease Follow with dialysis -Anemia of chronic kidney disease Follow H&H -Hypertension with chronic kidney disease Amlodipine 10 mg daily at bedtime, Imdur ER 30 mg daily, -COPD in an ex-smoker Albuterol 2.5 every 4 -Coronary artery disease prior history of coronary bypass Imdur ER 30 mg a day -GERD Protonix -Hard of hearing -Urine outflow obstruction Flomax 0.4 mg daily at bedtime -Primary osteoarthritis Pain medications as needed -Acute delirium, multifactorial: Resolved Follow clinically follow labs Clear liquids. Medications to continue. Increase activity. Discussed with patient and family the bedside. Thank you Dr. Means
[2021-10-29 16:31] LABS: % Iron Saturation 53.49 (15.00-50.00)
[2021-10-29] MEDS: ENOXAPARIN 30 MG/0.3 ML SYRINGE SQ SCH (17:25)
[2021-10-29] MEDS: amLODIPine 10 MG TAB PO SCH (20:20)
[2021-10-29] MEDS: ATORVASTATIN 80 MG TAB PO SCH (20:20)
[2021-10-29] MEDS: DOXAZOSIN 4 MG TAB PO SCH (20:20)
[2021-10-29] MEDS: TAMSULOSIN 0.4 MG CAP.ER.24H PO SCH (20:21)
[2021-10-29] MEDS: MONTELUKAST 10 MG TAB PO SCH (20:21)
[2021-10-30] MEDS: PIPERACILLIN-TAZOBACTAM 3.375 GM in SODIUM CHLORIDE 0.9% 100 ML IVPB SCH ×2 (02:49→13:22)
[2021-10-30] MEDS: ALBUTEROL NEBULIZED 2.5 MG/3 ML INHALATION SCH ×3 (08:05→21:08)
[2021-10-30] MEDS: PANTOPRAZOLE 40 MG TABLET PO SCH (08:53)
[2021-10-30] MEDS: busPIRone HCl 5 MG TAB PO SCH ×2 (08:53→22:10)
[2021-10-30] MEDS: ISOSORBIDE MONONITRATE ER 30 MG TAB.ER.24H PO SCH (08:54)
--- NOTE | 2021-10-30 09:20 | P.PN ---
Subjective Progress Note Date: 10/30/21 Principal diagnosis: Small bowel obstruction Patient doing well today. Tolerating clears. Passing flatus but no further bowel movements since 2 days ago. Denies nausea or vomiting. Would like more to eat. No pain. Objective - Vital Signs Vital signs: Vital Signs Temp 98.1 F 10/30/21 08:00 Pulse 70 10/30/21 08:19 Resp 18 10/30/21 08:00 BP 129/51 10/30/21 08:00 Pulse Ox 95 10/30/21 08:00 Intake & Output 10/29/21 10/30/21 10/30/21 18:59 06:59 18:59 Intake Total 780 Balance 780 Intake: Oral 780 Other: Voiding Method Toilet # Voids 3 1 # Bowel Movements 1 - Exam Abdomen: Soft, nondistended, nontender - Labs CBC & Chem 7: 10/26/21 04:35 10/26/21 04:35 Labs: Abnormal Lab Results - Last 24 Hours (Table) 10/29/21 Range/Units 12:23 TIBC 178 L (228-460) ug/dL % Saturation 53.49 H (15.00-50.00) Transferrin 127.0 L (204.0-354.0) mg/dL Ferritin 544.0 H (22.0-322.0) ng/mL Microbiology - Last 24 Hours (Table) 10/24/21 13:50 Blood Culture - Preliminary Blood No Growth after 120 hours Assessment and Plan (1) Small bowel obstruction Narrative/Plan: Patient seems to be improving. Advance diet to full liquids. Increase activity as tolerated. Current Visit: Yes Status: Acute Code(s): K56.609 - UNSP INTESTNL OBST, UNSP TO PARTIAL VERSUS COMPLETE OBST SNOMED Code(s): 154953893
--- NOTE | 2021-10-30 10:00 | P.PN ---
Subjective Patient is seen in follow-up for end-stage renal disease. He is maintained on hemodialysis on Sunday and Sunday schedule. On clear liquid diet per surgery. Denies any pain. Hemodynamically stable. Vital signs are stable. General: Awake and alert. No acute distress. HEENT: Head exam is unremarkable. LUNGS: Breath sounds decreased. HEART: Rate and Rhythm are regular. ABDOMEN: Soft, no distention. EXTREMITITES: No edema. Objective - Vital Signs Vital signs: Vital Signs Temp 98.1 F 10/30/21 08:00 Pulse 70 10/30/21 08:19 Resp 18 10/30/21 08:00 BP 129/51 10/30/21 08:00 Pulse Ox 95 10/30/21 08:00 Intake & Output 10/29/21 10/30/21 10/30/21 18:59 06:59 18:59 Intake Total 780 Balance 780 Intake: Oral 780 Other: Voiding Method Toilet # Voids 3 1 # Bowel Movements 1 - Labs CBC & Chem 7: 10/26/21 04:35 10/26/21 04:35 Labs: Abnormal Lab Results - Last 24 Hours (Table) 10/29/21 Range/Units 12:23 TIBC 178 L (228-460) ug/dL % Saturation 53.49 H (15.00-50.00) Transferrin 127.0 L (204.0-354.0) mg/dL Ferritin 544.0 H (22.0-322.0) ng/mL Microbiology - Last 24 Hours (Table) 10/24/21 13:50 Blood Culture - Preliminary Blood No Growth after 120 hours Assessment and Plan Plan: Assessment: 1. End-stage renal disease maintained on hemodialysis on Sunday schedule. 2. Small bowel obstruction on clear liquid diet. Surgery following. 3. Anemia of chronic kidney disease. Iron replete. 4. Hypertension with chronic kidney disease. Stable. Plan: Hemodialysis Sunday. Add Aranesp.
[2021-10-30] MEDS ORDERED: DARBEPOETIN ALFA 40 MCG/0.4 ML SYRINGE SQ SCH (11:00)
--- NOTE | 2021-10-30 15:38 | P.PN ---
Progress Note - Text Progress Note Date: 10/30/21 - Chief Complaint Abdominal pain History of presenting complaint: This is a pleasant 81-year-old patient, follows with Dr. Junior Jalloh. Chronic stable medical conditions include coronary artery disease with bypass, COPD, GERD, hard of hearing, hypertension, osteoarthritis, abdominal aneurysm,. Last week patient had repair of his left upper extremity fistula by Dr. Mccann from vascular. Patient has right upper chest wall dialysis catheter since July of this year. Dialysis on Sunday and Sunday. Follows with Dr. Chavis. 4 days ago patient started having nausea vomiting increasing abdominal pain that progressed to get worse. Patient normally has a bowel movement every 3-4 days and sometimes takes a laxative. Patient's had no bowel movement for last 4 days. Denies any fever and chills. Tired rundown. Patient does make some urine. Patient is accompanied by his 2 daughters. Computed tomography scan of the ER didn't show internal hernia causing focal bowel obstruction. With one fluid-filled dilated loop. Moderate wall thickening. Focal infrarenal AAA 5.1 cm. October 25: NG tube came out last night. Not much output documented. Connected to suction today. Abdominal pain present. No flatus. present. October 26: NG tube remains to suction. Decreased abdominal pain. Patient denies any BM. Follow with surgery. Some confusion delirium. October 27: Apparently overnight NG to fill out. No nausea vomiting. Getting hemodialysis today. Patient does not remember having any flatus or BM. Didn't remember. at the bedside. Decreased abdominal pain. Pending surgical evaluation today. October 28: Patient has some nausea earlier today. Made nothing by mouth.. Some abdominal pain. No BM or flatus. Getting hemodialysis today. Discussed with daughter the bedside. October 29: Tolerating clear liquids. Had a BM last night. Abdomen feels a bit distended. No nausea vomiting. and daughter the bedside. Did walk in the hallway with support. October 30: Up in a chair. Had small BM last night. On full liquid diet. Slight abdominal distention. Discussed with patient and family. Ambulate in the hallway. Active Medications Albuterol Sulfate (Albuterol Nebulized 2.5 Mg/3 Ml) 2.5 mg INHALATION RT-TID [facility] Last Admin: 10/30/21 11:40 Dose: 2.5 mg Documented by: Albuterol Sulfate (Albuterol Nebulized 2.5 Mg/3 Ml) 2.5 mg INHALATION RT-Q2H PRN PRN Reason: Shortness Of Breath Or Wheezing Amlodipine Besylate (Amlodipine 10 Mg Tab) 10 mg PO [facility] Last Admin: 10/29/21 20:20 Dose: 10 mg Documented by: Atorvastatin Calcium (Atorvastatin 80 Mg Tab) 80 mg PO [facility] Last Admin: 10/29/21 20:20 Dose: 80 mg Documented by: Buspirone HCl (Buspirone Hcl 5 Mg Tab) 7.5 mg PO BID [facility] Last Admin: 10/30/21 08:53 Dose: 7.5 mg Documented by: Darbepoetin Edu (Darbepoetin Edu 40 Mcg/0.4 Ml Syringe) 40 mcg SQ Q7D [facility] Last Admin: 10/30/21 13:22 Dose: 40 mcg Documented by: Doxazosin Mesylate (Doxazosin 4 Mg Tab) 8 mg PO [facility] Last Admin: 10/29/21 20:20 Dose: 8 mg Documented by: Enoxaparin Sodium (Enoxaparin 30 Mg/0.3 Ml Syringe) 30 mg SQ DAILY@1800 [facility] Last Admin: 10/29/21 17:25 Dose: 30 mg Documented by: Hydromorphone HCl (Hydromorphone 0.5 Mg/0.5 Ml Syringe) 0.5 mg IVP Q6HR PRN PRN Reason: Pain Last Admin: 10/24/21 13:58 Dose: 0.5 mg Documented by: Piperacillin Sod/Tazobactam (Sod 3.375 gm/ Sodium Chloride) 100 mls @ 25 mls/hr IVPB Q12H [facility]; Protocol Last Admin: 10/30/21 13:22 Dose: 25 mls/hr Documented by: Isosorbide Mononitrate (Isosorbide Mononitrate Er 30 Mg Tab.Er.24h) 30 mg PO DAILY [facility] Last Admin: 10/30/21 08:54 Dose: 30 mg Documented by: Montelukast Sodium (Montelukast 10 Mg Tab) 10 mg PO [facility] Last Admin: 10/29/21 20:21 Dose: 10 mg Documented by: Ondansetron HCl (Ondansetron 4 Mg/2 Ml Vial) 4 mg IVP Q6HR PRN PRN Reason: Nausea And Vomiting Last Admin: 10/28/21 10:22 Dose: 4 mg Documented by: Pantoprazole Sodium (Pantoprazole 40 Mg Tablet) 40 mg PO DAILY@0730 [facility] Last Admin: 10/30/21 08:53 Dose: 40 mg Documented by: Tamsulosin HCl (Tamsulosin 0.4 Mg Cap.Er.24h) 0.4 mg PO [facility] Last Admin: 10/29/21 20:21 Dose: 0.4 mg Documented by: Past medical history to include: Coronary artery disease, COPD, TIA, GERD, hard of hearing, hypertension, osteoarthritis, end-stage kidney disease on hemodialysis Sunday, abdominal aneurysm, coronary bypass, Social history: Lives with . Smoked a pack a day for 64 years stopped in 2019. 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 Physical examination: VITAL SIGNS: 87.7, 78, 18, 122/55, 95% room air GENERAL: Reclining in bed, awake. Right upper chest wall dialysis catheter. Fistula left upper extremity EYES: Pupils equal. Conjunctiva normal. HEENT: External appearance of nose and ears normal, oral cavity dry mucous membranes. Decreased hearing NECK: JVD not raised; masses not palpable. HEART: First and second heart sounds are normal; no edema. LUNGS: Respiratory rate normal; clear to auscultation. ABDOMEN: Soft, mild tender, some distention, no guarding rigidity, liver spleen not palpable, no masses palpable. PSYCH: Answering questions appropriately MUSCULOSKELETAL:No Clubbing/cyanosis;muscles-grossly intact. Evidence of OA INVESTIGATIONS, reviewed in the clinical context: Computed tomography scan abdomen [October 26]: No complete distal obstruction. More distended small bowel loops. Long segment of small bowel wall thickening. October 26: White count 7.3 hemoglobin 10.1 sodium 138 potassium 4.4 total bilirubin 0.4 White count 9.6 hemoglobin 12.4 platelets 153 sodium 134 potassium 5.3 BUN 89 creatinine 7.45 EKG tracing personally reviewed by me-normal sinus rhythm 76/m. Computed tomography scan abdomen: Internal hernia causing focal bowel obstruction. Focal infrarenal AAA up to 5.1 cm. Assessment and plan: -Acute bowel obstruction from internal hernia symptoms present for 4 days: No complete obstruction as per repeat computed tomography scan. Follow liquids.. Following his surgery. -End-stage kidney disease on hemodialysis Sunday and Sunday Patient has a right chest wall dialysis catheter. Left upper extremity fistula that was recently repaired by Dr. Mccann from vascular -Hyperkalemia from chronic kidney disease Follow with dialysis -Anemia of chronic kidney disease Follow H&H -Hypertension with chronic kidney disease Amlodipine 10 mg daily at bedtime, Imdur ER 30 mg daily, -COPD in an ex-smoker Albuterol 2.5 every 4 -Coronary artery disease prior history of coronary bypass Imdur ER 30 mg a day -GERD Protonix -Hard of hearing -Urine outflow obstruction Flomax 0.4 mg daily at bedtime -Primary osteoarthritis Pain medications as needed -Acute delirium, multifactorial: Resolved Follow clinically follow labs Full liquid diet.. Follow with surgery. Discussed with patient and family. Ambulating hallway. Thank you Dr. Means
[2021-10-30] MEDS: ENOXAPARIN 30 MG/0.3 ML SYRINGE SQ SCH (17:54)
[2021-10-30] MEDS: amLODIPine 10 MG TAB PO SCH (22:10)
[2021-10-30] MEDS: ATORVASTATIN 80 MG TAB PO SCH (22:10)
[2021-10-30] MEDS: TAMSULOSIN 0.4 MG CAP.ER.24H PO SCH (22:11)
[2021-10-30] MEDS: MONTELUKAST 10 MG TAB PO SCH (22:11)
[2021-10-30] MEDS: DOXAZOSIN 4 MG TAB PO SCH (22:11)
[2021-10-31] MEDS: PIPERACILLIN-TAZOBACTAM 3.375 GM in SODIUM CHLORIDE 0.9% 100 ML IVPB SCH ×2 (03:34→13:08)
[2021-10-31] MEDS: PANTOPRAZOLE 40 MG TABLET PO SCH ×2 (07:14→09:05)
[2021-10-31] MEDS: LACTATED RINGERS 1,000 ML IV SCH (07:14)
[2021-10-31 08:15] LABS: Basophils % (A) 1 %; Eosinophils # (A) 0.3 k/uL (0-0.7); Eosinophils % (A) 6 %; HCT 33.4 % (39.0-53.0); HGB 10.9 gm/dL (13.0-17.5); Hypochromasia Slight; Lymphocytes % (A) 17 %; MCH 35.3 pg (25.0-35.0); MCHC 32.8 g/dL (31.0-37.0); MCV 107.7 fL (80.0-100.0); Macrocytosis Moderate; Mean Platelet Volume 10.1; Monocytes # (A) 0.3 k/uL (0-1.0); Monocytes % (A) 5 %; Neutrophils # (A) 4.1 k/uL (1.3-7.7); Neutrophils % (A) 69 %; Platelet Count 121 k/uL (150-450); RDW 13.7 % (11.5-15.5); WBC 5.9 k/uL (3.8-10.6)
[2021-10-31 08:29] LABS: African American GFR (CKD) 8 (>60 ml/min/1.73 sqM); Anion Gap 9 mmol/L; Blood Urea Nitrogen 27 mg/dL (9-20); Calcium 7.4 mg/dL (8.4-10.2); Carbon Dioxide 20 mmol/L (22-30); Chloride 103 mmol/L (98-107); Glucose 83 mg/dL (74-99); Non-African American GFR(CKD) 7 (>60 ml/min/1.73 sqM); Potassium 4.2 mmol/L (3.5-5.1); Sodium 132 mmol/L (137-145)
[2021-10-31] MEDS: ALBUTEROL NEBULIZED 2.5 MG/3 ML INHALATION SCH ×3 (08:37→20:28)
[2021-10-31] MEDS: ISOSORBIDE MONONITRATE ER 30 MG TAB.ER.24H PO SCH (09:02)
[2021-10-31] MEDS: busPIRone HCl 5 MG TAB PO SCH ×2 (09:05→20:35)
--- NOTE | 2021-10-31 10:12 | P.PN ---
Subjective Patient is seen in follow-up for end-stage renal disease. He is maintained on hemodialysis on Sunday and Sunday schedule. On full liquid diet now. Denies any pain. Hemodynamically stable. Scheduled for dialysis today. Vital signs are stable. General: Awake and alert. No acute distress. HEENT: Head exam is unremarkable. LUNGS: Breath sounds decreased. HEART: Rate and Rhythm are regular. ABDOMEN: Soft, no distention. EXTREMITITES: No edema. Objective - Vital Signs Vital signs: Vital Signs Temp 98.6 F 10/31/21 07:54 Pulse 88 10/31/21 08:52 Resp 16 10/30/21 19:45 BP 125/65 10/31/21 07:54 Pulse Ox 96 10/31/21 07:54 Intake & Output 10/30/21 10/31/21 10/31/21 18:59 06:59 18:59 Intake Total 800 Balance 800 Intake: Oral 800 Other: Voiding Method Toilet # Voids 2 1 # Bowel Movements 1 1 - Labs CBC & Chem 7: 10/31/21 07:53 10/31/21 07:53 Labs: Abnormal Lab Results - Last 24 Hours (Table) 10/31/21 10/31/21 Range/Units 07:53 07:53 RBC 3.10 L (4.30-5.90) m/uL Hgb 10.9 L (13.0-17.5) gm/dL Hct 33.4 L (39.0-53.0) % MCV 107.7 H (80.0-100.0) fL MCH 35.3 H (25.0-35.0) pg Plt Count 121 L (150-450) k/uL Sodium 132 L (137-145) mmol/L Carbon Dioxide 20 L (22-30) mmol/L BUN 27 H (9-20) mg/dL Creatinine 6.44 H (0.66-1.25) mg/dL Calcium 7.4 L (8.4-10.2) mg/dL Microbiology - Last 24 Hours (Table) 10/24/21 13:50 Blood Culture - Final Blood No Growth after 144 hours Assessment and Plan Plan: Assessment: 1. End-stage renal disease maintained on hemodialysis on Sunday schedule. 2. Small bowel obstruction on full liquid diet. Surgery following. 3. Anemia of chronic kidney disease. Iron replete. On Aranesp. 4. Hypertension with chronic kidney disease. Stable. Plan: Hemodialysis today. Check phosphorus level.
--- NOTE | 2021-10-31 12:13 | P.PN ---
Progress Note - Text Progress Note Date: 10/31/21 - Chief Complaint Abdominal pain History of presenting complaint: This is a pleasant 81-year-old patient, follows with Dr. Junior Jalloh. Chronic stable medical conditions include coronary artery disease with bypass, COPD, GERD, hard of hearing, hypertension, osteoarthritis, abdominal aneurysm,. Last week patient had repair of his left upper extremity fistula by Dr. Mccann from vascular. Patient has right upper chest wall dialysis catheter since July of this year. Dialysis on Sunday and Sunday. Follows with Dr. Chavis. 4 days ago patient started having nausea vomiting increasing abdominal pain that progressed to get worse. Patient normally has a bowel movement every 3-4 days and sometimes takes a laxative. Patient's had no bowel movement for last 4 days. Denies any fever and chills. Tired rundown. Patient does make some urine. Patient is accompanied by his 2 daughters. Computed tomography scan of the ER didn't show internal hernia causing focal bowel obstruction. With one fluid-filled dilated loop. Moderate wall thickening. Focal infrarenal AAA 5.1 cm. October 25: NG tube came out last night. Not much output documented. Connected to suction today. Abdominal pain present. No flatus. present. October 26: NG tube remains to suction. Decreased abdominal pain. Patient denies any BM. Follow with surgery. Some confusion delirium. October 27: Apparently overnight NG to fill out. No nausea vomiting. Getting hemodialysis today. Patient does not remember having any flatus or BM. Didn't remember. at the bedside. Decreased abdominal pain. Pending surgical evaluation today. October 28: Patient has some nausea earlier today. Made nothing by mouth.. Some abdominal pain. No BM or flatus. Getting hemodialysis today. Discussed with daughter the bedside. October 29: Tolerating clear liquids. Had a BM last night. Abdomen feels a bit distended. No nausea vomiting. and daughter the bedside. Did walk in the hallway with support. October 30: Up in a chair. Had small BM last night. On full liquid diet. Slight abdominal distention. Discussed with patient and family. Ambulate in the hallway. October 31: Patient tolerated full liquid diet. Had a good bowel movement last night. Hemodialysis today. No abdominal pain. Hopefully diet to be advanced per surgery. Discussed with patient. Has been out of bed. Active Medications Albuterol Sulfate (Albuterol Nebulized 2.5 Mg/3 Ml) 2.5 mg INHALATION RT-TID [facility] Last Admin: 10/31/21 08:37 Dose: 2.5 mg Documented by: Albuterol Sulfate (Albuterol Nebulized 2.5 Mg/3 Ml) 2.5 mg INHALATION RT-Q2H PRN PRN Reason: Shortness Of Breath Or Wheezing Amlodipine Besylate (Amlodipine 10 Mg Tab) 10 mg PO [facility] Last Admin: 10/30/21 22:10 Dose: 10 mg Documented by: Atorvastatin Calcium (Atorvastatin 80 Mg Tab) 80 mg PO [facility] Last Admin: 10/30/21 22:10 Dose: 80 mg Documented by: Buspirone HCl (Buspirone Hcl 5 Mg Tab) 7.5 mg PO BID [facility] Last Admin: 10/31/21 09:05 Dose: 7.5 mg Documented by: Darbepoetin Edu (Darbepoetin Edu 40 Mcg/0.4 Ml Syringe) 40 mcg SQ Q7D [facility] Last Admin: 10/30/21 13:22 Dose: 40 mcg Documented by: Doxazosin Mesylate (Doxazosin 4 Mg Tab) 8 mg PO [facility] Last Admin: 10/30/21 22:11 Dose: 8 mg Documented by: Enoxaparin Sodium (Enoxaparin 30 Mg/0.3 Ml Syringe) 30 mg SQ DAILY@1800 [facility] Last Admin: 10/30/21 17:54 Dose: 30 mg Documented by: Hydromorphone HCl (Hydromorphone 0.5 Mg/0.5 Ml Syringe) 0.5 mg IVP Q6HR PRN PRN Reason: Pain Last Admin: 10/24/21 13:58 Dose: 0.5 mg Documented by: Piperacillin Sod/Tazobactam (Sod 3.375 gm/ Sodium Chloride) 100 mls @ 25 mls/hr IVPB Q12H [facility]; Protocol Last Admin: 10/31/21 03:34 Dose: 25 mls/hr Documented by: Lactated Ringer's (Lactated Ringers) 1,000 mls @ 20 mls/hr IV .Q24H [facility] Last Admin: 10/31/21 07:14 Dose: Not Given Documented by: Isosorbide Mononitrate (Isosorbide Mononitrate Er 30 Mg Tab.Er.24h) 30 mg PO DAILY [facility] Last Admin: 10/31/21 09:02 Dose: Not Given Documented by: Montelukast Sodium (Montelukast 10 Mg Tab) 10 mg PO [facility] Last Admin: 10/30/21 22:11 Dose: 10 mg Documented by: Ondansetron HCl (Ondansetron 4 Mg/2 Ml Vial) 4 mg IVP Q6HR PRN PRN Reason: Nausea And Vomiting Last Admin: 10/28/21 10:22 Dose: 4 mg Documented by: Pantoprazole Sodium (Pantoprazole 40 Mg Tablet) 40 mg PO DAILY@0730 [facility] Last Admin: 10/31/21 09:05 Dose: 40 mg Documented by: Tamsulosin HCl (Tamsulosin 0.4 Mg Cap.Er.24h) 0.4 mg PO [facility] Last Admin: 10/30/21 22:11 Dose: 0.4 mg Documented by: Past medical history to include: Coronary artery disease, COPD, TIA, GERD, hard of hearing, hypertension, osteoarthritis, end-stage kidney disease on hemodialysis Sunday, abdominal aneurysm, coronary bypass, Social history: Lives with . Smoked a pack a day for 64 years stopped in 2019. 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 Physical examination: VITAL SIGNS: 98.6, 78, 16, 125/65, 96% room air GENERAL: Reclining in bed, awake. Right upper chest wall dialysis catheter. Fistula left upper extremity EYES: Pupils equal. Conjunctiva normal. HEENT: External appearance of nose and ears normal, oral cavity dry mucous membranes. Decreased hearing NECK: JVD not raised; masses not palpable. HEART: First and second heart sounds are normal; no edema. LUNGS: Respiratory rate normal; clear to auscultation. ABDOMEN: Soft, mild tender, some distention, no guarding rigidity, liver spleen not palpable, no masses palpable. PSYCH: Answering questions appropriately MUSCULOSKELETAL:No Clubbing/cyanosis;muscles-grossly intact. Evidence of OA INVESTIGATIONS, reviewed in the clinical context: October 31: White count 5.9 hemoglobin 10.9 platelets 121 sodium 132 potassium 4.2 creatinine 6.44 phosphorus 5.9 Computed tomography scan abdomen [October 26]: No complete distal obstruction. More distended small bowel loops. Long segment of small bowel wall thickening. October 26: White count 7.3 hemoglobin 10.1 sodium 138 potassium 4.4 total bilirubin 0.4 White count 9.6 hemoglobin 12.4 platelets 153 sodium 134 potassium 5.3 BUN 89 creatinine 7.45 EKG tracing personally reviewed by me-normal sinus rhythm 76/m. Computed tomography scan abdomen: Internal hernia causing focal bowel obstruction. Focal infrarenal AAA up to 5.1 cm. Assessment and plan: -Acute bowel obstruction from internal hernia symptoms present for 4 days: No complete obstruction as per repeat computed tomography scan.: Improving Tolerating full liquids.. Had a BM. -End-stage kidney disease on hemodialysis Sunday and Sunday Patient has a right chest wall dialysis catheter. Left upper extremity fistula that was recently repaired by Dr. Mccann from vascular -Hyperkalemia from chronic kidney disease Follow with dialysis -Anemia of chronic kidney disease Follow H&H -Hypertension with chronic kidney disease Amlodipine 10 mg daily at bedtime, Imdur ER 30 mg daily, -COPD in an ex-smoker Albuterol 2.5 every 4 -Coronary artery disease prior history of coronary bypass Imdur ER 30 mg a day -GERD Protonix -Hard of hearing -Urine outflow obstruction Flomax 0.4 mg daily at bedtime -Primary osteoarthritis Pain medications as needed -Acute delirium, multifactorial: Resolved Follow clinically follow labs Full liquid diet.. That can be advanced focally surgery. Other medications to continue. Ambulate. Thank you Dr. Means
--- NOTE | 2021-10-31 13:05 | P.PN ---
Subjective Progress Note Date: 10/31/21 CHIEF COMPLAINT: Small bowel obstruction HISTORY OF PRESENT ILLNESS: Patient sitting up in bed. He reports improvement in his abdominal pain. He is having bowel movements and flatus. He was started on full liquid diet over the weekend and is tolerating the diet. Afebrile. WBC is 5.9 hemoglobin 10.9 platelets 121 sodium 132 potassium 4.2 creatinine 6.44 patient is receiving hemodialysis today Patient seen and examined with Dr. olivas PHYSICAL EXAM: VITAL SIGNS: Reviewed. GENERAL: Well-developed in no acute distress. HEENT: No sclera icterus. Extraocular movements grossly intact. Moist buccal mucosa. Head is atraumatic, normocephalic. ABDOMEN: Soft. Nondistended nontender NEUROLOGIC: Alert and oriented. Cranial nerves II through XII grossly intact. ASSESSMENT: 1. Small bowel obstruction secondary to internal hernia. Improving PLAN: -Continue full liquid diet -No surgical intervention planned -Continue supportive care Physician Executive Candidate Developer note has been reviewed by physician. Signing provider agrees with the documented findings, assessment, and plan of care. Objective - Vital Signs Vital signs: Vital Signs Temp 98.6 F 10/31/21 07:54 Pulse 84 10/31/21 12:23 Resp 16 10/31/21 08:30 BP 138/66 10/31/21 12:19 Pulse Ox 96 10/31/21 07:54 Intake & Output 10/30/21 10/31/21 10/31/21 18:59 06:59 18:59 Intake Total 800 Output Total 501 Balance 800 -501 Intake: Oral 800 Output: Stool 1 Hemodialysis 500 Other: Voiding Method Toilet Toilet # Voids 2 1 # Bowel Movements 1 1 - Labs CBC & Chem 7: 10/31/21 07:53 10/31/21 07:53 Labs: Abnormal Lab Results - Last 24 Hours (Table) 10/31/21 10/31/21 10/31/21 Range/Units 07:53 07:53 07:53 RBC 3.10 L (4.30-5.90) m/uL Hgb 10.9 L (13.0-17.5) gm/dL Hct 33.4 L (39.0-53.0) % MCV 107.7 H (80.0-100.0) fL MCH 35.3 H (25.0-35.0) pg Plt Count 121 L (150-450) k/uL Sodium 132 L (137-145) mmol/L Carbon Dioxide 20 L (22-30) mmol/L BUN 27 H (9-20) mg/dL Creatinine 6.44 H (0.66-1.25) mg/dL Calcium 7.4 L (8.4-10.2) mg/dL Phosphorus 5.9 H (2.5-4.5) mg/dL Microbiology - Last 24 Hours (Table) 10/24/21 13:50 Blood Culture - Final Blood No Growth after 144 hours
[2021-10-31] MEDS: ENOXAPARIN 30 MG/0.3 ML SYRINGE SQ SCH (17:53)
[2021-10-31] MEDS: MONTELUKAST 10 MG TAB PO SCH (20:34)
[2021-10-31] MEDS: DOXAZOSIN 4 MG TAB PO SCH (20:34)
[2021-10-31] MEDS: TAMSULOSIN 0.4 MG CAP.ER.24H PO SCH (20:34)
[2021-10-31] MEDS: ATORVASTATIN 80 MG TAB PO SCH (20:35)
[2021-10-31] MEDS: amLODIPine 10 MG TAB PO SCH (20:35)
[2021-11-01] MEDS: PIPERACILLIN-TAZOBACTAM 3.375 GM in SODIUM CHLORIDE 0.9% 100 ML IVPB SCH (01:00)
[2021-11-01 02:29] VITALS: RESP 18
[2021-11-01 06:47] LABS: Glucose,Whole Blood 83 mg/dL (75-99)
[2021-11-01] MEDS: PANTOPRAZOLE 40 MG TABLET PO SCH (07:11)
[2021-11-01] MEDS: ISOSORBIDE MONONITRATE ER 30 MG TAB.ER.24H PO SCH (07:11)
[2021-11-01] MEDS: busPIRone HCl 5 MG TAB PO SCH (07:11)
[2021-11-01] MEDS: LACTATED RINGERS 1,000 ML IV SCH (07:12)
[2021-11-01] MEDS: ALBUTEROL NEBULIZED 2.5 MG/3 ML INHALATION SCH ×2 (08:03→11:13)
--- NOTE | 2021-11-01 10:35 | P.PN ---
Subjective Patient is seen in follow-up for end-stage renal disease. He is maintained on hemodialysis on Sunday and Sunday schedule. Now on regular diet. Having loose bowel movements. Denies any pain. Hemodynamically stable. No problems with dialysis yesterday. Vital signs are stable. General: Awake and alert. No acute distress. HEENT: Head exam is unremarkable. LUNGS: Breath sounds decreased. HEART: Rate and Rhythm are regular. ABDOMEN: Soft, no distention. EXTREMITITES: No edema. Objective - Vital Signs Vital signs: Vital Signs Temp 96.8 F L 11/01/21 07:26 Pulse 90 11/01/21 08:04 Resp 18 11/01/21 07:15 BP 143/67 11/01/21 07:26 Pulse Ox 95 11/01/21 07:26 Intake & Output 10/31/21 11/01/21 11/01/21 18:59 06:59 18:59 Intake Total 350 Output Total 501 1 Balance -151 -1 Weight 73.936 kg Intake: Oral 350 Output: Stool 1 1 Hemodialysis 500 Other: Voiding Method Toilet Toilet Toilet # Voids 1 2 # Bowel Movements 1 - Labs CBC & Chem 7: 10/31/21 07:53 10/31/21 07:53 Labs: Abnormal Lab Results - Last 24 Hours (Table) 10/31/21 Range/Units 07:53 Phosphorus 5.9 H (2.5-4.5) mg/dL Assessment and Plan Plan: Assessment: 1. End-stage renal disease maintained on hemodialysis on Sunday schedule. 2. Small bowel obstruction on regular diet. Surgery following. 3. Anemia of chronic kidney disease. Iron replete. On Aranesp. 4. Hypertension with chronic kidney disease. Stable. 5. Chronic kidney disease mineral bone disease. Phosphorous 5.9 dated 10/31/2021. Plan: Hemodialysis tomorrow. Add PhosLo with meals.
[2021-11-01 10:55] LABS: Glucose,Whole Blood 114 mg/dL (75-99)
[2021-11-01] MEDS ORDERED: CALCIUM ACETATE 667 MG TAB PO SCH (12:30)
--- NOTE | 2021-11-01 12:56 | P.PN ---
Subjective Progress Note Date: 11/01/21 CHIEF COMPLAINT: Small bowel obstruction HISTORY OF PRESENT ILLNESS: Patient sitting up at bedside chair. He is tolerating regular diet. He is having bowel movements. Denies any abdominal pain. Afebrile. Patient sitting up in bed. He reports improvement in his abdominal pain. He is having bowel movements and flatus. He was started on full liquid diet over the weekend and is tolerating the diet. Afebrile. Patient seen and examined with Dr. olivas PHYSICAL EXAM: VITAL SIGNS: Reviewed. GENERAL: Well-developed in no acute distress. HEENT: No sclera icterus. Extraocular movements grossly intact. Moist buccal mucosa. Head is atraumatic, normocephalic. ABDOMEN: Soft. Nondistended nontender NEUROLOGIC: Alert and oriented. Cranial nerves II through XII grossly intact. ASSESSMENT: 1. Small bowel obstruction secondary to internal hernia. Improved PLAN: -Patient can be discharge from surgical standpoint -Continue regular diet -No surgical intervention planned Physician Chain Maker note has been reviewed by physician. Signing provider agrees with the documented findings, assessment, and plan of care. Objective - Vital Signs Vital signs: Vital Signs Temp 96.8 F L 11/01/21 07:26 Pulse 88 11/01/21 11:28 Resp 18 11/01/21 07:15 BP 143/67 11/01/21 07:26 Pulse Ox 95 11/01/21 07:26 Intake & Output 10/31/21 11/01/21 11/01/21 18:59 06:59 18:59 Intake Total 350 Output Total 501 1 Balance -151 -1 Weight 73.936 kg Intake: Oral 350 Output: Stool 1 1 Hemodialysis 500 Other: Voiding Method Toilet Toilet Toilet # Voids 1 2 # Bowel Movements 1 - Labs CBC & Chem 7: 10/31/21 07:53 10/31/21 07:53 Labs: Abnormal Lab Results - Last 24 Hours (Table) 11/01/21 Range/Units 10:53 POC Glucose (mg/dL) 114 H (75-99) mg/dL
[2021-11-01 13:48] VITALS: BP 126/51; PULSE 83; TEMP 98
--- NOTE | 2021-11-01 14:55 | P.DS ---
Providers Date of admission: 10/24/21 13:25 Expected date of discharge: 11/01/21 Attending physician: Tamir Means Consults: 10/24/21 13:25 Consult Physician Urgent Consulting Provider: Familia Sanders Consult Reason/Comments: Medical management Do you want consulting provider notified?: Yes Consult Physician Urgent Consulting Provider: Monserrat Chavis Consult Reason/Comments: Dialysis Do you want consulting provider notified?: Yes Primary care physician: Junior Brown Hospital Course: Discharge diagnosis 1. Small bowel obstruction secondary to internal hernia. Improved Hospital course This is an 81-year-old male who presented with nausea and vomiting. He was found to have a small bowel obstruction secondary to internal hernia. Patient did require NG tube to be placed for decompression. Patient was treated conservatively. NG tube did come out. Patient reported improvement in his pain. He was started on clear liquids. He continued to not have any bowel act ivity a repeat CAT scan of the abdomen and pelvis was completed that showed no evidence of obstruction. Patient eventually did start having bowel activity and did tolerate advancement of diet. Patient was treated conservatively for his small bowel obstruction. He is tolerating diet. He is up and ambulating. He is having bowel movements. He is afebrile. He is stable for discharge. Please refer to chart for any further details. Physician Lodging House Keeper note has been reviewed by physician. Signing provider agrees with the documented findings, assessment, and plan of care. Patient Condition at Discharge: Stable Plan - Discharge Summary Discharge Rx Participant: No New Discharge Prescriptions: New Calcium Acetate [PhosLo] 667 mg PO TID-W/MEALS #90 tab Continue Zafirlukast 20 mg PO BID busPIRone HCL [Buspar] 7.5 mg PO BID Tamsulosin HCl [Flomax] 0.4 mg PO HS Terazosin HCl 10 mg PO HS Atorvastatin [Lipitor] 80 mg PO HS #30 tab Isosorbide Mononitrate ER [Imdur] 30 mg PO DAILY Albuterol Nebulized [Ventolin Nebulized] 2.5 mg INHALATION RT-Q4H amLODIPine [Norvasc] 10 mg PO HS #30 tablet Sodium Bicarbonate Tab 650 mg PO ACHS Cyanocobalamin (Vitamin B-12) [Vitamin B-12] 1,000 mcg PO DAILY Furosemide [Lasix] 40 mg PO DAILY Pantoprazole [Protonix] 40 mg PO DAILY Ondansetron [Zofran] 4 mg PO Q12HR PRN PRN Reason: Nausea Discontinued Sucralfate [Carafate] 1 gm PO ACHS Discharge Medication List Zafirlukast 20 mg PO BID 09/30/14 [History] Tamsulosin HCl [Flomax] 0.4 mg PO HS 04/26/20 [History] Terazosin HCl 10 mg PO HS 04/26/20 [History] busPIRone HCL [Buspar] 7.5 mg PO BID 04/26/20 [History] Atorvastatin [Lipitor] 80 mg PO HS #30 tab 05/02/20 [Rx] Isosorbide Mononitrate ER [Imdur] 30 mg PO DAILY 06/18/20 [History] Albuterol Nebulized [Ventolin Nebulized] 2.5 mg INHALATION RT-Q4H 06/27/20 [History] amLODIPine [Norvasc] 10 mg PO HS #30 tablet 07/01/20 [Rx] Cyanocobalamin (Vitamin B-12) [Vitamin B-12] 1,000 mcg PO DAILY 10/24/21 [History] Furosemide [Lasix] 40 mg PO DAILY 10/24/21 [History] Ondansetron [Zofran] 4 mg PO Q12HR PRN 10/24/21 [History] Pantoprazole [Protonix] 40 mg PO DAILY 10/24/21 [History] Sodium Bicarbonate Tab 650 mg PO ACHS 10/24/21 [History] Calcium Acetate [PhosLo] 667 mg PO TID-W/MEALS #90 tab 11/01/21 [Rx] Follow up Appointment(s)/Referral(s): Molly Anderson [NON-STAFF] - As Needed Junior Brown DO [Primary Care Provider] - 1-2 days Tamir Means MD [STAFF PHYSICIAN] - 1 Week Patient Instructions/Handouts: Bowel Obstruction (DC) Discharge Disposition: HOME SELF-CARE
--- NOTE | 2021-11-01 16:08 | P.PN ---
Progress Note - Text Progress Note Date: 11/01/21 - Chief Complaint Abdominal pain History of presenting complaint: This is a pleasant 81-year-old patient, follows with Dr. Junior Jalloh. Chronic stable medical conditions include coronary artery disease with bypass, COPD, GERD, hard of hearing, hypertension, osteoarthritis, abdominal aneurysm,. Last week patient had repair of his left upper extremity fistula by Dr. Mccann from vascular. Patient has right upper chest wall dialysis catheter since July of this year. Dialysis on Sunday and Sunday. Follows with Dr. Chavis. 4 days ago patient started having nausea vomiting increasing abdominal pain that progressed to get worse. Patient normally has a bowel movement every 3-4 days and sometimes takes a laxative. Patient's had no bowel movement for last 4 days. Denies any fever and chills. Tired rundown. Patient does make some urine. Patient is accompanied by his 2 daughters. Computed tomography scan of the ER didn't show internal hernia causing focal bowel obstruction. With one fluid-filled dilated loop. Moderate wall thickening. Focal infrarenal AAA 5.1 cm. October 25: NG tube came out last night. Not much output documented. Connected to suction today. Abdominal pain present. No flatus. present. October 26: NG tube remains to suction. Decreased abdominal pain. Patient denies any BM. Follow with surgery. Some confusion delirium. October 27: Apparently overnight NG to fill out. No nausea vomiting. Getting hemodialysis today. Patient does not remember having any flatus or BM. Didn't remember. at the bedside. Decreased abdominal pain. Pending surgical evaluation today. October 28: Patient has some nausea earlier today. Made nothing by mouth.. Some abdominal pain. No BM or flatus. Getting hemodialysis today. Discussed with daughter the bedside. October 29: Tolerating clear liquids. Had a BM last night. Abdomen feels a bit distended. No nausea vomiting. and daughter the bedside. Did walk in the hallway with support. October 30: Up in a chair. Had small BM last night. On full liquid diet. Slight abdominal distention. Discussed with patient and family. Ambulate in the hallway. October 31: Patient tolerated full liquid diet. Had a good bowel movement last night. Hemodialysis today. No abdominal pain. Hopefully diet to be advanced per surgery. Discussed with patient. Has been out of bed. November 01: Patient tolerated regular diet. Had a bowel movement last night. Up and about. Did discuss with the patient about his diet. Discussed Active Medications Albuterol Sulfate (Albuterol Nebulized 2.5 Mg/3 Ml) 2.5 mg INHALATION RT-TID [facility] Last Admin: 11/01/21 11:13 Dose: 2.5 mg Documented by: Albuterol Sulfate (Albuterol Nebulized 2.5 Mg/3 Ml) 2.5 mg INHALATION RT-Q2H PRN PRN Reason: Shortness Of Breath Or Wheezing Amlodipine Besylate (Amlodipine 10 Mg Tab) 10 mg PO [facility] Last Admin: 10/31/21 20:35 Dose: 10 mg Documented by: Atorvastatin Calcium (Atorvastatin 80 Mg Tab) 80 mg PO [facility] Last Admin: 10/31/21 20:35 Dose: 80 mg Documented by: Buspirone HCl (Buspirone Hcl 5 Mg Tab) 7.5 mg PO BID [facility] Last Admin: 11/01/21 07:11 Dose: 7.5 mg Documented by: Calcium Acetate (Calcium Acetate 667 Mg Tab) 667 mg PO TID-W/MEALS [facility] Last Admin: 11/01/21 11:57 Dose: 667 mg Documented by: Darbepoetin Edu (Darbepoetin Edu 40 Mcg/0.4 Ml Syringe) 40 mcg SQ Q7D [facility] Last Admin: 10/30/21 13:22 Dose: 40 mcg Documented by: Doxazosin Mesylate (Doxazosin 4 Mg Tab) 8 mg PO [facility] Last Admin: 10/31/21 20:34 Dose: 8 mg Documented by: Enoxaparin Sodium (Enoxaparin 30 Mg/0.3 Ml Syringe) 30 mg SQ DAILY@1800 [facility] Last Admin: 10/31/21 17:53 Dose: 30 mg Documented by: Hydromorphone HCl (Hydromorphone 0.5 Mg/0.5 Ml Syringe) 0.5 mg IVP Q6HR PRN PRN Reason: Pain Last Admin: 10/24/21 13:58 Dose: 0.5 mg Documented by: Lactated Ringer's (Lactated Ringers) 1,000 mls @ 20 mls/hr IV .Q24H [facility] Last Admin: 11/01/21 07:12 Dose: Not Given Documented by: Isosorbide Mononitrate (Isosorbide Mononitrate Er 30 Mg Tab.Er.24h) 30 mg PO DAILY [facility] Last Admin: 11/01/21 07:11 Dose: 30 mg Documented by: Montelukast Sodium (Montelukast 10 Mg Tab) 10 mg PO [facility] Last Admin: 10/31/21 20:34 Dose: 10 mg Documented by: Ondansetron HCl (Ondansetron 4 Mg/2 Ml Vial) 4 mg IVP Q6HR PRN PRN Reason: Nausea And Vomiting Last Admin: 10/28/21 10:22 Dose: 4 mg Documented by: Pantoprazole Sodium (Pantoprazole 40 Mg Tablet) 40 mg PO DAILY@0730 [facility] Last Admin: 11/01/21 07:11 Dose: 40 mg Documented by: Tamsulosin HCl (Tamsulosin 0.4 Mg Cap.Er.24h) 0.4 mg PO [facility] Last Admin: 10/31/21 20:34 Dose: 0.4 mg Documented by: Past medical history to include: Coronary artery disease, COPD, TIA, GERD, hard of hearing, hypertension, osteoarthritis, end-stage kidney disease on hemodialysis Sunday, abdominal aneurysm, coronary bypass, Social history: Lives with . Smoked a pack a day for 64 years stopped in 2019. 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 Physical examination: VITAL SIGNS: 98.2, 64, 18, 113 with 74, 92% room air GENERAL: Up in a chair, comfortable. Right upper chest wall dialysis catheter. Fistula left upper extremity EYES: Pupils equal. Conjunctiva normal. HEENT: External appearance of nose and ears normal, oral cavity dry mucous membranes. Decreased hearing NECK: JVD not raised; masses not palpable. HEART: First and second heart sounds are normal; no edema. LUNGS: Respiratory rate normal; clear to auscultation. ABDOMEN: Soft, no tenderness, no guarding rigidity, liver spleen not palpable, no masses palpable. PSYCH: Answering questions appropriately MUSCULOSKELETAL:No Clubbing/cyanosis;muscles-grossly intact. Evidence of OA INVESTIGATIONS, reviewed in the clinical context: October 31: White count 5.9 hemoglobin 10.9 platelets 121 sodium 132 potassium 4.2 creatinine 6.44 phosphorus 5.9 Computed tomography scan abdomen [October 26]: No complete distal obstruction. More distended small bowel loops. Long segment of small bowel wall thickening. October 26: White count 7.3 hemoglobin 10.1 sodium 138 potassium 4.4 total bilirubin 0.4 White count 9.6 hemoglobin 12.4 platelets 153 sodium 134 potassium 5.3 BUN 89 creatinine 7.45 EKG tracing personally reviewed by me-normal sinus rhythm 76/m. Computed tomography scan abdomen: Internal hernia causing focal bowel obstruction. Focal infrarenal AAA up to 5.1 cm. Assessment and plan: -Acute bowel obstruction from internal hernia symptoms present for 4 days: No complete obstruction as per repeat computed tomography scan.: Resolved Tolerating a regular diet. Had a BM. -End-stage kidney disease on hemodialysis Sunday and Sunday Patient has a right chest wall dialysis catheter. Left upper extremity fistula that was recently repaired by Dr. Mccann from vascular -Hyperkalemia from chronic kidney disease Follow with dialysis -Anemia of chronic kidney disease Follow H&H -Hypertension with chronic kidney disease Amlodipine 10 mg daily at bedtime, Imdur ER 30 mg daily, -COPD in an ex-smoker Albuterol 2.5 every 4 -Coronary artery disease prior history of coronary bypass Imdur ER 30 mg a day -GERD Protonix -Hard of hearing -Urine outflow obstruction Flomax 0.4 mg daily at bedtime -Primary osteoarthritis Pain medications as needed -Acute delirium, multifactorial: Resolved Follow clinically follow labs Continue current medications. If discharged to follow-up with his PCP Dr. Jalloh. Thank you Dr. Means
== END 2021-11-01 16:11 | disposition home or self-care (01) | DRG 393 ==
LOC: EC 11:12 → 4SSUR 13:25
PROVIDERS: ADMIT Surgery; ATTEND Surgery
PROC: 0D9670Z Drainage of Stomach with Drainage Device, Via Natural or Artificial Opening (ICD-10-PCS; principal; 2021-10-24)
PROC: 5A1D70Z Performance of Urinary Filtration, Intermittent, Less than 6 Hours Per Day (ICD-10-PCS; 2021-10-25)
DX: K46.0 Unspecified abdominal hernia with obstruction, without gangrene (principal); N18.6 End stage renal disease; F05 Delirium due to known physiological condition; I12.0 Hypertensive chronic kidney disease with stage 5 chronic kidney disease or end stage renal disease; I42.9 Cardiomyopathy, unspecified; D63.1 Anemia in chronic kidney disease; E87.5 Hyperkalemia; H91.90 Unspecified hearing loss, unspecified ear; I25.10 Atherosclerotic heart disease of native coronary artery without angina pectoris; I25.2 Old myocardial infarction; I48.91 Unspecified atrial fibrillation; I71.4 Abdominal aortic aneurysm, without rupture; J44.9 Chronic obstructive pulmonary disease, unspecified; K21.9 Gastro-esophageal reflux disease without esophagitis; M19.91 Primary osteoarthritis, unspecified site; E83.9 Disorder of mineral metabolism, unspecified; Z79.899 Other long term (current) drug therapy; Z86.73 Personal history of transient ischemic attack (TIA), and cerebral infarction without residual deficits; Z87.01 Personal history of pneumonia (recurrent); Z82.49 Family history of ischemic heart disease and other diseases of the circulatory system; Z95.1 Presence of aortocoronary bypass graft; Z87.891 Personal history of nicotine dependence; Z98.1 Arthrodesis status; Z99.2 Dependence on renal dialysis; Z98.890 Other specified postprocedural states; G89.29 Other chronic pain; M54.2 Cervicalgia; M54.9 Dorsalgia, unspecified; Z87.81 Personal history of (healed) traumatic fracture; Z88.5 Allergy status to narcotic agent; Z88.8 Allergy status to other drugs, medicaments and biological substances; Z86.19 Personal history of other infectious and parasitic diseases; Z90.49 Acquired absence of other specified parts of digestive tract; Z90.79 Acquired absence of other genital organ(s); Z80.51 Family history of malignant neoplasm of kidney
CPT/HCPCS: 36415; 71045; 74176; 80048; 80053; 81001; 82150; 82728; 83540; 83550; 83605; 83690; 84100; 85025; 86850; 86900; 86901; 87040; 90935; 93005; 94640; 96361; 96374; 96375; 99285

== ENCOUNTER 2022-02-23 13:08 | Inpatient (IN) | payer MEDICARE ==
--- NOTE | 2022-02-23 14:13 | XR ---
EXAMINATION TYPE: XR KUB DATE OF EXAM: 02/23/2022 2:02 PM INDICATION: Patient age:Male; 81 years old; Reason for study: abdominal pain; COMPARISON: CT abdomen pelvis 10/26/2021 TECHNIQUE: One radiographic view of the abdomen was obtained. FINDINGS: The bowel gas pattern is nonspecific without dilated loops of small or large bowel. There i s no evidence for organomegaly or pneumoperitoneum. The osseous structures are intact. No abnormal calcifications are present. Fecal material and gas are demonstrated throughout the colon and rectum. Atherosclerosis of the arterial vasculature. There is mild osteophyte formation of the hips. Multile renea disc degeneration changes are present. Right pelvic phlebolith present. Partially visualized ster notomy wires. IMPRESSION: Nonspecific bowel gas pattern without radiographic evidence for acute process.
[2022-02-23 15:47] LABS: Basophils % (A) 0 %; Eosinophils # (A) 0.1 k/uL (0-0.7); Eosinophils % (A) 1 %; HCT 40.3 % (39.0-53.0); HGB 12.8 gm/dL (13.0-17.5); Hypochromasia Slight; Lymphocytes # (A) 2.2 k/uL (1.0-4.8); Lymphocytes % (A) 18 %; MCH 34.1 pg (25.0-35.0); MCHC 31.7 g/dL (31.0-37.0); MCV 107.9 fL (80.0-100.0); Macrocytosis Moderate; Mean Platelet Volume 9.6; Monocytes # (A) 0.4 k/uL (0-1.0); Monocytes % (A) 3 %; Neutrophils # (A) 9.6 k/uL (1.3-7.7); Neutrophils % (A) 77 %; Platelet Count 107 k/uL (150-450); RBC 3.74 m/uL (4.30-5.90); WBC 12.4 k/uL (3.8-10.6)
[2022-02-23 15:56] LABS: Albumin 3.2 g/dL (3.5-5.0); Calcium 7.8 mg/dL (8.4-10.2); Potassium 4.7 mmol/L (3.5-5.1); Total Bilirubin 1.1 mg/dL (0.2-1.3); Total Protein 6.4 g/dL (6.3-8.2)
--- NOTE | 2022-02-23 17:37 | CT ---
EXAMINATION TYPE: CT abdomen pelvis wo con DATE OF EXAM: 02/23/2022 COMPARISON: 10/26/2021 HISTORY: Abdominal pain CT DLP: 403.5 mGycm Automated exposure control for dose reduction was used. TECHNIQUE: Helical acquisition of images was performed from the lung bases through the pelvis. FINDINGS: LUNG BASES: No significant abnormality is appreciated. LIVER/GB: No acute abnormality is appreciated. Cholelithiasis without acute cholecystitis. PANCREAS: No significant abnormality is seen. SPLEEN: No significant abnormality is seen. ADRENALS: No significant abnormality is seen. KIDNEYS: No bilateral hydronephrosis. Few simple appearing right renal cysts measuring up to 1.8 cm. Multiple punctate nonobstructing bilateral renal calculi versus atherosclerotic calcifications. FREE AIR: No free air is visualized RETROPERITONEAL ADENOPATHY: None visualized REPRODUCTIVE ORGANS: No significant abnormality is seen URINARY BLADDER: No significant abnormality is seen. PELVIC ADENOPATHY: None visualized. OSSEOUS STRUCTURES: No significant abnormality is seen. BOWEL: No significant abnormality is seen. OTHER: Advanced atherosclerotic disease and stable 5 cm infrarenal abdominal aortic aneurysm seen. IMPRESSION: NO ACUTE ABNORMALITY STABLE ABDOMINAL AORTIC ANEURYSM. CHOLELITHIASIS.
[2022-02-23] MEDS ORDERED: ACETAMINOPHEN TAB 500 MG TAB PO STA (18:04)
[2022-02-23] MEDS ORDERED: ONDANSETRON 4 MG/2 ML VIAL IVP STA (18:05)
[2022-02-23] MEDS ORDERED: SODIUM CHLORIDE 0.9% 500 ML 500 ML IV ONE (18:13)
--- NOTE | 2022-02-23 18:14 | ED ---
Abdominal Pain HPI - General Chief Complaint: Abdominal Pain Stated Complaint: stomach pain Time Seen by Provider: 02/23/22 16:44 Source: patient Mode of arrival: ambulatory Limitations: no limitations - History of Present Illness Initial Comments: Patient is an 81-year-old male presenting with chief complaint of abdominal pain. Patient has had bilateral lower quadrant pain for the last 6 days. Patient states that the pain is the worse in the morning when he wakes up. Patient notices worsening with eating and drinking. He admits to nausea and di arrhea. Patient receives dialysis Sunday, Sunday, Sunday, he did not receive dialysis yesterday due to the severity of the pain. Denies vomiting, dysuria, hematuria, hematochezia, melena, fever, chills, chest pain, shortness of breath, cough, URI-like symptoms, palpitations. - Related Data Home Medications Medication Instructions Recorded Confirmed Zafirlukast 20 mg PO BID 09/30/14 02/23/22 Tamsulosin HCl [Flomax] 0.4 mg PO HS 04/26/20 02/23/22 busPIRone HCL [Buspar] 7.5 mg PO BID 04/26/20 02/23/22 Albuterol Nebulized [Ventolin 2.5 mg INHALATION RT-Q4H PRN 06/27/20 02/23/22 Nebulized] Furosemide [Lasix] 40 mg PO DAILY 10/24/21 02/23/22 Pantoprazole [Protonix] 40 mg PO BID 10/24/21 02/23/22 Ipratropium Nebulized [Atrovent 0.5 mg INHALATION RT-Q4H PRN 02/23/22 02/23/22 Nebulized 0.2 MG/ML] Sucralfate [Carafate] 1 gm PO QID 02/23/22 02/23/22 Allergies Allergy/AdvReac Type Severity Reaction Status Date / Time morphine Allergy Severe Rash/Hives Verified 02/23/22 20:14 lorazepam [From Ativan] AdvReac Confusion Verified 02/23/22 20:14 Review of Systems ROS Statement: Those systems with pertinent positive or pertinent negative responses have been documented in the HPI. ROS Other: All systems not noted in ROS Statement are negative. 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 Last Myocardial Infarction Date:: 2019 History of Any Multi-Drug Resistant Organisms: None Reported Past Surgical History: Appendectomy, Bowel Resection, Coronary Bypass/CABG, Ear Surgery, Heart Catheterization, Hernia Repair Additional Past Surgical History / Comment(s): R chest port for dialysis, R upper arm hemodialysis cath/has been ballooned and not able to use for dialysis yet, craniotomy for benign tumor, 3 vessel CABG in 2003, laparotomy for subcutaeous emphysema in bowel per daughters/extensive hospitalization, L caratid endartectomy, TURP, hemodialysis port in R chest/L upper arm, surgery to taper ears, EGD, colonoscopy, pain clinic procedures. Past Anesthesia/Blood Transfusion Reactions: No Reported Reaction Additional Past Anesthesia/Blood Transfusion Reaction / Comment(s): Pt has received blood in past without reaction. Past Psychological History: No Psychological Hx Reported Smoking Status: Former smoker Past Alcohol Use History: None Reported Past Drug Use History: None Reported - Past Family History Sister(s) Family Medical History: Cancer Additional Family Medical History / Comment(s): kidney Mother Family Medical History: Myocardial Infarction ([place]) Additional Family Medical History / Comment(s): Mother of a [place] in her 80s. Father Family Medical History: Myocardial Infarction ([place]) Brother(s) Family Medical History: Myocardial Infarction ([place]) General Exam Limitations: no limitations General appearance: alert, in no apparent distress Head exam: Present: atraumatic, normocephalic, normal inspection Eye exam: Present: normal appearance, EOMI. Absent: scleral icterus, periorbital swelling Neck exam: Present: normal inspection Respiratory exam: Present: normal lung sounds bilaterally. Absent: respiratory distress, wheezes, rales, rhonchi, stridor Cardiovascular Exam: Present: regular rate, normal rhythm, normal heart sounds. Absent: systolic murmur, diastolic murmur, rubs, gallop, clicks GI/Abdominal exam: Present: tenderness, guarding. Absent: distended, rebound, rigid Neurological exam: Present: alert, oriented X3, CN II-XII intact Psychiatric exam: Present: normal affect, normal mood Skin exam: Present: warm, dry, intact, normal color. Absent: rash Course Vital Signs 02/23/22 02/23/22 02/23/22 13:41 20:25 20:33 Temperature 98.9 F Pulse Rate 81 64 66 Respiratory 16 Rate Blood Pressure 132/65 O2 Sat by Pulse 95 Oximetry 02/23/22 02/23/22 20:44 23:18 Temperature Pulse Rate 67 61 Respiratory 16 18 Rate Blood Pressure 108/46 147/60 O2 Sat by Pulse 90 L 94 L Oximetry Procedures - [place] Protocol (Time Out) Nurse: Christian Shea Medical Decision Making - Medical Decision Making Patient is an 81-year-old male presenting with chief complaint of abdominal pain. Accompanied by nausea and diarrhea. Has been going on for the last 6 days. On examination of the abdomen there is guarding, tenderness in the bilateral lower quadrants. No distention. WBC 12.4. Sodium 132. Patient receives dialysis, creatinine 7.36 and BUN 82, consistent with his baseline. CT of the abdomen and pelvis shows no acute process, stable abdominal aortic a neurysm and cholelithiasis without infection. Urinalysis is pending, bladder scan shows volume of 500, lucas catheter is ordered. On reassessment patient is still complaining of extreme pain. I spoke with Dr. Sanders who agreed to admit the patient for intractable abdominal pain. Patient conveyed verbal understanding and was in agreement to this plan. I discussed this case with my attending Dr. Nuno - Lab Data Result diagrams: 02/23/22 15:40 02/23/22 15:40 Lab Results 02/23/22 02/23/22 02/23/22 Range/Units 15:40 15:40 15:40 WBC 12.4 H (3.8-10.6) k/uL RBC 3.74 L (4.30-5.90) m/uL Hgb 12.8 L (13.0-17.5) gm/dL Hct 40.3 (39.0-53.0) % MCV 107.9 H (80.0-100.0) fL MCH 34.1 (25.0-35.0) pg MCHC 31.7 (31.0-37.0) g/dL RDW 14.0 (11.5-15.5) % Plt Count 107 L (150-450) k/uL MPV 9.6 Neutrophils % 77 % Lymphocytes % 18 % Monocytes % 3 % Eosinophils % 1 % Basophils % 0 % Neutrophils # 9.6 H (1.3-7.7) k/uL Lymphocytes # 2.2 (1.0-4.8) k/uL Monocytes # 0.4 (0-1.0) k/uL Eosinophils # 0.1 (0-0.7) k/uL Basophils # 0.0 (0-0.2) k/uL Hypochromasia Slight Macrocytosis Moderate Sodium 132 L (137-145) mmol/L Potassium 4.7 (3.5-5.1) mmol/L Chloride 94 L (98-107) mmol/L Carbon Dioxide 25 (22-30) mmol/L Anion Gap 13 mmol/L BUN 82 H (9-20) mg/dL Creatinine 7.36 H* (0.66-1.25) mg/dL Est GFR (CKD-EPI)AfAm 7 (>60 ml/min/1.73 sqM) Est GFR (CKD-EPI)NonAf 6 (>60 ml/min/1.73 sqM) Glucose 78 (74-99) mg/dL Plasma Lactic Acid Mitchell 0.7 (0.7-2.0) mmol/L Calcium 7.8 L (8.4-10.2) mg/dL Total Bilirubin 1.1 (0.2-1.3) mg/dL AST 29 (17-59) U/L ALT 14 (4-49) U/L Alkaline Phosphatase 73 (38-126) U/L Total Protein 6.4 (6.3-8.2) g/dL Albumin 3.2 L (3.5-5.0) g/dL Amylase 42 (30-110) U/L Lipase 54 (23-300) U/L Disposition Clinical Impression: Intractable abdominal pain Disposition: ADMITTED IP TO THIS [facility] Condition: Fair Time of Disposition: 18:41 Decision to Admit Reason: Admit from EC Decision Date: 02/23/22 Decision Time: 18:41
[2022-02-23] MEDS ORDERED: HYDROmorphone 0.5 MG/0.5 ML SYRINGE IVP STA (18:19)
[2022-02-23] MEDS ORDERED: NALOXONE 0.4 MG/ML 1 ML VIAL IV PRN (18:28)
[2022-02-23] MEDS ORDERED: SODIUM CHLORIDE 0.9% 1,000 ML IV SCH (18:30)
[2022-02-23] MEDS: ALBUTEROL NEBULIZED 2.5 MG/3 ML INHALATION SCH (20:24)
[2022-02-23] MEDS: amLODIPine 10 MG TAB PO SCH (20:43)
[2022-02-23] MEDS: DOXAZOSIN 4 MG TAB PO SCH (20:44)
[2022-02-23] MEDS ORDERED: TAMSULOSIN 0.4 MG CAP.ER.24H PO SCH (21:00)
[2022-02-23] MEDS: busPIRone HCl 5 MG TAB PO SCH (21:31)
[2022-02-23] MEDS: ATORVASTATIN 80 MG TAB PO SCH (21:34)
[2022-02-23] MEDS: ENOXAPARIN 40 MG/0.4 ML SYRINGE SQ SCH (21:34)
[2022-02-23] MEDS: MONTELUKAST 10 MG TAB PO SCH (21:34)
[2022-02-23] MEDS ORDERED: LIDOCAINE URO-JET JELLY 2% 5 ML KIT URETHRAL ONE ×2 (23:25→23:48)
[2022-02-24] MEDS: ALBUTEROL NEBULIZED 2.5 MG/3 ML INHALATION SCH ×6 (00:02→20:31)
--- NOTE | 2022-02-24 01:16 | P.GSCN ---
History of Present Illness Consult date: 02/24/22 History of present illness: 81-year-old gentleman in the hospital with intermittent abdominal pain. The nursing staff attempted to place a Hinds catheter because of inability to void. He is over 500 mL of Urine in his bladder. I will attempt to place a catheter. The patient is status post TURP a couple years back. I've been asked to see the patient. He states that his stream over the last couple weeks as slow down. Review of Systems All systems: negative - Constitutional Denies fever, Denies weight loss - EENT Eyes: denies blurred vision Ears, nose, mouth and throat: Denies dysphagia - Cardiovascular Denies chest pain, Denies shortness of breath - Respiratory Denies cough, Denies 7 - Gastrointestinal Reports as per HPI - Genitourinary Denies dysuria, Denies hematuria - Integumentary Denies rash, Denies unusual bruising - Neurological Denies headaches, Denies syncope - Hematologic/Lymphatic Denies easy bleeding, Denies easy bruising Past Medical History Past Medical History: Atrial Fibrillation, Coronary Artery Disease (CAD), COPD, CVA/TIA, Dialysis, GERD/Reflux, Hypertension, Myocardial Infarction ([place]), Osteoarthritis (OA), Pneumonia, Renal Disease, Respiratory Disorder, Vascular Disorder Additional Past Medical History / Comment(s): ESRD with hemodialysis on //, pt has R chest port for dialysis and a L upper arm catheter but not using yet d/t it has had to be ballooned a couple of times, cardiomyopathy, [place] in 1972 and 2019, 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 Last Myocardial Infarction Date:: 2019 History of Any Multi-Drug Resistant Organisms: None Reported Past Surgical History: Appendectomy, Bowel Resection, Coronary Bypass/CABG, Ear Surgery, Heart Catheterization, Hernia Repair Additional Past Surgical History / Comment(s): R chest port for dialysis, R upper arm hemodialysis cath/has been ballooned and not able to use for dialysis yet, craniotomy for benign tumor, 3 vessel CABG in 2003, laparotomy for subcutaeous emphysema in bowel per daughters/extensive hospitalization, L caratid endartectomy, TURP, hemodialysis port in R chest/L upper arm, surgery to taper ears, EGD, colonoscopy, pain clinic procedures. Past Anesthesia/Blood Transfusion Reactions: No Reported Reaction Additional Past Anesthesia/Blood Transfusion Reaction / Comm: Pt has received blood in past without reaction. Past Psychological History: No Psychological Hx Reported Smoking Status: Former smoker Past Alcohol Use History: None Reported Past Drug Use History: None Reported - Past Family History Sister(s) Family Medical History: Cancer Additional Family Medical History / Comment(s): kidney Mother Family Medical History: Myocardial Infarction ([place]) Additional Family Medical History / Comment(s): Mother of a [place] in her 80s. Father Family Medical History: Myocardial Infarction ([place]) Brother(s) Family Medical History: Myocardial Infarction ([place]) Medications and Allergies Home Medications Medication Instructions Recorded Confirmed Type Zafirlukast 20 mg PO BID 09/30/14 02/23/22 History Tamsulosin HCl [Flomax] 0.4 mg PO HS 04/26/20 02/23/22 History busPIRone HCL [Buspar] 7.5 mg PO BID 04/26/20 02/23/22 History Albuterol Nebulized [Ventolin 2.5 mg INHALATION RT-Q4H PRN 06/27/20 02/23/22 History Nebulized] Furosemide [Lasix] 40 mg PO DAILY 10/24/21 02/23/22 History Pantoprazole [Protonix] 40 mg PO BID 10/24/21 02/23/22 History Ipratropium Nebulized [Atrovent 0.5 mg INHALATION RT-Q4H PRN 02/23/22 02/23/22 History Nebulized 0.2 MG/ML] Sucralfate [Carafate] 1 gm PO QID 02/23/22 02/23/22 History Allergies Allergy/AdvReac Type Severity Reaction Status Date / Time morphine Allergy Severe Rash/Hives Verified 02/23/22 20:14 lorazepam [From Ativan] AdvReac Confusion Verified 02/23/22 20:14 Surgical - Exam Vital Signs Temp Pulse Resp BP Pulse Ox 98.9 F 81 16 132/65 95 02/23/22 13:41 02/23/22 13:41 02/23/22 13:41 02/23/22 13:41 02/23/22 13:41 - General well developed, well nourished, no distress - Eyes normal ocular movement, no icteric - ENT no hearing loss, no congestion - Neck no masses, trachea midline - Respiratory normal respiratory effort, clear to auscultation - Abdomen Abdomen: soft, non tender, no guarding, no rigid, no rebound - Integumentary no rash, no abnormal pigmentation - Neurologic no disoriented, no combative - Psychiatric oriented to time, oriented to person, oriented to place, speech is normal, memory intact Results - Labs 02/23/22 15:40 02/23/22 15:40 Abnormal Lab Results - Last 24 Hours (Table) 02/23/22 02/23/22 Range/Units 15:40 15:40 WBC 12.4 H (3.8-10.6) k/uL RBC 3.74 L (4.30-5.90) m/uL Hgb 12.8 L (13.0-17.5) gm/dL MCV 107.9 H (80.0-100.0) fL Plt Count 107 L (150-450) k/uL Neutrophils # 9.6 H (1.3-7.7) k/uL Sodium 132 L (137-145) mmol/L Chloride 94 L (98-107) mmol/L BUN 82 H (9-20) mg/dL Creatinine 7.36 H* (0.66-1.25) mg/dL Calcium 7.8 L (8.4-10.2) mg/dL Albumin 3.2 L (3.5-5.0) g/dL Diabetes panel 02/23/22 Range/Units 15:40 Sodium 132 L (137-145) mmol/L Potassium 4.7 (3.5-5.1) mmol/L Chloride 94 L (98-107) mmol/L Carbon Dioxide 25 (22-30) mmol/L BUN 82 H (9-20) mg/dL Creatinine 7.36 H* (0.66-1.25) mg/dL Glucose 78 (74-99) mg/dL Calcium 7.8 L (8.4-10.2) mg/dL AST 29 (17-59) U/L ALT 14 (4-49) U/L Alkaline Phosphatase 73 (38-126) U/L Total Protein 6.4 (6.3-8.2) g/dL Albumin 3.2 L (3.5-5.0) g/dL Calcium panel 02/23/22 Range/Units 15:40 Calcium 7.8 L (8.4-10.2) mg/dL Albumin 3.2 L (3.5-5.0) g/dL Pituitary panel 02/23/22 Range/Units 15:40 Sodium 132 L (137-145) mmol/L Potassium 4.7 (3.5-5.1) mmol/L Chloride 94 L (98-107) mmol/L Carbon Dioxide 25 (22-30) mmol/L BUN 82 H (9-20) mg/dL Creatinine 7.36 H* (0.66-1.25) mg/dL Glucose 78 (74-99) mg/dL Calcium 7.8 L (8.4-10.2) mg/dL Adrenal panel 02/23/22 Range/Units 15:40 Sodium 132 L (137-145) mmol/L Potassium 4.7 (3.5-5.1) mmol/L Chloride 94 L (98-107) mmol/L Carbon Dioxide 25 (22-30) mmol/L BUN 82 H (9-20) mg/dL Creatinine 7.36 H* (0.66-1.25) mg/dL Glucose 78 (74-99) mg/dL Calcium 7.8 L (8.4-10.2) mg/dL Total Bilirubin 1.1 (0.2-1.3) mg/dL AST 29 (17-59) U/L ALT 14 (4-49) U/L Alkaline Phosphatase 73 (38-126) U/L Total Protein 6.4 (6.3-8.2) g/dL Albumin 3.2 L (3.5-5.0) g/dL Assessment and Plan Assessment: Impression: Abdominal pain indeterminate etiology. Inability to urinate. His post-TURP. Chronic renal failure. Recommendations: Catheter placement
--- NOTE | 2022-02-24 01:18 | P.PCN ---
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 I attempted to pass a 12-Syrian coud-tip catheter but meet resistance in the deep bulbar urethra or the bladder neck. A 4-Syrian spiral tip filiform was introduced in the bladder. I then pass dilators sequentially [id number]. I then attempted pass a 12-Syrian coud-tip catheter but still meet resistance. I passed an 035 wire in the bladder. A cut the tip of 12-Syrian catheter and over the wire pass the catheter into the bladder. Successful catheter placement Recommendations: Please leave the catheter in place at least 4 days before removing it. He'll need follow-up in my office.
[2022-02-24 01:39] LABS: Appearance,Urine Clear (Clear); Bilirubin,Urine Negative (Negative); Blood,Urine Moderate (Negative); Color,Urine Yellow; Glucose,Urine (UA) Negative (Negative); Hyaline Casts,Urine 1 /lpf (0-2); Ketones,Urine Negative (Negative); Leukocyte Esterase,Urine Negative (Negative); Nitrite,Urine Negative (Negative); Protein,Urine 3+ (Negative); RBC,Urine 33 /hpf (0-5); Specific Gravity,Urine 1.015 (1.001-1.035); Squamous Epithelial Cell,Urine <1 /hpf (0-4); Urobilinogen,Urine <2.0 mg/dL (<2.0); WBC,Urine 4 /hpf (0-5)
--- NOTE | 2022-02-24 08:03 | P.PN ---
Subjective Progress Note Date: 02/24/22 The patient is in the hospital with abdominal pain of uncertain etiology. A catheters placed by myself last night as he has some stricturing of the urethra or bladder neck post TURP a couple years back. His abdominal pain persists therefore the catheter drainage is not alleviated this problem and is probably not the cause of his discomfort. The catheter again should remain in several days before removing it. He will need to be seen as an outpatient by me. Objective - Vital Signs Vital signs: Vital Signs Temp 97.7 F 02/24/22 03:08 Pulse 74 02/24/22 03:10 Resp 16 02/24/22 03:10 BP 128/55 02/24/22 03:08 Pulse Ox 92 L 02/24/22 03:08 FiO2 Intake & Output 02/23/22 02/24/22 02/24/22 18:59 06:59 18:59 Output Total 150 Balance -150 Weight 65.771 kg 65.771 kg Output: Urine 150 Other: Voiding Method Indwelling Catheter - Labs CBC & Chem 7: 02/23/22 15:40 02/23/22 15:40 Labs: Abnormal Lab Results - Last 24 Hours (Table) 02/23/22 02/23/22 02/24/22 Range/Units 15:40 15:40 01:00 WBC 12.4 H (3.8-10.6) k/uL RBC 3.74 L (4.30-5.90) m/uL Hgb 12.8 L (13.0-17.5) gm/dL MCV 107.9 H (80.0-100.0) fL Plt Count 107 L (150-450) k/uL Neutrophils # 9.6 H (1.3-7.7) k/uL Sodium 132 L (137-145) mmol/L Chloride 94 L (98-107) mmol/L BUN 82 H (9-20) mg/dL Creatinine 7.36 H* (0.66-1.25) mg/dL Calcium 7.8 L (8.4-10.2) mg/dL Albumin 3.2 L (3.5-5.0) g/dL Urine Protein 3+ H (Negative) Urine Blood Moderate H (Negative) Urine RBC 33 H (0-5) /hpf
[2022-02-24] MEDS: CALCIUM ACETATE 667 MG TAB PO SCH ×3 (08:23→17:34)
[2022-02-24] MEDS: ENOXAPARIN 40 MG/0.4 ML SYRINGE SQ SCH (08:59)
[2022-02-24] MEDS: CYANOCOBALAMIN 500 MCG TAB PO SCH (09:13)
[2022-02-24] MEDS: busPIRone HCl 5 MG TAB PO SCH ×2 (09:13→22:21)
[2022-02-24] MEDS: PANTOPRAZOLE 40 MG TABLET PO SCH (09:13)
[2022-02-24] MEDS: FUROSEMIDE 40 MG TAB PO SCH (09:13)
[2022-02-24] MEDS: ISOSORBIDE MONONITRATE ER 30 MG TAB.ER.24H PO SCH (09:13)
--- NOTE | 2022-02-24 09:29 | P.NPCON ---
History of Present Illness - Reason for Consult end stage renal disease - History of Present Illness Reason for consultation: End-stage renal disease History of present illness: Patient is a 81-year-old male seen in renal consultation for end-stage renal disease. He is maintained on hemodialysis on Sunday schedule via AV graft. Patient went to hemodialysis Sunday but did not receive treatment as he wasn't feeling well and wanted to go home. Patient presents to the hospital with abdominal discomfort going on for the last 4-5 days. He was noted to have urinary retention and had a Hinds catheter placed by urology. Patient does admit to intermittent vomiting and diarrhea. Denies chest pain or shortness of breath. CT of the abdomen and pelvis showed no acute abnormality. He is tolerating clear liquid diet. No vomiting overnight. Denies fever or chills. Hemodynamically stable. Vital signs stable. General: Awake, no acute distress. HEENT: Head exam is unremarkable. LUNGS: Breath sounds decreased. HEART: Rate and Rhythm are regular. ABDOMEN: Soft, tender to touch. EXTREMITITES: No edema. Past Medical History Past Medical History: Atrial Fibrillation, Coronary Artery Disease (CAD), COPD, CVA/TIA, Dialysis, GERD/Reflux, Hypertension, Myocardial Infarction ([place]), Osteoarthritis (OA), Pneumonia, Renal Disease, Respiratory Disorder, Vascular Disorder Additional Past Medical History / Comment(s): ESRD with hemodialysis on //, pt has R chest port for dialysis and a L upper arm catheter but not using yet d/t it has had to be ballooned a couple of times, cardiomyopathy, [place] in 1972 and 2019, 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 Last Myocardial Infarction Date:: 2019 History of Any Multi-Drug Resistant Organisms: None Reported Past Surgical History: Appendectomy, Bowel Resection, Coronary Bypass/CABG, Ear Surgery, Heart Catheterization, Hernia Repair Additional Past Surgical History / Comment(s): R chest port for dialysis, R upper arm hemodialysis cath/has been ballooned and not able to use for dialysis yet, craniotomy for benign tumor, 3 vessel CABG in 2003, laparotomy for subcut aeous emphysema in bowel per daughters/extensive hospitalization, L caratid endartectomy, TURP, hemodialysis port in R chest/L upper arm, surgery to taper ears, EGD, colonoscopy, pain clinic procedures. Past Anesthesia/Blood Transfusion Reactions: No Reported Reaction Additional Past Anesthesia/Blood Transfusion Reaction / Comment(s): Pt has received blood in past without reaction. Past Psychological History: No Psychological Hx Reported Smoking Status: Former smoker Past Alcohol Use History: None Reported Past Drug Use History: None Reported - Past Family History Sister(s) Family Medical History: Cancer Additional Family Medical History / Comment(s): kidney Mother Family Medical History: Myocardial Infarction ([place]) Additional Family Medical History / Comment(s): Mother of a [place] in her 80s. Father Family Medical History: Myocardial Infarction ([place]) Brother(s) Family Medical History: Myocardial Infarction ([place]) Medications and Allergies Home Medications Medication Instructions Recorded Confirmed Type Zafirlukast 20 mg PO BID 09/30/14 02/23/22 History Tamsulosin HCl [Flomax] 0.4 mg PO HS 04/26/20 02/23/22 History busPIRone HCL [Buspar] 7.5 mg PO BID 04/26/20 02/23/22 History Albuterol Nebulized [Ventolin 2.5 mg INHALATION RT-Q4H PRN 06/27/20 02/23/22 History Nebulized] Furosemide [Lasix] 40 mg PO DAILY 10/24/21 02/23/22 History Pantoprazole [Protonix] 40 mg PO BID 10/24/21 02/23/22 History Ipratropium Nebulized [Atrovent 0.5 mg INHALATION RT-Q4H PRN 02/23/22 02/23/22 History Nebulized 0.2 MG/ML] Sucralfate [Carafate] 1 gm PO QID 02/23/22 02/23/22 History Allergies Allergy/AdvReac Type Severity Reaction Status Date / Time morphine Allergy Severe Rash/Hives Verified 02/23/22 20:14 lorazepam [From Ativan] AdvReac Confusion Verified 02/23/22 20:14 Physical Exam Vitals: Vital Signs Temp Pulse Pulse Resp BP BP Pulse Ox 02/24/22 08:00 98.8 F 79 17 174/59 90 L 02/24/22 03:10 74 16 02/24/22 03:08 97.7 F 74 16 128/55 92 L 02/23/22 23:18 61 18 147/60 94 L 02/23/22 20:44 67 16 108/46 90 L 02/23/22 20:33 66 02/23/22 20:25 64 02/23/22 13:41 98.9 F 81 16 132/65 95 Intake and Output 02/23/22 02/24/22 02/24/22 22:59 06:59 14:59 Output Total 150 Balance -150 Output: Urine 150 Other: Voiding Method Indwelling Catheter Weight 65.771 kg Results - Lab Results Most recent lab results Calcium 7.8 mg/dL (8.4-10.2) L 02/23/22 15:40 02/23/22 15:40 02/23/22 15:40 Assessment and Plan Plan: Assessment: 1. End-stage renal disease maintained on hemodialysis on Sunday schedule. 2. Urinary retention with urethral stricture. Hinds catheter placed by urology. 3. Hypertension with chronic any disease. Stable. 4. Chronic kidney disease mineral bone disease maintained on PhosLo. Plan: Hemodialysis today. Stop Flomax as he is on doxazosin. Home antihypertensives resumed. Thank you for the consultation. I will continue to follow this patient with you during his hospital stay.
[2022-02-24 13:57] VITALS: BMI 22.7
[2022-02-24] MEDS: ONDANSETRON 4 MG/2 ML VIAL IVP PRN (18:28)
--- NOTE | 2022-02-24 19:06 | P.HPIM ---
History of Present Illness H&P Date: 02/24/22 Chief Complaint: Lower abdominal pain History of presenting complaint: This is a pleasant 81-year-old patient, follows with Dr. Junior Jalloh. Chronic stable medical conditions include coronary artery disease with bypass, COPD, GERD, hard of hearing, hypertension, osteoarthritis, abdominal aneurysm,. Dialysis on Sunday and Sunday. Follows with Dr. Chavis. Patient presents with couple of days of lower abdominal pain. Has a bowel movement every 4 days. Also having nausea. Having increasing lower abdominal pain. No fever no chills. Some congested cough. Found to have distended bladder. About [address] Macias did place a catheter. No fever no chills. Review of systems: GEN.: Tired EYES: None HEENT: Decreased hearing NECK: None RESPIRATORY: Congested cough CARDIOVASCULAR: None GASTROINTESTINAL: None GENITOURINARY: None MUSCULOSKELETAL: Joint pains] LYMPHATICS: None HEMATOLOGICAL: None PSYCHIATRY: Bed anxious NEUROLOGICAL: None Past medical history to include: Coronary artery disease, COPD, TIA, GERD, hard of hearing, hypertension, osteoarthritis, end-stage kidney disease on hemodialysis Sunday, abdominal aneurysm, coronary bypass, Social history: Lives with . Smoked a pack a day for 64 years stopped in 2019. 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 Physical examination: VITAL SIGNS: 98.7, 79, 17, 1 74 x 59, 90% GENERAL: Laying in bed, awake, tired Fistula left upper extremity EYES: Pupils equal. Conjunctiva pale. HEENT: External appearance of nose and ears normal, oral cavity dry mucous membranes. Decreased hearing NECK: JVD not raised; masses not palpable. HEART: First and second heart sounds are normal; no edema. LUNGS: Respiratory rate normal; clear to auscultation. ABDOMEN: Soft, no tenderness, no guarding rigidity, liver spleen not palpable, no masses palpable. PSYCH: Answering questions appropriately MUSCULOSKELETAL:No Clubbing/cyanosis;muscles-grossly intact. Evidence of OA INVESTIGATIONS, reviewed in the clinical context: WBC 12.4 hemoglobin 12.8 platelets 107 sodium 132 potassium 4.7 BUN 82 creatinine 7.36 Computed tomography scan abdomen and pelvis: Renal cyst. Multiple punctate bilateral nonobstructing bilateral renal calculi. Abdominal aortic aneurysm 5 cm. Assessment and plan: -Acute abdominal pain from urinary retention. -Acute urinary retention possibly from blood outflow obstruction Hinds catheter placed by Dr. Macias. To remain in for now. Flomax 0.4 mg twice a day -End-stage kidney disease on hemodialysis Sunday and Sunday Continue dialysis -Anemia of chronic kidney disease Follow H&H -Hypertension with chronic kidney disease Amlodipine 10 mg daily at bedtime, Imdur ER 30 mg daily, -COPD in an ex-smoker Albuterol 2.5 every 4 -Coronary artery disease prior history of coronary bypass Imdur ER 30 mg a day -GERD Protonix -Hard of hearing -Primary osteoarthritis Pain medications as needed Hinds catheter placed. Hemodialysis. Resume home medications. Discussed with patient. Advance diet. Prognosis guarded. Past Medical History Past Medical History: Atrial Fibrillation, Coronary Artery Disease (CAD), COPD, CVA/TIA, Dialysis, GERD/Reflux, Hypertension, Myocardial Infarction ([place]), Osteoarthritis (OA), Pneumonia, Renal Disease, Respiratory Disorder, Vascular Disorder Additional Past Medical History / Comment(s): ESRD with hemodialysis on //, pt has R chest port for dialysis and a L upper arm catheter but not using yet d/t it has had to be ballooned a couple of times, cardiomyopathy, [place] in 1972 and 2019, 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 Last Myocardial Infarction Date:: 2019 History of Any Multi-Drug Resistant Organisms: None Reported Past Surgical History: Appendectomy, Bowel Resection, Coronary Bypass/CABG, Ear Surgery, Heart Catheterization, Hernia Repair Additional Past Surgical History / Comment(s): R chest port for dialysis, R upper arm hemodialysis cath/has been ballooned and not able to use for dialysis yet, craniotomy for benign tumor, 3 vessel CABG in 2003, laparotomy for subcutaeous emphysema in bowel per daughters/extensive hospitalization, L caratid endartectomy, TURP, hemodialysis port in R chest/L upper arm, surgery to taper ears, EGD, colonoscopy, pain clinic procedures. Past Anesthesia/Blood Transfusion Reactions: No Reported Reaction Additional Past Anesthesia/Blood Transfusion Reaction / Comment(s): Pt has received blood in past without reaction. Past Psychological History: No Psychological Hx Reported Smoking Status: Former smoker Past Alcohol Use History: None Reported Past Drug Use History: None Reported - Past Family History Sister(s) Family Medical History: Cancer Additional Family Medical History / Comment(s): kidney Mother Family Medical History: Myocardial Infarction ([place]) Additional Family Medical History / Comment(s): Mother of a [place] in her 80s. Father Family Medical History: Myocardial Infarction ([place]) Brother(s) Family Medical History: Myocardial Infarction ([place]) Medications and Allergies Home Medications Medication Instructions Recorded Confirmed Type Zafirlukast 20 mg PO BID 09/30/14 02/23/22 History Tamsulosin HCl [Flomax] 0.4 mg PO HS 04/26/20 02/23/22 History busPIRone HCL [Buspar] 7.5 mg PO BID 04/26/20 02/23/22 History Albuterol Nebulized [Ventolin 2.5 mg INHALATION RT-Q4H PRN 06/27/20 02/23/22 History Nebulized] Furosemide [Lasix] 40 mg PO DAILY 10/24/21 02/23/22 History Pantoprazole [Protonix] 40 mg PO BID 10/24/21 02/23/22 History Ipratropium Nebulized [Atrovent 0.5 mg INHALATION RT-Q4H PRN 02/23/22 02/23/22 History Nebulized 0.2 MG/ML] Sucralfate [Carafate] 1 gm PO QID 02/23/22 02/23/22 History Allergies Allergy/AdvReac Type Severity Reaction Status Date / Time morphine Allergy Severe Rash/Hives Verified 02/23/22 20:14 lorazepam [From Ativan] AdvReac Confusion Verified 02/23/22 20:14 Physical Exam Vitals: Vital Signs Temp Pulse Pulse Resp BP BP Pulse Ox 02/24/22 08:00 98.8 F 79 17 174/59 90 L 02/24/22 03:10 74 16 02/24/22 03:08 97.7 F 74 16 128/55 92 L 02/23/22 23:18 61 18 147/60 94 L 02/23/22 20:44 67 16 108/46 90 L 02/23/22 20:33 66 02/23/22 20:25 64 02/23/22 13:41 98.9 F 81 16 132/65 95 Intake and Output 02/23/22 02/24/22 02/24/22 22:59 06:59 14:59 Output Total 150 Balance -150 Output: Urine 150 Other: Voiding Method Indwelling Catheter Weight 65.771 kg Results CBC & Chem 7: 02/23/22 15:40 02/23/22 15:40 Labs: Abnormal Lab Results - Last 24 Hours (Table) 02/23/22 02/23/22 02/24/22 Range/Units 15:40 15:40 01:00 WBC 12.4 H (3.8-10.6) k/uL RBC 3.74 L (4.30-5.90) m/uL Hgb 12.8 L (13.0-17.5) gm/dL MCV 107.9 H (80.0-100.0) fL Plt Count 107 L (150-450) k/uL Neutrophils # 9.6 H (1.3-7.7) k/uL Sodium 132 L (137-145) mmol/L Chloride 94 L (98-107) mmol/L BUN 82 H (9-20) mg/dL Creatinine 7.36 H* (0.66-1.25) mg/dL Calcium 7.8 L (8.4-10.2) mg/dL Albumin 3.2 L (3.5-5.0) g/dL Urine Protein 3+ H (Negative) Urine Blood Moderate H (Negative) Urine RBC 33 H (0-5) /hpf Thrombosis Risk Factor Assmnt - Choose All That Apply Any of the Below Risk Factors Present?: Yes Each Factor Represents 1 point: Abnormal pulmonary function (COPD), Acute [place] Other Risk Factors: Yes Each Risk Factor Represents 3 Points: Age 75 years or older Thrombosis Risk Factor Assessment Total Risk Factor Score: 5 Thrombosis Risk Factor Assessment Level: High Risk
[2022-02-24] MEDS: DOXAZOSIN 4 MG TAB PO SCH (22:21)
[2022-02-24] MEDS: ATORVASTATIN 80 MG TAB PO SCH (22:21)
[2022-02-24] MEDS: TAMSULOSIN 0.4 MG CAP.ER.24H PO SCH (22:28)
[2022-02-24] MEDS: MONTELUKAST 10 MG TAB PO SCH (22:28)
[2022-02-24] MEDS: amLODIPine 10 MG TAB PO SCH (22:31)
[2022-02-25] MEDS: ALBUTEROL NEBULIZED 2.5 MG/3 ML INHALATION SCH ×7 (00:25→20:23)
[2022-02-25] MEDS: ACETAMINOPHEN TAB 325 MG TAB PO PRN ×2 (00:42→21:02)
[2022-02-25] MEDS: ONDANSETRON 4 MG/2 ML VIAL IVP PRN (04:26)
[2022-02-25] MEDS: CALCIUM ACETATE 667 MG TAB PO SCH ×3 (07:55→17:30)
[2022-02-25] MEDS ORDERED: METOCLOPRAMIDE 5 MG/ML 2 ML VIAL IVP PRN (08:17)
[2022-02-25] MEDS: METOCLOPRAMIDE 5 MG/ML 2 ML VIAL IVP PRN ×2 (09:07→21:01)
[2022-02-25] MEDS: FUROSEMIDE 40 MG TAB PO SCH (09:07)
[2022-02-25] MEDS: ISOSORBIDE MONONITRATE ER 30 MG TAB.ER.24H PO SCH ×2 (09:08→13:22)
[2022-02-25] MEDS: CYANOCOBALAMIN 500 MCG TAB PO SCH ×2 (09:08→13:21)
[2022-02-25] MEDS: TAMSULOSIN 0.4 MG CAP.ER.24H PO SCH ×3 (09:08→21:46)
[2022-02-25] MEDS: busPIRone HCl 5 MG TAB PO SCH ×2 (09:08→21:45)
[2022-02-25] MEDS: PANTOPRAZOLE 40 MG TABLET PO SCH ×2 (09:08→18:11)
[2022-02-25] MEDS: ENOXAPARIN 30 MG/0.3 ML SYRINGE SQ SCH (09:08)
--- NOTE | 2022-02-25 11:10 | US ---
EXAMINATION TYPE: US abdomen complete DATE OF EXAM: 02/25/2022 COMPARISON: CT abdomen pelvis 10/26/2021.e CLINICAL HISTORY: abdominal pain mass. Abdominal pain, vomiting TECHNIQUE: Multiple sonographic images of the abdomen are obtained. FINDINGS: EXAM MEASUREMENTS: Liver Length: 18.7 cm Gallbladder Wall: 0.4 cm CBD: 0.7 cm Spleen: 9.1 cm Right Kidney: 9.3 x 3.8 x 4.7 cm Left Kidney: 8.4 x 4.1 x 4.3 cm Pancreas: Tail obscured by overlying bowel gas Liver: heterogeneous Gallbladder: sludge, stone = 1.0cm, slightly thickened GB wall Evidence for sonographic Grant's sign: no CBD: upper limits of normal Spleen: possible granulomas, largest = 0.8cm Right Kidney: cystic areas, largest = 2.8cm Left Kidney: limited evaluation due to overlying bowel content Upper IVC: wnl Abd Aorta: AAA = 5.0 cm distally IMPRESSION: 1. Cholelithiasis/biliary sludge. 2. Infrarenal aortic aneurysm measuring up to 5.0 cm. Stable back to at least 10/26/2021. 3. Hepatocellular disease most commonly related to hepatic steatosis.
[2022-02-25] MEDS ORDERED: IOPAMIDOL CONTRAST (ORAL USE) VIAL PO PRN (11:41)
[2022-02-25] MEDS: PANTOPRAZOLE 40 MG/10 ML VIAL IVP SCH (11:49)
--- NOTE | 2022-02-25 11:52 | P.GSCN ---
History of Present Illness Consult date: 02/25/22 Reason for Consult: Abdominal pain History of present illness: 81-year-old male presents to the ER with complaints of abdominal pain. Patient states he has had this pain for the last 2 months. His family status probably been closer to 1 month. In the ER the patient was complaining of lower abdominal pain for the last 1 week or so. Pain seems to be worse in the morning. Also seems to be aggravated by eating and drinking. Has had signi ficant issues with intermittent nausea and vomiting for the last few months and frequent diarrhea as well. Patient is on hemodialysis Sunday. At one point there was concern the patient may have blood in his stools however this was felt to not be the case by the nursing staff that witnessed some of his stools recently. He underwent a CAT scan 2 evenings ago. Dictation said no a cute changes however small foci of pneumoperitoneum in the left upper quadrant were appreciated. The patient has some vague inflammatory changes in the left midabdomen. He was hospitalized in October for a possible internal hernia that was treated nonoperatively. Patient has a history of multiple abdominal surgeries. Apparently he had ischemic bowel with pneumatosis identified on a previous laparotomy and his abdomen was left open for many days. He was transferred to a tertiary care center for that. Patient with history of significant peripheral vascular disease and also abdominal aneurysm. He has had hernia repairs as well. Patient did have a fever yesterday of 103.1. That was his only temperature spike. White blood cell count 2 days ago was 12.4. Repeat labs are pending. Lactic acid on arrival was normal. No significant tachycardia on vitals. For my evaluation today the patient is seen walking in the room and going to sit in the chair. He does appear to be having some di scomfort. Review of Systems The patient denies any acute changes in vision or hearing, no dysphagia or odynophagia, no chest pain or shortness of breath, no dysuria no headache, no runny nose, no rectal bleeding or melena, no unexplained weight loss Past Medical History Past Medical History: Atrial Fibrillation, Coronary Artery Disease (CAD), COPD, CVA/TIA, Dialysis, GERD/Reflux, Hypertension, Myocardial Infarction (IL), Osteoa rthritis (OA), Pneumonia, Renal Disease, Respiratory Disorder, Vascular Disorder Additional Past Medical History / Comment(s): ESRD with hemodialysis on M/W/F, pt has R chest port for dialysis and a L upper arm catheter but not using yet d/t it has had to be ballooned a couple of times, cardiomyopathy, [place] in 1972 and 2019, 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 Last Myocardial Infarction Date:: 2019 History of Any Multi-Drug Resistant Organisms: None Reported Past Surgical History: Appendectomy, Bowel Resection, Coronary Bypass/CABG, Ear Surgery, Heart Catheterization, Hernia Repair Additional Past Surgical History / Comment(s): R chest port for dialysis, R uppe r arm hemodialysis cath/has been ballooned and not able to use for dialysis yet, craniotomy for benign tumor, 3 vessel CABG in 2003, laparotomy for subcutaeous emphysema in bowel per daughters/extensive hospitalization, L caratid endartectomy, TURP, hemodialysis port in R chest/L upper arm, surgery to taper ears, EGD, colonoscopy, pain clinic procedures. Past Anesthesia/Blood Transfusion Reactions: No Reported Reaction Additional Past Anesthesia/Blood Transfusion Reaction / Comm: Pt has received blood in past without reaction. Past Psychological History: No Psychological Hx Reported Smoking Status: Former smoker Past Alcohol Use History: None Reported Past Drug Use History: None Reported - Past Family History Sister(s) Family Medical History: Cancer Additional Family Medical History / Comment(s): kidney Mother Family Medical History: Myocardial Infarction (IL) Additional Family Medical History / Comment(s): Mother of a IL in her 80s. Father Family Medical History: Myocardial Infarction ([place]) Brother(s) Family Medical History: Myocardial Infarction ([place]) Medications and Allergies Home Medications Medication Instructions Recorded Confirmed Type Zafirlukast 20 mg PO BID 09/30/14 02/23/22 History Tamsulosin HCl [Flomax] 0.4 mg PO HS 04/26/20 02/23/22 History busPIRone HCL [Buspar] 7.5 mg PO BID 04/26/20 02/23/22 History Albuterol Nebulized [Ventolin 2.5 mg INHALATION RT-Q4H PRN 06/27/20 02/23/22 History Nebulized] Furosemide [Lasix] 40 mg PO DAILY 10/24/21 02/23/22 History Pantoprazole [Protonix] 40 mg PO BID 10/24/21 02/23/22 History Ipratropium Nebulized [Atrovent 0.5 mg INHALATION RT-Q4H PRN 02/23/22 02/23/22 History Nebulized 0.2 MG/ML] Sucralfate [Carafate] 1 gm PO QID 02/23/22 02/23/22 History Allergies Allergy/AdvReac Type Severity Reaction Status Date / Time morphine Allergy Severe Rash/Hives Verified 02/23/22 20:14 lorazepam [From Ativan] AdvReac Confusion Verified 02/23/22 20:14 Surgical - Exam Vital Signs Temp Pulse Resp BP Pulse Ox 98.9 F 81 16 132/65 95 02/23/22 13:41 02/23/22 13:41 02/23/22 13:41 02/23/22 13:41 02/23/22 13:41 Physical exam: General: Well-developed, somewhat malnourished-appearing male, no acute distres s, ambulating in room HEENT: Normocephalic, sclerae nonicteric Abdomen: Mild distention, mild left-sided abdominal tenderness, no rebound or guarding Extremities: Left arm AV graft or fistula noted Neuro: Alert and oriented Results - Labs 02/23/22 15:40 02/23/22 15:40 Assessment and Plan (1) Pneumoperitoneum Narrative/Plan: 81-year-old male with abdominal pain and CAT scan findings of pneumoperitoneum. Patient appears more comfortable than what would be expected. Patient with significant medical comorbidities and significant previous surgical history increasing his risks of surgical intervention. Case was discussed in detail with the patient, his daughter, and his by phone. The patient's daughter states that the family realizes the patient is chronically quite ill and likely would not survive aggressive surgical intervention. They believe the patient's life expectancy is significantly diminished recently as a result of his multiple comorbidities. We discussed options of surgical exploration given the CAT scan findings versus more conservative approach. I think it is reasonable to repeat a CAT scan today with oral and IV contrast to see if we can identify the etiology for the pneumoperitoneum and also to see if there have been any significant interval changes for the better or worse. If CAT scan findings are stable or improved would consider conservative management with antibiotics and observation. If the patient's CAT scan however shows worsening findings either surgical intervention in the form of laparotomy versus consideration for hospice would be discussed further with the patient and his family. This was also discussed with Dr. Sanders by phone. Await repeat CAT scan. Current Visit: Yes Status: Acute Code(s): K66.8 - OTHER SPECIFIED DISORDERS OF PERITONEUM SNOMED Code(s): 98309135
[2022-02-25] MEDS: PIPERACILLIN-TAZOBACTAM 3.375 GM in SODIUM CHLORIDE 0.9% 100 ML IVPB SCH (12:38)
[2022-02-25] MEDS: HYDROmorphone 0.5 MG/0.5 ML SYRINGE IVP PRN ×3 (12:38→21:01)
[2022-02-25 12:59] LABS: Basophils % (A) 0 %; Eosinophils % (A) 0 %; HCT 40.5 % (39.0-53.0); HGB 12.7 gm/dL (13.0-17.5); Hypochromasia Moderate; Lymphocytes # (A) 0.6 k/uL (1.0-4.8); Lymphocytes % (A) 6 %; MCH 35.1 pg (25.0-35.0); MCHC 31.3 g/dL (31.0-37.0); MCV 112.3 fL (80.0-100.0); Macrocytosis Marked; Mean Platelet Volume 9.2; Monocytes # (A) 0.2 k/uL (0-1.0); Monocytes % (A) 2 %; Neutrophils # (A) 10.5 k/uL (1.3-7.7); Neutrophils % (A) 91 %; Platelet Count 123 k/uL (150-450); RBC 3.61 m/uL (4.30-5.90); RDW 14.3 % (11.5-15.5); WBC 11.5 k/uL (3.8-10.6)
[2022-02-25 13:13] LABS: ALT 16 U/L (4-49); AST 31 U/L (17-59); African American GFR (CKD) 11 (>60 ml/min/1.73 sqM); Albumin 3.1 g/dL (3.5-5.0); Albumin/Globulin Ratio 1.1; Alkaline Phosphatase 89 U/L (38-126); Anion Gap 12 mmol/L; Blood Urea Nitrogen 44 mg/dL (9-20); Calcium 7.6 mg/dL (8.4-10.2); Carbon Dioxide 25 mmol/L (22-30); Chloride 102 mmol/L (98-107); Globulin 2.9 g/dL; Glucose 172 mg/dL (74-99); Non-African American GFR(CKD) 9 (>60 ml/min/1.73 sqM); Potassium 3.5 mmol/L (3.5-5.1); Sodium 139 mmol/L (137-145); Total Bilirubin 0.7 mg/dL (0.2-1.3)
[2022-02-25 14:20] LABS: Poikilocytosis (M) Present
--- NOTE | 2022-02-25 14:54 | CT ---
EXAMINATION TYPE: CT abdomen pelvis w con DATE OF EXAM: 02/25/2022 COMPARISON: 02/23/2022 HISTORY: abdominal pain CT DLP: 690 mGycm Automated exposure control for dose reduction was used. CONTRAST: Performed with IV Contrast, patient injected with 80cc mL of Isovue 300. There is some atelectasis at both lung bases. Heart is enlarged. No pericardial effusion. Mild pleura l thickening is present at the lung bases. Liver and spleen are intact. Stomach is intact. There is no pancreatic mass. There is markedly dilate d gallbladder measuring 5.7 cm in diameter. There is some dilation of the biliary tree. Common bile d uct measures 13 mm. There is no adrenal mass. There are multiple right-sided renal cortical cysts up to 3.5 cm in diamete r. No hydronephrosis. Ureters are not dilated. Abdominal aorta measures up to 5.6 cm. There is thromb us on the anterior wall that measures 1.6 cm. There is no retroperitoneal adenopathy. There is Hinds catheter in the urinary bladder. There is small amount of air in the bladder. There is some fluid in the pelvis. There are numerous sigmoid diverticula. No diverticulitis. No evidence of pneumoperitoneu m. There is some linear low attenuation in the anterior right lobe of the liver. This is suggestive of s ome portal venous air. There is a 1 cm rounded density dependent gallbladder consistent with gallstone. Lumbar vertebrae have normal alignment. Posterior elements are intact. No compression fracture. Bony pelvis is intact. IMPRESSION: There is small amount of portal venous air which is a change compared to recent exam. Follow-up is re commended. Bilateral lower lobe pulmonary infiltrates and atelectasis and pleural thickening is mostly new raysa red to recent exam. Cardiomegaly. 5.7 cm abdominal aortic aneurysm without Cholelithiasis. Dilated gallbladder suggestive of cholecystitis. Gallbladder unchanged. There is some new free fluid in the pelvis compared to recent exam. This colonic diverticulosis without diverticul itis.
--- NOTE | 2022-02-25 19:13 | P.PN ---
Progress Note - Text Progress Note Date: 02/25/22 Chief Complaint: Lower abdominal pain History of presenting complaint: This is a pleasant 81-year-old patient, follows with Dr. Junior Jalloh. Chronic stable medical conditions include coronary artery disease with bypass, COPD, GERD, hard of hearing, hypertension, osteoarthritis, abdominal aneurysm,. Dialysis on Sunday and Sunday. Follows with Dr. Chavis. Patient presents with couple of days of lower abdominal pain. Has a bowel movement every 4 days. Also having nausea. Having increasing lower abdominal pain. No fever no chills. Some congested cough. Found to have distended bladder. About [address] Macias did place a catheter. No fever no chills. February 25: Patient again had abdominal pain today. Dr. Egan general surgery saw the patient earlier today. He reviewed the uterus CAT scan he felt a slight free air. Patient has a rather complicated abdominal surgery history. Repeat computed tomography scan was ordered. Patient's had been having intermittent diarrhea told. Daughter and at the bedside. Patient is feeling tired. Made nothing by mouth. IV fluids. IV Zosyn started. Vascular consulted for AAA Active Medications Acetaminophen (Acetaminophen Tab 325 Mg Tab) 650 mg PO Q6HR PRN PRN Reason: Mild Pain or Fever > 100.5 Last Admin: 02/25/22 00:42 Dose: 650 mg Albuterol Sulfate (Albuterol Nebulized 2.5 Mg/3 Ml) 2.5 mg INHALATION RT-Q4H [facility] Last Admin: 02/25/22 16:18 Dose: 2.5 mg Amlodipine Besylate (Amlodipine 10 Mg Tab) 10 mg PO [facility] Last Admin: 02/24/22 22:31 Dose: 10 mg Atorvastatin Calcium (Atorvastatin 80 Mg Tab) 80 mg PO [facility] Last Admin: 02/24/22 22:21 Dose: 80 mg Buspirone HCl (Buspirone Hcl 5 Mg Tab) 7.5 mg PO BID [facility] Last Admin: 02/25/22 09:08 Dose: 7.5 mg Calcium Acetate (Calcium Acetate 667 Mg Tab) 667 mg PO TID-W/MEALS [facility] Last Admin: 02/25/22 17:30 Dose: Not Given Cyanocobalamin (Cyanocobalamin 500 Mcg Tab) 1,000 mcg PO DAILY [facility] Last Admin: 02/25/22 13:21 Dose: Not Given Doxazosin Mesylate (Doxazosin 4 Mg Tab) 8 mg PO HS [facility] Last Admin: 02/24/22 22:21 Dose: 8 mg Enoxaparin Sodium (Enoxaparin 30 Mg/0.3 Ml Syringe) 30 mg SQ DAILY [facility] Last Admin: 02/25/22 09:08 Dose: 30 mg Furosemide (Furosemide 40 Mg Tab) 40 mg PO DAILY [facility] Last Admin: 02/25/22 09:07 Dose: 40 mg Hydromorphone HCl (Hydromorphone 0.5 Mg/0.5 Ml Syringe) 0.5 mg IVP Q3HR PRN PRN Reason: Moderate Pain Last Admin: 02/25/22 17:30 Dose: 0.5 mg Piperacillin Sod/Tazobactam (Sod 3.375 gm/ Sodium Chloride) 100 mls @ 25 mls/hr IVPB Q12H [facility]; Protocol Last Admin: 02/25/22 12:38 Dose: 25 mls/hr Iopamidol (Iopamidol Contrast (Oral Use) Vial) 30 ml PO Q60M PRN PRN Reason: CT Scan Stop: 02/26/22 11:44 Last Admin: 02/25/22 12:53 Dose: 30 ml Isosorbide Mononitrate (Isosorbide Mononitrate Er 30 Mg Tab.Er.24h) 30 mg PO DAILY [facility] Last Admin: 02/25/22 13:22 Dose: Not Given Metoclopramide HCl (Metoclopramide 5 Mg/Ml 2 Ml Vial) 10 mg IVP Q8HR PRN PRN Reason: Vomiting Last Admin: 02/25/22 09:07 Dose: 10 mg Montelukast Sodium (Montelukast 10 Mg Tab) 10 mg PO HS [facility] Last Admin: 02/24/22 22:28 Dose: 10 mg Naloxone HCl (Naloxone 0.4 Mg/Ml 1 Ml Vial) 0.2 mg IV Q2M PRN PRN Reason: Opioid Reversal Pantoprazole Sodium (Pantoprazole 40 Mg/10 Ml Vial) 40 mg IVP DAILY [facility] Last Admin: 02/25/22 11:49 Dose: 40 mg Tamsulosin HCl (Tamsulosin 0.4 Mg Cap.Er.24h) 0.4 mg PO BID [facility] Last Admin: 02/25/22 13:21 Dose: Not Given Past medical history to include: Coronary artery disease, COPD, TIA, GERD, hard of hearing, hypertension, osteoarthritis, end-stage kidney disease on hemodialysis Sunday, abdominal aneurysm, coronary bypass, Social history: Lives with . Smoked a pack a day for 64 years stopped in 2019. 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 Physical examination: VITAL SIGNS: 98.1, 1 or 2, 16, 180/85, 93% room air GENERAL: Laying in bed, awake, tired Fistula left upper extremity EYES: Pupils equal. Conjunctiva pale. HEENT: External appearance of nose and ears normal, oral cavity dry mucous membranes. Decreased hearing NECK: JVD not raised; masses not palpable. HEART: First and second heart sounds are normal; no edema. LUNGS: Respiratory rate normal; clear to auscultation. ABDOMEN: Soft, lower abdominal tenderness, no guarding rigidity, liver spleen not palpable, no masses palpable. PSYCH: Answering questions appropriately MUSCULOSKELETAL:No Clubbing/cyanosis;muscles-grossly intact. Evidence of OA INVESTIGATIONS, reviewed in the clinical context: Computed tomography scan abdomen and pelvis [February 25]: Dilated gallbladder. CBD 13 mm. Multiple right renal cyst. Abdominal aortic measures 5.6 cm. Thrombus in anterior wall. February 25: White count 11.5 hemoglobin 12.7 platelets 123 potassium 3.5 creatinine 5.3 to WBC 12.4 hemoglobin 12.8 platelets 107 sodium 132 potassium 4.7 BUN 82 creatinine 7.36 Computed tomography scan abdomen and pelvis: Renal cyst. Multiple punctate bilateral nonobstructing bilateral renal calculi. Abdominal aortic aneurysm 5 c m. Assessment and plan: -Acute abdominal pain: Patient's computed tomography scan showing some free air. Gen. surgery consulted. Patient is a rather complicated prior surgical history. -Abdominal aortic aneurysm 5.6 cm Vascular consulted. -Acute urinary retention possibly from blood outflow obstruction Hinds catheter placed by Dr. Macias. To remain in for now. Flomax 0.4 mg twice a day -End-stage kidney disease on hemodialysis Sunday and Sunday Continue dialysis -Anemia of chronic kidney disease Follow H&H -Hypertension with chronic kidney disease Amlodipine 10 mg daily at bedtime, Imdur ER 30 mg daily, -COPD in an ex-smoker Albuterol 2.5 every 4 -Coronary artery disease prior history of coronary bypass Imdur ER 30 mg a day -GERD Protonix -Hard of hearing -Colonic diverticulosis -Primary osteoarthritis Pain medications as needed IV Zosyn. Made nothing by mouth except medications. Patient seen by surgery earlier today. I vascular consulted. Discussed with the and the daughter at the bedside.
--- NOTE | 2022-02-25 21:22 | P.PN ---
Progress Note - Text Progress Note Date: 02/25/22 Patient underwent his repeat CAT scan earlier today. After the CAT scan was performed I reviewed the films and then contacted the radiologist to discuss with him. Patient has clearing of the small foci of pneumoperitoneum in the left upper quadrant. There is however now some small foci of air within the liver consistent with portal venous gas. There is a suspicious loop of small bowel in the left midabdomen that appears to be the source of the patient's problem. This appears likely ischemic in nature. Case was discussed by phone with the patient's daughter and his once again. Offered exploratory laparotomy with anticipated bowel resection versus conservative management. They were informed that nonoperative management likely would lead to further sepsis and eventual . They believe the patient is too ill to undergo aggressive surgical intervention and that he does not want to have a prolonged recovery after a laparotomy like he had in the past. They're agreeable to supportive care with antibiotics and bowel rest for now. If the patient has further decline will consider hospice care. Otherwise will manage nonoperatively. We'll follow closely with you.
[2022-02-25] MEDS: ATORVASTATIN 80 MG TAB PO SCH (21:45)
[2022-02-25] MEDS: amLODIPine 10 MG TAB PO SCH (21:45)
[2022-02-25] MEDS: DOXAZOSIN 4 MG TAB PO SCH (21:46)
[2022-02-25] MEDS: MONTELUKAST 10 MG TAB PO SCH (21:46)
[2022-02-26] MEDS: ALBUTEROL NEBULIZED 2.5 MG/3 ML INHALATION SCH ×8 (00:15→23:41)
[2022-02-26] MEDS: PIPERACILLIN-TAZOBACTAM 3.375 GM in SODIUM CHLORIDE 0.9% 100 ML IVPB SCH ×2 (01:45→12:10)
--- NOTE | 2022-02-26 03:43 | PN ---
PROGRESS NOTE SUBJECTIVE: The patient is seen for followup for end-stage renal disease. He was admitted to the hospital with complaints of abdominal pain. The patient was noted to have significant urine retention. A Hinds catheter has been placed by Urology. This morning, patient is complaining of nausea, he is not feeling well. OBJECTIVE: VITAL SIGNS: He had a temperature of 103.1, early this morning. HEART: S1 and S2. LUNGS: Decreased breath sounds at the bases. ABDOMEN: Soft, distended. Tenderness noted. EXTREMITIES: Examination of lower extremities shows no significant edema. FACULTY PHYSICIAN: Grossly intact. LABORATORY DATA: Labs show sodium 132, potassium 4.7, hemoglobin 12.8 on 02/23/2022. ASSESSMENT: 1. End-stage renal disease, maintained on hemodialysis on a Sunday, Sunday, Sunday schedule. 2. Urine retention, currently with indwelling Hinds catheter. 3. Chronic kidney disease-mineral bone disorder. 4. Abdominal pain, being followed by Surgery and in view of history of previous multiple abdominal surgeries and ischemic bowel as well. CT scan of the abdomen has been ordered. PLAN: Hemodialysis on Sunday. Okay to use IV contrast for repeat scan today. MMODL / IJN: [id number] /
[2022-02-26] MEDS: ENOXAPARIN 30 MG/0.3 ML SYRINGE SQ SCH (07:08)
[2022-02-26] MEDS: CYANOCOBALAMIN 500 MCG TAB PO SCH (07:08)
[2022-02-26] MEDS: ACETAMINOPHEN TAB 325 MG TAB PO PRN (07:08)
[2022-02-26] MEDS: TAMSULOSIN 0.4 MG CAP.ER.24H PO SCH ×2 (07:09→22:19)
[2022-02-26] MEDS: FUROSEMIDE 40 MG TAB PO SCH (07:09)
[2022-02-26] MEDS: busPIRone HCl 5 MG TAB PO SCH ×2 (07:09→22:19)
[2022-02-26] MEDS: ISOSORBIDE MONONITRATE ER 30 MG TAB.ER.24H PO SCH (07:09)
[2022-02-26] MEDS: CALCIUM ACETATE 667 MG TAB PO SCH ×3 (07:09→16:53)
[2022-02-26] MEDS: HYDROmorphone 0.5 MG/0.5 ML SYRINGE IVP PRN ×2 (08:15→14:04)
[2022-02-26] MEDS: PANTOPRAZOLE 40 MG/10 ML VIAL IVP SCH (08:16)
--- NOTE | 2022-02-26 09:30 | P.PN ---
Subjective patient is seen for follow-up for end-stage renal disease. he is maintained on a Sunday schedule. Patient has been complaining of abdominal pain and CAT scan revealed evidence of pneumo paratonia. Patient is being followed by surgery and at this time after discussion with family to appears that they would like to proceed with co nservative management. Abdominal pain is better today. Nausea is also improved. Objective - Vital Signs Vital signs: Vital Signs Temp 99.2 F 02/26/22 01:32 Pulse 80 02/26/22 08:14 Resp 17 02/26/22 01:32 BP 159/88 02/26/22 07:01 Pulse Ox 95 02/26/22 01:32 FiO2 21 02/25/22 16:19 Intake & Output 02/25/22 02/26/22 02/26/22 18:59 06:59 18:59 Intake Total 100 Balance 100 Intake: Intake, IV Titration 100 Amount Piperacillin-Tazobactam 3 100 .375 gm In Sodium Chloride 0.9% 100 ml @ 25 mls/hr IVPB Q12H [facility] Rx# :[id number] Other: Voiding Method Indwelling Catheter Indwelling Catheter # Bowel Movements 2 - Exam awake, comfortable, no acute distress Examination of the heart S1 and S2 Examination of the lungs bilateral breath sounds are heard Abdomen is soft, mild tenderness left lower quadrant Examination of the lower extremities shows no edema RECLAMATION KETTLE TENDER exam grossly intact - Labs CBC & Chem 7: 02/25/22 12:38 02/25/22 12:38 Labs: Abnormal Lab Results - Last 24 Hours (Table) 02/25/22 02/25/22 Range/Units 12:38 12:38 WBC 11.5 H (3.8-10.6) k/uL RBC 3.61 L (4.30-5.90) m/uL Hgb 12.7 L (13.0-17.5) gm/dL MCV 112.3 H (80.0-100.0) fL MCH 35.1 H (25.0-35.0) pg Plt Count 123 L (150-450) k/uL Neutrophils # 10.5 H (1.3-7.7) k/uL Lymphocytes # 0.6 L (1.0-4.8) k/uL Macrocytosis Marked A BUN 44 H (9-20) mg/dL Creatinine 5.32 H (0.66-1.25) mg/dL Glucose 172 H (74-99) mg/dL Calcium 7.6 L (8.4-10.2) mg/dL Total Protein 6.0 L (6.3-8.2) g/dL Albumin 3.1 L (3.5-5.0) g/dL Assessment and Plan Assessment: 1. End-stage renal disease on hemodialysis on a Sunday ul 2. Abdominal pain with evidence of pneumoperitoneum with plans for conservative management at this time. Symptoms have improved. 3. CK D mineral bone disorder 4. urine retention with indwelling Hinds catheter Plan: hemodialysis in a.m. continue with antibiotics Continue with Hinds catheter
--- NOTE | 2022-02-26 10:11 | P.PN ---
Subjective Progress Note Date: 02/26/22 Principal diagnosis: Ischemic bowel Overnight patient actually says his pain is improved somewhat. This resting comfortably in bed. He does have some appetite. His daughter is present at the bedside and spent the night with him. Low-grade fever last night. Morning labs are pending. Objective - Vital Signs Vital signs: Vital Signs Temp 99.2 F 02/26/22 01:32 Pulse 80 02/26/22 08:14 Resp 17 02/26/22 01:32 BP 159/88 02/26/22 07:01 Pulse Ox 95 02/26/22 01:32 FiO2 21 02/25/22 16:19 Intake & Output 02/25/22 02/26/22 02/26/22 18:59 06:59 18:59 Intake Total 100 Balance 100 Intake: Intake, IV Titration 100 Amount Piperacillin-Tazobactam 3 100 .375 gm In Sodium Chloride 0.9% 100 ml @ 25 mls/hr IVPB Q12H [facility] Rx# :[id number] Other: Voiding Method Indwelling Catheter Indwelling Catheter # Bowel Movements 2 - Exam Abdomen: Soft, mild diffuse tenderness, no rebound or guarding, mild distention - Labs CBC & Chem 7: 02/25/22 12:38 02/25/22 12:38 Labs: Abnormal Lab Results - Last 24 Hours (Table) 02/25/22 02/25/22 Range/Units 12:38 12:38 WBC 11.5 H (3.8-10.6) k/uL RBC 3.61 L (4.30-5.90) m/uL Hgb 12.7 L (13.0-17.5) gm/dL MCV 112.3 H (80.0-100.0) fL MCH 35.1 H (25.0-35.0) pg Plt Count 123 L (150-450) k/uL Neutrophils # 10.5 H (1.3-7.7) k/uL Lymphocytes # 0.6 L (1.0-4.8) k/uL Macrocytosis Marked A BUN 44 H (9-20) mg/dL Creatinine 5.32 H (0.66-1.25) mg/dL Glucose 172 H (74-99) mg/dL Calcium 7.6 L (8.4-10.2) mg/dL Total Protein 6.0 L (6.3-8.2) g/dL Albumin 3.1 L (3.5-5.0) g/dL Assessment and Plan (1) Pneumoperitoneum Narrative/Plan: CAT scan findings again reviewed with the patient and his daughter present at the bedside. Patient likely has a ischemic segment of small bowel with pneumatosis suspected at that location likely etiology for the patient's portal venous gas. Clinical scenario reviewed with them once again. They remain interested in nonoperative management at this time. Continue IV antibiotics. Begin liquid diet. Overall prognosis poor. Will follow. Current Visit: Yes Status: Acute Code(s): K66.8 - OTHER SPECIFIED DISORDERS OF PERITONEUM SNOMED Code(s): 33070281
--- NOTE | 2022-02-26 18:13 | P.PN ---
Progress Note - Text Progress Note Date: 02/26/22 Chief Complaint: Lower abdominal pain History of presenting complaint: This is a pleasant 81-year-old patient, follows with Dr. Junior Jalloh. Chronic stable medical conditions include coronary artery disease with bypass, COPD, GERD, hard of hearing, hypertension, osteoarthritis, abdominal aneurysm,. Dialysis on Sunday and Sunday. Follows with Dr. Chavis. Patient presents with couple of days of lower abdominal pain. Has a bowel movement every 4 days. Also having nausea. Having increasing lower abdominal pain. No fever no chills. Some congested cough. Found to have distended bladder. About [address] Macias did place a catheter. No fever no chills. February 25: Patient again had abdominal pain today. Dr. Egan general surgery saw the patient earlier today. He reviewed the uterus CAT scan he felt a slight free air. Patient has a rather complicated abdominal surgery history. Repeat computed tomography scan was ordered. Patient's had been having intermittent diarrhea told. Daughter and at the bedside. Patient is feeling tired. Made nothing by mouth. IV fluids. IV Zosyn started. Vascular consulted for AAA February 26: Patient's abdomen is distended. Has been nothing by mouth. Tender. No vomiting. Several family members including present. Repeat computed tomography scan was seen by Dr. Garcia-his impression is of ischemic segment of the small bowel pneumatosis in the portal venous gas. They decided about nonoperative approach. IV antibiotic to continue. Clear liquid diet was ordered.. Patient is a DO NOT RESUSCITATE. Active Medications Acetaminophen (Acetaminophen Tab 325 Mg Tab) 650 mg PO Q6HR PRN PRN Reason: Mild Pain or Fever > 100.5 Last Admin: 02/26/22 07:08 Dose: 650 mg Albuterol Sulfate (Albuterol Nebulized 2.5 Mg/3 Ml) 2.5 mg INHALATION RT-Q4H [facility] Last Admin: 02/26/22 15:56 Dose: 2.5 mg Amlodipine Besylate (Amlodipine 10 Mg Tab) 10 mg PO [facility] Last Admin: 02/25/22 21:45 Dose: Not Given Atorvastatin Calcium (Atorvastatin 80 Mg Tab) 80 mg PO [facility] Last Admin: 02/25/22 21:45 Dose: Not Given Buspirone HCl (Buspirone Hcl 5 Mg Tab) 7.5 mg PO BID [facility] Last Admin: 02/26/22 07:09 Dose: 7.5 mg Calcium Acetate (Calcium Acetate 667 Mg Tab) 667 mg PO TID-W/MEALS [facility] Last Admin: 02/26/22 16:53 Dose: 667 mg Cyanocobalamin (Cyanocobalamin 500 Mcg Tab) 1,000 mcg PO DAILY [facility] Last Admin: 02/26/22 07:08 Dose: 1,000 mcg Doxazosin Mesylate (Doxazosin 4 Mg Tab) 8 mg PO HS [facility] Last Admin: 02/25/22 21:46 Dose: Not Given Enoxaparin Sodium (Enoxaparin 30 Mg/0.3 Ml Syringe) 30 mg SQ DAILY [facility] Last Admin: 02/26/22 07:08 Dose: 30 mg Furosemide (Furosemide 40 Mg Tab) 40 mg PO DAILY [facility] Last Admin: 02/26/22 07:09 Dose: 40 mg Hydromorphone HCl (Hydromorphone 0.5 Mg/0.5 Ml Syringe) 0.5 mg IVP Q3HR PRN PRN Reason: Moderate Pain Last Admin: 02/26/22 14:04 Dose: 0.5 mg Piperacillin Sod/Tazobactam (Sod 3.375 gm/ Sodium Chloride) 100 mls @ 25 mls/hr IVPB Q12H [facility]; Protocol Last Admin: 02/26/22 12:10 Dose: 25 mls/hr Isosorbide Mononitrate (Isosorbide Mononitrate Er 30 Mg Tab.Er.24h) 30 mg PO DAILY [facility] Last Admin: 02/26/22 07:09 Dose: 30 mg Metoclopramide HCl (Metoclopramide 5 Mg/Ml 2 Ml Vial) 10 mg IVP Q8HR PRN PRN Reason: Vomiting Last Admin: 02/25/22 21:01 Dose: 10 mg Montelukast Sodium (Montelukast 10 Mg Tab) 10 mg PO HS [facility] Last Admin: 02/25/22 21:46 Dose: Not Given Naloxone HCl (Naloxone 0.4 Mg/Ml 1 Ml Vial) 0.2 mg IV Q2M PRN PRN Reason: Opioid Reversal Pantoprazole Sodium (Pantoprazole 40 Mg/10 Ml Vial) 40 mg IVP DAILY [facility] Last Admin: 02/26/22 08:16 Dose: 40 mg Tamsulosin HCl (Tamsulosin 0.4 Mg Cap.Er.24h) 0.4 mg PO BID [facility] Last Admin: 02/26/22 07:09 Dose: 0.4 mg Past medical history to include: Coronary artery disease, COPD, TIA, GERD, hard of hearing, hypertension, osteoarthritis, end-stage kidney disease on hemodialysis Sunday, abdominal aneurysm, coronary bypass, Social history: Lives with . Smoked a pack a day for 64 years stopped in 2019. 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 Physical examination: VITAL SIGNS: 97.9, 93, 17, 128/56, 95% on 3 L GENERAL: Sitting up in bed awake, tired Fistula left upper extremity EYES: Pupils equal. Conjunctiva pale. HEENT: External appearance of nose and ears normal, oral cavity dry mucous membranes. Decreased hearing NECK: JVD not raised; masses not palpable. HEART: First and second heart sounds are normal; no edema. LUNGS: Respiratory rate normal; clear to auscultation. ABDOMEN: Soft, distended , abdominal tenderness, no guarding rigidity, liver spleen not palpable, no masses palpable. PSYCH: Answering questions appropriately MUSCULOSKELETAL:No Clubbing/cyanosis;muscles-grossly intact. Evidence of OA INVESTIGATIONS, reviewed in the clinical context: Computed tomography scan abdomen and pelvis [February 25]: Dilated gallbladder. CBD 13 mm. Multiple right renal cyst. Abdominal aortic measures 5.6 cm. Thrombus in anterior wall. February 25: White count 11.5 hemoglobin 12.7 platelets 123 potassium 3.5 creatinine 5.3 to WBC 12.4 hemoglobin 12.8 platelets 107 sodium 132 potassium 4.7 BUN 82 creatinine 7.36 Computed tomography scan abdomen and pelvis: Renal cyst. Multiple punctate bilateral nonobstructing bilateral renal calculi. Abdominal aortic aneurysm 5 cm. Assessment and plan: -Acute abdominal pain: Suspected small bowel ischemia with possible perforation earlier Being followed by -nonsurgical treatment currently. High surgical risk. He discussed with the family. IV Zosyn -Abdominal aortic aneurysm 5.6 cm Vascular consulted. -Acute urinary retention possibly from blood outflow obstruction Hinds catheter placed by Dr. Macias. To remain in for now. Flomax 0.4 mg twice a day -End-stage kidney disease on hemodialysis Sunday and Sunday Continue dialysis -Anemia of chronic kidney disease Follow H&H -Hypertension with chronic kidney disease Amlodipine 10 mg daily at bedtime, Imdur ER 30 mg daily, -COPD in an ex-smoker Albuterol 2.5 every 4 -Coronary artery disease prior history of coronary bypass Imdur ER 30 mg a day -GERD Protonix -Hard of hearing -Colonic diverticulosis -Primary osteoarthritis Pain medications as needed -DO NOT RESUSCITATE IV Zosyn. Clear liquids. Care was discussed with Dr. Bey earlier. Also discussed with the patient and family members. They understand prognosis guarded. Continue supportive care. Total time spent about 45 minutes with over 25 minutes of discussion.
[2022-02-26] MEDS: amLODIPine 10 MG TAB PO SCH (21:57)
[2022-02-26] MEDS: DOXAZOSIN 4 MG TAB PO SCH (21:59)
[2022-02-26] MEDS: MONTELUKAST 10 MG TAB PO SCH (22:19)
[2022-02-26] MEDS: SODIUM CHLORIDE 0.9% 1,000 ML IV SCH (22:20)
[2022-02-26] MEDS: ATORVASTATIN 80 MG TAB PO SCH (22:20)
[2022-02-27] MEDS: PIPERACILLIN-TAZOBACTAM 3.375 GM in SODIUM CHLORIDE 0.9% 100 ML IVPB SCH ×2 (01:01→11:00)
[2022-02-27] MEDS: ACETAMINOPHEN TAB 325 MG TAB PO PRN (02:44)
[2022-02-27] MEDS: ALBUTEROL NEBULIZED 2.5 MG/3 ML INHALATION SCH ×6 (03:45→23:56)
[2022-02-27 06:28] LABS: Basophils % (A) 0 %; Eosinophils # (A) 0.1 k/uL (0-0.7); Eosinophils % (A) 1 %; HCT 33.2 % (39.0-53.0); HGB 10.6 gm/dL (13.0-17.5); Hypochromasia Moderate; Lymphocytes # (A) 1.3 k/uL (1.0-4.8); Lymphocytes % (A) 13 %; MCH 35.1 pg (25.0-35.0); MCHC 31.9 g/dL (31.0-37.0); Macrocytosis Marked; Mean Platelet Volume 9.7; Monocytes # (A) 0.4 k/uL (0-1.0); Monocytes % (A) 4 %; Neutrophils # (A) 7.9 k/uL (1.3-7.7); Neutrophils % (A) 81 %; Platelet Count 105 k/uL (150-450); RBC 3.02 m/uL (4.30-5.90); RDW 13.9 % (11.5-15.5); WBC 9.7 k/uL (3.8-10.6)
[2022-02-27 06:43] LABS: African American GFR (CKD) 7 (>60 ml/min/1.73 sqM); Anion Gap 10 mmol/L; Blood Urea Nitrogen 67 mg/dL (9-20); Calcium 7.1 mg/dL (8.4-10.2); Carbon Dioxide 23 mmol/L (22-30); Chloride 100 mmol/L (98-107); Glucose 68 mg/dL (74-99); Non-African American GFR(CKD) 6 (>60 ml/min/1.73 sqM); Potassium 4.6 mmol/L (3.5-5.1); Sodium 133 mmol/L (137-145)
[2022-02-27] MEDS: CYANOCOBALAMIN 500 MCG TAB PO SCH (08:19)
[2022-02-27] MEDS: busPIRone HCl 5 MG TAB PO SCH ×2 (08:19→19:59)
[2022-02-27] MEDS: CALCIUM ACETATE 667 MG TAB PO SCH ×3 (08:20→17:07)
[2022-02-27] MEDS: ISOSORBIDE MONONITRATE ER 30 MG TAB.ER.24H PO SCH (08:20)
[2022-02-27] MEDS: TAMSULOSIN 0.4 MG CAP.ER.24H PO SCH ×2 (08:20→19:59)
[2022-02-27] MEDS: PANTOPRAZOLE 40 MG/10 ML VIAL IVP SCH (08:21)
[2022-02-27] MEDS: ENOXAPARIN 30 MG/0.3 ML SYRINGE SQ SCH (08:21)
[2022-02-27] MEDS: SODIUM CHLORIDE 0.9% 1,000 ML IV SCH (08:21)
[2022-02-27] MEDS: FUROSEMIDE 40 MG TAB PO SCH (09:00)
--- NOTE | 2022-02-27 09:41 | P.PN ---
Progress Note - Text Progress Note Date: 02/27/22 Went to see patient for consult for abdominal aortic aneurysm. Patient and his daughter who was at the bedside stated that they asked for the consult to be canceled as there is no plan for any surgical intervention or follow-up. This was discussed with the attending Dr. Sanders to please cancel consult per patient and family request. The impression and plan of care has been dictated as directed. I performed a history and examination of this patient, discussed the same with the dictator. I agree with the dictator's note ,documented as a scribe. Any additional findings or plans will be noted.
--- NOTE | 2022-02-27 09:47 | P.PN ---
Subjective patient is seen for follow-up for end-stage renal disease. he is maintained on a Sunday schedule. Patient has been complaining of abdominal pain and CAT scan revealed evidence of pneumoperitoneum. Patient is being followed by surgery and at this time after discussion with family to appears that they would like to proceed with co nservative management. Abdominal pain was better yesterday but patient is complaining of pain again today. He is also complaining of cough. Objective - Vital Signs Vital signs: Vital Signs Temp 98.3 F 02/27/22 01:33 Pulse 92 02/27/22 07:40 Resp 23 02/27/22 01:33 BP 102/53 02/27/22 01:33 Pulse Ox 93 L 02/27/22 01:33 FiO2 21 02/25/22 16:19 Intake & Output 02/26/22 02/27/22 02/27/22 18:59 06:59 18:59 Output Total 200 Balance -200 Output: Urine 200 Other: Voiding Method Indwelling Catheter Indwelling Catheter Indwelling Catheter - Exam awake, comfortable, no acute distress Examination of the heart S1 and S2 Examination of the lungs bilateral breath sounds are heard, basal crackles heard. Abdomen is soft, mild tenderness left lower quadrant Examination of the lower extremities shows no edema BUILDING EQUIPMENT INSPECTOR exam grossly intact - Labs CBC & Chem 7: 02/27/22 05:46 02/27/22 05:46 Labs: Abnormal Lab Results - Last 24 Hours (Table) 02/27/22 02/27/22 Range/Units 05:46 05:46 RBC 3.02 L (4.30-5.90) m/uL Hgb 10.6 L (13.0-17.5) gm/dL Hct 33.2 L (39.0-53.0) % MCV 110.0 H (80.0-100.0) fL MCH 35.1 H (25.0-35.0) pg Plt Count 105 L (150-450) k/uL Neutrophils # 7.9 H (1.3-7.7) k/uL Macrocytosis Marked A Sodium 133 L (137-145) mmol/L BUN 67 H (9-20) mg/dL Creatinine 7.51 H* (0.66-1.25) mg/dL Glucose 68 L (74-99) mg/dL Calcium 7.1 L (8.4-10.2) mg/dL Assessment and Plan Assessment: 1. End-stage renal disease on hemodialysis on a Sunday schedule 2. Abdominal pain with evidence of pneumoperitoneum with plans for conservative management at this time. Symptoms had improved but patient is complaining of pain again today. Being followed by general surgery. 3. CK D mineral bone disorder 4. urine retention with indwelling Hinds catheter 5. Volume overload Plan: DC IV fluids Hemodialysis today Follow-up with surgery
--- NOTE | 2022-02-27 10:46 | P.GSCN ---
History of Present Illness Consult date: 02/27/22 Reason for Consult: Abdominal aortic aneurysm Requesting physician: Familia Sanders History of present illness: This is a 81-year-old male with multiple comorbidities including coronary artery disease status post bypass, COPD, GERD, hypertension, osteoarthritis, end-stage renal disease on dialysis who had presented to the emergency department with complaints of lower abdominal pain. Patient had not had a bowel movement in several days and was also having nausea. The patient had a CT of the abdomen and pelvis showing concerns for ischemic bowel for which Gen. surgery is following and there is no plans for any surgical intervention as patient is a poor surgical candidate and patient and family are choosing medical treatment over surgical. CT abdomen and pelvis did show a 5.6 cm abdominal aortic aneurysm which vascular surgery had been consulted by primary care team. Upon entering the room the patient and his daughter who is at the bedside stated that they did not want to consult completed. That they do not plan on any surgical treatment or wish to discuss any further medical treatment for the abdominal aortic aneurysm. Patient's daughter is a nurse, they are aware of possible rupture however are choosing to not proceed with the surgical consult. Review of Systems Neck completed upon patient's request Past Medical History Past Medical History: Atrial Fibrillation, Coronary Artery Disease (CAD), COPD, CVA/TIA, Dialysis, GERD/Reflux, Hypertension, Myocardial Infarction (SD), Osteoarthritis (OA), Pneumonia, Renal Disease, Respiratory Disorder, Vascular Disorder Additional Past Medical History / Comment(s): ESRD with hemodialysis on //, pt has R chest port for dialysis and a L upper arm catheter but not using yet d/t it has had to be ballooned a couple of times, cardiomyopathy, SD in 1972 and 2019, 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 Last Myocardial Infarction Date:: 2019 History of Any Multi-Drug Resistant Organisms: None Reported Past Surgical History: Appendectomy, Bowel Resection, Coronary Bypass/CABG, Ear Surgery, Heart Catheterization, Hernia Repair Additional Past Surgical History / Comment(s): R chest port for dialysis, R upper arm hemodialysis cath/has been ballooned and not able to use for dialysis yet, craniotomy for benign tumor, 3 vessel CABG in 2004, laparotomy for subcutaeous emphysema in bowel per daughters/extensive hospitalization, L caratid endartectomy, TURP, hemodialysis port in R chest/L upper arm, surgery to taper ears, EGD, colonoscopy, pain clinic procedures. Past Anesthesia/Blood Transfusion Reactions: No Reported Reaction Additional Past Anesthesia/Blood Transfusion Reaction / Comm: Pt has received blood in past without reaction. Past Psychological History: No Psychological Hx Reported Smoking Status: Former smoker Past Alcohol Use History: None Reported Past Drug Use History: None Reported - Past Family History Sister(s) Family Medical History: Cancer Additional Family Medical History / Comment(s): kidney Mother Family Medical History: Myocardial Infarction (SD) Additional Family Medical History / Comment(s): Mother of a SD in her 80s. Father Family Medical History: Myocardial Infarction (SD) Brother(s) Family Medical History: Myocardial Infarction (SD) Medications and Allergies Home Medications Medication Instructions Recorded Confirmed Type Zafirlukast 20 mg PO BID 09/30/14 02/23/22 History Tamsulosin HCl [Flomax] 0.4 mg PO HS 04/26/20 02/23/22 History busPIRone HCL [Buspar] 7.5 mg PO BID 04/26/20 02/23/22 History Albuterol Nebulized [Ventolin 2.5 mg INHALATION RT-Q4H PRN 06/27/20 02/23/22 History Nebulized] Furosemide [Lasix] 40 mg PO DAILY 10/24/21 02/23/22 History Pantoprazole [Protonix] 40 mg PO BID 10/24/21 02/23/22 History Ipratropium Nebulized [Atrovent 0.5 mg INHALATION RT-Q4H PRN 02/23/22 02/23/22 History Nebulized 0.2 MG/ML] Sucralfate [Carafate] 1 gm PO QID 02/23/22 02/23/22 History Allergies Allergy/AdvReac Type Severity Reaction Status Date / Time morphine Allergy Severe Rash/Hives Verified 02/23/22 20:14 lorazepam [From Ativan] AdvReac Confusion Verified 02/23/22 20:14 Surgical - Exam Vital Signs Temp Pulse Resp BP Pulse Ox 98.9 F 81 16 132/65 95 02/23/22 13:41 02/23/22 13:41 02/23/22 13:41 02/23/22 13:41 02/23/22 13:41 Neck completed, upon patient and family request Results - Labs 02/27/22 05:46 02/27/22 05:46 Abnormal Lab Results - Last 24 Hours (Table) 02/27/22 02/27/22 Range/Units 05:46 05:46 RBC 3.02 L (4.30-5.90) m/uL Hgb 10.6 L (13.0-17.5) gm/dL Hct 33.2 L (39.0-53.0) % MCV 110.0 H (80.0-100.0) fL MCH 35.1 H (25.0-35.0) pg Plt Count 105 L (150-450) k/uL Neutrophils # 7.9 H (1.3-7.7) k/uL Macrocytosis Marked A Sodium 133 L (137-145) mmol/L BUN 67 H (9-20) mg/dL Creatinine 7.51 H* (0.66-1.25) mg/dL Glucose 68 L (74-99) mg/dL Calcium 7.1 L (8.4-10.2) mg/dL Diabetes panel 02/27/22 Range/Units 05:46 Sodium 133 L (137-145) mmol/L Potassium 4.6 (3.5-5.1) mmol/L Chloride 100 (98-107) mmol/L Carbon Dioxide 23 (22-30) mmol/L BUN 67 H (9-20) mg/dL Creatinine 7.51 H* (0.66-1.25) mg/dL Glucose 68 L (74-99) mg/dL Calcium 7.1 L (8.4-10.2) mg/dL Calcium panel 02/27/22 Range/Units 05:46 Calcium 7.1 L (8.4-10.2) mg/dL Pituitary panel 02/27/22 Range/Units 05:46 Sodium 133 L (137-145) mmol/L Potassium 4.6 (3.5-5.1) mmol/L Chloride 100 (98-107) mmol/L Carbon Dioxide 23 (22-30) mmol/L BUN 67 H (9-20) mg/dL Creatinine 7.51 H* (0.66-1.25) mg/dL Glucose 68 L (74-99) mg/dL Calcium 7.1 L (8.4-10.2) mg/dL Adrenal panel 02/27/22 Range/Units 05:46 Sodium 133 L (137-145) mmol/L Potassium 4.6 (3.5-5.1) mmol/L Chloride 100 (98-107) mmol/L Carbon Dioxide 23 (22-30) mmol/L BUN 67 H (9-20) mg/dL Creatinine 7.51 H* (0.66-1.25) mg/dL Glucose 68 L (74-99) mg/dL Calcium 7.1 L (8.4-10.2) mg/dL - Imaging Comments: 02/25/2022 CT abdomen and pelvis report small amount of portal venous air which is a change compared to recent exam. Bilateral lower lobe pulmonary infiltrates and atelectasis and pleural thickening mostly new compared to recent exam. Cardiomegaly. 5.7 cm abdominal aortic aneurysm. Cholelithiasis. Dilated gallbladder suggestive of cholecystitis. Gallbladder unchanged. There is some new free fluid in the pelvis compared to recent exam. Colonic diverticulosis without diverticulitis 02/25/2022 abdominal ultrasound reports cholelithiasis/biliary sludge. Infrarenal aortic aneurysm measuring up to 5 cm. Stable back to at least 10/26/21. Hepatocellular disease most commonly related to hepatic steatosis 02/23/2022 CT abdomen and pelvis without contrast reports no acute abnormality, stable abdominal aortic aneurysm measuring 5 centimeters, cholelithiasis. Assessment and Plan Assessment: 1. Abdominal aortic aneurysm measuring [address] abdomen/pelvis and abdominal ultrasound 2. Abdominal pain, ischemic bowel 3. History of coronary artery disease 4. End-stage renal disease on hemodialysis Plan: Patient and family are not interested in input from vascular surgery on a bdominal aortic aneurysm, and assets consult be canceled. They are continuing with medical treatment. They do not wish to follow-up as an outpatient however discuss with them that we would put her contact information in discharge summary if they were to change their mind. Thank you for this consultation, we will sign off at this time per patient and family request. The impression and plan of care has been dictated as directed. I performed a history and examination of this patient, discussed the same with the dictator. I agree with the dictator's note ,documented as a scribe. Any additional findings or plans will be noted.
[2022-02-27] MEDS: HYDROmorphone 0.5 MG/0.5 ML SYRINGE IVP PRN (10:52)
[2022-02-27] MEDS ORDERED: MIDODRINE 5 MG TAB PO STA (12:11)
--- NOTE | 2022-02-27 12:46 | P.PN ---
Subjective Progress Note Date: 02/27/22 CHIEF COMPLAINT: Abdominal pain HISTORY OF PRESENT ILLNESS: Surgical service following in regards to ischemic bowel. Patient does complain of abdominal pain. Reports that his pain is 8 out of 10. Reports that his pain has not improved since admission and has been about the same. He denies any nausea or vomiting. Denies any bowel movement or flatus. He is currently on a clear liquid diet. Afebrile. WBC has improved from 11.5-9.7 Hgb 10.6 platelets 105 sodium 133 creatinine 7.51 PHYSICAL EXAM: VITAL SIGNS: Reviewed. GENERAL: Well-developed in no acute distress. HEENT: No sclera icterus. Extraocular movements grossly intact. Moist buccal mucosa. Head is atraumatic, normocephalic. ABDOMEN: Soft. Mildly distended. Tenderness to palpation in the left lower abdomen ASSESSMENT: 1. Ischemic bowel. Likely ischemic segment small bowel with pneumatosis at this location is the likely etiology for the patient's portal venous gas noted on CT PLAN: -Continue supportive care -Continue antibiotics -Continue pain medication as needed -Dr. Bey had discussion with patient's daughter and patient and they had been interested in non-operative management Physician Movement Assembly Final Inspector note has been reviewed by physician. Signing provider agrees with the documented findings, assessment, and plan of care. I have personally seen and examined the patient, reviewed the CAKE PRESS OPERATOR HELPER /PAs history, exam and MDM and agree with the assessment and plan as written. Based on total visit time, I have performed more than 50% of the visit. As above: Patient says his pain is improved. He remains tender on exam however. Labs noted. We'll gradually advance diet. Continue antibiotics. I did have a long discussion by phone with most of the patient's other children yesterday afternoon. The clinical scenario was again reviewed with them. They are in agreement with our plan for nonoperative management. We'll follow with you. Objective - Vital Signs Vital signs: Vital Signs Temp 97.9 F 02/27/22 08:00 Pulse 92 02/27/22 11:07 Resp 18 02/27/22 08:00 BP 122/52 02/27/22 08:00 Pulse Ox 94 L 02/27/22 08:00 FiO2 21 02/25/22 16:19 Intake & Output 02/26/22 02/27/22 02/27/22 18:59 06:59 18:59 Output Total 200 Balance -200 Output: Urine 200 Other: Voiding Method Indwelling Catheter Indwelling Catheter Indwelling Catheter - Labs CBC & Chem 7: 02/27/22 05:46 02/27/22 05:46 Labs: Abnormal Lab Results - Last 24 Hours (Table) 02/27/22 02/27/22 Range/Units 05:46 05:46 RBC 3.02 L (4.30-5.90) m/uL Hgb 10.6 L (13.0-17.5) gm/dL Hct 33.2 L (39.0-53.0) % MCV 110.0 H (80.0-100.0) fL MCH 35.1 H (25.0-35.0) pg Plt Count 105 L (150-450) k/uL Neutrophils # 7.9 H (1.3-7.7) k/uL Macrocytosis Marked A Sodium 133 L (137-145) mmol/L BUN 67 H (9-20) mg/dL Creatinine 7.51 H* (0.66-1.25) mg/dL Glucose 68 L (74-99) mg/dL Calcium 7.1 L (8.4-10.2) mg/dL
--- NOTE | 2022-02-27 18:46 | P.PN ---
Progress Note - Text Progress Note Date: 02/27/22 Chief Complaint: Lower abdominal pain History of presenting complaint: This is a pleasant 81-year-old patient, follows with Dr. Junior Jalloh. Chronic stable medical conditions include coronary artery disease with bypass, COPD, GERD, hard of hearing, hypertension, osteoarthritis, abdominal aneurysm,. Dialysis on Sunday and Sunday. Follows with Dr. Chavis. Patient presents with couple of days of lower abdominal pain. Has a bowel movement every 4 days. Also having nausea. Having increasing lower abdominal pain. No fever no chills. Some congested cough. Found to have distended bladder. About [address] Macias did place a catheter. No fever no chills. February 25: Patient again had abdominal pain today. Dr. Egan general surgery saw the patient earlier today. He reviewed the uterus CAT scan he felt a slight free air. Patient has a rather complicated abdominal surgery history. Repeat computed tomography scan was ordered. Patient's had been having intermittent diarrhea told. Daughter and at the bedside. Patient is feeling tired. Made nothing by mouth. IV fluids. IV Zosyn started. Vascular consulted for AAA February 26: Patient's abdomen is distended. Has been nothing by mouth. Tender. No vomiting. Several family members including present. Repeat computed tomography scan was seen by Dr. Garcia-his impression is of ischemic segment of the small bowel pneumatosis in the portal venous gas. They decided about nonoperative approach. IV antibiotic to continue. Clear liquid diet was ordered.. Patient is a DO NOT RESUSCITATE. February 27: Diet advanced by surgery to full liquid. Abdominal pain still presen t. But decreased. No nausea vomiting. No fever. IV antibiotics. Active Medications Acetaminophen (Acetaminophen Tab 325 Mg Tab) 650 mg PO Q6HR PRN PRN Reason: Mild Pain or Fever > 100.5 Last Admin: 02/27/22 02:44 Dose: 650 mg Albuterol Sulfate (Albuterol Nebulized 2.5 Mg/3 Ml) 2.5 mg INHALATION RT-Q4H [facility] Last Admin: 02/27/22 15:50 Dose: 2.5 mg Amlodipine Besylate (Amlodipine 10 Mg Tab) 10 mg PO [facility] Last Admin: 02/26/22 21:57 Dose: Not Given Atorvastatin Calcium (Atorvastatin 80 Mg Tab) 80 mg PO [facility] Last Admin: 02/26/22 22:20 Dose: 80 mg Buspirone HCl (Buspirone Hcl 5 Mg Tab) 7.5 mg PO BID [facility] Last Admin: 02/27/22 08:19 Dose: 7.5 mg Calcium Acetate (Calcium Acetate 667 Mg Tab) 667 mg PO TID-W/MEALS [facility] Last Admin: 02/27/22 17:07 Dose: 667 mg Cyanocobalamin (Cyanocobalamin 500 Mcg Tab) 1,000 mcg PO DAILY [facility] Last Admin: 02/27/22 08:19 Dose: 1,000 mcg Doxazosin Mesylate (Doxazosin 4 Mg Tab) 8 mg PO HS [facility] Last Admin: 02/26/22 21:59 Dose: Not Given Enoxaparin Sodium (Enoxaparin 30 Mg/0.3 Ml Syringe) 30 mg SQ DAILY [facility] Last Admin: 02/27/22 08:21 Dose: 30 mg Furosemide (Furosemide 40 Mg Tab) 40 mg PO DAILY [facility] Last Admin: 02/27/22 09:00 Dose: 40 mg Hydromorphone HCl (Hydromorphone 0.5 Mg/0.5 Ml Syringe) 0.5 mg IVP Q3HR PRN PRN Reason: Moderate Pain Last Admin: 02/27/22 10:52 Dose: 0.5 mg Piperacillin Sod/Tazobactam (Sod 3.375 gm/ Sodium Chloride) 100 mls @ 25 mls/hr IVPB Q12H [facility]; Protocol Last Admin: 02/27/22 11:00 Dose: 25 mls/hr Isosorbide Mononitrate (Isosorbide Mononitrate Er 30 Mg Tab.Er.24h) 30 mg PO DAILY [facility] Last Admin: 02/27/22 08:20 Dose: 30 mg Metoclopramide HCl (Metoclopramide 5 Mg/Ml 2 Ml Vial) 10 mg IVP Q8HR PRN PRN Reason: Vomiting Last Admin: 02/25/22 21:01 Dose: 10 mg Montelukast Sodium (Montelukast 10 Mg Tab) 10 mg PO HS [facility] Last Admin: 02/26/22 22:19 Dose: 10 mg Naloxone HCl (Naloxone 0.4 Mg/Ml 1 Ml Vial) 0.2 mg IV Q2M PRN PRN Reason: Opioid Reversal Pantoprazole Sodium (Pantoprazole 40 Mg/10 Ml Vial) 40 mg IVP DAILY [facility] Last Admin: 02/27/22 08:21 Dose: 40 mg Tamsulosin HCl (Tamsulosin 0.4 Mg Cap.Er.24h) 0.4 mg PO BID [facility] Last Admin: 02/27/22 08:20 Dose: 0.4 mg Past medical history to include: Coronary artery disease, COPD, TIA, GERD, hard of hearing, hypertension, osteoarthritis, end-stage kidney disease on hemodialysis Sunday, abdominal aneurysm, coronary bypass, Social history: Lives with . Smoked a pack a day for 64 years stopped in 2019. 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 Physical examination: VITAL SIGNS: 97.6, 72, 18, 1 23 x 62, 97% on 2 L GENERAL: Sitting up in bed awake, Fistula left upper extremity EYES: Pupils equal. Conjunctiva pale. HEENT: External appearance of nose and ears normal, oral cavity dry mucous membranes. Decreased hearing NECK: JVD not raised; masses not palpable. HEART: First and second heart sounds are normal; no edema. LUNGS: Respiratory rate normal; clear to auscultation. ABDOMEN: Soft, less distended , abdominal tenderness, no guarding rigidity, liver spleen not palpable, no masses palpable. PSYCH: Answering questions appropriately MUSCULOSKELETAL:No Clubbing/cyanosis;muscles-grossly intact. Evidence of OA INVESTIGATIONS, reviewed in the clinical context: February 27: White count 9.7 hemoglobin 10.6 potassium 4.6 Computed tomography scan abdomen and pelvis [February 25]: Dilated gallbladder. CBD 13 mm. Multiple right renal cyst. Abdominal aortic measures 5.6 cm. Thrombus in anterior wall. February 25: White count 11.5 hemoglobin 12.7 platelets 123 potassium 3.5 creatinine 5.3 to WBC 12.4 hemoglobin 12.8 platelets 107 sodium 132 potassium 4.7 BUN 82 creatinine 7.36 Computed tomography scan abdomen and pelvis: Renal cyst. Multiple punctate bilateral nonobstructing bilateral renal calculi. Abdominal aortic aneurysm 5 cm. Assessment and plan: -Acute abdominal pain: Suspected small bowel ischemia with possible perforation earlier Being followed by -nonsurgical treatment currently. High surgical risk. He discussed with the family. IV Zosyn -Abdominal aortic aneurysm 5.6 cm Vascular consulted. -Acute urinary retention possibly from bladder outflow obstruction Hinds catheter placed by Dr. Macias. To remain in for now. Flomax 0.4 mg twice a day -End-stage kidney disease on hemodialysis Sunday and Sunday Continue dialysis -Anemia of chronic kidney disease Follow H&H -Hypertension with chronic kidney disease Amlodipine 10 mg daily at bedtime, Imdur ER 30 mg daily, -COPD in an ex-smoker Albuterol 2.5 every 4 -Coronary artery disease prior history of coronary bypass Imdur ER 30 mg a day -GERD Protonix -Hard of hearing -Colonic diverticulosis -Primary osteoarthritis Pain medications as needed -DO NOT RESUSCITATE IV Zosyn. Follow liquids. Discussed with patient. No surgical intervention prognosis guarded..
[2022-02-27] MEDS: ATORVASTATIN 80 MG TAB PO SCH (19:59)
[2022-02-27] MEDS: MONTELUKAST 10 MG TAB PO SCH (19:59)
[2022-02-27] MEDS: DOXAZOSIN 4 MG TAB PO SCH (19:59)
[2022-02-27] MEDS: amLODIPine 10 MG TAB PO SCH (19:59)
[2022-02-27] MEDS: METOCLOPRAMIDE 5 MG/ML 2 ML VIAL IVP PRN (21:52)
[2022-02-28] MEDS: PIPERACILLIN-TAZOBACTAM 3.375 GM in SODIUM CHLORIDE 0.9% 100 ML IVPB SCH ×2 (01:20→12:21)
[2022-02-28] MEDS: ALBUTEROL NEBULIZED 2.5 MG/3 ML INHALATION SCH ×5 (04:29→19:38)
[2022-02-28] MEDS: ISOSORBIDE MONONITRATE ER 30 MG TAB.ER.24H PO SCH (09:02)
[2022-02-28] MEDS: FUROSEMIDE 40 MG TAB PO SCH (09:02)
[2022-02-28] MEDS: CYANOCOBALAMIN 500 MCG TAB PO SCH (09:02)
[2022-02-28] MEDS: PANTOPRAZOLE 40 MG/10 ML VIAL IVP SCH (09:02)
[2022-02-28] MEDS: TAMSULOSIN 0.4 MG CAP.ER.24H PO SCH ×2 (09:02→20:00)
[2022-02-28] MEDS: busPIRone HCl 5 MG TAB PO SCH ×2 (09:02→20:00)
[2022-02-28] MEDS: CALCIUM ACETATE 667 MG TAB PO SCH ×3 (09:02→17:54)
[2022-02-28] MEDS: ENOXAPARIN 30 MG/0.3 ML SYRINGE SQ SCH (09:03)
[2022-02-28] MEDS: ACETAMINOPHEN TAB 325 MG TAB PO PRN (10:51)
--- NOTE | 2022-02-28 11:20 | P.PN ---
Subjective patient is seen for follow-up for end-stage renal disease. He is maintained on a Sunday schedule. Patient has been complaining of abdominal pain and CAT scan revealed evidence of pneumoperitoneum. Patient is being followed by surgery and at this time after discussion with family to appears that they would like to proceed with co nservative management. Abdominal pain persists but somewhat improved. Oral intake is being slowly advanced. Status post hemodialysis yesterday with UF of 1.3 L. Objective - Vital Signs Vital signs: Vital Signs Temp 98.4 F 02/28/22 08:00 Pulse 80 02/28/22 08:15 Resp 16 02/28/22 08:00 BP 115/60 02/28/22 08:00 Pulse Ox 95 02/28/22 08:03 FiO2 21 02/25/22 16:19 Intake & Output 02/27/22 02/28/22 02/28/22 18:59 06:59 18:59 Intake Total 596 150 120 Output Total 1750 250 Balance -1154 -100 120 Weight 65.771 kg Intake: Oral 296 150 120 Hemodialysis 300 Output: Urine 450 250 Uretheral (Hinds) 150 Hemodialysis 1300 Other: Voiding Method Indwelling Catheter Indwelling Catheter Indwelling Catheter # Voids 2 - Exam awake, comfortable, no acute distress Abdomen is soft, mild tenderness left lower quadrant Examination of the lower extremities shows no edema NUCLEAR MEDICINE PHYSICIAN exam grossly intact - Labs CBC & Chem 7: 02/27/22 05:46 02/27/22 05:46 Assessment and Plan Assessment: 1. End-stage renal disease on hemodialysis on a Sunday schedule 2. Abdominal pain with evidence of pneumoperitoneum with plans for conservative management at this time. Symptoms had improved but patient is complaining of pain again today. Being followed by general surgery. 3. CK D mineral bone disorder 4. Urine retention with indwelling Hinds catheter 5. Volume overload, improved Plan: Continue to advanced oral intake as tolerated Continue with antibiotics Hemodialysis in a.m.
--- NOTE | 2022-02-28 13:48 | P.PN ---
Subjective Progress Note Date: 02/28/22 CHIEF COMPLAINT: Abdominal pain HISTORY OF PRESENT ILLNESS: Surgical service following in regards to ischemic bowel. Patient does complain of abdominal pain. Reports that his pain is 10 out of 10. He is in the bathroom trying to have a bowel movement. He is due for pain medication. He reports having flatus. Denies any nausea or vomiting. He is currently on full liquid diet. Afebrile. WBC is down from 11.5 to 9.7 HGB 10.6 platelets 105 PHYSICAL EXAM: VITAL SIGNS: Reviewed. GENERAL: Well-developed in no acute distress. HEENT: No sclera icterus. Extraocular movements grossly intact. Moist buccal mucosa. Head is atraumatic, normocephalic. ABDOMEN: Soft. Mildly distended. Tenderness to palpation in the left lower abdomen ASSESSMENT: 1. Ischemic bowel. Likely ischemic segment small bowel with pneumatosis at this location is the likely etiology for the patient's portal venous gas noted on CT PLAN: -Continue Full liquids -Continue supportive care -Continue antibiotics -Continue pain medication as needed -Dr. Bey had discussion with patient's daughter and patient and they had been interested in non-operative management Physician Preflight Mechanic note has been reviewed by physician. Signing provider agrees with the documented findings, assessment, and plan of care. I have personally seen and examined the patient, reviewed the PROFESSOR OF PSYCHOLOGY /PAs history, exam and MDM and agree with the assessment and plan as written. Based on total visit time, I have performed more than 50% of the visit. As above: Patient still having pain. He appears comfortable in bed however. He is tolerating full liquids. He had a stool that had some blood within it. Exam is about the same. Continue increasing diet as tolerated. Continue IV antibiotics. Continue supportive care. If the patient's pain remains elevated will discuss further with family options of palliative care assessment. Objective - Vital Signs Vital signs: Vital Signs Temp 98.4 F 02/28/22 08:00 Pulse 80 02/28/22 12:09 Resp 16 02/28/22 08:00 BP 115/60 02/28/22 08:00 Pulse Ox 95 02/28/22 08:03 FiO2 21 02/25/22 16:19 Intake & Output 02/27/22 02/28/22 02/28/22 18:59 06:59 18:59 Intake Total 596 150 120 Output Total 1750 250 Balance -1154 -100 120 Weight 65.771 kg Intake: Oral 296 150 120 Hemodialysis 300 Output: Urine 450 250 Uretheral (Hinds) 150 Hemodialysis 1300 Other: Voiding Method Indwelling Catheter Indwelling Catheter Indwelling Catheter # Voids 2 - Labs CBC & Chem 7: 02/27/22 05:46 02/27/22 05:46
--- NOTE | 2022-02-28 15:26 | CDI ---
Documentation Clarification Form Date: 02/28/2022 03:05:30 PM From: Nicolette Snow RN, CCDS Admit Date: 02/27/2022 08:00:00 AM Patient Name: Josh Marie Visit Number: [id number] Discharge Date: ATTENTION: The Clinical Documentation Specialists (CDI) and [facility] Coding Staff appreciate your assistance in clarifying documentation. Please respond to the clarification below the line at the bottom and electronically sign. The CDI & [facility] Coding staff will review the response and follow-up if needed. Please note: Queries are made part of the Legal Health Record. If you have any questions, please contact the author of this message via ITS. Dr. Grey Bey There is documentation of ischemic bowel in progress note on 02/25 and subsequent documentation. Additional clarification of the acuity of the condition is requested. History/Risk Factors: COPD, GERD, Hypertension ESRD, Abdominal aneurysm Clinical Indicators: 81-year-old male present on 02/23 with abdominal pain. Repeat CT scan impression of ischemic segment of the small bowel pneumatosis in the portal venous gas. 02/26 Vital signs: 128/56 93 17 97.9 95% on 3/L NC. 02/26 WBC 12.4 Treatment: Zosyn 3.375 GM IVPB Q 12 HRS Dilaudid 0.5 MG IVP Q 3 HRE PRN Can you please clarify the acuity of the ischemic small bowel if known? [ x ] Acute [ ] Sub-acute [ ] Chronic [ ] Other, please specify [ ] Unable to determine MTDD
--- NOTE | 2022-02-28 18:37 | P.PN ---
Progress Note - Text Progress Note Date: 02/28/22 Chief Complaint: Lower abdominal pain History of presenting complaint: This is a pleasant 81-year-old patient, follows with Dr. Junior Jalloh. Chronic stable medical conditions include coronary artery disease with bypass, COPD, GERD, hard of hearing, hypertension, osteoarthritis, abdominal aneurysm,. Dialysis on Sunday and Sunday. Follows with Dr. Chavis. Patient presents with couple of days of lower abdominal pain. Has a bowel movement every 4 days. Also having nausea. Having increasing lower abdominal pain. No fever no chills. Some congested cough. Found to have distended bladder. About [address] Macias did place a catheter. No fever no chills. February 25: Patient again had abdominal pain today. Dr. Egan general surgery saw the patient earlier today. He reviewed the uterus CAT scan he felt a slight free air. Patient has a rather complicated abdominal surgery history. Repeat computed tomography scan was ordered. Patient's had been having intermittent diarrhea told. Daughter and at the bedside. Patient is feeling tired. Made nothing by mouth. IV fluids. IV Zosyn started. Vascular consulted for AAA February 26: Patient's abdomen is distended. Has been nothing by mouth. Tender. No vomiting. Several family members including present. Repeat computed tomography scan was seen by Dr. Garcia-his impression is of ischemic segment of the small bowel pneumatosis in the portal venous gas. They decided about nonoperative approach. IV antibiotic to continue. Clear liquid diet was ordered.. Patient is a DO NOT RESUSCITATE. February 27: Diet advanced by surgery to full liquid. Abdominal pain still presen t. But decreased. No nausea vomiting. No fever. IV antibiotics. February 28: Some abdominal pain. Eating some, full liquids. No nausea vomiting. Had some stool with little blood Active Medications Acetaminophen (Acetaminophen Tab 325 Mg Tab) 650 mg PO Q6HR PRN PRN Reason: Mild Pain or Fever > 100.5 Last Admin: 02/28/22 10:51 Dose: 650 mg Albuterol Sulfate (Albuterol Nebulized 2.5 Mg/3 Ml) 2.5 mg INHALATION RT-Q4H [facility] Last Admin: 02/28/22 15:36 Dose: 2.5 mg Amlodipine Besylate (Amlodipine 10 Mg Tab) 10 mg PO HS [facility] Last Admin: 02/27/22 19:59 Dose: 10 mg Atorvastatin Calcium (Atorvastatin 80 Mg Tab) 80 mg PO HS [facility] Last Admin: 02/27/22 19:59 Dose: 80 mg Buspirone HCl (Buspirone Hcl 5 Mg Tab) 7.5 mg PO BID [facility] Last Admin: 02/28/22 09:02 Dose: 7.5 mg Calcium Acetate (Calcium Acetate 667 Mg Tab) 667 mg PO TID-W/MEALS [facility] Last Admin: 02/28/22 17:54 Dose: 667 mg Cyanocobalamin (Cyanocobalamin 500 Mcg Tab) 1,000 mcg PO DAILY [facility] Last Admin: 02/28/22 09:02 Dose: 1,000 mcg Doxazosin Mesylate (Doxazosin 4 Mg Tab) 8 mg PO HS [facility] Last Admin: 02/27/22 19:59 Dose: 8 mg Enoxaparin Sodium (Enoxaparin 30 Mg/0.3 Ml Syringe) 30 mg SQ DAILY [facility] Last Admin: 02/28/22 09:03 Dose: 30 mg Furosemide (Furosemide 40 Mg Tab) 40 mg PO DAILY [facility] Last Admin: 02/28/22 09:02 Dose: 40 mg Hydromorphone HCl (Hydromorphone 0.5 Mg/0.5 Ml Syringe) 0.5 mg IVP Q3HR PRN PRN Reason: Moderate Pain Last Admin: 02/27/22 10:52 Dose: 0.5 mg Piperacillin Sod/Tazobactam (Sod 3.375 gm/ Sodium Chloride) 100 mls @ 25 mls/hr IVPB Q12H [facility]; Protocol Last Admin: 02/28/22 12:21 Dose: 25 mls/hr Isosorbide Mononitrate (Isosorbide Mononitrate Er 30 Mg Tab.Er.24h) 30 mg PO DAILY [facility] Last Admin: 02/28/22 09:02 Dose: 30 mg Metoclopramide HCl (Metoclopramide 5 Mg/Ml 2 Ml Vial) 10 mg IVP Q8HR PRN PRN Reason: Vomiting Last Admin: 02/27/22 21:52 Dose: 10 mg Montelukast Sodium (Montelukast 10 Mg Tab) 10 mg PO HS [facility] Last Admin: 02/27/22 19:59 Dose: 10 mg Naloxone HCl (Naloxone 0.4 Mg/Ml 1 Ml Vial) 0.2 mg IV Q2M PRN PRN Reason: Opioid Reversal Pantoprazole Sodium (Pantoprazole 40 Mg/10 Ml Vial) 40 mg IVP DAILY [facility] Last Admin: 02/28/22 09:02 Dose: 40 mg Tamsulosin HCl (Tamsulosin 0.4 Mg Cap.Er.24h) 0.4 mg PO BID [facility] Last Admin: 02/28/22 09:02 Dose: 0.4 mg Past medical history to include: Coronary artery disease, COPD, TIA, GERD, hard of hearing, hypertension, osteoarthritis, end-stage kidney disease on hemodialysis Sunday, abdominal aneurysm, coronary bypass, Social history: Lives with . Smoked a pack a day for 64 years stopped in 2019. 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 Physical examination: VITAL SIGNS: 97.9, 60, 16, 100/51, 91% room air GENERAL: Sitting up in bed awake, Fistula left upper extremity EYES: Pupils equal. Conjunctiva pale. HEENT: External appearance of nose and ears normal, oral cavity dry mucous membranes. Decreased hearing NECK: JVD not raised; masses not palpable. HEART: First and second heart sounds are normal; no edema. LUNGS: Respiratory rate normal; clear to auscultation. ABDOMEN: Soft, some distention, abdominal tenderness, no guarding rigidity, liver spleen not palpable, no masses palpable. PSYCH: Answering questions appropriately MUSCULOSKELETAL:No Clubbing/cyanosis;muscles-grossly intact. Evidence of OA INVESTIGATIONS, reviewed in the clinical context: February 27: White count 9.7 hemoglobin 10.6 potassium 4.6 Computed tomography scan abdomen and pelvis [February 25]: Dilated gallbladder. CBD 13 mm. Multiple right renal cyst. Abdominal aortic measures 5.6 cm. Thrombus in anterior wall. February 25: White count 11.5 hemoglobin 12.7 platelets 123 potassium 3.5 creatinine 5.3 to WBC 12.4 hemoglobin 12.8 platelets 107 sodium 132 potassium 4.7 BUN 82 creatinine 7.36 Computed tomography scan abdomen and pelvis: Renal cyst. Multiple punctate bilateral nonobstructing bilateral renal calculi. Abdominal aortic aneurysm 5 cm. Assessment and plan: -Acute abdominal pain: Suspected small bowel ischemia with possible perforation earlier: Slow to respond Being followed by -nonsurgical treatment currently. High surgical risk. He discussed with the family. IV Zosyn -Abdominal aortic aneurysm 5.6 cm Vascular consulted. -Acute urinary retention possibly from bladder outflow obstruction Hinds catheter placed by Dr. Macias. To remain in for now. Flomax 0.4 mg twice a day -End-stage kidney disease on hemodialysis Sunday and Sunday Continue dialysis -Anemia of chronic kidney disease Follow H&H -Hypertension with chronic kidney disease Amlodipine 10 mg daily at bedtime, Imdur ER 30 mg daily, -COPD in an ex-smoker Albuterol 2.5 every 4 -Coronary artery disease prior history of coronary bypass Imdur ER 30 mg a day -GERD Protonix -Hard of hearing -Colonic diverticulosis -Primary osteoarthritis Pain medications as needed -DO NOT RESUSCITATE IV Zosyn. Full liquids. . No surgical intervention prognosis guarded.. Continue supportive care.
[2022-02-28] MEDS: MONTELUKAST 10 MG TAB PO SCH (20:00)
[2022-02-28] MEDS: amLODIPine 10 MG TAB PO SCH (20:00)
[2022-02-28] MEDS: DOXAZOSIN 4 MG TAB PO SCH (20:00)
[2022-02-28] MEDS: ATORVASTATIN 80 MG TAB PO SCH (20:00)
[2022-03-01] MEDS: PIPERACILLIN-TAZOBACTAM 3.375 GM in SODIUM CHLORIDE 0.9% 100 ML IVPB SCH ×2 (00:24→15:18)
[2022-03-01] MEDS: ALBUTEROL NEBULIZED 2.5 MG/3 ML INHALATION SCH ×4 (00:31→08:29)
[2022-03-01] MEDS: FUROSEMIDE 40 MG TAB PO SCH (09:37)
[2022-03-01] MEDS: ENOXAPARIN 30 MG/0.3 ML SYRINGE SQ SCH (09:37)
[2022-03-01] MEDS: TAMSULOSIN 0.4 MG CAP.ER.24H PO SCH ×2 (09:37→20:33)
[2022-03-01] MEDS: busPIRone HCl 5 MG TAB PO SCH ×2 (09:37→20:34)
[2022-03-01] MEDS: CYANOCOBALAMIN 500 MCG TAB PO SCH (09:37)
[2022-03-01] MEDS: ISOSORBIDE MONONITRATE ER 30 MG TAB.ER.24H PO SCH (09:38)
[2022-03-01] MEDS: PANTOPRAZOLE 40 MG/10 ML VIAL IVP SCH (09:38)
[2022-03-01] MEDS: CALCIUM ACETATE 667 MG TAB PO SCH ×3 (09:38→18:53)
--- NOTE | 2022-03-01 12:15 | P.PN ---
Subjective patient is seen for follow-up for end-stage renal disease. He is maintained on a Sunday schedule. Patient has been complaining of abdominal pain and CAT scan revealed evidence of pneumoperitoneum. Patient is being followed by surgery and at this time after discussion with family to appears that they would like to proceed with co nservative management. Abdominal pain persists but somewhat improved. Oral intake is being slowly advanced. Scheduled for hemodialysis today Objective - Vital Signs Vital signs: Vital Signs Temp 99.1 F 03/01/22 07:51 Pulse 74 03/01/22 12:11 Resp 15 03/01/22 07:51 BP 155/76 03/01/22 07:51 Pulse Ox 95 03/01/22 07:51 FiO2 21 02/25/22 16:19 Intake & Output 02/28/22 03/01/22 03/01/22 18:59 06:59 18:59 Intake Total 120 Output Total 200 75 Balance -80 -75 Intake: Oral 120 Output: Urine 200 75 Other: Voiding Method Indwelling Catheter Indwelling Catheter Indwelling Catheter # Voids 1 # Bowel Movements 1 - Exam awake, comfortable, no acute distress Examination of the heart S1 and S2 Examination of the lungs shows decreased breath sounds at the bases Abdomen is soft, mild tenderness left lower quadrant Examination of the lower extremities shows no edema LAB AIDE exam grossly intact - Labs CBC & Chem 7: 02/27/22 05:46 02/27/22 05:46 Assessment and Plan Assessment: 1. End-stage renal disease on hemodialysis on a Sunday schedule 2. Abdominal pain with evidence of pneumoperitoneum with plans for conservative management at this time. Symptoms had improved but patient is complaining of pain again today. Being followed by general surgery. 3. CK D mineral bone disorder 4. Urine retention with indwelling Hinds catheter 5. Volume overload, improved Plan: Hemodialysis today Continue antibiotics
--- NOTE | 2022-03-01 12:52 | P.PN ---
Subjective Progress Note Date: 03/01/22 Principal diagnosis: Ischemic bowel Applications says his pain is about the same today. He is tolerating his diet. He is undergoing dialysis currently. Says he did not sleep well last night. Objective - Vital Signs Vital signs: Vital Signs Temp 99.1 F 03/01/22 07:51 Pulse 76 03/01/22 12:21 Resp 15 03/01/22 07:51 BP 155/76 03/01/22 07:51 Pulse Ox 95 03/01/22 07:51 FiO2 21 02/25/22 16:19 Intake & Output 02/28/22 03/01/22 03/01/22 18:59 06:59 18:59 Intake Total 120 Output Total 200 75 Balance -80 -75 Intake: Oral 120 Output: Urine 200 75 Other: Voiding Method Indwelling Catheter Indwelling Catheter Indwelling Catheter # Voids 1 # Bowel Movements 1 - Exam Abdomen: Soft, mildly distended, moderate left-sided tenderness - Labs CBC & Chem 7: 02/27/22 05:46 02/27/22 05:46 Labs: Abnormal Lab Results - Last 24 Hours (Table) 03/01/22 Range/Units 06:43 Procalcitonin 5.54 H (0.02-0.09) ng/mL Assessment and Plan (1) Ischemic bowel disease Narrative/Plan: Patient doing about the same clinically. Discussed again with the family options of palliative care. They are not interested in hospice. They are willing to have palliative care be a part of his care. We'll consult. Current Visit: Yes Status: Acute Code(s): K55.9 - VASCULAR DISORDER OF INTESTINE, UNSPECIFIED SNOMED Code(s): 07290998
--- NOTE | 2022-03-01 14:54 | P.PN ---
Progress Note - Text Progress Note Date: 03/01/22 Chief Complaint: Lower abdominal pain History of presenting complaint: This is a pleasant 81-year-old patient, follows with Dr. Junior Jalloh. Chronic stable medical conditions include coronary artery disease with bypass, COPD, GERD, hard of hearing, hypertension, osteoarthritis, abdominal aneurysm,. Dialysis on Sunday and Sunday. Follows with Dr. Chavsi. Patient presents with couple of days of lower abdominal pain. Has a bowel movement every 4 days. Also having nausea. Having increasing lower abdominal pain. No fever no chills. Some congested cough. Found to have distended bladder. About [address] Macias did place a catheter. No fever no chills. February 25: Patient again had abdominal pain today. Dr. Egan general surgery saw the patient earlier today. He reviewed the uterus CAT scan he felt a slight free air. Patient has a rather complicated abdominal surgery history. Repeat computed tomography scan was ordered. Patient's had been having intermittent diarrhea told. Daughter and at the bedside. Patient is feeling tired. Made nothing by mouth. IV fluids. IV Zosyn started. Vascular consulted for AAA February 26: Patient's abdomen is distended. Has been nothing by mouth. Tender. No vomiting. Several family members including present. Repeat computed tomography scan was seen by Dr. Garcia-his impression is of ischemic segment of the small bowel pneumatosis in the portal venous gas. They decided about nonoperative approach. IV antibiotic to continue. Clear liquid diet was ordered.. Patient is a DO NOT RESUSCITATE. February 27: Diet advanced by surgery to full liquid. Abdominal pain still presen t. But decreased. No nausea vomiting. No fever. IV antibiotics. February 28: Some abdominal pain. Eating some, full liquids. No nausea vomiting. Had some stool with little blood March 01: Eating very small amounts. Abdominal pain still present. Getting hemodialysis today. Tired. Spoke to the . She understands prognosis guarded. Will watch for another day or 2. Agreeable to take the patient home with hospice if appropriate. Active Medications Acetaminophen (Acetaminophen Tab 325 Mg Tab) 650 mg PO Q6HR PRN PRN Reason: Mild Pain or Fever > 100.5 Last Admin: 02/28/22 10:51 Dose: 650 mg Albuterol/Ipratropium (Ipratropium-Albuterol 3 Ml Neb) 3 ml INHALATION RT-Q4H [facility] Amlodipine Besylate (Amlodipine 10 Mg Tab) 10 mg PO HS [facility] Last Admin: 02/28/22 20:00 Dose: 10 mg Atorvastatin Calcium (Atorvastatin 80 Mg Tab) 80 mg PO HS [facility] Last Admin: 02/28/22 20:00 Dose: 80 mg Buspirone HCl (Buspirone Hcl 5 Mg Tab) 7.5 mg PO BID [facility] Last Admin: 03/01/22 09:37 Dose: 7.5 mg Calcium Acetate (Calcium Acetate 667 Mg Tab) 667 mg PO TID-W/MEALS [facility] Last Admin: 03/01/22 09:38 Dose: 667 mg Cyanocobalamin (Cyanocobalamin 500 Mcg Tab) 1,000 mcg PO DAILY [facility] Last Admin: 03/01/22 09:37 Dose: 1,000 mcg Doxazosin Mesylate (Doxazosin 4 Mg Tab) 8 mg PO HS [facility] Last Admin: 02/28/22 20:00 Dose: 8 mg Enoxaparin Sodium (Enoxaparin 30 Mg/0.3 Ml Syringe) 30 mg SQ DAILY [facility] Last Admin: 03/01/22 09:37 Dose: 30 mg Furosemide (Furosemide 40 Mg Tab) 40 mg PO DAILY [facility] Last Admin: 03/01/22 09:37 Dose: 40 mg Hydromorphone HCl (Hydromorphone 0.5 Mg/0.5 Ml Syringe) 0.5 mg IVP Q3HR PRN PRN Reason: Moderate Pain Last Admin: 02/27/22 10:52 Dose: 0.5 mg Piperacillin Sod/Tazobactam (Sod 3.375 gm/ Sodium Chloride) 100 mls @ 25 mls/hr IVPB Q12H [facility]; Protocol Last Admin: 03/01/22 00:24 Dose: 25 mls/hr Isosorbide Mononitrate (Isosorbide Mononitrate Er 30 Mg Tab.Er.24h) 30 mg PO DAILY [facility] Last Admin: 03/01/22 09:38 Dose: 30 mg Metoclopramide HCl (Metoclopramide 5 Mg/Ml 2 Ml Vial) 10 mg IVP Q8HR PRN PRN Reason: Vomiting Last Admin: 02/27/22 21:52 Dose: 10 mg Montelukast Sodium (Montelukast 10 Mg Tab) 10 mg PO HS [facility] Last Admin: 02/28/22 20:00 Dose: 10 mg Naloxone HCl (Naloxone 0.4 Mg/Ml 1 Ml Vial) 0.2 mg IV Q2M PRN PRN Reason: Opioid Reversal Pantoprazole Sodium (Pantoprazole 40 Mg/10 Ml Vial) 40 mg IVP DAILY [facility] Last Admin: 03/01/22 09:38 Dose: 40 mg Tamsulosin HCl (Tamsulosin 0.4 Mg Cap.Er.24h) 0.4 mg PO BID [facility] Last Admin: 03/01/22 09:37 Dose: 0.4 mg Past medical history to include: Coronary artery disease, COPD, TIA, GERD, hard of hearing, hypertension, osteoarthritis, end-stage kidney disease on hemodialysis Sunday, abdominal aneurysm, coronary bypass, Social history: Lives with . Smoked a pack a day for 64 years stopped in 2018. 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 Physical examination: VITAL SIGNS: 99.1, 79, 15, 1 55 x 76, 95% 2 L GENERAL: Sitting up in bed awake, Fistula left upper extremity. Tired EYES: Pupils equal. Conjunctiva pale. HEENT: External appearance of nose and ears normal, oral cavity dry mucous membranes. Decreased hearing NECK: JVD not raised; masses not palpable. HEART: First and second heart sounds are normal; no edema. LUNGS: Respiratory rate normal; clear to auscultation. ABDOMEN: Soft, some distention, abdominal tenderness, no guarding rigidity, liver spleen not palpable, no masses palpable. PSYCH: Answering questions appropriately MUSCULOSKELETAL:No Clubbing/cyanosis;muscles-grossly intact. Evidence of OA INVESTIGATIONS, reviewed in the clinical context: March 01: Procalcitonin 5.5 for February 27: White count 9.7 hemoglobin 10.6 potassium 4.6 Computed tomography scan abdomen and pelvis [February 25]: Dilated gallbladder. CBD 13 mm. Multiple right renal cyst. Abdominal aortic measures 5.6 cm. Thrombus in anterior wall. February 25: White count 11.5 hemoglobin 12.7 platelets 123 potassium 3.5 creatinine 5.3 to WBC 12.4 hemoglobin 12.8 platelets 107 sodium 132 potassium 4.7 BUN 82 creatinine 7.36 Computed tomography scan abdomen and pelvis: Renal cyst. Multiple punctate bilateral nonobstructing bilateral renal calculi. Abdominal aortic aneurysm 5 cm. Assessment and plan: -Acute abdominal pain: Suspected small bowel ischemia with possible perforation earlier: Slow to respond Being followed by -nonsurgical treatment currently. High surgical risk. He discussed with the family. IV Zosyn -Abdominal aortic aneurysm 5.6 cm Vascular consulted. -Acute urinary retention possibly from bladder outflow obstruction Hinds catheter placed by Dr. Macias. To remain in for now. Flomax 0.4 mg twice a day -End-stage kidney disease on hemodialysis Sunday and Sunday Continue dialysis -Anemia of chronic kidney disease Follow H&H -Hypertension with chronic kidney disease Amlodipine 10 mg daily at bedtime, Imdur ER 30 mg daily, -COPD in an ex-smoker Albuterol 2.5 every 4 -Coronary artery disease prior history of coronary bypass Imdur ER 30 mg a day -GERD Protonix -Hard of hearing -Colonic diverticulosis -Primary osteoarthritis Pain medications as needed -DO NOT RESUSCITATE Prognosis guarded. Continue IV Zosyn. We'll do a informational visit with hospice. Pured diet. Plan is to continue current treatment plan. If patient goes downhill, then hospice. If not continue with dialysis. Advanced care planning: Discussed with in detail. She understands when around prognosis guarded. She understands patient may, not come out of this. Hospice at home was discussed. Will watch another 24-48 hours to see how patient does. Agreeable to same. Patient's course started and is DO NOT RESUSCITATE. Also spoke to patient is daughter. Izzy. Agreeable to informational visit. Hospice Time spent about 25 minutes
[2022-03-01] MEDS: IPRATROPIUM-ALBUTEROL 3 ML NEB INHALATION SCH ×2 (16:08→18:55)
[2022-03-01] MEDS: MONTELUKAST 10 MG TAB PO SCH (20:33)
[2022-03-01] MEDS: amLODIPine 10 MG TAB PO SCH (20:33)
[2022-03-01] MEDS: DOXAZOSIN 4 MG TAB PO SCH (20:33)
[2022-03-01] MEDS: ATORVASTATIN 80 MG TAB PO SCH (20:34)
[2022-03-02] MEDS: IPRATROPIUM-ALBUTEROL 3 ML NEB INHALATION SCH ×8 (00:22→23:39)
[2022-03-02] MEDS: PIPERACILLIN-TAZOBACTAM 3.375 GM in SODIUM CHLORIDE 0.9% 100 ML IVPB SCH ×2 (00:30→13:51)
[2022-03-02] MEDS: TAMSULOSIN 0.4 MG CAP.ER.24H PO SCH ×2 (07:51→21:05)
[2022-03-02] MEDS: CYANOCOBALAMIN 500 MCG TAB PO SCH (07:51)
[2022-03-02] MEDS: CALCIUM ACETATE 667 MG TAB PO SCH ×3 (07:51→18:13)
[2022-03-02] MEDS: PANTOPRAZOLE 40 MG/10 ML VIAL IVP SCH (07:51)
[2022-03-02] MEDS: busPIRone HCl 5 MG TAB PO SCH ×2 (07:51→21:05)
[2022-03-02] MEDS: ISOSORBIDE MONONITRATE ER 30 MG TAB.ER.24H PO SCH (07:51)
[2022-03-02] MEDS: FUROSEMIDE 40 MG TAB PO SCH (07:52)
[2022-03-02] MEDS: ENOXAPARIN 30 MG/0.3 ML SYRINGE SQ SCH (07:52)
--- NOTE | 2022-03-02 09:05 | P.PN ---
Subjective patient is seen for follow-up for end-stage renal disease. He is maintained on a Sunday schedule. Patient has been complaining of abdominal pain and CAT scan revealed evidence of pneumoperitoneum. Patient is being followed by surgery and at this time after discussion with family to appears that they would like to proceed with co nservative management. Abdominal pain persists but somewhat improved. Oral intake is being slowly advanced. Scheduled for hemodialysis in a.m. Objective - Vital Signs Vital signs: Vital Signs Temp 97.9 F 03/02/22 07:32 Pulse 86 03/02/22 08:20 Resp 17 03/02/22 07:32 BP 136/58 03/02/22 07:32 Pulse Ox 96 03/02/22 08:20 FiO2 21 02/25/22 16:19 Intake & Output 03/01/22 03/02/22 03/02/22 18:59 06:59 18:59 Intake Total 120 500 Output Total 300 2100 Balance -180 -1600 Weight 65.771 kg Intake: Oral 120 Hemodialysis 500 Output: Urine 300 100 Hemodialysis 2000 Other: Voiding Method Indwelling Catheter Indwelling Catheter # Voids 1 # Bowel Movements 1 - Exam awake, comfortable, no acute distress Examination of the heart S1 and S2 Examination of the lungs shows decreased breath sounds at the bases Abdomen is soft, mild tenderness left lower quadrant Examination of the lower extremities shows no edema THERAPEUTIC CASE MANAGER exam grossly intact - Labs CBC & Chem 7: 02/27/22 05:46 02/27/22 05:46 Labs: Abnormal Lab Results - Last 24 Hours (Table) 03/01/22 Range/Units 06:43 Procalcitonin 5.54 H (0.02-0.09) ng/mL Assessment and Plan Assessment: 1. End-stage renal disease on hemodialysis on a Sunday schedule 2. Abdominal pain with evidence of pneumoperitoneum with plans for conservative management at this time. Symptoms had improved but patient is complaining of pain again today. Being followed by general surgery. 3. CK D mineral bone disorder 4. Urine retention with indwelling Hinds catheter 5. Volume overload, improved Plan: Hemodialysis tomorrow Continue antibiotics
--- NOTE | 2022-03-02 14:26 | P.CONS ---
History of Present Illness - Reason for Consult Consult date: 03/02/22 Goals of care Requesting physician: Grey Bey - Chief Complaint Abdominal pain - History of Present Illness The patient is a 81-year-old male with a past medical history significant for coronary artery disease with bypass, COPD, GERD, hard of hearing, hypertension, osteoarthritis, abdominal aneurysm,. ESRD with Dialysis on Sunday and Sunday. Patient presented to the on 02/23/22 with complaints of bilateral lower quadrant abdominal pain for the last 6 days. The patient stated that the pain is the worse in the morning when he wakes up. Patient notices worsening with eating and drinking. He admitted to nausea and diarrhea. Denied vomiting, dysuria, hematuria, hematochezia, melena, fever, chills, chest pain, shortness of breath, cough, URI-like symptoms, palpitations. He was also found to have distended bladder. Urologist, Dr. Macias, placed a catheter. General surgery was consulted. Dr. Bey reviewed the abdominal CT and felt there was free air. Patient made nothing by mouth. IV fluids. IV Zosyn started. Vascular consulted for AAA. A repeat abdominal CT was done and seen by Dr. Bey. His impression is of ischemic segment of the small bowel pneumatosis in this location is the likely etiology for the patient's the portal venous gas. Being followed by for nonsurgical treatment currently. High surgical risk. Surgery discussed with the family options of palliative care. They are not interested in hospice. They are willing to have palliative care be a part of his care. Review of Systems Constitutional: Reports as per HPI Past Medical History Past Medical History: Atrial Fibrillation, Coronary Artery Disease (CAD), COPD, CVA/TIA, Dialysis, GERD/Reflux, Hypertension, Myocardial Infarction (PA), Osteoarthritis (OA), Pneumonia, Renal Disease, Respiratory Disorder, Vascular Disorder Additional Past Medical History / Comment(s): ESRD with hemodialysis on //, pt has R chest port for dialysis and a L upper arm catheter but not using yet d/t it has had to be ballooned a couple of times, cardiomyopathy, PA in 1972 and 2019, 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 Last Myocardial Infarction Date:: 2019 History of Any Multi-Drug Resistant Organisms: None Reported Past Surgical History: Appendectomy, Bowel Resection, Coronary Bypass/CABG, Ear Surgery, Heart Catheterization, Hernia Repair Additional Past Surgical History / Comment(s): R chest port for dialysis, R upper arm hemodialysis cath/has been ballooned and not able to use for dialysis yet, craniotomy for benign tumor, 3 vessel CABG in 2003, laparotomy for subcutaeous emphysema in bowel per daughters/extensive hospitalization, L caratid endartectomy, TURP, hemodialysis port in R chest/L upper arm, surgery to taper ears, EGD, colonoscopy, pain clinic procedures. Past Anesthesia/Blood Transfusion Reactions: No Reported Reaction Additional Past Anesthesia/Blood Transfusion Reaction / Comm: Pt has received blood in past without reaction. Past Psychological History: No Psychological Hx Reported Smoking Status: Former smoker Past Alcohol Use History: None Reported Past Drug Use History: None Reported - Past Family History Sister(s) Family Medical History: Cancer Additional Family Medical History / Comment(s): kidney Mother Family Medical History: Myocardial Infarction (PA) Additional Family Medical History / Comment(s): Mother of a PA in her 80s. Father Family Medical History: Myocardial Infarction (PA) Brother(s) Family Medical History: Myocardial Infarction (PA) Medications and Allergies Home Medications Medication Instructions Recorded Confirmed Type Zafirlukast 20 mg PO BID 09/30/14 02/23/22 History Tamsulosin HCl [Flomax] 0.4 mg PO HS 04/26/20 02/23/22 History busPIRone HCL [Buspar] 7.5 mg PO BID 04/26/20 02/23/22 History Albuterol Nebulized [Ventolin 2.5 mg INHALATION RT-Q4H PRN 06/27/20 02/23/22 History Nebulized] Furosemide [Lasix] 40 mg PO DAILY 10/24/21 02/23/22 History Pantoprazole [Protonix] 40 mg PO BID 10/24/21 02/23/22 History Ipratropium Nebulized [Atrovent 0.5 mg INHALATION RT-Q4H PRN 02/23/22 02/23/22 History Nebulized 0.2 MG/ML] Sucralfate [Carafate] 1 gm PO QID 02/23/22 02/23/22 History Allergies Allergy/AdvReac Type Severity Reaction Status Date / Time morphine Allergy Severe Rash/Hives Verified 02/23/22 20:14 lorazepam [From Ativan] AdvReac Confusion Verified 02/23/22 20:14 Physical Exam Vitals: Vital Signs Temp Pulse Pulse Resp BP Pulse Ox 03/02/22 08:20 86 96 03/02/22 07:32 97.9 F 85 17 136/58 96 03/02/22 02:07 97.9 F 90 17 138/63 96 03/01/22 19:46 98.9 F 64 20 135/62 03/01/22 19:07 99.1 F 102 H 17 143/63 95 03/01/22 14:00 98.9 F 95 17 135/64 95 Intake and Output 03/01/22 03/02/22 03/02/22 22:59 06:59 14:59 Intake Total 620 Output Total 2300 100 Balance -1680 -100 Intake: Oral 120 Hemodialysis 500 Output: Urine 300 100 Hemodialysis 2000 Other: Voiding Method Indwelling Catheter Indwelling Catheter # Voids 1 # Bowel Movements 1 General: Chronically ill appearing, No acute distress. HEENT: Head is atraumatic, normocephalic Sclerae are clear. Pupils equal, round and reactive to light bilaterally. CV: Heart regular in rate and rhythm positive S1 and S2. No clicks, rubs or murmurs. Peripheral pulses equal. 2/4 Lungs: Clear to auscultation bilaterally. No wheezes rales or rhonchi. Respirations even and nonlabored. 2L NC Abdomen/GI: Soft, + distention. + abdominal tenderness. : Lucas catheter in place draining clear yellow urine Musculoskeletal/ Extremities: No cyanosis or clubbing. Vascular: Radial pulses equal. 2/4. No peripheral edema Skin: Warm and dry. No rash. Neurologic: Awake, alert and oriented times 3. CN II-XII grossly intact Psychiatric: Appropriate mood, flat affect. Results CBC & Chem 7: 02/27/22 05:46 02/27/22 05:46 Chest x-ray: report reviewed CT scan - abdomen: report reviewed Assessment and Plan Assessment: Reason for consult - Goals of care Social * Occupation - Retired. 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 Also has 23 grandchildren, and 10 great grandchildren * Residence - Tri[place]level house * Who do you reside with - * ETOH - No * Tobacco - Former smoker, quit a couple years ago * Illicit drugs - No Spiritual/Cultural * A spiritual person - Yes * Uatsdin - Zoroastrianism * Belong to a particular confucianism - [facility] * Beliefs a source of comfort and strength - Yes * Jew or cultural practices restrictions - No * EOL considerations/rituals? No Functional Assessment * Able to walk independently - Yes * Assistive devices - Walker * Able to use the bathroom independently - Yes * Continent - Occasional incontinence * Require assistance bathing- No * Able to feed self - Yes * Who prepares meals - * How many meals a day eaten - 2-3 * Able to clean house/do laundry - Yes * Transportation - Patient does not drive anymore. His provides transportation * Able to shop - No * Who manages medications - * Who manages finances - Psychological/Emotional * Dementia present - NO * Insight and judgment - Intact * Depression - No * Suicidal thoughts - No * Good support system - Yes, large family * Patients goals - prolonged survival vs. comfort * Frequent hospitalizations - NO * Desire to keep coming back to the hospital for treatment - Undecided Symptoms * Pain - 2/10, pain well controlled. Continue Tylenol,and Dilaudid * Fatigue - + generalized weakness and fatigue, Continue Vit B-12 * SOB - Yes, mild at rest, but worsens with exertion. Continue Duoneb, Lasix, and Singulair * Insomnia - No * N/V - Resolved. Continue Reglan * Anxiety - No, continue Buspar * Depression - No * Confusion - + confusion at times per * Agitation - No * Hallucinations - No * Appetite/weight loss - +loss of appetite and recent weight loss. Diet advanced per surgery team. Continue Ensure BIDM * Dysphagia - No * Constipation - Yes, continue Reglas * Incontinence - Yes, briefs/has lucas * Itch - No Plan: Summary/Goals - Met with the patient and his , Shannan. Palliative care philosophies and services explained. Education provided regarding ischemic bowel and other co-morbidities. Both the patient and his agree that he is too high risk for surgery. They understand his poor prognosis. The patient would like to return home upon discharge. They are undecided on palliative care vs. hospice. Education regarding hospice provided. They have an informational meeting with hospice today at 3:00pm. They are not alisha if the patient is ready to stop dialysis or not. They would like to talk with hospice, gather all the information, and then take time to discuss options with the family. Spoke to patient's daughter, Izzy, via telephone. Expressed concern that patient and might not be understanding th difference between palliative care and hospice, as well as the benefits each service has to offer. She stated she is a RN and is on her way in for the hospice meeting and will call me tomorrow. Recommendations - Follow up with patient and family tomorrow. Advanced Directives - On file Code Status - DNR Thank you for this consult Laurel Griffith [facility] [id number] Email: [email or web address] Time with Patient: Greater than 30
--- NOTE | 2022-03-02 17:20 | P.PN ---
Progress Note - Text Progress Note Date: 03/02/22 Chief Complaint: Lower abdominal pain History of presenting complaint: This is a pleasant 81-year-old patient, follows with Dr. Junior Jalloh. Chronic stable medical conditions include coronary artery disease with bypass, COPD, GERD, hard of hearing, hypertension, osteoarthritis, abdominal aneurysm,. Dialysis on Sunday and Sunday. Follows with Dr. Chvais. Patient presents with couple of days of lower abdominal pain. Has a bowel movement every 4 days. Also having nausea. Having increasing lower abdominal pain. No fever no chills. Some congested cough. Found to have distended bladder. About [address] Macias did place a catheter. No fever no chills. February 25: Patient again had abdominal pain today. Dr. Egan general surgery saw the patient earlier today. He reviewed the uterus CAT scan he felt a slight free air. Patient has a rather complicated abdominal surgery history. Repeat computed tomography scan was ordered. Patient's had been having intermittent diarrhea told. Daughter and at the bedside. Patient is feeling tired. Made nothing by mouth. IV fluids. IV Zosyn started. Vascular consulted for AAA February 26: Patient's abdomen is distended. Has been nothing by mouth. Tender. No vomiting. Several family members including present. Repeat computed tomography scan was seen by Dr. Garcia-his impression is of ischemic segment of the small bowel pneumatosis in the portal venous gas. They decided about nonoperative approach. IV antibiotic to continue. Clear liquid diet was ordered.. Patient is a DO NOT RESUSCITATE. February 27: Diet advanced by surgery to full liquid. Abdominal pain still presen t. But decreased. No nausea vomiting. No fever. IV antibiotics. February 28: Some abdominal pain. Eating some, full liquids. No nausea vomiting. Had some stool with little blood March 01: Eating very small amounts. Abdominal pain still present. Getting hemodialysis today. Tired. Spoke to the . She understands prognosis guarded. Will watch for another day or 2. Agreeable to take the patient home with hospice if appropriate. March 02: Eating about 50%. No bowel movement. Abdominal pain tenderness present. No nausea vomiting. Discussed with patient. Family's meeting for informational visit with hospice today. Discussed with case managers. Active Medications Acetaminophen (Acetaminophen Tab 325 Mg Tab) 650 mg PO Q6HR PRN PRN Reason: Mild Pain or Fever > 100.5 Last Admin: 02/28/22 10:51 Dose: 650 mg Albuterol/Ipratropium (Ipratropium-Albuterol 3 Ml Neb) 3 ml INHALATION RT-Q4H [facility] Last Admin: 03/02/22 16:42 Dose: Not Given Amlodipine Besylate (Amlodipine 10 Mg Tab) 10 mg PO HS [facility] Last Admin: 03/01/22 20:33 Dose: 10 mg Atorvastatin Calcium (Atorvastatin 80 Mg Tab) 80 mg PO HS [facility] Last Admin: 03/01/22 20:34 Dose: 80 mg Buspirone HCl (Buspirone Hcl 5 Mg Tab) 7.5 mg PO BID [facility] Last Admin: 03/02/22 07:51 Dose: 7.5 mg Calcium Acetate (Calcium Acetate 667 Mg Tab) 667 mg PO TID-W/MEALS [facility] Last Admin: 03/02/22 13:52 Dose: 667 mg Cyanocobalamin (Cyanocobalamin 500 Mcg Tab) 1,000 mcg PO DAILY [facility] Last Admin: 03/02/22 07:51 Dose: 1,000 mcg Doxazosin Mesylate (Doxazosin 4 Mg Tab) 8 mg PO HS [facility] Last Admin: 03/01/22 20:33 Dose: 8 mg Enoxaparin Sodium (Enoxaparin 30 Mg/0.3 Ml Syringe) 30 mg SQ DAILY [facility] Last Admin: 03/02/22 07:52 Dose: 30 mg Furosemide (Furosemide 40 Mg Tab) 40 mg PO DAILY [facility] Last Admin: 03/02/22 07:52 Dose: 40 mg Hydromorphone HCl (Hydromorphone 0.5 Mg/0.5 Ml Syringe) 0.5 mg IVP Q3HR PRN PRN Reason: Moderate Pain Last Admin: 02/27/22 10:52 Dose: 0.5 mg Piperacillin Sod/Tazobactam (Sod 3.375 gm/ Sodium Chloride) 100 mls @ 25 mls/hr IVPB Q12H [facility]; Protocol Last Admin: 03/02/22 13:51 Dose: 25 mls/hr Isosorbide Mononitrate (Isosorbide Mononitrate Er 30 Mg Tab.Er.24h) 30 mg PO DAILY [facility] Last Admin: 03/02/22 07:51 Dose: 30 mg Metoclopramide HCl (Metoclopramide 5 Mg/Ml 2 Ml Vial) 10 mg IVP Q8HR PRN PRN Reason: Vomiting Last Admin: 02/27/22 21:52 Dose: 10 mg Montelukast Sodium (Montelukast 10 Mg Tab) 10 mg PO HS [facility] Last Admin: 03/01/22 20:33 Dose: 10 mg Naloxone HCl (Naloxone 0.4 Mg/Ml 1 Ml Vial) 0.2 mg IV Q2M PRN PRN Reason: Opioid Reversal Pantoprazole Sodium (Pantoprazole 40 Mg/10 Ml Vial) 40 mg IVP DAILY [facility] Last Admin: 03/02/22 07:51 Dose: 40 mg Tamsulosin HCl (Tamsulosin 0.4 Mg Cap.Er.24h) 0.4 mg PO BID [facility] Last Admin: 03/02/22 07:51 Dose: 0.4 mg Past medical history to include: Coronary artery disease, COPD, TIA, GERD, hard of hearing, hypertension, osteoarthritis, end-stage kidney disease on hemodialysis Sunday, abdominal aneurysm, coronary bypass, Social history: Lives with . Smoked a pack a day for 64 years stopped in 2018. 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 Physical examination: VITAL SIGNS: 98.6, 82, 18, 1 22 x 51, 95% room air GENERAL: Sitting up in bed awake, Fistula left upper extremity. Tired EYES: Pupils equal. Conjunctiva pale. HEENT: External appearance of nose and ears normal, oral cavity dry mucous membranes. Decreased hearing NECK: JVD not raised; masses not palpable. HEART: First and second heart sounds are normal; no edema. LUNGS: Respiratory rate normal; clear to auscultation. ABDOMEN: Soft, some distention, abdominal tenderness, no guarding rigidity, liver spleen not palpable, no masses palpable. PSYCH: Answering questions appropriately MUSCULOSKELETAL:No Clubbing/cyanosis;muscles-grossly intact. Evidence of OA INVESTIGATIONS, reviewed in the clinical context: March 01: Procalcitonin 5.5 for February 27: White count 9.7 hemoglobin 10.6 potassium 4.6 Computed tomography scan abdomen and pelvis [February 25]: Dilated gallbladder. CBD 13 mm. Multiple right renal cyst. Abdominal aortic measures 5.6 cm. Thrombus in anterior wall. February 25: White count 11.5 hemoglobin 12.7 platelets 123 potassium 3.5 creatinine 5.3 to WBC 12.4 hemoglobin 12.8 platelets 107 sodium 132 potassium 4.7 BUN 82 creatinine 7.36 Computed tomography scan abdomen and pelvis: Renal cyst. Multiple punctate bilateral nonobstructing bilateral renal calculi. Abdominal aortic aneurysm 5 cm. Assessment and plan: -Acute abdominal pain: Suspected small bowel ischemia with possible perforation earlier: Slow to respond Being followed by -nonsurgical treatment currently. High surgical risk. He discussed with the family. IV Zosyn -Abdominal aortic aneurysm 5.6 cm Vascular consulted. -Acute urinary retention possibly from bladder outflow obstruction Hinds catheter placed by Dr. Macias. To remain in for now. Flomax 0.4 mg twice a day -End-stage kidney disease on hemodialysis Sunday and Sunday Continue dialysis -Anemia of chronic kidney disease Follow H&H -Hypertension with chronic kidney disease Amlodipine 10 mg daily at bedtime, Imdur ER 30 mg daily, -COPD in an ex-smoker Albuterol 2.5 every 4 -Coronary artery disease prior history of coronary bypass Imdur ER 30 mg a day -GERD Protonix -Hard of hearing -Colonic diverticulosis -Primary osteoarthritis Pain medications as needed -DO NOT RESUSCITATE Continue IV Zosyn. Spoke to patient's daughter Izzy - had an informational visit with hospice today. Plan for patient to go home Sunday. Also spoke to Dr. Garcia. We'll switch to oral Augmentin upon discharge. I arranged for hospital bed. At home total time spent today about 45 minutes for 25 years of discussion.
--- NOTE | 2022-03-02 17:30 | P.PN ---
Subjective Progress Note Date: 03/02/22 Principal diagnosis: Ischemic bowel Patient seems to be doing better today. They met with the hospice team today. Patient's pain however is improved. He did have a good bowel movement. He is tolerating diet. He is afebrile. Objective - Vital Signs Vital signs: Vital Signs Temp 98.6 F 03/02/22 14:00 Pulse 82 03/02/22 14:00 Resp 18 03/02/22 14:00 BP 122/51 03/02/22 14:00 Pulse Ox 95 03/02/22 14:00 FiO2 21 02/25/22 16:19 Intake & Output 03/01/22 03/02/22 03/02/22 18:59 06:59 18:59 Intake Total 120 500 Output Total 300 2100 Balance -180 -1600 Weight 65.771 kg Intake: Oral 120 Hemodialysis 500 Output: Urine 300 100 Hemodialysis 2000 Other: Voiding Method Indwelling Catheter Indwelling Catheter Indwelling Catheter # Voids 1 # Bowel Movements 1 - Exam Abdomen: Soft, nondistended, mild left mid abdominal tenderness - Labs CBC & Chem 7: 02/27/22 05:46 02/27/22 05:46 Assessment and Plan (1) Ischemic bowel disease Narrative/Plan: Clinically the patient seems to be improving. Agree with plans for hospice or palliative care. Continue diet as ordered. Possible discharge tomorrow. Current Visit: Yes Status: Acute Code(s): K55.9 - VASCULAR DISORDER OF INTESTINE, UNSPECIFIED SNOMED Code(s): 47657053
[2022-03-02] MEDS: METOCLOPRAMIDE 5 MG/ML 2 ML VIAL IVP PRN (18:15)
[2022-03-02] MEDS: MONTELUKAST 10 MG TAB PO SCH (21:05)
[2022-03-02] MEDS: amLODIPine 10 MG TAB PO SCH (21:05)
[2022-03-02] MEDS: ATORVASTATIN 80 MG TAB PO SCH (21:06)
[2022-03-02] MEDS: DOXAZOSIN 4 MG TAB PO SCH (21:06)
[2022-03-03] MEDS: PIPERACILLIN-TAZOBACTAM 3.375 GM in SODIUM CHLORIDE 0.9% 100 ML IVPB SCH ×2 (00:48→15:11)
[2022-03-03] MEDS: IPRATROPIUM-ALBUTEROL 3 ML NEB INHALATION SCH ×6 (03:50→23:17)
[2022-03-03] MEDS: FUROSEMIDE 40 MG TAB PO SCH (07:11)
[2022-03-03] MEDS: busPIRone HCl 5 MG TAB PO SCH ×2 (07:11→21:03)
[2022-03-03] MEDS: CYANOCOBALAMIN 500 MCG TAB PO SCH (07:11)
[2022-03-03] MEDS: CALCIUM ACETATE 667 MG TAB PO SCH ×3 (07:11→17:22)
[2022-03-03] MEDS: TAMSULOSIN 0.4 MG CAP.ER.24H PO SCH ×2 (07:12→21:03)
[2022-03-03] MEDS: ENOXAPARIN 30 MG/0.3 ML SYRINGE SQ SCH (07:12)
[2022-03-03] MEDS: ISOSORBIDE MONONITRATE ER 30 MG TAB.ER.24H PO SCH (07:12)
[2022-03-03] MEDS: PANTOPRAZOLE 40 MG/10 ML VIAL IVP SCH (09:03)
--- NOTE | 2022-03-03 11:25 | P.PN ---
Subjective Progress Note Date: 03/03/22 Principal diagnosis: Ischemic bowel The patient is a 81-year-old male with a past medical history significant for coronary artery disease with bypass, COPD, GERD, hard of hearing, hypertension, osteoarthritis, abdominal aneurysm,. ESRD with Dialysis on Sunday and Sunday. Patient presented to the on 02/23/22 with complaints of bilateral lower quadrant abdominal pain for the last 6 days. The patient stated that the pain is the worse in the morning when he wakes up. Patient notices worsening with eating and drinking. He admitted to nausea and diarrhea. Denied vomiting, dysuria, hematuria, hematochezia, melena, fever, chills, chest pain, shortness of breath, cough, URI-like symptoms, palpitations. He was also found to have distended bladder. Urologist, Dr. Macias, placed a catheter. General surgery was consulted. Dr. Bey reviewed the abdominal CT and felt there was free air. Patient made nothing by mouth. IV fluids. IV Zosyn started. Vascular consulted for AAA. A repeat abdominal CT was done and seen by Dr. Bey. His impression is of ischemic segment of the small bowel pneumatosis in this location is the likely etiology for the patient's the portal venous gas. Being followed by for nonsurgical treatment currently. High surgical risk. Surgery discussed with the family options of palliative care. They are not interested in hospice. They are willing to have palliative care be a part of his care. 03/02 Met with the patient and his , Shannan. Palliative care philosophies and services explained. Education provided regarding ischemic bowel and other co- morbidities. Both the patient and his agree that he is too high risk for surgery. They understand his poor prognosis. The patient would like to return home upon discharge. They are undecided on palliative care vs. hospice. Education regarding hospice provided. They have an informational meeting with hospice today at 3:00pm. They are not alisha if the patient is ready to stop dialysis or not. They would like to talk with hospice, gather all the informa tion, and then take time to discuss options with the family. Spoke to patient's daughter, Izzy, via telephone. Expressed concern that patient and might not be understanding the difference between palliative care and hospice, as well as the benefits each service has to offer. She stated she is a RN and is on her way in for the hospice meeting and will call me tomorrow. Objective - Vital Signs Vital signs: Vital Signs Temp 98.4 F 03/03/22 07:23 Pulse 72 03/03/22 09:01 Resp 18 03/03/22 09:01 BP 144/67 03/03/22 07:23 Pulse Ox 98 03/03/22 08:48 FiO2 21 02/25/22 16:19 Intake & Output 03/02/22 03/03/22 03/03/22 18:59 06:59 18:59 Intake Total 100 Output Total 300 300 Balance -300 -200 Intake: Intake, IV Titration 100 Amount Piperacillin-Tazobactam 3 100 .375 gm In Sodium Chloride 0.9% 100 ml @ 25 mls/hr IVPB Q12H [facility] Rx# :[id number] Output: Urine 300 300 Other: Voiding Method Indwelling Catheter Indwelling Catheter Indwelling Catheter # Voids 1 # Bowel Movements 1 1 - Exam General: Chronically ill appearing, No acute distress. HEENT: Head is atraumatic, normocephalic Sclerae are clear. Pupils equal, round and reactive to light bilaterally. CV: Heart regular in rate and rhythm positive S1 and S2. No clicks, rubs or murmurs. Peripheral pulses equal. 2/4 Lungs: Clear to auscultation bilaterally. No wheezes rales or rhonchi. Respirations even and nonlabored. 2L NC Abdomen/GI: Soft, + distention. + abdominal tenderness. : Lucas catheter in place draining clear yellow urine Musculoskeletal/ Extremities: No cyanosis or clubbing. Vascular: Radial pulses equal. 2/4. No peripheral edema Skin: Warm and dry. No rash. Neurologic: Awake, alert and oriented times 3. CN II-XII grossly intact Psychiatric: Appropriate mood, flat affect. - Labs CBC & Chem 7: 02/27/22 05:46 02/27/22 05:46 Assessment and Plan Assessment: Symptoms * Pain - 2/10, pain well controlled. Continue Tylenol,and Dilaudid * Fatigue - + generalized weakness and fatigue, Continue Vit B-12 * SOB - Yes, mild at rest, but worsens with exertion. Continue Duoneb, Lasix, and Singulair * Insomnia - No * N/V - + nausea after eating solid food yesterday, Continue Reglan * Anxiety - None currently, continue Buspar * Depression - No * Confusion - + confusion at times per * Agitation - No * Hallucinations - No * Appetite/weight loss - +loss of appetite and recent unintentional weight loss (18 lbs in 4 months). encourage oral intake, care tech following. Currently on Dysphagia level 2 ground diet. Continue Ensure BIDWM * Dysphagia - Denies * Constipation - Yes, continue Reglan * Incontinence - Yes, briefs/has lucas * Itch - No Plan: Summary/Goals - Patient more awake today and sitting up in the chair. His dialysis nurse is present and setting up for his treatment today. The patient stated he ate solid food for the first time and felt as if it were going to come right back up. He was able to eat a little breakfast today and feels somewhat better. He complains of only mild abdominal comfort and denies any nausea at this time. He and his family met with hospice for an informational meeting yesterday afternoon. He is unsure of the outcome and suggested calling his . He thinks he may be discharged today and going home. Spoke with Camila from [facility] via telephone. She stated there were approximately 9 family members present for the hospice meeting yesterday, including the and his daughter Izzy who is a nurse. At the end of the meeting, the family was undecided on hospice or palliative care. Camila was concerned that the was not understanding the patient's poor prognosis. Spoke with the patient's , Shannan, this morning via telephone. She stated the family has decided on taking the patient home with home care, a hospital bed, and palliative care. She was re-educated on the patient's prognosis with ischemic bowel. She was also very confused regarding equipment and services provided by palliative care and hospice. She thought the hospital bed being delivered today was provided by palliative care. Education was provided again regarding the difference between palliative care, hospice, and homecare services. It was reiterated that the patient may be more hospice appropriate. She was overwhelmed and handed the phone over to her daughter, Sue. The differences in services was again explained. She stated that they understand and would prefer palliative care and homecare at this time. Written information regarding palliative care, hospice, and homecare left at the bedside for family. Recommendations - Discharge home with homecare and outpatient palliative care per patient/familie's wishes Advanced Directives - On file Code Status - DNR Thank you for this consult Laurel Griffith [facility] Palliative Care [facility] [id number] Email: [email or web address] Time with Patient: Greater than 30
--- NOTE | 2022-03-03 14:01 | P.PN ---
Progress Note - Text Progress Note Date: 03/03/22 Chief Complaint: Lower abdominal pain History of presenting complaint: This is a pleasant 81-year-old patient, follows with Dr. Junior Jalloh. Chronic stable medical conditions include coronary artery disease with bypass, COPD, GERD, hard of hearing, hypertension, osteoarthritis, abdominal aneurysm,. Dialysis on Sunday and Sunday. Follows with Dr. Chavis. Patient presents with couple of days of lower abdominal pain. Has a bowel movement every 4 days. Also having nausea. Having increasing lower abdominal pain. No fever no chills. Some congested cough. Found to have distended bladder. About [address] Macias did place a catheter. No fever no chills. February 25: Patient again had abdominal pain today. Dr. Egan general surgery saw the patient earlier today. He reviewed the uterus CAT scan he felt a slight free air. Patient has a rather complicated abdominal surgery history. Repeat computed tomography scan was ordered. Patient's had been having intermittent diarrhea told. Daughter and at the bedside. Patient is feeling tired. Made nothing by mouth. IV fluids. IV Zosyn started. Vascular consulted for AAA February 26: Patient's abdomen is distended. Has been nothing by mouth. Tender. No vomiting. Several family members including present. Repeat computed tomography scan was seen by Dr. Garcia-his impression is of ischemic segment of the small bowel pneumatosis in the portal venous gas. They decided about nonoperative approach. IV antibiotic to continue. Clear liquid diet was ordered.. Patient is a DO NOT RESUSCITATE. February 27: Diet advanced by surgery to full liquid. Abdominal pain still presen t. But decreased. No nausea vomiting. No fever. IV antibiotics. February 28: Some abdominal pain. Eating some, full liquids. No nausea vomiting. Had some stool with little blood March 01: Eating very small amounts. Abdominal pain still present. Getting hemodialysis today. Tired. Spoke to the . She understands prognosis guarded. Will watch for another day or 2. Agreeable to take the patient home with hospice if appropriate. March 02: Eating about 50%. No bowel movement. Abdominal pain tenderness present. No nausea vomiting. Discussed with patient. Family's meeting for informational visit with hospice today. Discussed with caser up. March 03: Eating fair. Had a BM yesterday. Abdominal pain persist. Discussed with caser up. Arranging for home bed. And mattress. But here for discharge tomorrow. Tired. Active Medications Acetaminophen (Acetaminophen Tab 325 Mg Tab) 650 mg PO Q6HR PRN PRN Reason: Mild Pain or Fever > 100.5 Last Admin: 02/28/22 10:51 Dose: 650 mg Albuterol/Ipratropium (Ipratropium-Albuterol 3 Ml Neb) 3 ml INHALATION RT-Q4H [facility] Last Admin: 03/03/22 11:51 Dose: 3 ml Amlodipine Besylate (Amlodipine 10 Mg Tab) 10 mg PO HS [facility] Last Admin: 03/02/22 21:05 Dose: 10 mg Atorvastatin Calcium (Atorvastatin 80 Mg Tab) 80 mg PO HS [facility] Last Admin: 03/02/22 21:06 Dose: 80 mg Buspirone HCl (Buspirone Hcl 5 Mg Tab) 7.5 mg PO BID [facility] Last Admin: 03/03/22 07:11 Dose: 7.5 mg Calcium Acetate (Calcium Acetate 667 Mg Tab) 667 mg PO TID-W/MEALS [facility] Last Admin: 03/03/22 12:46 Dose: 667 mg Cyanocobalamin (Cyanocobalamin 500 Mcg Tab) 1,000 mcg PO DAILY [facility] Last Admin: 03/03/22 07:11 Dose: 1,000 mcg Doxazosin Mesylate (Doxazosin 4 Mg Tab) 8 mg PO HS [facility] Last Admin: 03/02/22 21:06 Dose: 8 mg Enoxaparin Sodium (Enoxaparin 30 Mg/0.3 Ml Syringe) 30 mg SQ DAILY [facility] Last Admin: 03/03/22 07:12 Dose: 30 mg Furosemide (Furosemide 40 Mg Tab) 40 mg PO DAILY [facility] Last Admin: 03/03/22 07:11 Dose: 40 mg Hydromorphone HCl (Hydromorphone 0.5 Mg/0.5 Ml Syringe) 0.5 mg IVP Q3HR PRN PRN Reason: Moderate Pain Last Admin: 02/27/22 10:52 Dose: 0.5 mg Piperacillin Sod/Tazobactam (Sod 3.375 gm/ Sodium Chloride) 100 mls @ 25 mls/hr IVPB Q12H [facility]; Protocol Last Admin: 03/03/22 00:48 Dose: 25 mls/hr Isosorbide Mononitrate (Isosorbide Mononitrate Er 30 Mg Tab.Er.24h) 30 mg PO DA BAILEY [facility] Last Admin: 03/03/22 07:12 Dose: 30 mg Metoclopramide HCl (Metoclopramide 5 Mg/Ml 2 Ml Vial) 10 mg IVP Q8HR PRN PRN Reason: Vomiting Last Admin: 03/02/22 18:15 Dose: 10 mg Montelukast Sodium (Montelukast 10 Mg Tab) 10 mg PO HS [facility] Last Admin: 03/02/22 21:05 Dose: 10 mg Naloxone HCl (Naloxone 0.4 Mg/Ml 1 Ml Vial) 0.2 mg IV Q2M PRN PRN Reason: Opioid Reversal Pantoprazole Sodium (Pantoprazole 40 Mg/10 Ml Vial) 40 mg IVP DAILY [facility] Last Admin: 03/03/22 09:03 Dose: 40 mg Tamsulosin HCl (Tamsulosin 0.4 Mg Cap.Er.24h) 0.4 mg PO BID [facility] Last Admin: 03/03/22 07:12 Dose: 0.4 mg Past medical history to include: Coronary artery disease, COPD, TIA, GERD, hard of hearing, hypertension, osteoarthritis, end-stage kidney disease on hemodialysis Sunday Fr heather, abdominal aneurysm, coronary bypass, Social history: Lives with . Smoked a pack a day for 64 years stopped in 2019. 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 Physical examination: VITAL SIGNS: 98.4, 94, 18, 140/67, 94% on 2 L GENERAL: Sitting up in bed awake, Fistula left upper extremity. Tired EYES: Pupils equal. Conjunctiva pale. HEENT: External appearance of nose and ears normal, oral cavity dry mucous membranes. Decreased hearing NECK: JVD not raised; masses not palpable. HEART: First and second heart sounds are normal; no edema. LUNGS: Respiratory rate normal; clear to auscultation. ABDOMEN: Soft, some distention, abdominal tenderness, no guarding rigidity, liver spleen not palpable, no masses palpable. PSYCH: Answering questions appropriately MUSCULOSKELETAL:No Clubbing/cyanosis;muscles-grossly intact. Evidence of OA INVESTIGATIONS, reviewed in the clinical context: March 01: Procalcitonin 5.5 for February 27: White count 9.7 hemoglobin 10.6 potassium 4.6 Computed tomography scan abdomen and pelvis [February 25]: Dilated gallbladder. CBD 13 mm. Multiple right renal cyst. Abdominal aortic measures 5.6 cm. Thrombus in anterior wall. February 25: White count 11.5 hemoglobin 12.7 platelets 123 potassium 3.5 creatinine 5.3 to WBC 12.4 hemoglobin 12.8 platelets 107 sodium 132 potassium 4.7 BUN 82 creatinine 7.36 Computed tomography scan abdomen and pelvis: Renal cyst. Multiple punctate bilateral nonobstructing bilateral renal calculi. Abdominal aortic aneurysm 5 cm. Assessment and plan: -Acute abdominal pain: Suspected small bowel ischemia with possible perforation earlier: Slow to respond Being followed by -nonsurgical treatment currently. High surgical risk. He discussed with the family. IV Zosyn -Abdominal aortic aneurysm 5.6 cm Vascular consulted. -Acute urinary retention possibly from bladder outflow obstruction Hinds catheter placed by Dr. Macias. To remain in for now. Flomax 0.4 mg twice a day -End-stage kidney disease on hemodialysis Sunday and Sunday Continue dialysis -Anemia of chronic kidney disease Follow H&H -Hypertension with chronic kidney disease Amlodipine 10 mg daily at bedtime, Imdur ER 30 mg daily, -COPD in an ex-smoker Albuterol 2.5 every 4 -Coronary artery disease prior history of coronary bypass Imdur ER 30 mg a day -GERD Protonix -Hard of hearing -Colonic diverticulosis -Primary osteoarthritis Pain medications as needed -DO NOT RESUSCITATE Continue IV Zosyn. Spoke with the patient. He understands guarded prognosis. Plantar DC home tomorrow with palliative care. Hospital bed ordered to keep the head of the bed elevated for 30 decreased. Discussed with nurse. Total time spent today about 40 minutes with over 25 minutes of discussion.
--- NOTE | 2022-03-03 14:08 | P.PN ---
Subjective Progress Note Date: 03/03/22 Principal diagnosis: Ischemic bowel Patient doing about the same today. Does admit to some discomfort. He is undergoing dialysis. Says he did eat some of his breakfast and lunch. No bowel movement today. He is afebrile. Objective - Vital Signs Vital signs: Vital Signs Temp 98.4 F 03/03/22 07:23 Pulse 74 03/03/22 12:03 Resp 18 03/03/22 12:03 BP 144/67 03/03/22 07:23 Pulse Ox 98 03/03/22 08:48 FiO2 21 02/25/22 16:19 Intake & Output 03/02/22 03/03/22 03/03/22 18:59 06:59 18:59 Intake Total 100 Output Total 300 300 Balance -300 -200 Weight 65.771 kg Intake: Intake, IV Titration 100 Amount Piperacillin-Tazobactam 3 100 .375 gm In Sodium Chloride 0.9% 100 ml @ 25 mls/hr IVPB Q12H [facility] Rx# :[id number] Output: Urine 300 300 Other: Voiding Method Indwelling Catheter Indwelling Catheter Indwelling Catheter # Voids 1 # Bowel Movements 1 1 - Exam Abdomen: Soft, mild left-sided tenderness, no rebound or guarding - Labs CBC & Chem 7: 02/27/22 05:46 02/27/22 05:46 Assessment and Plan (1) Ischemic bowel disease Narrative/Plan: Patient is doing about the same today. Plans for home with hospice tomorrow. Continue diet as tolerated. I will be out of town for the next week. We'll sign off at this point. Please call if needed. Current Visit: Yes Status: Acute Code(s): K55.9 - VASCULAR DISORDER OF INTESTINE, UNSPECIFIED SNOMED Code(s): 09291600
--- NOTE | 2022-03-03 16:20 | P.PN ---
Subjective Progress Note Date: 03/03/22 Follow-up for ESRD. Objective - Vital Signs Vital signs: Vital Signs Temp 98.5 F 03/03/22 14:00 Pulse 77 03/03/22 16:05 Resp 18 03/03/22 16:05 BP 125/69 03/03/22 14:00 Pulse Ox 93 L 03/03/22 14:00 FiO2 21 02/25/22 16:19 Intake & Output 03/02/22 03/03/22 03/03/22 18:59 06:59 18:59 Intake Total 100 Output Total 300 300 Balance -300 -200 Weight 65.771 kg Intake: Intake, IV Titration 100 Amount Piperacillin-Tazobactam 3 100 .375 gm In Sodium Chloride 0.9% 100 ml @ 25 mls/hr IVPB Q12H [facility] Rx# :[id number] Output: Urine 300 300 Other: Voiding Method Indwelling Catheter Indwelling Catheter Indwelling Catheter # Voids 1 # Bowel Movements 1 1 - Exam No acute distress S1-S2 heard Lungs clear No edema Left upper arm AVG - Labs CBC & Chem 7: 02/27/22 05:46 02/27/22 05:46 Assessment and Plan Assessment: #1 ESRD MWF #2 pneumoperitoneum #3 anemia with renal disease #4 metabolic bone disease Plan: #1 hemodialysis MWF schedule #2 ESRD medications #3 conservative management per general surgery for pneumoperitoneum
[2022-03-03] MEDS: amLODIPine 10 MG TAB PO SCH (21:03)
[2022-03-03] MEDS: DOXAZOSIN 4 MG TAB PO SCH (21:03)
[2022-03-03] MEDS: ATORVASTATIN 80 MG TAB PO SCH (21:03)
[2022-03-03] MEDS: MONTELUKAST 10 MG TAB PO SCH (21:03)
[2022-03-04] MEDS: PIPERACILLIN-TAZOBACTAM 3.375 GM in SODIUM CHLORIDE 0.9% 100 ML IVPB SCH ×2 (01:57→11:59)
[2022-03-04] MEDS: IPRATROPIUM-ALBUTEROL 3 ML NEB INHALATION SCH ×3 (03:37→11:07)
[2022-03-04] MEDS: PANTOPRAZOLE 40 MG/10 ML VIAL IVP SCH (08:16)
[2022-03-04] MEDS: ISOSORBIDE MONONITRATE ER 30 MG TAB.ER.24H PO SCH (08:16)
[2022-03-04] MEDS: ENOXAPARIN 30 MG/0.3 ML SYRINGE SQ SCH (08:16)
[2022-03-04] MEDS: CALCIUM ACETATE 667 MG TAB PO SCH ×2 (08:16→11:58)
[2022-03-04] MEDS: busPIRone HCl 5 MG TAB PO SCH (08:16)
[2022-03-04] MEDS: CYANOCOBALAMIN 500 MCG TAB PO SCH (08:16)
[2022-03-04] MEDS: FUROSEMIDE 40 MG TAB PO SCH (08:16)
[2022-03-04] MEDS: TAMSULOSIN 0.4 MG CAP.ER.24H PO SCH (08:16)
[2022-03-04 08:33] VITALS: BP 144/62; PULSE 80; RESP 17; TEMP 98.3
--- NOTE | 2022-03-04 13:46 | P.DS ---
Providers Date of admission: 02/27/22 08:00 Expected date of discharge: 03/04/22 Attending physician: Familia Sanders Consults: 02/24/22 00:25 Consult Physician Stat Consulting Provider: Kristopher Bang Consult Reason/Comments: urinary retention Do you want consulting provider notified?: Already Contacted 02/24/22 08:20 Consult Physician Stat Consulting Provider: Octavio Rodriguez Consult Reason/Comments: hemodialysis patient Do you want consulting provider notified?: Yes 02/25/22 10:27 Consult Physician Urgent Consulting Provider: Grey Bey Consult Reason/Comments: abdominal pain Do you want consulting provider notified?: Yes 03/01/22 12:52 Consult to Palliative Care Routine Consulting Provider: Laurel Griffith Consult Reason/Comments: Palliative care assessment for ischemic bowel Do you want consulting provider notified?: Yes Primary care physician: [facility] Course: Chief Complaint: Lower abdominal pain History of presenting complaint: This is a pleasant 81-year-old patient, follows with Dr. Junior Jalloh. Chronic stable medical conditions include coronary artery disease with bypass, COPD, GERD, hard of hearing, hypertension, osteoarthritis, abdominal aneurysm,. Dialysis on Sunday and Sunday. Follows with Dr. Chavis. Patient presents with couple of days of lower abdominal pain. Has a bowel mo vement every 4 days. Also having nausea. Having increasing lower abdominal pain. No fever no chills. Some congested cough. Found to have distended bladder. About [address] Macias did place a catheter. No fever no chills. February 25: Patient again had abdominal pain today. Dr. Egan general surgery saw the patient earlier today. He reviewed the uterus CAT scan he felt a slight free air. Patient has a rather complicated abdominal surgery history. Repeat computed tomography scan was ordered. Patient's had been having intermittent diarrhea told. Daughter and at the bedside. Patient is feeling tired. Made nothing by mouth. IV fluids. IV Zosyn started. Vascular consulted for AAA February 26: Patient's abdomen is distended. Has been nothing by mouth. Tender. No vomiting. Several family members including present. Repeat computed tomography scan was seen by Dr. Garcia-his impression is of ischemic segment of the small bowel pneumatosis in the portal venous gas. They decided about nonoperative approach. IV antibiotic to continue. Clear liquid diet was ordered.. Patient is a DO NOT RESUSCITATE. February 27: Diet advanced by surgery to full liquid. Abdominal pain still present. But decreased. No nausea vomiting. No fever. IV antibiotics. February 28: Some abdominal pain. Eating some, full liquids. No nausea vomiting. Had some stool with little blood March 01: Eating very small amounts. Abdominal pain still present. Getting hemodialysis today. Tired. Spoke to the . She understands prognosis guarded. Will watch for another day or 2. Agreeable to take the patient home with hospice if appropriate. March 02: Eating about 50%. No bowel movement. Abdominal pain tenderness present. No nausea vomiting. Discussed with patient. Family's meeting for informational visit with hospice today. Discussed with case manager specialist. March 03: Eating fair. Had a BM yesterday. Abdominal pain persist. Discussed with case manager specialist. Arranging for home bed. And mattress. But here for discharge tomorrow. Tired. March 04: Tolerating diet. Abdominal pain present. Dr. Magana at the bedside. Discussed with the patient and the daughter. Questions answered. prognosis guarded. Hospital bed delivered. Patient and family understand including the . Patient goes downhill then hospice would be appropriate. Discussion and discharge planning more than 35 minutes Past medical history to include: Coronary artery disease, COPD, TIA, GERD, hard of hearing, hypertension, osteoarthritis, end-stage kidney disease on hemodialysis Sunday, abdominal aneurysm, coronary bypass, Social history: Lives with . Smoked a pack a day for 64 years stopped in 2019. 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 Physical examination: VITAL SIGNS: 98.3, 80, 17, 140/62, 93% on 2 L GENERAL: Sitting up in chair awake, Fistula left upper extremity. Tired EYES: Pupils equal. Conjunctiva pale. HEENT: External appearance of nose and ears normal, oral cavity dry mucous membranes. Decreased hearing NECK: JVD not raised; masses not palpable. HEART: First and second heart sounds are normal; no edema. LUNGS: Respiratory rate normal; clear to auscultation. ABDOMEN: Soft, some distention, some abdominal tenderness, no guarding rigidity, liver spleen not palpable, no masses palpable. PSYCH: Answering questions appropriately MUSCULOSKELETAL:No Clubbing/cyanosis;muscles-grossly intact. Evidence of OA INVESTIGATIONS, reviewed in the clinical context: March 01: Procalcitonin 5.5 for February 27: White count 9.7 hemoglobin 10.6 potassium 4.6 Computed tomography scan abdomen and pelvis [February 25]: Dilated gallbladder. CBD 13 mm. Multiple right renal cyst. Abdominal aortic measures 5.6 cm. Thrombus in anterior wall. February 25: White count 11.5 hemoglobin 12.7 platelets 123 potassium 3.5 creatinine 5.3 to WBC 12.4 hemoglobin 12.8 platelets 107 sodium 132 potassium 4.7 BUN 82 creatinine 7.36 Computed tomography scan abdomen and pelvis: Renal cyst. Multiple punctate bilateral nonobstructing bilateral renal calculi. Abdominal aortic aneurysm 5 cm. Assessment and plan: -Acute abdominal pain: Suspected small bowel ischemia with possible perforation earlier: Slow to respond Being followed by -nonsurgical treatment currently. High surgical risk. He discussed with the family. IV Zosyn. Discharge on by mouth Augmentin -Abdominal aortic aneurysm 5.6 cm Vascular consulted. Family did not want any further intervention. -Acute urinary retention possibly from bladder outflow obstruction Hinds catheter placed by Dr. Macias. To remain in for now. Flomax 0.4 mg twice a day -End-stage kidney disease on hemodialysis Sunday and Sunday Continue dialysis -Anemia of chronic kidney disease Follow H&H -Hypertension with chronic kidney disease Amlodipine 10 mg daily at bedtime, Imdur ER 30 mg daily, -COPD in an ex-smoker Albuterol 2.5 every 4 -Coronary artery disease prior history of coronary bypass Imdur ER 30 mg a day -GERD Protonix -Hard of hearing -Colonic diverticulosis -Primary osteoarthritis Pain medications as needed -DO NOT RESUSCITATE Disposition: Home Plan - Discharge Summary Discharge Rx Participant: No New Discharge Prescriptions: New Doxazosin [Cardura] 8 mg PO HS #30 tab amLODIPine [Norvasc] 10 mg PO HS #30 tab Calcium Acetate [PhosLo] 667 mg PO TID-W/MEALS #60 tab Ondansetron [Zofran] 4 mg PO Q8HR PRN #30 tab PRN Reason: Nausea Amoxic-Pot Clav 875-125Mg [Augmentin 875-125] 1 tab PO Q12HR #20 tab Isosorbide Mononitrate ER [Imdur] 30 mg PO DAILY #30 tab Atorvastatin [Lipitor] 80 mg PO HS #30 tab Acetaminophen Tab [Tylenol] 650 mg PO Q6HR PRN tab PRN Reason: Mild Pain Or Fever > 100.5 Cyanocobalamin [Vitamin B-12] 500 mcg PO DAILY #30 tab Continue Zafirlukast 20 mg PO BID busPIRone HCL [Buspar] 7.5 mg PO BID Albuterol Nebulized [Ventolin Nebulized] 2.5 mg INHALATION RT-Q4H PRN PRN Reason: Shortness Of Breath Furosemide [Lasix] 40 mg PO DAILY Ipratropium Nebulized [Atrovent Nebulized 0.2 MG/ML] 0.5 mg INHALATION RT-Q4H PRN PRN Reason: Shortness Of Breath Pantoprazole [Protonix] 40 mg PO BID Changed Tamsulosin HCl [Flomax] 0.4 mg PO BID #60 cap Discontinued Sucralfate [Carafate] 1 gm PO QID Discharge Medication List Zafirlukast 20 mg PO BID 09/30/14 [History] busPIRone HCL [Buspar] 7.5 mg PO BID 04/26/20 [History] Albuterol Nebulized [Ventolin Nebulized] 2.5 mg INHALATION RT-Q4H PRN 06/27/20 [History] Furosemide [Lasix] 40 mg PO DAILY 10/24/21 [History] Pantoprazole [Protonix] 40 mg PO BID 10/24/21 [History] Ipratropium Nebulized [Atrovent Nebulized 0.2 MG/ML] 0.5 mg INHALATION RT-Q4H PRN 02/23/22 [History] Acetaminophen Tab [Tylenol] 650 mg PO Q6HR PRN tab 03/04/22 [Rx] Amoxic-Pot Clav 875-125Mg [Augmentin 875-125] 1 tab PO Q12HR #20 tab 03/04/22 [Rx] Atorvastatin [Lipitor] 80 mg PO HS #30 tab 03/04/22 [Rx] Calcium Acetate [PhosLo] 667 mg PO TID-W/MEALS #60 tab 03/04/22 [Rx] Cyanocobalamin [Vitamin B-12] 500 mcg PO DAILY #30 tab 03/04/22 [Rx] Doxazosin [Cardura] 8 mg PO HS #30 tab 03/04/22 [Rx] Isosorbide Mononitrate ER [Imdur] 30 mg PO DAILY #30 tab 03/04/22 [Rx] Ondansetron [Zofran] 4 mg PO Q8HR PRN #30 tab 03/04/22 [Rx] Tamsulosin HCl [Flomax] 0.4 mg PO BID #60 cap 03/04/22 [Rx] amLODIPine [Norvasc] 10 mg PO HS #30 tab 03/04/22 [Rx] Follow up Appointment(s)/Referral(s): Grey Bey MD [Medical Doctor] - 1 Week [facility] [NON-STAFF] - 1-2 Days Francesco Andrews DO [STAFF PHYSICIAN] - As Needed [facility], [NON-STAFF] - ([facility] palliative care will call you to arrange a visit) Junior Brown DO [Primary Care Provider] - 1-2 days Kristopher Bang MD [STAFF PHYSICIAN] - 2 Weeks Patient Instructions/Handouts: *Surgery [facility] - Hinds Catheter Instructions, Palliative Care (GEN), Urinary Leg Bag (GEN) Activity/Diet/Wound Care/Special Instructions: pureed diet Discharge Disposition: HOME SELF-CARE
--- NOTE | 2022-03-04 14:14 | P.PN ---
Subjective Progress Note Date: 03/04/22 Follow-up for ESRD. Had dialysis yesterday, tolerated well. Objective - Vital Signs Vital signs: Vital Signs Temp 98.3 F 03/04/22 08:00 Pulse 80 03/04/22 11:16 Resp 17 03/04/22 08:00 BP 144/62 03/04/22 08:00 Pulse Ox 93 L 03/04/22 08:00 FiO2 21 02/25/22 16:19 Intake & Output 03/03/22 03/04/22 03/04/22 18:59 06:59 18:59 Intake Total 400 100 Output Total 1800 100 Balance -1400 0 Weight 65.771 kg Intake: Intake, IV Titration 100 Amount Piperacillin-Tazobactam 3 100 .375 gm In Sodium Chloride 0.9% 100 ml @ 25 mls/hr IVPB Q12H [facility] Rx# :[id number] Hemodialysis 400 Output: Urine 100 Uretheral (Hinds) 100 Hemodialysis 1800 Other: Voiding Method Indwelling Catheter Indwelling Catheter Indwelling Catheter # Voids 300 # Bowel Movements 2 - Exam No acute distress S1-S2 heard Lungs clear No edema Left upper arm AVG - Labs CBC & Chem 7: 02/27/22 05:46 02/27/22 05:46 Assessment and Plan Assessment: #1 ESRD MWF #2 pneumoperitoneum #3 anemia with renal disease #4 metabolic bone disease Plan: #1 hemodialysis MWF schedule #2 ESRD medications #3 conservative management per general surgery for pneumoperitoneum #4 stable from nephrology for discharge to be followed up in outpatient dialysis clinic
== END 2022-03-04 13:37 | disposition home or self-care (01) | DRG 393 ==
LOC: EC 13:08 → 4SSUR 18:28 → OBSVTOIN 02-27 08:00
PROVIDERS: ADMIT Hospitalist; ATTEND Hospitalist
PROC: 5A1D70Z Performance of Urinary Filtration, Intermittent, Less than 6 Hours Per Day (ICD-10-PCS; principal; 2022-02-24)
PROC: 0T7C8ZZ Dilation of Bladder Neck, Via Natural or Artificial Opening Endoscopic (ICD-10-PCS; 2022-02-24)
DX: K55.019 Acute (reversible) ischemia of small intestine, extent unspecified (principal); N18.6 End stage renal disease; G45.9 Transient cerebral ischemic attack, unspecified; I12.0 Hypertensive chronic kidney disease with stage 5 chronic kidney disease or end stage renal disease; I42.9 Cardiomyopathy, unspecified; Z66 Do not resuscitate; J43.9 Emphysema, unspecified; Z51.5 Encounter for palliative care; I25.10 Atherosclerotic heart disease of native coronary artery without angina pectoris; I71.4 Abdominal aortic aneurysm, without rupture; I73.9 Peripheral vascular disease, unspecified; D63.1 Anemia in chronic kidney disease; M89.9 Disorder of bone, unspecified; N32.0 Bladder-neck obstruction; N35.919 Unspecified urethral stricture, male, unspecified site; K57.30 Diverticulosis of large intestine without perforation or abscess without bleeding; R33.8 Other retention of urine; E87.70 Fluid overload, unspecified; H91.90 Unspecified hearing loss, unspecified ear; I25.2 Old myocardial infarction; I48.91 Unspecified atrial fibrillation; G89.29 Other chronic pain; M54.2 Cervicalgia; Z87.81 Personal history of (healed) traumatic fracture; K21.9 Gastro-esophageal reflux disease without esophagitis; M89.8X9 Other specified disorders of bone, unspecified site; R32 Unspecified urinary incontinence; Z79.899 Other long term (current) drug therapy; Z82.49 Family history of ischemic heart disease and other diseases of the circulatory system; Z86.73 Personal history of transient ischemic attack (TIA), and cerebral infarction without residual deficits; Z87.891 Personal history of nicotine dependence; Z90.79 Acquired absence of other genital organ(s); Z95.1 Presence of aortocoronary bypass graft; Z99.2 Dependence on renal dialysis; Z88.5 Allergy status to narcotic agent; Z88.8 Allergy status to other drugs, medicaments and biological substances; Z87.19 Personal history of other diseases of the digestive system; Z87.01 Personal history of pneumonia (recurrent)
CPT/HCPCS: 36415; 51702; 74018; 74176; 74177; 76700; 80048; 80053; 81001; 82150; 83605; 83690; 84145; 85025; 90935; 94640; 94760; 96361; 96372; 96374; 96375; 99285

== ENCOUNTER 2022-03-24 11:16 | Inpatient (IN) | payer MEDICARE ==
[2022-03-24] MEDS ORDERED: cefTRIAXone IN SWFI 1,000 MG/10 ML SYRINGE IVP STA (11:52)
[2022-03-24] MEDS ORDERED: ONDANSETRON 4 MG/2 ML VIAL IVP STA (12:09)
--- NOTE | 2022-03-24 12:19 | ED ---
General Adult HPI - General Chief complaint: Recheck/Abnormal Lab/Rx Stated complaint: abn labs Time Seen by Provider: 03/24/22 11:25 Source: patient, RN notes reviewed, old records reviewed Mode of arrival: ambulatory Limitations: no limitations - History of Present Illness Initial comments: This is an 81-year-old male with past medical history significant for renal dialysis, stroke, ischemic bowel or recently. Patient is palliative care. Patient was at home and spiked a fever last evening and today continue to feel weak and have a little little lower abdominal pain patient also was nauseated. Patient's blood pressure was also low. Patient does not want any pressors just does not want any aggressive treatment he just would like antibiotics and some fluid at this stage of his care. Patient denies any chest pain palpitations difficulty breathing or shortness of breath. Patient denies any headache patient denies any numbness or focal weakness. - Related Data Home Medications Medication Instructions Recorded Confirmed Zafirlukast 20 mg PO BID 09/30/14 02/23/22 busPIRone HCL [Buspar] 7.5 mg PO BID 04/26/20 02/23/22 Albuterol Nebulized [Ventolin 2.5 mg INHALATION RT-Q4H PRN 06/27/20 02/23/22 Nebulized] Furosemide [Lasix] 40 mg PO DAILY 10/24/21 02/23/22 Pantoprazole [Protonix] 40 mg PO BID 10/24/21 02/23/22 Ipratropium Nebulized [Atrovent 0.5 mg INHALATION RT-Q4H PRN 02/23/22 02/23/22 Nebulized 0.2 MG/ML] Previous Rx's Medication Instructions Recorded Acetaminophen Tab [Tylenol] 650 mg PO Q6HR PRN tab 03/04/22 Amoxic-Pot Clav 875-125Mg 1 tab PO Q12HR #20 tab 03/04/22 [Augmentin 875-125] Atorvastatin [Lipitor] 80 mg PO HS #30 tab 03/04/22 Calcium Acetate [PhosLo] 667 mg PO TID-W/MEALS #60 tab 03/04/22 Cyanocobalamin [Vitamin B-12] 500 mcg PO DAILY #30 tab 03/04/22 Doxazosin [Cardura] 8 mg PO HS #30 tab 03/04/22 Isosorbide Mononitrate ER [Imdur] 30 mg PO DAILY #30 tab 03/04/22 Ondansetron [Zofran] 4 mg PO Q8HR PRN #30 tab 03/04/22 Tamsulosin HCl [Flomax] 0.4 mg PO BID #60 cap 03/04/22 amLODIPine [Norvasc] 10 mg PO HS #30 tab 03/04/22 Allergies Allergy/AdvReac Type Severity Reaction Status Date / Time morphine Allergy Severe Rash/Hives Verified 03/24/22 11:26 lorazepam [From Ativan] AdvReac Confusion Verified 03/24/22 11:26 Review of Systems ROS Statement: Those systems with pertinent positive or pertinent negative responses have been documented in the HPI. ROS Other: All systems not noted in ROS Statement are negative. Past Medical History Past Medical History: Atrial Fibrillation, Coronary Artery Disease (CAD), COPD, CVA/TIA, Dialysis, GERD/Reflux, Hypertension, Myocardial Infarction (NM), Osteoarthritis (OA), Pneumonia, Renal Disease, Respiratory Disorder, Vascular Disorder Additional Past Medical History / Comment(s): ESRD with hemodialysis on //, pt has R chest port for dialysis and a L upper arm catheter but not using yet d/t it has had to be ballooned a couple of times, cardiomyopathy, [place] in 1972 and 2019, 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 Last Myocardial Infarction Date:: 2019 History of Any Multi-Drug Resistant Organisms: None Reported Past Surgical History: Appendectomy, Bowel Resection, Coronary Bypass/CABG, Ear Surgery, Heart Catheterization, Hernia Repair Additional Past Surgical History / Comment(s): R chest port for dialysis, R upper arm hemodialysis cath/has been ballooned and not able to use for dialysis yet, craniotomy for benign tumor, 3 vessel CABG in 2003, laparotomy for subc utaeous emphysema in bowel per daughters/extensive hospitalization, L caratid endartectomy, TURP, hemodialysis port in R chest/L upper arm, surgery to taper ears, EGD, colonoscopy, pain clinic procedures. Past Anesthesia/Blood Transfusion Reactions: No Reported Reaction Additional Past Anesthesia/Blood Transfusion Reaction / Comment(s): Pt has rece ived blood in past without reaction. Past Psychological History: No Psychological Hx Reported Smoking Status: Former smoker Past Alcohol Use History: None Reported Past Drug Use History: None Reported - Past Family History Sister(s) Family Medical History: Cancer Additional Family Medical History / Comment(s): kidney Mother Family Medical History: Myocardial Infarction (NM) Additional Family Medical History / Comment(s): Mother of a NM in her 80s. Father Family Medical History: Myocardial Infarction (NM) Brother(s) Family Medical History: Myocardial Infarction (NM) General Exam - General Exam Comments Initial Comments: GENERAL: Patient is well-developed and well-nourished. Patient is nontoxic and well- hydrated and is in mild distress. ENT: Neck is soft and supple. No significant lymphadenopathy is noted. Oropharynx is clear. Moist mucous membranes. Neck has full range of motion without eliciting any pain. EYES: The sclera were anicteric and conjunctiva were pink and moist. Extraocular movements were intact and pupils were equal round and reactive to light. Eyelids were unremarkable. PULMONARY: Unlabored respirations. Good breath sounds bilaterally. No audible rales rhonchi or wheezing was noted. CARDIOVASCULAR: Patient is irregularly irregular heart rate. ABDOMEN: Mild diffuse abdominal pain SKIN: Skin is clear with no lesions or rashes and otherwise unremarkable. NEUROLOGIC: Patient is alert and oriented x3. Cranial nerves II through XII are grossly intact. Motor and sensory are also intact. Normal speech, volume and content. Symmetrical smile. MUSCULOSKELETAL: Normal extremities with adequate strength and full range of motion. LYMPHATICS: No significant lymphadenopathy is noted PSYCHIATRIC: Normal psychiatric evaluation. Limitations: no limitations Course Vital Signs 03/24/22 03/24/22 11:18 12:23 Temperature 98.4 F Pulse Rate 61 80 Respiratory 18 18 Rate Blood Pressure 70/41 106/56 O2 Sat by Pulse 95 93 L Oximetry Medical Decision Making - Medical Decision Making EKG shows atrial fibrillation with rapid ventricular response at 101 bpm QRS is 92 QT interval 365 QTC is 423. Patient's EKG shows no ST segment elevation and patient does have an occasional PVC. Chest x-ray shows pleural effusions that is stable and a new left infiltrate. Patient had a infected urine. I started the patient on Rocephin gave the patient 2 g in the emergency department. I spoke with Dr. Sanders he agreed to admit the patient I admitted the patient I wrote admitting orders I consulted nephrology for dialysis - Lab Data Result diagrams: 03/24/22 12:21 03/24/22 12:21 Lab Results 03/24/22 03/24/22 03/24/22 Range/Units 12:21 12:21 12:21 WBC 3.9 (3.8-10.6) k/uL RBC 2.97 L (4.30-5.90) m/uL Hgb 9.9 L (13.0-17.5) gm/dL Hct 32.0 L (39.0-53.0) % MCV 107.5 H (80.0-100.0) fL MCH 33.3 (25.0-35.0) pg MCHC 31.0 (31.0-37.0) g/dL RDW 15.5 (11.5-15.5) % Plt Count 100 L (150-450) k/uL MPV 11.2 Neutrophils % 68 % Lymphocytes % 21 % Monocytes % 7 % Eosinophils % 1 % Basophils % 1 % Neutrophils # 2.7 (1.3-7.7) k/uL Lymphocytes # 0.8 L (1.0-4.8) k/uL Monocytes # 0.3 (0-1.0) k/uL Eosinophils # 0.0 (0-0.7) k/uL Basophils # 0.0 (0-0.2) k/uL Hypochromasia Marked Macrocytosis Marked A PT 12.2 H (9.0-12.0) sec INR 1.1 (<1.2) APTT 36.6 H (22.0-30.0) sec Sodium 131 L (137-145) mmol/L Potassium 3.6 (3.5-5.1) mmol/L Chloride 95 L (98-107) mmol/L Carbon Dioxide 27 (22-30) mmol/L Anion Gap 9 mmol/L BUN 48 H (9-20) mg/dL Creatinine 5.04 H (0.66-1.25) mg/dL Est GFR (CKD-EPI)AfAm 11 (>60 ml/min/1.73 sqM) Est GFR (CKD-EPI)NonAf 10 (>60 ml/min/1.73 sqM) Glucose 108 H (74-99) mg/dL Plasma Lactic Acid Mitchell (0.7-2.0) mmol/L Calcium 7.1 L (8.4-10.2) mg/dL Total Bilirubin 0.6 (0.2-1.3) mg/dL AST 25 (17-59) U/L ALT 13 (4-49) U/L Alkaline Phosphatase 68 (38-126) U/L Total Protein 4.8 L (6.3-8.2) g/dL Albumin 2.0 L (3.5-5.0) g/dL Urine Color Urine Appearance (Clear) Urine pH (5.0-8.0) Ur Specific [place] (1.001-1.035) Urine Protein (Negative) Urine Glucose (UA) (Negative) Urine Ketones (Negative) Urine Blood (Negative) Urine Nitrite (Negative) Urine Bilirubin (Negative) Urine Urobilinogen (<2.0) mg/dL Ur Leukocyte Esterase (Negative) Urine RBC (0-5) /hpf Urine WBC (0-5) /hpf Urine WBC Clumps (None) /hpf Urine Bacteria (None) /hpf 03/24/22 03/24/22 Range/Units 12:21 12:46 WBC (3.8-10.6) k/uL RBC (4.30-5.90) m/uL Hgb (13.0-17.5) gm/dL Hct (39.0-53.0) % MCV (80.0-100.0) fL MCH (25.0-35.0) pg MCHC (31.0-37.0) g/dL RDW (11.5-15.5) % Plt Count (150-450) k/uL MPV Neutrophils % % Lymphocytes % % Monocytes % % Eosinophils % % Basophils % % Neutrophils # (1.3-7.7) k/uL Lymphocytes # (1.0-4.8) k/uL Monocytes # (0-1.0) k/uL Eosinophils # (0-0.7) k/uL Basophils # (0-0.2) k/uL Hypochromasia Macrocytosis PT (9.0-12.0) sec INR (<1.2) APTT (22.0-30.0) sec Sodium (137-145) mmol/L Potassium (3.5-5.1) mmol/L Chloride (98-107) mmol/L Carbon Dioxide (22-30) mmol/L Anion Gap mmol/L BUN (9-20) mg/dL Creatinine (0.66-1.25) mg/dL Est GFR (CKD-EPI)AfAm (>60 ml/min/1.73 sqM) Est GFR (CKD-EPI)NonAf (>60 ml/min/1.73 sqM) Glucose (74-99) mg/dL Plasma Lactic Acid Mitchell 1.3 (0.7-2.0) mmol/L Calcium (8.4-10.2) mg/dL Total Bilirubin (0.2-1.3) mg/dL AST (17-59) U/L ALT (4-49) U/L Alkaline Phosphatase (38-126) U/L Total Protein (6.3-8.2) g/dL Albumin (3.5-5.0) g/dL Urine Color Yellow Urine Appearance Cloudy (Clear) Urine pH 7.0 (5.0-8.0) Ur Specific [place] 1.013 (1.001-1.035) Urine Protein 2+ H (Negative) Urine Glucose (UA) Negative (Negative) Urine Ketones Negative (Negative) Urine Blood Small H (Negative) Urine Nitrite Negative (Negative) Urine Bilirubin Negative (Negative) Urine Urobilinogen <2.0 (<2.0) mg/dL Ur Leukocyte Esterase Large H (Negative) Urine RBC 3 (0-5) /hpf Urine WBC >182 H (0-5) /hpf Urine WBC Clumps Many H (None) /hpf Urine Bacteria Many H (None) /hpf Critical Care Time Critical Care Time: Yes Total Critical Care Time: 35 Disposition Clinical Impression: Pneumonia, Urinary tract infection, Sepsis, Missed dialysis Disposition: ADMITTED IP TO THIS HOSP Referrals: Junior Brown DO [Primary Care Provider] - 1-2 days Time of Disposition: 13:33
[2022-03-24] MEDS: SODIUM CHLORIDE 0.9% 500 ML 500 ML IV SCH ×2 (12:27→13:26)
[2022-03-24 12:52] LABS: Basophils % (A) 1 %; Eosinophils % (A) 1 %; HGB 9.9 gm/dL (13.0-17.5); Hypochromasia Marked; Lymphocytes # (A) 0.8 k/uL (1.0-4.8); Lymphocytes % (A) 21 %; MCH 33.3 pg (25.0-35.0); MCV 107.5 fL (80.0-100.0); Macrocytosis Marked; Mean Platelet Volume 11.2; Monocytes # (A) 0.3 k/uL (0-1.0); Monocytes % (A) 7 %; Neutrophils # (A) 2.7 k/uL (1.3-7.7); Neutrophils % (A) 68 %; Platelet Count 100 k/uL (150-450); RBC 2.97 m/uL (4.30-5.90); RDW 15.5 % (11.5-15.5); WBC 3.9 k/uL (3.8-10.6)
[2022-03-24 12:57] LABS: INR 1.1 (<1.2); Partial Thromboplastin Time 36.6 sec (22.0-30.0); Prothrombin Time 12.2 sec (9.0-12.0)
[2022-03-24 13:03] LABS: Calcium 7.1 mg/dL (8.4-10.2); Potassium 3.6 mmol/L (3.5-5.1); Total Bilirubin 0.6 mg/dL (0.2-1.3); Total Protein 4.8 g/dL (6.3-8.2)
[2022-03-24 13:05] LABS: Appearance,Urine Cloudy (Clear); Bacteria,Urine Many /hpf; Bilirubin,Urine Negative (Negative); Blood,Urine Small (Negative); Color,Urine Yellow; Glucose,Urine (UA) Negative (Negative); Ketones,Urine Negative (Negative); Leukocyte Esterase,Urine Large (Negative); Nitrite,Urine Negative (Negative); Protein,Urine 2+ (Negative); RBC,Urine 3 /hpf (0-5); Specific Gravity,Urine 1.013 (1.001-1.035); Urobilinogen,Urine <2.0 mg/dL (<2.0); WBC,Urine >182 /hpf (0-5)
--- NOTE | 2022-03-24 13:13 | XR ---
EXAMINATION TYPE: XR chest 2V DATE OF EXAM: 03/24/2022 COMPARISON: Chest x-ray October 26, 2021 HISTORY: Fever. TECHNIQUE: Frontal and lateral views of the chest are obtained. FINDINGS: Anterior fusion plate lower cervical spine is redemonstrated clear overlying sternal wires and mediastinal clips are again seen. Stable mild cardiomegaly with bibasilar opacities and small joi ateral pleural effusions. New lateral left mid lung opacity. Osseous structures remain demineralized. IMPRESSION: Stable mild cardiomegaly and small bilateral pleural effusions. There are bibasilar opa cities could reflect acute infiltrate and/or atelectasis. New left mid lung acute infiltrate noted.
[2022-03-24] MEDS ORDERED: SODIUM CHLORIDE 0.9% 1,000 ML IV ONE (13:47)
[2022-03-24] MEDS ORDERED: SODIUM CHLORIDE 0.9% 500 ML 500 ML IV ONE (13:48)
[2022-03-24] MEDS ORDERED: ONDANSETRON 4 MG/2 ML VIAL IVP PRN (13:49)
[2022-03-24] MEDS ORDERED: AZITHROMYCIN 500 MG in SODIUM CHLORIDE 0.9% 250 ML IVPB STA (13:50)
[2022-03-24] MEDS ORDERED: SODIUM CHLORIDE 0.9% 1,000 ML IV SCH (14:00)
[2022-03-24 23:44] LABS: Hepatitis B Surface Antigen Nonreactive (Nonreactive)
[2022-03-24 23:56] LABS: Hepatitis B Surface AB- Quant 3.5 mIU/mL; Hepatitis B Surface Antibody Nonreactive (Nonreactive)
[2022-03-25] MEDS ORDERED: IPRATROPIUM 0.5 MG/2.5 ML NEBU INHALATION PRN (00:02)
[2022-03-25] MEDS ORDERED: ALBUTEROL NEBULIZED 2.5 MG/3 ML INHALATION PRN (00:02)
[2022-03-25] MEDS: PSYLLIUM HUSK 100% 6 GM PACKET PO SCH ×2 (00:40→09:40)
[2022-03-25] MEDS ORDERED: IPRATROPIUM-ALBUTEROL 3 ML NEB ONE (07:06)
[2022-03-25] MEDS: AZITHROMYCIN 500 MG TAB PO SCH (09:40)
[2022-03-25] MEDS ORDERED: MIDODRINE 5 MG TAB PO PRN (10:45)
[2022-03-25] MEDS: IPRATROPIUM-ALBUTEROL 3 ML NEB INHALATION SCH ×3 (11:02→20:50)
--- NOTE | 2022-03-25 11:02 | P.NPCON ---
History of Present Illness - Reason for Consult end stage renal disease - History of Present Illness Patient is an 81-year-old male with history of end-stage renal disease on hemodialysis on a Sunday schedule. He was admitted to the hospital with complaints of increased weakness and history of fall. He also had abdominal pain and nausea. Patient had significant abdominal pain during his last admission and was evaluated by general surgery. There were no plans for any surgical intervention at that time and palliative care was being considered. Currently maintained on IV antibiotics. Patient states he is feeling better Status post hemodialysis yesterday with UF of about 1 L. Review of Systems As per HPI Past Medical History Past Medical History: Atrial Fibrillation, Coronary Artery Disease (CAD), COPD, CVA/TIA, Dialysis, GERD/Reflux, Hypertension, Myocardial Infarction (MN), Osteoarthritis (OA), Pneumonia, Renal Disease, Respiratory Disorder, Vascular Disorder Additional Past Medical History / Comment(s): ESRD with hemodialysis on //, pt has R chest port for dialysis and a L upper arm catheter but not using yet d/t it has had to be ballooned a couple of times, cardiomyopathy, [place] in 1972 and 2019, 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 Last Myocardial Infarction Date:: 2019 History of Any Multi-Drug Resistant Organisms: None Reported Past Surgical History: Appendectomy, Bowel Resection, Coronary Bypass/CABG, Ear Surgery, Heart Catheterization, Hernia Repair Additional Past Surgical History / Comment(s): R chest port for dialysis, R upper arm hemodialysis cath/has been ballooned and not able to use for dialysis yet, craniotomy for benign tumor, 3 vessel CABG in 2003, laparotomy for subcutaeous emphysema in bowel per daughters/extensive hospitalization, L carat id endartectomy, TURP, hemodialysis port in R chest/L upper arm, surgery to taper ears, EGD, colonoscopy, pain clinic procedures. Past Anesthesia/Blood Transfusion Reactions: No Reported Reaction Additional Past Anesthesia/Blood Transfusion Reaction / Comment(s): Pt has received blood in past without reaction. Past Psychological History: No Psychological Hx Reported Additional Psychological History / Comment(s): Pt resides with his spouse. He has been using a cane or walker past several months. Kenneth/spouse organize medications. Spouse or family drive patient. Smoking Status: Former smoker Past Alcohol Use History: None Reported Additional Past Alcohol Use History / Comment(s): Pt started smoking as a teen and quit in 2019 Past Drug Use History: None Reported - Past Family History Sister(s) Family Medical History: Cancer Additional Family Medical History / Comment(s): kidney Mother Family Medical History: Myocardial Infarction (MN) Additional Family Medical History / Comment(s): Mother of a [place] in her 80s. Father Family Medical History: Myocardial Infarction (MN) Brother(s) Family Medical History: Myocardial Infarction (MN) Medications and Allergies Home Medications Medication Instructions Recorded Confirmed Type busPIRone HCL [Buspar] 7.5 mg PO BID 04/26/20 03/24/22 History Albuterol Nebulized [Ventolin 2.5 mg INHALATION RT-Q4H PRN 06/27/20 03/24/22 History Nebulized] Furosemide [Lasix] 40 mg PO DAILY 10/24/21 03/24/22 History Pantoprazole [Protonix] 40 mg PO BID 10/24/21 03/24/22 History Ipratropium Nebulized [Atrovent 0.5 mg INHALATION RT-Q4H PRN 02/23/22 03/24/22 History Nebulized 0.2 MG/ML] Atorvastatin [Lipitor] 80 mg PO HS #30 tab 03/04/22 03/24/22 Rx Isosorbide Mononitrate ER [Imdur] 30 mg PO DAILY #30 tab 03/04/22 03/24/22 Rx Calcium Acetate [PhosLo] 667 mg PO AC-TID 03/24/22 03/24/22 History Cyanocobalamin [Vitamin B-12] 1,000 mcg PO DAILY 03/24/22 03/24/22 History Doxazosin [Cardura] 4 mg PO HS 03/24/22 03/24/22 History Midodrine [ProAmatine] 5 mg PO DIRECTED PRN 03/24/22 03/24/22 History Allergies Allergy/AdvReac Type Severity Reaction Status Date / Time morphine Allergy Severe Rash/Hives Verified 03/24/22 14:21 lorazepam [From Ativan] AdvReac Confusion Verified 03/24/22 14:21 Physical Exam Vitals: Vital Signs Temp Pulse Pulse Resp BP BP Pulse Ox 03/25/22 08:00 82 18 03/25/22 07:59 84 03/25/22 07:43 84 03/25/22 04:00 98.5 F 98 18 127/63 97 03/25/22 01:25 81 03/25/22 01:14 90 03/25/22 00:00 98.5 F 92 18 112/60 96 03/24/22 20:30 98.6 F 89 19 121/58 94 L 03/24/22 20:19 114/66 03/24/22 17:59 86 16 101/64 94 L 03/24/22 14:42 78 18 110/53 92 L 03/24/22 12:23 80 18 106/56 93 L 03/24/22 11:18 98.4 F 61 18 70/41 95 Intake and Output 03/24/22 03/25/22 03/25/22 22:59 06:59 14:59 Intake Total 540 Output Total 1100 Balance -1100 540 Intake: Oral 540 Output: Urine 100 Uretheral (Hinds) 100 Hemodialysis 1000 Other: Voiding Method Indwelling Catheter Indwelling Catheter # Bowel Movements 1 Weight 56.699 kg Patient is awake, comfortable, not in any acute distress Examination of the heart S1 and S2 Examination of the lungs bilateral breath sounds are heard Abdomen is soft, mild tenderness left lower quadrant Examination lower extremities shows no evidence of edema [employer] exam grossly intact Results - Lab Results Most recent lab results Calcium 7.1 mg/dL (8.4-10.2) L 03/24/22 12:21 03/24/22 12:21 03/24/22 12:21 Assessment and Plan Assessment: 1. End-stage renal disease on hemodialysis on a Sunday schedul e 2. CK D mineral bone disorder 3. Abdominal pain with recent history of pneumoperitoneum during h ospitalization 4 weeks ago with no plans for surgical standpoint and mostly conjugative approach. 4. Anemia of chronic disease 5. History of urine retention with indwelling Hinds catheter 6. Abdominal aortic aneurysm 5.7 cm Plan: Continue antibiotics Continue with indwelling Hinds catheter Continue phosphate binders Add Aranesp Next Hemodialysis on 03/27/2022
[2022-03-25] MEDS: PANTOPRAZOLE 40 MG TABLET PO SCH ×2 (11:54→17:00)
[2022-03-25] MEDS: FUROSEMIDE 40 MG TAB PO SCH (11:54)
[2022-03-25] MEDS: CALCIUM ACETATE 667 MG TAB PO SCH ×2 (11:54→17:00)
[2022-03-25] MEDS: ISOSORBIDE MONONITRATE ER 30 MG TAB.ER.24H PO SCH (11:54)
[2022-03-25] MEDS: CYANOCOBALAMIN 500 MCG TAB PO SCH (11:55)
[2022-03-25] MEDS: busPIRone HCl 5 MG TAB PO SCH ×2 (11:55→20:34)
--- NOTE | 2022-03-25 15:51 | P.HPIM ---
History of Present Illness H&P Date: 03/25/22 Chief Complaint: Fever This is a pleasant 81-year-old patient, follows with Dr. Junior Jalloh. Chronic stable medical conditions include coronary artery disease with bypass, COPD, GERD, hard of hearing, hypertension, osteoarthritis, abdominal aneurysm,. Dialysis on Sunday and Sunday. Follows with Dr. Chavis. Patient was in the hospital about 3 weeks ago. Strongly suspected a small bowel ischemia with possible perforation. Due to very high risk of surgery was managed conservatively. Seen by Dr. Garica from surgery. Was discharged on Augmentin. See medication care was discussed with the patient and the and patient is Dr. Magana. The plan was to convert to hospice if patient's condition deteriorates. Following discharge patient eating very little. Then appetite did improve a little bit. Patient with supportive able to take a few steps. Last night patient spiked a fever. Had a cough. Some shortness of breath. Remains diet. Decrease appetite. Patient did not want to come to the hospital. Palliative care team was called who asked the patient to be moved to the hospital. Patient is a DO NOT RESUSCITATE. This morning, patient's and daughter the bedside. Patient has been having intermittent bowels. Review of systems: GEN.: Tired, decreased appetite EYES: None HEENT: Decreased hearing NECK: None RESPIRATORY: Occasional cough CARDIOVASCULAR: None GASTROINTESTINAL: None GENITOURINARY: Hinds catheter MUSCULOSKELETAL: Joint pains] LYMPHATICS: None HEMATOLOGICAL: None PSYCHIATRY: None NEUROLOGICAL: Generalized weakness Past medical history to include: Coronary artery disease, COPD, TIA, GERD, hard of hearing, hypertension, osteoarthritis, end-stage kidney disease on hemodialysis Sunday, abdominal aneurysm, coronary bypass, suspected bowel perforation managed medically Social history: Lives with . Smoked a pack a day for 64 years stopped in 2019. 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 Physical examination: VITAL SIGNS: 98.4, 61, 18, 70/41, 95% room air GENERAL: Reclining in bed, Fistula left upper extremity. Tired EYES: Pupils equal. Conjunctiva pale. HEENT: External appearance of nose and ears normal, oral cavity dry mucous membranes. Decreased hearing NECK: JVD not raised; masses not palpable. HEART: First and second heart sounds are normal; no edema. LUNGS: Respiratory rate normal; decreased breath sounds ABDOMEN: Soft, , mild abdominal distention and tenderness, no guarding rigidity, liver spleen not palpable, no masses palpable. PSYCH: Answering questions appropriately MUSCULOSKELETAL:No Clubbing/cyanosis;muscles-grossly intact. Evidence of OA LYMPHATICS: No lymph nodes palpable, and the neck or axilla INVESTIGATIONS, reviewed in the clinical context: WBC 3.9 hemoglobin 9.9 platelets 100 sodium 131 potassium 3.6 BUN 48 creatinine 5.04 UA positive for leukoesterase, WBC, WBC clumps, bacteria Coronavirus PCI/not detected EKG tracing personally reviewed by me-atrial fibrillation. Some [place] evening changes. Chest x-ray film personally reviewed by me-right basilar infiltrate Assessment and plan: -Right basilar pneumonia, patient spiked a fever at home and also had his cough. Suspect gram-negative organism. IV ceftriaxone -Recent admission suspected to have small bowel ischemia with perforation. [place] to be high risk for surgery. Seen by Dr. Garcia. Managed conservatively. Received a course of antibiotic -Abdominal aortic aneurysm 5.6 cm Seen by vascular last admission. Family did not want any further intervention. -Chronic urinary retention possibly from bladder outflow obstruction Hinds catheter -End-stage kidney disease on hemodialysis Sunday and Sunday Continue dialysis -Bilateral renal calculi -Anemia of chronic kidney disease Follow H&H -COPD in an ex-smoker DuoNeb 4 times a day -Coronary artery disease prior history of coronary bypass Imdur ER 30 mg a day -GERD Protonix -Hard of hearing -Colonic diverticulosis -Primary osteoarthritis Pain medications as needed -DO NOT RESUSCITATE Home medications resumed. IV ceftriaxone. Nephrology consulted for hemodialysis. Care was discussed length with the patient the and the daughter the bedside. Patient is getting palliative care at home. Patient had not wished to come to the hospital. Last admission was discussed if things wanted to. Hospice will be consulted. Importance of patient's wishes were reinforced and reminded. Given the complexity and severity of patient's condition expect the patient to be in the hospital at least for 2 overnights Past Medical History Past Medical History: Atrial Fibrillation, Coronary Artery Disease (CAD), COPD, CVA/TIA, Dialysis, GERD/Reflux, Hypertension, Myocardial Infarction (MA), Osteoarthritis (OA), Pneumonia, Renal Disease, Respiratory Disorder, Vascular Disorder Additional Past Medical History / Comment(s): ESRD with hemodialysis on M/W/F, pt has R chest port for dialysis and a L upper arm catheter but not using yet d/t it has had to be ballooned a couple of times, cardiomyopathy, MA in 1972 and 2019, 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 Last Myocardial Infarction Date:: 2019 History of Any Multi-Drug Resistant Organisms: None Reported Past Surgical History: Appendectomy, Bowel Resection, Coronary Bypass/CABG, Ear Surgery, Heart Catheterization, Hernia Repair Additional Past Surgical History / Comment(s): R chest port for dialysis, R upper arm hemodialysis cath/has been ballooned and not able to use for dialysis yet, craniotomy for benign tumor, 3 vessel CABG in 2003, laparotomy for subcutaeous emphysema in bowel per daughters/extensive hospitalization, L caratid endartectomy, TURP, hemodialysis port in R chest/L upper arm, surgery to taper ears, EGD, colonoscopy, pain clinic procedures. Past Anesthesia/Blood Transfusion Reactions: No Reported Reaction Additional Past Anesthesia/Blood Transfusion Reaction / Comment(s): Pt has received blood in past without reaction. Past Psychological History: No Psychological Hx Reported Additional Psychological History / Comment(s): Pt resides with his spouse. He has been using a cane or walker past several months. Kenneth/spouse organize medications. Spouse or family drive patient. Smoking Status: Former smoker Past Alcohol Use History: None Reported Additional Past Alcohol Use History / Comment(s): Pt started smoking as a teen and quit in 2019 Past Drug Use History: None Reported - Past Family History Sister(s) Family Medical History: Cancer Additional Family Medical History / Comment(s): kidney Mother Family Medical History: Myocardial Infarction (MA) Additional Family Medical History / Comment(s): Mother of a MA in her 80s. Father Family Medical History: Myocardial Infarction (MA) Brother(s) Family Medical History: Myocardial Infarction (MA) Medications and Allergies Home Medications Medication Instructions Recorded Confirmed Type busPIRone HCL [Buspar] 7.5 mg PO BID 04/26/20 03/24/22 History Albuterol Nebulized [Ventolin 2.5 mg INHALATION RT-Q4H PRN 06/27/20 03/24/22 History Nebulized] Furosemide [Lasix] 40 mg PO DAILY 10/24/21 03/24/22 History Pantoprazole [Protonix] 40 mg PO BID 10/24/21 03/24/22 History Ipratropium Nebulized [Atrovent 0.5 mg INHALATION RT-Q4H PRN 02/23/22 03/24/22 History Nebulized 0.2 MG/ML] Atorvastatin [Lipitor] 80 mg PO HS #30 tab 03/04/22 03/24/22 Rx Isosorbide Mononitrate ER [Imdur] 30 mg PO DAILY #30 tab 03/04/22 03/24/22 Rx Calcium Acetate [PhosLo] 667 mg PO AC-TID 03/24/22 03/24/22 History Cyanocobalamin [Vitamin B-12] 1,000 mcg PO DAILY 03/24/22 03/24/22 History Doxazosin [Cardura] 4 mg PO HS 03/24/22 03/24/22 History Midodrine [ProAmatine] 5 mg PO DIRECTED PRN 03/24/22 03/24/22 History Allergies Allergy/AdvReac Type Severity Reaction Status Date / Time morphine Allergy Severe Rash/Hives Verified 03/24/22 14:21 lorazepam [From Ativan] AdvReac Confusion Verified 03/24/22 14:21 Physical Exam Vitals: Vital Signs Temp Pulse Pulse Resp BP BP Pulse Ox 03/25/22 07:59 84 03/25/22 07:43 84 03/25/22 04:00 98.5 F 98 18 127/63 97 03/25/22 01:25 81 03/25/22 01:14 90 03/25/22 00:00 98.5 F 92 18 112/60 96 03/24/22 20:30 98.6 F 89 19 121/58 94 L 03/24/22 20:19 114/66 03/24/22 17:59 86 16 101/64 94 L 03/24/22 14:42 78 18 110/53 92 L 03/24/22 12:23 80 18 106/56 93 L 03/24/22 11:18 98.4 F 61 18 70/41 95 Intake and Output 03/24/22 03/25/22 03/25/22 22:59 06:59 14:59 Intake Total 540 Output Total 1100 Balance -1100 540 Intake: Oral 540 Output: Urine 100 Uretheral (Hinds) 100 Hemodialysis 1000 Other: Voiding Method Indwelling Catheter # Bowel Movements 1 Weight 56.699 kg Results CBC & Chem 7: 03/24/22 12:21 03/24/22 12:21 Labs: Abnormal Lab Results - Last 24 Hours (Table) 03/24/22 03/24/22 03/24/22 Range/Units 12:21 12:21 12:21 RBC 2.97 L (4.30-5.90) m/uL Hgb 9.9 L (13.0-17.5) gm/dL Hct 32.0 L (39.0-53.0) % MCV 107.5 H (80.0-100.0) fL Plt Count 100 L (150-450) k/uL Lymphocytes # 0.8 L (1.0-4.8) k/uL Macrocytosis Marked A PT 12.2 H (9.0-12.0) sec APTT 36.6 H (22.0-30.0) sec Sodium 131 L (137-145) mmol/L Chloride 95 L (98-107) mmol/L BUN 48 H (9-20) mg/dL Creatinine 5.04 H (0.66-1.25) mg/dL Glucose 108 H (74-99) mg/dL Calcium 7.1 L (8.4-10.2) mg/dL Total Protein 4.8 L (6.3-8.2) g/dL Albumin 2.0 L (3.5-5.0) g/dL Urine Protein (Negative) Urine Blood (Negative) Ur Leukocyte Esterase (Negative) Urine WBC (0-5) /hpf Urine WBC Clumps (None) /hpf Urine Bacteria (None) /hpf 03/24/22 Range/Units 12:46 RBC (4.30-5.90) m/uL Hgb (13.0-17.5) gm/dL Hct (39.0-53.0) % MCV (80.0-100.0) fL Plt Count (150-450) k/uL Lymphocytes # (1.0-4.8) k/uL Macrocytosis PT (9.0-12.0) sec APTT (22.0-30.0) sec Sodium (137-145) mmol/L Chloride (98-107) mmol/L BUN (9-20) mg/dL Creatinine (0.66-1.25) mg/dL Glucose (74-99) mg/dL Calcium (8.4-10.2) mg/dL Total Protein (6.3-8.2) g/dL Albumin (3.5-5.0) g/dL Urine Protein 2+ H (Negative) Urine Blood Small H (Negative) Ur Leukocyte Esterase Large H (Negative) Urine WBC >182 H (0-5) /hpf Urine WBC Clumps Many H (None) /hpf Urine Bacteria Many H (None) /hpf Microbiology - Last 24 Hours (Table) 03/24/22 12:46 Urine Culture - Preliminary Urine,Voided Thrombosis Risk Factor Assmnt - Choose All That Apply Any of the Below Risk Factors Present?: Yes Each Risk Factor Represents 3 Points: Age 75 years or older Thrombosis Risk Factor Assessment Total Risk Factor Score: 3 Thrombosis Risk Factor Assessment Level: Moderate Risk
[2022-03-25] MEDS: ATORVASTATIN 80 MG TAB PO SCH (20:35)
[2022-03-25] MEDS: amLODIPine 5 MG TAB PO SCH (20:35)
[2022-03-25] MEDS: DOXAZOSIN 4 MG TAB PO SCH (20:35)
[2022-03-26] MEDS: PANTOPRAZOLE 40 MG TABLET PO SCH ×2 (06:48→17:25)
[2022-03-26] MEDS: CALCIUM ACETATE 667 MG TAB PO SCH ×3 (06:48→17:25)
[2022-03-26] MEDS: IPRATROPIUM-ALBUTEROL 3 ML NEB INHALATION SCH ×4 (07:40→19:43)
[2022-03-26] MEDS: ISOSORBIDE MONONITRATE ER 30 MG TAB.ER.24H PO SCH (09:12)
[2022-03-26] MEDS: busPIRone HCl 5 MG TAB PO SCH ×2 (09:12→19:43)
[2022-03-26] MEDS: FUROSEMIDE 40 MG TAB PO SCH (09:12)
[2022-03-26] MEDS: CYANOCOBALAMIN 500 MCG TAB PO SCH (09:12)
[2022-03-26] MEDS: AZITHROMYCIN 500 MG TAB PO SCH (09:12)
[2022-03-26] MEDS: PSYLLIUM HUSK 100% 6 GM PACKET PO SCH (09:13)
--- NOTE | 2022-03-26 10:48 | P.PN ---
Subjective Patient is seen for follow-up for end-stage renal disease. He was admitted to the hospital with abdominal pain and is currently maintained on antibiotics. Patient was admitted with abdominal pain last month and was evaluated by surgery. Currently with no plans for surgical intervention and to continue with conservative management. This morning patient states his pain has improved. He is trying to increase his oral intake. No significant complaints today. Objective - Vital Signs Vital signs: Vital Signs Temp 98.2 F 03/25/22 20:00 Pulse 92 03/26/22 07:51 Resp 19 03/26/22 02:00 BP 130/62 03/26/22 02:00 Pulse Ox 91 L 03/26/22 07:40 FiO2 Intake & Output 03/25/22 03/26/22 03/26/22 18:59 06:59 18:59 Intake Total 596 Output Total 20 Balance 596 -20 Intake: Oral 596 Output: Urine 20 Other: Voiding Method Indwelling Catheter Indwelling Catheter # Bowel Movements 2 - Exam Awake, comfortable, not in any acute distress Examination of the heart S1 and S2 Examination lungs bilateral breath sounds are heard Abdomen is soft nontender Examination of lower extremity shows no significant edema [employer]TON [employer]AKER exam grossly intact - Labs CBC & Chem 7: 03/24/22 12:21 03/24/22 12:21 Labs: Microbiology - Last 24 Hours (Table) 03/24/22 12:46 Urine Culture - Preliminary Urine,Voided Gram Neg Bacilli 03/24/22 12:15 Blood Culture - Preliminary Blood No Growth after 24 hours 03/24/22 12:08 Blood Culture - Preliminary Blood No Growth after 24 hours Assessment and Plan Assessment: 1. End-stage renal disease on hemodialysis on a Sunday schedule 2. CK D mineral bone disorder 3. Abdominal pain with recent history of pneumoperitoneum during hospitalization 4 weeks ago with no plans for surgical standpoint and mostly conjugative approach. 4. Anemia of chronic disease 5. History of urine retention with indwelling Hinds catheter 6. Abdominal aortic aneurysm 5.7 cm Plan: Hemodialysis in a.m. Continue with Hinds catheter Continue with antibiotics
[2022-03-26] MEDS ORDERED: traMADol 50 MG TAB PO PRN (11:30)
--- NOTE | 2022-03-26 13:24 | XR ---
EXAMINATION TYPE: XR abdomen 2V DATE OF EXAM: 03/26/2022 HISTORY: Abdominal pain. Technique: Upright and supine views of the abdomen are submitted. Comparison: CT abdomen pelvis 02/25/2022. Findings: There is no convincing evidence of pneumoperitoneum. The Bowel gas pattern is nonspecific and nonobst ructive. Moderate amount of stool is present throughout the bowel. Gas is demonstrated within the col on. Pelvic phlebolith identified. Median sternotomy wires. Small bilateral pleural effusions. Vascula r sclerosis. No acute osseous adenopathy. IMPRESSION: 1. Nonobstructive bowel gas pattern. 2. Moderate colonic stool burden.
[2022-03-26 13:38] VITALS: BMI 19.5
--- NOTE | 2022-03-26 14:31 | P.PN ---
Progress Note - Text Progress Note Date: 03/26/22 Chief Complaint: Fever This is a pleasant 81-year-old patient, follows with Dr. Junior Jalloh. Chronic stable medical conditions include coronary artery disease with bypass, COPD, GERD, hard of hearing, hypertension, osteoarthritis, abdominal aneurysm,. Dialysis on Sunday and Sunday. Follows with Dr. Chavis. Patient was in the hospital about 3 weeks ago. Strongly suspected a small bowel ischemia with possible perforation. Due to very high risk of surgery was managed conservatively. Seen by Dr. Garcia from surgery. Was discharged on Augmentin. See medication care was discussed with the patient and the and patient is Dr. Magana. The plan was to convert to hospice if patient's condition deteriorates. Following discharge patient eating very little. Then appetite did improve a little bit. Patient with supportive able to take a few steps. Last night patient spiked a fever. Had a cough. Some shortness of breath. Remains diet. Decrease appetite. Patient did not want to come to the hospital. Palliative care team was called who asked the patient to be moved to the hospital. Patient is a DO NOT RESUSCITATE. This morning, patient's and daughter the bedside. Patient has been having intermittent bowels. Admitted with pneumonia. Put on IV ceftriaxone. March 26: Yesterday discussed with the patient and the daughter the bedside. They understand oral prognosis guarded. Today patient is having increasing abdominal pain. Distention. Had a large BM earlier today. Ultram for pain. Abdominal x-ray showing some nonspecific bowel pattern. Spoke again to the patient has and 2 daughters at the bedside. Any further testing in the setting of known ischemic bowel , especially if no surgery is to be done. Any further workup would be futile. They understand the same. Patient oriented IV ceftriaxone. K pad for pain. No aggressive surgical intervention. Patient is awake, tired Active Medications Albuterol Sulfate (Albuterol Nebulized 2.5 Mg/3 Ml) 2.5 mg INHALATION RT-Q4H PRN PRN Reason: Shortness Of Breath Last Admin: 03/25/22 01:14 Dose: 2.5 mg Albuterol/Ipratropium (Ipratropium-Albuterol 3 Ml Neb) 3 ml INHALATION RT-QID CELESTINO Last Admin: 03/26/22 11:12 Dose: 3 ml Amlodipine Besylate (Amlodipine 5 Mg Tab) 5 mg PO HS [facility] Last Admin: 03/25/22 20:35 Dose: 5 mg Atorvastatin Calcium (Atorvastatin 80 Mg Tab) 80 mg PO HS [facility] Last Admin: 03/25/22 20:35 Dose: 80 mg Azithromycin (Azithromycin 500 Mg Tab) 500 mg PO DAILY [facility]; Protocol Stop: 03/27/22 09:01 Last Admin: 03/26/22 09:12 Dose: 500 mg Buspirone HCl (Buspirone Hcl 5 Mg Tab) 7.5 mg PO BID [facility] Last Admin: 03/26/22 09:12 Dose: 7.5 mg Calcium Acetate (Calcium Acetate 667 Mg Tab) 667 mg PO AC-TID [facility] Last Admin: 03/26/22 13:12 Dose: 667 mg Cyanocobalamin (Cyanocobalamin 500 Mcg Tab) 1,000 mcg PO DAILY [facility] Last Admin: 03/26/22 09:12 Dose: 1,000 mcg Doxazosin Mesylate (Doxazosin 4 Mg Tab) 4 mg PO [facility] Last Admin: 03/25/22 20:35 Dose: 4 mg Ceftriaxone Sodium 2 gm/ (Sodium Chloride) 50 mls @ 100 mls/hr IVPB Q24HR [facility]; Protocol Last Admin: 03/26/22 09:12 Dose: 100 mls/hr Ipratropium [place] (Ipratropium 0.5 Mg/2.5 Ml Nebu) 0.5 mg INHALATION RT-Q4H PRN PRN Reason: Shortness Of Breath Isosorbide Mononitrate (Isosorbide Mononitrate Er 30 Mg Tab.Er.24h) 30 mg PO DAILY [facility] Last Admin: 03/26/22 09:12 Dose: 30 mg Midodrine (Midodrine 5 Mg Tab) 5 mg PO DAILY PRN PRN Reason: given @dialysis as needed Ondansetron HCl (Ondansetron 4 Mg/2 Ml Vial) 4 mg IVP Q6HR PRN PRN Reason: Nausea And Vomiting Pantoprazole Sodium (Pantoprazole 40 Mg Tablet) 40 mg PO BID@0730,1730 [facility] Last Admin: 03/26/22 06:48 Dose: 40 mg Psyllium Hydrophilic Mucilloid (Psyllium Husk 100% 6 Gm Packet) 6 gm PO DAILY [facility] Last Admin: 03/26/22 09:13 Dose: Not Given Tramadol HCl (Tramadol 50 Mg Tab) 50 mg PO QID PRN PRN Reason: Pain Last Admin: 03/26/22 11:55 Dose: 50 mg Past medical history to include: Coronary artery disease, COPD, TIA, GERD, hard of hearing, hypertension, osteoarthritis, end-stage kidney disease on hemodialysis Sunday, abdominal aneurysm, coronary bypass, suspected bowel perforation managed medically Social history: Lives with . Smoked a pack a day for 64 years stopped in 2019. 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 Physical examination: VITAL SIGNS: 99.1, 90, 18, 1:30/60, 82% on 2 L GENERAL: Reclining in bed, Fistula left upper extremity. Tired EYES: Pupils equal. Conjunctiva pale. HEENT: External appearance of nose and ears normal, oral cavity dry mucous membranes. Decreased hearing NECK: JVD not raised; masses not palpable. HEART: First and second heart sounds are normal; no edema. LUNGS: Respiratory rate normal; decreased breath sounds ABDOMEN: Soft, , mild abdominal distention and tenderness, no guarding rigidity, liver spleen not palpable, no masses palpable. PSYCH: Answering questions appropriately MUSCULOSKELETAL:No Clubbing/cyanosis;muscles-grossly intact. Evidence of OA INVESTIGATIONS, reviewed in the clinical context: Abdominal x-ray film personally reviewed by me: Shows nonspecific gas pattern. WBC 3.9 hemoglobin 9.9 platelets 100 sodium 131 potassium 3.6 BUN 48 creatinine 5.04 UA positive for leukoesterase, WBC, WBC clumps, bacteria Coronavirus PCI/not detected EKG tracing personally reviewed by me-atrial fibrillation. Some [place] evening changes. Chest x-ray film personally reviewed by me-right basilar infiltrate Assessment and plan: -Right basilar pneumonia, patient spiked a fever at home and also had his cough. Suspect gram-negative organism. IV ceftriaxone -Possible ischemic bowel. With Recent admission strongly suspicious for small bowel ischemia with perforation. [place] to be high risk for surgery. Conservative management. Pain medications. K pad. -Abdominal aortic aneurysm 5.6 cm Seen by vascular last admission. Family did not want any further intervention. -Chronic urinary retention possibly from bladder outflow obstruction Hinds catheter -End-stage kidney disease on hemodialysis Sunday and Sunday Continue dialysis -Bilateral renal calculi -Anemia of chronic kidney disease Follow H&H -COPD in an ex-smoker DuoNeb 4 times a day -Coronary artery disease prior history of coronary bypass Imdur ER 30 mg a day -GERD Protonix -Hard of hearing -Colonic diverticulosis -Primary osteoarthritis Pain medications as needed -DO NOT RESUSCITATE Add Ultram and heating pad for pain control. Care was discussed with the patient and family the bedside at length. Including the . They understand oral prognosis guarded. Conservative management. We will change to full liquid diet. Total time spent about 40 minutes with over 25 minutes of discussion.
[2022-03-26] MEDS: amLODIPine 5 MG TAB PO SCH (19:43)
[2022-03-26] MEDS: ATORVASTATIN 80 MG TAB PO SCH (19:43)
[2022-03-26] MEDS: DOXAZOSIN 4 MG TAB PO SCH (21:39)
[2022-03-27] MEDS: PANTOPRAZOLE 40 MG TABLET PO SCH ×2 (06:28→17:33)
[2022-03-27] MEDS: CALCIUM ACETATE 667 MG TAB PO SCH ×3 (06:28→17:31)
[2022-03-27] MEDS: IPRATROPIUM-ALBUTEROL 3 ML NEB INHALATION SCH ×4 (07:06→20:14)
--- NOTE | 2022-03-27 09:56 | P.PN ---
Subjective Patient is seen for follow-up for end-stage renal disease on hemodialysis on a Sunday schedule He was admitted to the hospital with abdominal pain and is currently maintained on antibiotics. Patient was admitted with abdominal pain last month and was evaluated by surgery. Currently with no plans for surgical intervention and to continue with conservative management. Patient is complaining of mild abdominal pain today. He states he has not had a bowel movement for 3 days Objective - Vital Signs Vital signs: Vital Signs Temp 98.3 F 03/27/22 08:51 Pulse 85 03/27/22 08:51 Resp 17 03/27/22 08:51 BP 126/52 03/27/22 08:51 Pulse Ox 91 L 03/27/22 08:51 FiO2 Intake & Output 03/26/22 03/27/22 03/27/22 18:59 06:59 18:59 Intake Total 238 10 Output Total 200 Balance 238 -190 Weight 56.699 kg Intake: IV 10 Invasive Line 1 10 Oral 238 Output: Urine 200 Uretheral (Hinds) 100 Other: Voiding Method Indwelling Catheter Indwelling Catheter Indwelling Catheter - Exam Awake, comfortable, not in any acute distress Examination of the heart S1 and S2 Examination lungs bilateral breath sounds are heard Abdomen is soft, mild tenderness left lower quadrant Examination of lower extremity shows no significant edema [employer]IXING [employer]ACE [employer] exam grossly intact - Labs CBC & Chem 7: 03/24/22 12:21 03/24/22 12:21 Labs: Microbiology - Last 24 Hours (Table) 03/24/22 12:15 Blood Culture - Preliminary Blood No Growth after 48 hours 03/24/22 12:08 Blood Culture - Preliminary Blood No Growth after 48 hours Assessment and Plan Assessment: 1. End-stage renal disease on hemodialysis on a Sunday schedule 2. CK D mineral bone disorder 3. Abdominal pain with recent history of pneumoperitoneum during hospit alization 4 weeks ago with no plans for surgical standpoint and mostly conservative approach. 4. Anemia of chronic disease 5. History of urine retention with indwelling Hinds catheter 6. Abdominal aortic aneurysm 5.7 cm 7. UTI with urine culture growing gram-negative bacilli Plan: Hemodialysis today Continue antibiotics Continue with Hinds catheter
--- NOTE | 2022-03-27 09:58 | P.GSCN ---
History of Present Illness Consult date: 03/27/22 Reason for Consult: Abdominal pain History of present illness: 81-year-old male known to our service. Was recently hospitalized with abdominal pain and was found to have evidence of pneumatosis and suspected small bowel ischemia. After long discussions with the patient and his family was decided not to proceed with surgical exploration given his comorbidities and increased risk for perioperative morbidity and mortality. Patient was discharged home. He was apparently sent home with palliative care. Palliative care instructed the patient to come back to the hospital after he was having some abdominal discomforts along with fevers and a low blood pressure. The idea was that he was going to be readmitted for fluids and antibiotics apparently. He is comfortable in bed at this time. Complaining of mild left mid abdominal pain which is the same location he had pain previously. His white blood cell count is normal. His vital signs of been stable and he is afebrile. He is eating. Review of Systems The patient denies any acute changes in vision or hearing, no dysphagia or odynophagia, no chest pain or shortness of breath, no dysuria or hematuria, no headache, no runny nose, no rectal bleeding or melena, no unexplained weight loss Past Medical History Past Medical History: Atrial Fibrillation, Coronary Artery Disease (CAD), COPD, CVA/TIA, Dialysis, GERD/Reflux, Hypertension, Myocardial Infarction ([place]), Osteoarthritis (OA), Pneumonia, Renal Disease, Respiratory Disorder, Vascular Disorder Additional Past Medical History / Comment(s): ESRD with hemodialysis on //, pt has R chest port for dialysis and a L upper arm catheter but not using yet d/t it has had to be ballooned a couple of times, cardiomyopathy, [place] in 1972 and 2019, 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 Last Myocardial Infarction Date:: 2019 History of Any Multi-Drug Resistant Organisms: None Reported Past Surgical History: Appendectomy, Bowel Resection, Coronary Bypass/CABG, Ear Surgery, Heart Catheterization, Hernia Repair Additional Past Surgical History / Comment(s): R chest port for dialysis, R upper arm hemodialysis cath/has been ballooned and not able to use for dialysis yet, craniotomy for benign tumor, 3 vessel CABG in 2004, laparotomy for subcutaeous emphysema in bowel per daughters/extensive hospitalization, L caratid endartectomy, TURP, hemodialysis port in R chest/L upper arm, surgery to taper ears, EGD, colonoscopy, pain clinic procedures. Past Anesthesia/Blood Transfusion Reactions: No Reported Reaction Additional Past Anesthesia/Blood Transfusion Reaction / Comm: Pt has received blood in past without reaction. Past Psychological History: No Psychological Hx Reported Additional Psychological History / Comment(s): Pt resides with his spouse. He has been using a cane or walker past several months. Kenneth/spouse organize medications. Spouse or family drive patient. Smoking Status: Former smoker Past Alcohol Use History: None Reported Additional Past Alcohol Use History / Comment(s): Pt started smoking as a teen and quit in 2019 Past Drug Use History: None Reported - Past Family History Sister(s) Family Medical History: Cancer Additional Family Medical History / Comment(s): kidney Mother Family Medical History: Myocardial Infarction ([place]) Additional Family Medical History / Comment(s): Mother of a [place] in her 80s. Father Family Medical History: Myocardial Infarction ([place]) Brother(s) Family Medical History: Myocardial Infarction ([place]) Medications and Allergies Home Medications Medication Instructions Recorded Confirmed Type busPIRone HCL [Buspar] 7.5 mg PO BID 04/26/20 03/24/22 History Albuterol Nebulized [Ventolin 2.5 mg INHALATION RT-Q4H PRN 06/27/20 03/24/22 History Nebulized] Furosemide [Lasix] 40 mg PO DAILY 10/24/21 03/24/22 History Pantoprazole [Protonix] 40 mg PO BID 10/24/21 03/24/22 History Ipratropium Nebulized [Atrovent 0.5 mg INHALATION RT-Q4H PRN 02/23/22 03/24/22 History Nebulized 0.2 MG/ML] Atorvastatin [Lipitor] 80 mg PO HS #30 tab 03/04/22 03/24/22 Rx Isosorbide Mononitrate ER [Imdur] 30 mg PO DAILY #30 tab 03/04/22 03/24/22 Rx Calcium Acetate [PhosLo] 667 mg PO AC-TID 03/24/22 03/24/22 History Cyanocobalamin [Vitamin B-12] 1,000 mcg PO DAILY 03/24/22 03/24/22 History Doxazosin [Cardura] 4 mg PO HS 03/24/22 03/24/22 History Midodrine [ProAmatine] 5 mg PO DIRECTED PRN 03/24/22 03/24/22 History Allergies Allergy/AdvReac Type Severity Reaction Status Date / Time morphine Allergy Severe Rash/Hives Verified 03/24/22 14:21 lorazepam [From Ativan] AdvReac Confusion Verified 03/24/22 14:21 Surgical - Exam Vital Signs Temp Pulse Resp BP Pulse Ox 98.4 F 61 18 70/41 95 03/24/22 11:18 03/24/22 11:18 03/24/22 11:18 03/24/22 11:18 03/24/22 11:18 Physical exam: General: Well-developed, well-nourished HEENT: Normocephalic, sclerae nonicteric Abdomen: Nondistended, mild left mid abdominal tenderness Extremities: No edema Neuro: Alert and oriented Results - Labs 03/24/22 12:21 03/24/22 12:21 Microbiology - Last 24 Hours (Table) 03/24/22 12:15 Blood Culture - Preliminary Blood No Growth after 48 hours 03/24/22 12:08 Blood Culture - Preliminary Blood No Growth after 48 hours Assessment and Plan Assessment: Patient actually seems to be doing somewhat better than when he was discharged previously. Would not workup abdominal pain any further at this point given the previous decision to not explore his abdomen. Continue IV hydration. No mercado rgical intervention or testing plan at this time. We'll follow.
[2022-03-27] MEDS ORDERED: LACTULOSE 20 GM/30 ML CUP PO ONE (13:29)
--- NOTE | 2022-03-27 14:33 | P.PN ---
Progress Note - Text Progress Note Date: 03/27/22 Chief Complaint: Fever This is a pleasant 81-year-old patient, follows with Dr. Junior Jalloh. Chronic stable medical conditions include coronary artery disease with bypass, COPD, GERD, hard of hearing, hypertension, osteoarthritis, abdominal aneurysm,. Dialysis on Sunday and Sunday. Follows with Dr. Chavis. Patient was in the hospital about 3 weeks ago. Strongly suspected a small bowel ischemia with possible perforation. Due to very high risk of surgery was managed conservatively. Seen by Dr. Garcia from surgery. Was discharged on Augmentin. See medication care was discussed with the patient and the and patient is Dr. Magana. The plan was to convert to hospice if patient's condition deteriorates. Following discharge patient eating very little. Then appetite did improve a little bit. Patient with supportive able to take a few steps. Last night patient spiked a fever. Had a cough. Some shortness of breath. Remains diet. Decrease appetite. Patient did not want to come to the hospital. Palliative care team was called who asked the patient to be moved to the hospital. Patient is a DO NOT RESUSCITATE. This morning, patient's and daughter the bedside. Patient has been having intermittent bowels. Admitted with pneumonia. Put on IV ceftriaxone. March 26: Yesterday discussed with the patient and the daughter the bedside. They understand oral prognosis guarded. Today patient is having increasing abdominal pain. Distention. Had a large BM earlier today. Ultram for pain. Abdominal x-ray showing some nonspecific bowel pattern. Spoke again to the patient has and 2 daughters at the bedside. Any further testing in the setting of known ischemic bowel , especially if no surgery is to be done. Any further workup would be futile. They understand the same. Patient oriented IV ceftriaxone. K pad for pain. No aggressive surgical intervention. Patient is awake, tired March 27: Getting dialysis today. Tired. Some abdominal distention pain. No BM. Eating small amounts. Daughter Izzy at the bedside. Lactulose given. Tired. Active Medications Albuterol Sulfate (Albuterol Nebulized 2.5 Mg/3 Ml) 2.5 mg INHALATION RT-Q4H PRN PRN Reason: Shortness Of Breath Last Admin: 03/25/22 01:14 Dose: 2.5 mg Albuterol/Ipratropium (Ipratropium-Albuterol 3 Ml Neb) 3 ml INHALATION RT-QID [facility] Last Admin: 03/27/22 10:51 Dose: 3 ml Amlodipine Besylate (Amlodipine 5 Mg Tab) 5 mg PO HS [facility] Last Admin: 03/26/22 19:43 Dose: 5 mg Atorvastatin Calcium (Atorvastatin 80 Mg Tab) 80 mg PO HS [facility] Last Admin: 03/26/22 19:43 Dose: 80 mg Buspirone HCl (Buspirone Hcl 5 Mg Tab) 7.5 mg PO BID [facility] Last Admin: 03/26/22 19:43 Dose: 7.5 mg Calcium Acetate (Calcium Acetate 667 Mg Tab) 667 mg PO AC-TID [facility] Last Admin: 03/27/22 06:28 Dose: 667 mg Cyanocobalamin (Cyanocobalamin 500 Mcg Tab) 1,000 mcg PO DAILY [facility] Last Admin: 03/26/22 09:12 Dose: 1,000 mcg Doxazosin Mesylate (Doxazosin 4 Mg Tab) 4 mg PO [facility] Last Admin: 03/26/22 21:39 Dose: 4 mg Ceftriaxone Sodium 2 gm/ (Sodium Chloride) 50 mls @ 100 mls/hr IVPB Q24HR [facility]; Protocol Last Admin: 03/26/22 09:12 Dose: 100 mls/hr Ipratropium [place] (Ipratropium 0.5 Mg/2.5 Ml Nebu) 0.5 mg INHALATION RT-Q4H PRN PRN Reason: Shortness Of Breath Isosorbide Mononitrate (Isosorbide Mononitrate Er 30 Mg Tab.Er.24h) 30 mg PO DAILY [facility] Last Admin: 03/26/22 09:12 Dose: 30 mg Midodrine (Midodrine 5 Mg Tab) 5 mg PO DAILY PRN PRN Reason: given @dialysis as needed Ondansetron HCl (Ondansetron 4 Mg/2 Ml Vial) 4 mg IVP Q6HR PRN PRN Reason: Nausea And Vomiting Pantoprazole Sodium (Pantoprazole 40 Mg Tablet) 40 mg PO BID@0730,1730 [facility] Last Admin: 03/27/22 06:28 Dose: 40 mg Psyllium Hydrophilic Mucilloid (Psyllium Husk 100% 6 Gm Packet) 6 gm PO DAILY [facility] Last Admin: 03/26/22 09:13 Dose: Not Given Tramadol HCl (Tramadol 50 Mg Tab) 50 mg PO QID PRN PRN Reason: Pain Last Admin: 03/26/22 11:55 Dose: 50 mg Past medical history to include: Coronary artery disease, COPD, TIA, GERD, hard of hearing, hypertension, osteoarthritis, end-stage kidney disease on hemodialysis Sunday, abdominal aneurysm, coronary bypass, suspected bowel perforation managed medically Social history: Lives with . Smoked a pack a day for 64 years stopped in 2019. 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 Physical examination: VITAL SIGNS: 98, 82, 17, 146/61, 92% on 2 L GENERAL: Reclining in bed, Fistula left upper extremity. Tired EYES: Pupils equal. Conjunctiva pale. HEENT: External appearance of nose and ears normal, oral cavity dry mucous membranes. Decreased hearing NECK: JVD not raised; masses not palpable. HEART: First and second heart sounds are normal; no edema. LUNGS: Respiratory rate normal; decreased breath sounds ABDOMEN: Soft, , some abdominal distention and tenderness, no guarding rigidity, liver spleen not palpable, no masses palpable. PSYCH: Answering questions appropriately MUSCULOSKELETAL:No Clubbing/cyanosis;muscles-grossly intact. Evidence of OA INVESTIGATIONS, reviewed in the clinical context: Abdominal x-ray film personally reviewed by me: Shows nonspecific gas pattern. WBC 3.9 hemoglobin 9.9 platelets 100 sodium 131 potassium 3.6 BUN 48 creatinine 5.04 UA positive for leukoesterase, WBC, WBC clumps, bacteria Coronavirus PCI/not detected EKG tracing personally reviewed by me-atrial fibrillation. Some [place] evening changes. Chest x-ray film personally reviewed by me-right basilar infiltrate Assessment and plan: -Right basilar pneumonia, patient spiked a fever at home and also had his cough. Suspect gram-negative organism. IV ceftriaxone -Possible ischemic bowel. With Recent admission strongly suspicious for small bowel ischemia with perforation. [place] to be high risk for surgery. : Slow to respond Conservative management. Pain medications. K pad. Patient and family decided about no surgical intervention. -Abdominal aortic aneurysm 5.6 cm Seen by vascular last admission. Family did not want any further intervention. -Chronic urinary retention possibly from bladder outflow obstruction Hinds catheter -End-stage kidney disease on hemodialysis Sunday and Sunday Continue dialysis -Bilateral renal calculi -Anemia of chronic kidney disease Follow H&H -COPD in an ex-smoker DuoNeb 4 times a day -Coronary artery disease prior history of coronary bypass Imdur ER 30 mg a day -GERD Protonix -Hard of hearing -Colonic diverticulosis -Primary osteoarthritis Pain medications as needed -DO NOT RESUSCITATE Continue current treatment plan. Prognosis guarded. Lactulose. Continue IV antibiotic. Dialysis today. Discussed with patient and the daughter the bedside.
[2022-03-27] MEDS: PSYLLIUM HUSK 100% 6 GM PACKET PO SCH (14:53)
[2022-03-27] MEDS: AZITHROMYCIN 500 MG TAB PO SCH (14:54)
[2022-03-27] MEDS: CYANOCOBALAMIN 500 MCG TAB PO SCH (14:54)
[2022-03-27] MEDS: ISOSORBIDE MONONITRATE ER 30 MG TAB.ER.24H PO SCH (14:55)
[2022-03-27] MEDS: busPIRone HCl 5 MG TAB PO SCH ×2 (14:55→19:49)
[2022-03-27] MEDS: amLODIPine 5 MG TAB PO SCH (19:49)
[2022-03-27] MEDS: ATORVASTATIN 80 MG TAB PO SCH (19:49)
[2022-03-27] MEDS: DOXAZOSIN 4 MG TAB PO SCH (19:50)
[2022-03-28] MEDS: PANTOPRAZOLE 40 MG TABLET PO SCH ×2 (06:32→19:46)
[2022-03-28] MEDS: CALCIUM ACETATE 667 MG TAB PO SCH ×3 (06:32→20:44)
[2022-03-28] MEDS: IPRATROPIUM-ALBUTEROL 3 ML NEB INHALATION SCH ×4 (07:37→20:08)
[2022-03-28] MEDS: busPIRone HCl 5 MG TAB PO SCH ×2 (09:23→20:54)
[2022-03-28] MEDS: CYANOCOBALAMIN 500 MCG TAB PO SCH (09:23)
[2022-03-28] MEDS: ISOSORBIDE MONONITRATE ER 30 MG TAB.ER.24H PO SCH (09:23)
[2022-03-28] MEDS: PSYLLIUM HUSK 100% 6 GM PACKET PO SCH (09:23)
[2022-03-28] MEDS: DOXAZOSIN 4 MG TAB PO SCH (20:54)
[2022-03-28] MEDS: amLODIPine 5 MG TAB PO SCH (20:54)
--- NOTE | 2022-03-28 21:13 | P.PN ---
Progress Note - Text Progress Note Date: 03/28/22 Patient doing well today. Tolerating his diet. Only mild abdominal discomfort at this time. Decision has been made for discharge tomorrow with hospice. Abdomen: Soft, mild left-sided tenderness we will sign off at this point. Please reconsult if needed.
[2022-03-29] MEDS: PANTOPRAZOLE 40 MG TABLET PO SCH (06:48)
[2022-03-29] MEDS: CALCIUM ACETATE 667 MG TAB PO SCH (06:48)
[2022-03-29] MEDS: IPRATROPIUM-ALBUTEROL 3 ML NEB INHALATION SCH ×2 (07:06→11:02)
[2022-03-29 07:31] VITALS: RESP 20
[2022-03-29] MEDS: busPIRone HCl 5 MG TAB PO SCH (11:23)
[2022-03-29] MEDS: CYANOCOBALAMIN 500 MCG TAB PO SCH (11:23)
[2022-03-29] MEDS: ISOSORBIDE MONONITRATE ER 30 MG TAB.ER.24H PO SCH (11:23)
[2022-03-29] MEDS: PSYLLIUM HUSK 100% 6 GM PACKET PO SCH (11:24)
[2022-03-29 12:00] VITALS: BP 142/69; PULSE 80; TEMP 97.8
--- NOTE | 2022-03-29 16:00 | P.PN ---
Progress Note - Text Progress Note Date: 03/28/22 Chief Complaint: Fever This is a pleasant 81-year-old patient, follows with Dr. Junior Jalloh. Chronic stable medical conditions include coronary artery disease with bypass, COPD, GERD, hard of hearing, hypertension, osteoarthritis, abdominal aneurysm,. Dialysis on Sunday and Sunday. Follows with Dr. Chavis. Patient was in the hospital about 3 weeks ago. Strongly suspected a small bowel ischemia with possible perforation. Due to very high risk of surgery was managed conservatively. Seen by Dr. Garcia from surgery. Was discharged on Augmentin. See medication care was discussed with the patient and the and patient is Dr. Magana. The plan was to convert to hospice if patient's condition deteriorates. Following discharge patient eating very little. Then appetite did improve a little bit. Patient with supportive able to take a few steps. Last night patient spiked a fever. Had a cough. Some shortness of breath. Remains diet. Decrease appetite. Patient did not want to come to the hospital. Palliative care team was called who asked the patient to be moved to the hospital. Patient is a DO NOT RESUSCITATE. This morning, patient's and daughter the bedside. Patient has been having intermittent bowels. Admitted with pneumonia. Put on IV ceftriaxone. March 26: Yesterday discussed with the patient and the daughter the bedside. They understand oral prognosis guarded. Today patient is having increasing abdominal pain. Distention. Had a large BM earlier today. Ultram for pain. Abdominal x-ray showing some nonspecific bowel pattern. Spoke again to the patient has and 2 daughters at the bedside. Any further testing in the setting of known ischemic bowel , especially if no surgery is to be done. Any further workup would be futile. They understand the same. Patient oriented IV ceftriaxone. K pad for pain. No aggressive surgical intervention. Patient is awake, tired March 27: Getting dialysis today. Tired. Some abdominal distention pain. No BM. Eating small amounts. Daughter Izzy at the bedside. Lactulose given. Tired. March 28: Hospital computer system is down. Laying in bed. Both her daughters at the bedside. Having abdominal pain. Ultram.. Eating small amounts. Had a bowel movement yesterday. Had a lengthy talk with the patient and the daughter is at the bedside. Informational visit for hospice today. Plan for discharge tomorrow. Also, discussed with the . Spoke to the director of casework. Home equipment to be started. Patient is very close to hospice. Still wanting hemodialysis. Which is due tomorrow. Current medications reviewed Past medical history to include: Coronary artery disease, COPD, TIA, GERD, hard of hearing, hypertension, osteoarthritis, end-stage kidney disease on hemodialysis Sunday, abdominal aneurysm, coronary bypass, suspected bowel perforation managed medically Social history: Lives with . Smoked a pack a day for 64 years stopped in 2019. 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 Physical examination: VITAL SIGNS: 99.8, 88, 18, 1 37 x 63, 95% on Mk's GENERAL: Reclining in bed, Fistula left upper extremity. Tired EYES: Pupils equal. Conjunctiva pale. HEENT: External appearance of nose and ears normal, oral cavity dry mucous membranes. Decreased hearing NECK: JVD not raised; masses not palpable. HEART: First and second heart sounds are normal; no edema. LUNGS: Respiratory rate normal; decreased breath sounds ABDOMEN: Soft, , some abdominal distention and tenderness, no guarding rigidity, liver spleen not palpable, no masses palpable. PSYCH: Answering questions appropriately MUSCULOSKELETAL:No Clubbing/cyanosis;muscles-grossly intact. Evidence of OA INVESTIGATIONS, reviewed in the clinical context: Abdominal x-ray film personally reviewed by me: Shows nonspecific gas pattern. WBC 3.9 hemoglobin 9.9 platelets 100 sodium 131 potassium 3.6 BUN 48 creatinine 5.04 UA positive for leukoesterase, WBC, WBC clumps, bacteria Coronavirus PCI/not detected EKG tracing personally reviewed by me-atrial fibrillation. Some [place] evening changes. Chest x-ray film personally reviewed by me-right basilar infiltrate Assessment and plan: -Right basilar pneumonia, patient spiked a fever at home and also had his cough. Suspect gram-negative organism.: Better IV ceftriaxone -Possible ischemic bowel. With Recent admission strongly suspicious for small bowel ischemia with perforation. [place] to be high risk for surgery. : Slow to respond Conservative management. Pain medications. K pad. Patient and family decided about no surgical intervention. Seen by Dr. Garcia. -Abdominal aortic aneurysm 5.6 cm Seen by vascular last admission. Family did not want any further intervention. -Chronic urinary retention possibly from bladder outflow obstruction Hinds catheter -End-stage kidney disease on hemodialysis Sunday and Sunday Continue dialysis -Bilateral renal calculi -Anemia of chronic kidney disease Follow H&H -COPD in an ex-smoker DuoNeb 4 times a day -Coronary artery disease prior history of coronary bypass Imdur ER 30 mg a day -GERD Protonix -Hard of hearing -Colonic diverticulosis -Primary osteoarthritis Pain medications as needed -DO NOT RESUSCITATE Continue current medications. Hospice consulted for informational visit. Plan for DC tomorrow. Discussed at length. Clinically not improving. Advanced care planning: This was discussed with the patient and both her daughters at the bedside including a detail. Hospice informational visit is done. Spoke to the director of casework. Patient wants hemodialysis tomorrow. Very close deciding about [facility]. Arrangements being made for home tomorrow. Understands prognosis guarded. Understands no further intervention for the abdominal pain. 25 minutes spent for ACP
--- NOTE | 2022-03-29 16:03 | P.DS ---
Providers Date of admission: 03/24/22 13:48 Expected date of discharge: 03/29/22 Attending physician: Familia Sanders Consults: 03/24/22 13:48 Consult Physician Urgent Consulting Provider: Monserrat Chavis Consult Reason/Comments: Dialysis Do you want consulting provider notified?: Yes 03/26/22 11:46 Consult Physician Routine Consulting Provider: Grey Bey Consult Reason/Comments: abdominal pain Do you want consulting provider notified?: Yes Primary care physician: Junior Brown [facility] Course: Chief Complaint: Fever This is a pleasant 81-year-old patient, follows with Dr. Junior Jalloh. Chronic stable medical conditions include coronary artery disease with bypass, COPD, GERD, hard of hearing, hypertension, osteoarthritis, abdominal aneurysm,. Dialysis on Sunday and Sunday. Follows with Dr. Chavis. Patient was in the hospital about 3 weeks ago. Strongly suspected a small bowel ischemia with possible perforation. Due to very high risk of surgery was managed conservatively. Seen by Dr. Garcia from surgery. Was discharged on Augmentin. See medication care was discussed with the patient and the and patient is Dr. Magana. The plan was to convert to hospice if patient's condition deteriorates. Following discharge patient eating very little. Then appetite did improve a little bit. Patient with supportive able to take a few steps. Last night patient spiked a fever. Had a cough. Some shortness of breath. Remains diet. Decrease appetite. Patient did not want to come to the hospital. Palliative care team was called who asked the patient to be moved to the hospital. Patient is a DO NOT RESUSCITATE. This morning, patient's and daughter the bedside. Patient has been having intermittent bowels. Admitted with pneumonia. Put on IV ceftriaxone. March 26: Yesterday discussed with the patient and the daughter the bedside. They understand oral prognosis guarded. Today patient is having inc reasing abdominal pain. Distention. Had a large BM earlier today. Ultram for pain. Abdominal x-ray showing some nonspecific bowel pattern. Spoke again to the patient has and 2 daughters at the bedside. Any further testing in the setting of known ischemic bowel , especially if no surgery is to be done. Any further workup would be futile. They understand the same. Patient oriented IV ceftriaxone. K pad for pain. No aggressive surgical intervention. Patient is awake, tired March 27: Getting dialysis today. Tired. Some abdominal distention pain. No BM. Eating small amounts. Daughter Izzy at the bedside. Lactulose given. Tired. March 28: Hospital computer system is down. Laying in bed. Both her daughters at the bedside. Having abdominal pain. Ultram.. Eating small amounts. Had a bowel movement yesterday. Had a lengthy talk with the patient and the daughter is at the bedside. Informational visit for hospice today. Plan for discharge tomorrow. Also, discussed with the . Spoke to the director case. Home equipment to be started. Patient is very close to hospice. Still wanting hemodialysis. Which is due tomorrow. March 29: Getting hemodialysis today. Patient is agreed to sign up for hospice will be initiated at home. Come indicated with the nurse and director case. Spoke to the patient. No family at the bedside today. Past medical history to include: Coronary artery disease, COPD, TIA, GERD, hard of hearing, hypertension, osteoarthritis, end-stage kidney disease on hemodialysis Sunday, abdominal aneurysm, coronary bypass, suspected bowel perforation managed medically Social history: Lives with . Smoked a pack a day for 64 years stopped in 2019. 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 Physical examination: VITAL SIGNS: 97.8, 80, 20, 142/69, 95% room air GENERAL: Reclining in bed, getting hemodialysis. EYES: Pupils equal. Conjunctiva pale. HEENT: External appearance of nose and ears normal, oral cavity dry mucous membranes. Decreased hearing NECK: JVD not raised; masses not palpable. HEART: First and second heart sounds are normal; no edema. LUNGS: Respiratory rate normal; decreased breath sounds ABDOMEN: Soft, , some abdominal distention and tenderness, no guarding rigidity, liver spleen not palpable, no masses palpable. PSYCH: Answering questions appropriately MUSCULOSKELETAL:No Clubbing/cyanosis;muscles-grossly intact. Evidence of OA INVESTIGATIONS, reviewed in the clinical context: Abdominal x-ray film personally reviewed by me: Shows nonspecific gas pattern. WBC 3.9 hemoglobin 9.9 platelets 100 sodium 131 potassium 3.6 BUN 48 creatinine 5.04 UA positive for leukoesterase, WBC, WBC clumps, bacteria Coronavirus PCI/not detected EKG tracing personally reviewed by me-atrial fibrillation. Some [place] evening changes. Chest x-ray film personally reviewed by me-right basilar infiltrate Assessment and plan: -Right basilar pneumonia, patient spiked a fever at home and also had his cough. Suspect gram-negative organism.: Better IV ceftriaxone-. Stop antibiotics -Possible ischemic bowel. With Recent admission strongly suspicious for small bowel ischemia with perforation. [place] to be high risk for surgery. : Slow to respond Conservative management. Pain medications. K pad. Patient and family decided about no surgical intervention. Seen by Dr. Garcia. -Abdominal aortic aneurysm 5.6 cm Seen by vascular last admission. Family did not want any further intervention. -Chronic urinary retention possibly from bladder outflow obstruction Hinds catheter -End-stage kidney disease on hemodialysis Sunday and Sunday Continue dialysis -Bilateral renal calculi -Anemia of chronic kidney disease Follow H&H -COPD in an ex-smoker DuoNeb 4 times a day -Coronary artery disease prior history of coronary bypass Imdur ER 30 mg a day -GERD Protonix -Hard of hearing -Colonic diverticulosis -Primary osteoarthritis Pain medications as needed -DO NOT RESUSCITATE/hospice will be initiated. At Home Disposition: Home with hospice Plan - Discharge Summary Discharge Rx Participant: No New Discharge Prescriptions: New Psyllium Husk 100% [Metamucil Packet] 6 gm PO DAILY packet amLODIPine [Norvasc] 5 mg PO HS #30 tab traMADol HCl [Ultram] 50 mg PO QID PRN #12 tab PRN Reason: Pain Continue busPIRone HCL [Buspar] 7.5 mg PO BID Albuterol Nebulized [Ventolin Nebulized] 2.5 mg INHALATION RT-Q4H PRN PRN Reason: Shortness Of Breath Furosemide [Lasix] 40 mg PO DAILY Ipratropium Nebulized [Atrovent Nebulized 0.2 MG/ML] 0.5 mg INHALATION RT-Q4H PRN PRN Reason: Shortness Of Breath Calcium Acetate [PhosLo] 667 mg PO AC-TID Doxazosin [Cardura] 4 mg PO HS Pantoprazole [Protonix] 40 mg PO BID Isosorbide Mononitrate ER [Imdur] 30 mg PO DAILY #30 tab Atorvastatin [Lipitor] 80 mg PO HS #30 tab Midodrine [ProAmatine] 5 mg PO DIRECTED PRN PRN Reason: given @dialysis as needed Cyanocobalamin [Vitamin B-12] 1,000 mcg PO DAILY Discharge Medication List busPIRone HCL [Buspar] 7.5 mg PO BID 04/26/20 [History] Albuterol Nebulized [Ventolin Nebulized] 2.5 mg INHALATION RT-Q4H PRN 06/27/20 [History] Furosemide [Lasix] 40 mg PO DAILY 10/24/21 [History] Pantoprazole [Protonix] 40 mg PO BID 10/24/21 [History] Ipratropium Nebulized [Atrovent Nebulized 0.2 MG/ML] 0.5 mg INHALATION RT-Q4H PRN 02/23/22 [History] Atorvastatin [Lipitor] 80 mg PO HS #30 tab 03/04/22 [Rx] Isosorbide Mononitrate ER [Imdur] 30 mg PO DAILY #30 tab 03/04/22 [Rx] Calcium Acetate [PhosLo] 667 mg PO AC-TID 03/24/22 [History] Cyanocobalamin [Vitamin B-12] 1,000 mcg PO DAILY 03/24/22 [History] Doxazosin [Cardura] 4 mg PO HS 03/24/22 [History] Midodrine [ProAmatine] 5 mg PO DIRECTED PRN 03/24/22 [History] Psyllium Husk 100% [Metamucil Packet] 6 gm PO DAILY packet 03/29/22 [Rx] amLODIPine [Norvasc] 5 mg PO HS #30 tab 03/29/22 [Rx] traMADol HCl [Ultram] 50 mg PO QID PRN #12 tab 03/29/22 [Rx] Follow up Appointment(s)/Referral(s): Junior Brown DO [Primary Care Provider] - 1-2 days Patient Instructions/Handouts: Viral Pneumonia (DC), Sepsis (DC) Discharge Disposition: HOME WITH HOSPICE
--- NOTE | 2022-03-30 05:40 | PN ---
PROGRESS NOTE SUBJECTIVE: The patient is seen for followup for end-stage renal disease. He is maintained on hemodialysis on a Sunday, Sunday, Sunday schedule. The patient denies any significant complaints today. PHYSICAL EXAMINATION: VITAL SIGNS: Blood pressure 145/65, heart rate of 70 per minute. The patient is afebrile. HEART: S1 and S2. LUNGS: Bilateral breath sounds are heard. ABDOMEN: Soft, nontender. EXTREMITIES: Lower extremities shows no evidence of edema. PET STYLIST: Grossly intact. LABORATORY DATA: Show hemoglobin 9.9, sodium 131, potassium 3.6 on initial admission. ASSESSMENT: 1. End-stage renal disease, on hemodialysis on a Sunday, Sunday, Sunday schedule. 2. Abdominal pain with no plans on significant intervention and mostly conservative approach. Currently maintained on antibiotics. 3. Anemia of chronic disease. 4. Urinary tract infection with urine culture growing Enterobacter cloacae. 5. Urine retention currently with indwelling Hinds catheter. PLAN: Continue with antibiotics. We will arrange for hemodialysis in a.m. Continue with indwelling Hinds catheter. MMODL / IJN: [id number] /
--- NOTE | 2022-03-30 06:05 | PN ---
PROGRESS NOTE SUBJECTIVE: The patient is seen for followup for end-stage renal disease. The patient is seen on hemodialysis today. He is tolerating his treatment well. OBJECTIVE: VITAL SIGNS: On examination today, blood pressure was 128/59, heart rate 86 per minute, the patient is afebrile. HEART: S1, S2. LUNGS: Bilateral breath sounds are heard. ABDOMEN: Soft, nontender. LOWER EXTREMITIES: Shows no evidence of edema. DIAMOND PICKER: Grossly intact. LABORATORY DATA: Labs show sodium 131, potassium 3.6, and hemoglobin 9.9 g/dL on 03/24/2022. ASSESSMENT: 1. End-stage renal disease, on hemodialysis on a Sunday, Sunday, Sunday schedule. 2. Abdominal pain in a patient with previous pneumoperitoneum and no plans on significant surgical intervention, currently improving with antibiotics. 3. Urinary tract infection with urine culture growing Enterobacter cloacae and Pseudomonas. 4. Urine retention with indwelling Hinds catheter. PLAN: Hemodialysis today. The patient is stable for discharge from Nephrology standpoint. MMODL / IJN: [id number] /
== END 2022-03-29 12:15 | disposition hospice, home (50) | DRG 177 ==
LOC: EC 11:16 → 1SOBS 13:48 → 4SSUR 15:55 → 5NMEDONC 17:10 → 3SCARD 17:37
PROVIDERS: ADMIT Hospitalist; ATTEND Hospitalist
PROC: 5A1D70Z Performance of Urinary Filtration, Intermittent, Less than 6 Hours Per Day (ICD-10-PCS; principal; 2022-03-24)
DX: J15.6 Pneumonia due to other Gram-negative bacteria (principal); K63.1 Perforation of intestine (nontraumatic); N18.6 End stage renal disease; N39.0 Urinary tract infection, site not specified; I12.0 Hypertensive chronic kidney disease with stage 5 chronic kidney disease or end stage renal disease; I42.9 Cardiomyopathy, unspecified; K55.9 Vascular disorder of intestine, unspecified; J44.0 Chronic obstructive pulmonary disease with (acute) lower respiratory infection; Z20.822 Contact with and (suspected) exposure to COVID-19; D63.1 Anemia in chronic kidney disease; H91.90 Unspecified hearing loss, unspecified ear; I25.10 Atherosclerotic heart disease of native coronary artery without angina pectoris; K21.9 Gastro-esophageal reflux disease without esophagitis; M19.90 Unspecified osteoarthritis, unspecified site; Z66 Do not resuscitate; B96.5 Pseudomonas (aeruginosa) (mallei) (pseudomallei) as the cause of diseases classified elsewhere; B96.89 Other specified bacterial agents as the cause of diseases classified elsewhere; R33.9 Retention of urine, unspecified; I48.91 Unspecified atrial fibrillation; I71.4 Abdominal aortic aneurysm, without rupture; K57.30 Diverticulosis of large intestine without perforation or abscess without bleeding; M19.91 Primary osteoarthritis, unspecified site; E83.89 Other disorders of mineral metabolism; N20.0 Calculus of kidney; Z87.891 Personal history of nicotine dependence; Z95.1 Presence of aortocoronary bypass graft; I25.2 Old myocardial infarction; Z86.73 Personal history of transient ischemic attack (TIA), and cerebral infarction without residual deficits; Z51.5 Encounter for palliative care; Z79.899 Other long term (current) drug therapy; Z99.2 Dependence on renal dialysis; Z88.5 Allergy status to narcotic agent; Z88.8 Allergy status to other drugs, medicaments and biological substances; Z91.15 Patient's noncompliance with renal dialysis
CPT/HCPCS: 36415; 71046; 74019; 80053; 81001; 83605; 85025; 85610; 85730; 86706; 87040; 87077; 87086; 87186; 87340; 87635; 90935; 93005; 94640; 94760; 96361; 96365; 96375; 99291